=== PATIENT | female | born 1950 | race Caucasian/White ===

== ENCOUNTER → 2018-12-25 12:44 | Outpatient (CLI) | payer MEDICARE, SELFPAY ==
[2014-02-14 15:48] VITALS: BMI 42.5
[2018-12-25 13:08] LABS: International Normalized Ratio 2.7; Prothrombin Time (Protime)PT. 28.9 SECONDS (11.7-14.9)
== END ==
PROVIDERS: Family Provider Internal Medicine; PCP Internal Medicine; Referring Provider Internal Medicine; Visit Provider Internal Medicine
DX: I26.99 Other pulmonary embolism without acute cor pulmonale (principal); I82.4Y9 Acute embolism and thrombosis of unspecified deep veins of unspecified proximal lower extremity
CPT/HCPCS: 85610

== ENCOUNTER → 2019-03-19 13:12 | Outpatient (CLI) | payer MEDICARE, SELFPAY ==
[2014-02-14 15:48] VITALS: BMI 42.5
[2019-03-19 13:33] LABS: International Normalized Ratio 2.6; Prothrombin Time (Protime)PT. 28.3 SECONDS (11.7-14.9)
== END ==
PROVIDERS: Family Provider Internal Medicine; PCP Internal Medicine; Referring Provider Internal Medicine; Visit Provider Internal Medicine
DX: Z79.01 Long term (current) use of anticoagulants (principal); I26.99 Other pulmonary embolism without acute cor pulmonale; I82.4Y9 Acute embolism and thrombosis of unspecified deep veins of unspecified proximal lower extremity
CPT/HCPCS: 85610

== ENCOUNTER 2020-03-06 10:57 | Outpatient (RCR) | payer MEDICARE, SELFPAY ==
[2020-03-06 11:24] VITALS: BP 159/77; PULSE 67; RESP 18; TEMP 36.1; BMI 43.3
--- NOTE | 2020-03-06 16:06 | PCM.WC.HP ---
(1) Diabetic foot ulcer associated with type 2 diabetes mellitus Status: Acute Current Visit: Yes Qualifiers: Diabetic foot ulcer location: toe Laterality: right Non-pressure ulcer stage: with fat layer exposed Qualified Code(s): E11.621 - Type 2 diabetes mellitus with foot ulcer; L97.512 - Non-pressure chronic ulcer of other part of right foot with fat layer exposed Code(s): E11.621 - Type 2 diabetes mellitus with foot ulcer; L97.509 - Non-pressure chronic ulcer of other part of unspecified foot with unspecified severity (2) Bilateral lower extremity edema Status: Chronic Current Visit: Yes Code(s): R60.0 - Localized edema (3) Type 2 diabetes mellitus Status: Chronic Current Visit: Yes Code(s): E11.9 - Type 2 diabetes mellitus without complications (4) Essential hypertension Status: Chronic Current Visit: No Code(s): I10 - Essential (primary) hypertension History of Present Illness Date of Service: 03/06/20 Chief Complaint: Right foot ulcer of great toe History of Wound: Patient presents to the wound healing center on 03/06/2020 for an initial evaluation of a diabetic ulcer of her right great toe. She has a medical history significant for type 2 diabetes with peripheral neuropathy, hypertension, and a previous DVT of her right lower extremity in 2013. She reports that in recent weeks she got a new pair of shoes and experienced some pressure/rubbing on her right great toe, resulting in an ulcer. She has been applying Vaseline to her foot ulcer at home. She states that she has a prescription for diabetic shoes, but has not yet filled the prescription. She does not wear compression to her lower extremities while at home. Her blood glucose is poorly controlled. The patient denies any fever, chills, nausea, vomiting, or diarrhea. Denies any signs of infection, including increasing pain, redness, swelling, or frequent/foul-smelling drainage from affected area. Past Medical History Past Medical History: Chronic Problems Bilateral lower extremity edema (Chronic) Type 2 diabetes mellitus (Chronic) Essential hypertension (Chronic) Allergies/Adverse Reactions: Allergies codeine Allergy (Verified 02/14/14 17:02) Rash Penicillins [PCN] Allergy (Verified 02/14/14 15:53) Rash PT REPORTED NOT ALLERGIC Home Medications: Ambulatory Orders Medication Instructions Recorded metFORMIN HCl [Glucophage] 1,000 mg PO DAILY 02/14/14 Smoking Status: Never smoker Review of Systems Constitutional: Denies: Chills, Fever Eyes: Denies: Vision Change HEENT: Denies: Difficulty Hearing, Difficulty Swallowing, Sinus Congestion Cardiovascular: Denies: Chest Pain, Palpitations Respiratory: Denies: Shortness of Breath Gastrointestinal: Denies: Diarrhea, Nausea, Vomiting Genitourinary: Denies: Dysuria, Hematuria Musculoskeletal: Denies: Foot Pain Skin: Reports: Wounds - Diabetic foot ulcer of right great toe Neurological: Reports: Numbness - Chronic diabetic peripheral neuropathy, Tingling Endocrine: Denies: Heat/ Cold Intolerance, Polydipsia, Polyuria Hematologic/ Lymphatic: Reports: Hx of blood clot - DVT of right lower extremity in 2014. Denies: Easy Bruising, Easy Bleeding - Physical Exam Vital Signs Temp Pulse Resp BP 97.0 F L 67 18 159/77 H 03/06/20 11:24 03/06/20 11:24 03/06/20 11:24 03/06/20 11:24 General: Alert, Oriented x3, Cooperative, No apparent distress HEENT: Atraumatic, EOMI, Normocephalic Oral: Moist Mucosa Neck: No JVD, Trachea Midline Lungs: Clear to auscultation, Normal air movement, No rhonchi, No wheeze, No rales Cardiovascular: Regular rate, Regular Rhythm Abdomen: Soft, Non Tender Extremities: No clubbing, No cyanosis - +2 pitting edema bilateral lower extremities, Capillary Refill Less than 3 Seconds, Diminished Peripheral Pulses, Edema Skin: Ulcer/ Wound - Right great toe ulcer with large amount of surrounding callus and small amount of slough and devitalized tissue with fat layer exposed. There is no tunneling, undermining, or probing to bone. There is no allie-ulcer erythema, warmth, swelling or tenderness. There is no purulent or foul-smelling drainage. Wound Measurements and Assessment WC - Nurse 1 - General Ulcer Measurement Start: 03/06/20 11:24 Freq: Status: Active Protocol: Activity Type Activity Date Activity User E-Sign Co-Sign Detail Recorded Client Recorded Date Recorded By Document 03/06/20 11:24 RYAN [id number] 03/06/20 11:35 RYAN 03/06/20 11:24 Wound Center Nurse 1 [Ulcer Assessment] 1-right hallux -Combined with other wound No -Current Size (cm) - Length 0.4 -Current Size (cm) - Width 2.8 -Current Size (cm) - Depth 0.2 -Total Square Cm 1.12 -Photo Taken Yes -Epithelialization None Present -Tunneling No -Undermining/Tunneling No -Circular Undermining No -Classification - Ray Grading ( Grade 2 Diabetic Ulcer) -Exudate Amt None Present -Wound Margin Flat & Intact -Granulation Amt Medium (34-66%) -Granulation Quality Red -Slough/Fibrin Yes -Necrosis Amt Medium (34-66%) -Necrotic Tissue Type Adherent Slough -Structure Exposed N/A -Texture (Allie-wound Skin Appearance) Assessed,Callus -Moisture (Allie-wound Skin Appearance Assessed,Dry/ ) Scaly -Color (Allie-wound Skin Appearance) Assessed -Temperature (Allie-wound Skin No Abnormality Appearance) (Pt Warm) -Tenderness on Palpation (Allie-wound No Skin Appearance) -Ulcer Cleansing Rinsed/ Irrigated with Saline -Foul Odor after Cleansing No -Anesthetic Used 5% Lidocaine Gel [Edema Assessment] -Lower Limb Edema Present Yes -Right Ankle (cm) 36.5 -Left Ankle (cm) 34.0 WC - Nurse 2 - General Ulcer CM Notes Start: 03/06/20 11:24 Freq: Status: Active Protocol: Activity Type Activity Date Activity User E-Sign Co-Sign Detail Recorded Client Recorded Date Recorded By Document 03/06/20 13:53 JASON [id number] 03/06/20 13:54 PL 03/06/20 13:53 Wound Center Nurse 2 [Procedure/Treatment] 1-right hallux -Time 11:57 -Correct Patient Yes -Correct Side, Site, Position Yes -Correct Procedure Yes -Procedure Performed Yes -Type of Procedure Debridement -Clinical Debridement Subcutaneous -Tissue Removed Subcutaneous -Post Debridement (cm) - Length 0.5 -Post Debridement (cm) - Width 3.3 -Post Debridement (cm) - Depth 0.2 -Total Square (Post) (cm) 1.65 -Area of Debridement (cm) - Length 0.5 -Area of Debridement (cm) - Width 3.3 -Total Square (Area) (cm) 1.65 -Tunneling No -Undermining/Tunneling No -Circular Undermining No -Wound/Ulcer Outcome Not Healed -Bioengineered Tissue No -Debridement - Subq, 1st 20sq cm Yes [See Physician Procedure note for Specifics] Pain Scale: 0-10 Numeric [Pain] -Is Patient Pain Free? Yes Musculoskeletal: No Muscle Wasting Neurological: Neuro grossly intact Psych/Mental Status: Normal Affect, Appropriate Debridement Note Post-Debridement Measurements/Treatment WC - Nurse 2 - General Ulcer CM Notes Start: 03/06/20 11:24 Freq: Status: Active Protocol: Activity Type Activity Date Activity User E-Sign Co-Sign Detail Recorded Client Recorded Date Recorded By Document 03/06/20 13:53 PL [id number] 03/06/20 13:54 PL 03/06/20 13:53 Wound Center Nurse 2 1-right hallux -Time 11:57 -Correct Patient Yes -Correct Side, Site, Position Yes -Correct Procedure Yes -Procedure Performed Yes -Type of Procedure Debridement -Clinical Debridement Subcutaneous -Tissue Removed Subcutaneous -Post Debridement (cm) - Length 0.5 -Post Debridement (cm) - Width 3.3 -Post Debridement (cm) - Depth 0.2 -Total Square (Post) (cm) 1.65 -Area of Debridement (cm) - Length 0.5 -Area of Debridement (cm) - Width 3.3 -Total Square (Area) (cm) 1.65 -Tunneling No -Undermining/Tunneling No -Circular Undermining No -Wound/Ulcer Outcome Not Healed -Bioengineered Tissue No -Debridement - Subq, 1st 20sq cm Yes Pain Scale: 0-10 Numeric Is Patient Pain Free? Yes Wound debrided: Right great toe Laterality: Right Wound Grade/Stage: Ray grade 1 Type of Debridement: Excisional debridement Depth: in the subcutaneous layer Percentage of wound debrided: 100 Instrument Used: 3mm curette, #10 blade Tissue Removed: Callus, slough and devitalized tissue Severity: Fat Layer Exposed Amount of bleeding with debridement: Mild Bleeding Controlled with: Pressure Patient tolerated procedure well Assessment/Plan Active Problems Diabetic foot ulcer associated with type 2 diabetes mellitus (Acute) Bilateral lower extremity edema (Chronic) Type 2 diabetes mellitus (Chronic) Assessment: As above Plan: Debridement performed today in clinic. Moistened Sharonda applied. We will apply for advanced skin substitutes (Epifix). At home wound-care instructions: Perform daily dressing changes with moistened Sharonda. Keep ulcer clean and dry. Wash allie-ulcer area with antibacterial soap and water, rinse and dry thoroughly. Avoid soaking or submersion of ulcer. Compression: Double Tubigrip's applied today in office. Patient instructed to wear Tubigrip's daily. Instructed to keep feet at or above waist level when seated. Avoid prolonged periods of standing or dangling of legs. Off-loading: Patient encouraged to fill prescription for diabetic shoes. Educated on the importance of preventing pressure on diabetic foot ulcer. Diet: Patient encouraged to increase protein and vitamin C intake while taking caution to avoid high carbohydrate and/or sugar intake. Labs/cultures/imaging: Cultures deferred; there are no clinical signs of infection. Routine baseline labwork ordered. Vascular studies ordered. Follow-up: Return to clinic in 2 weeks for re-evaluation. Return sooner or report to the emergency room should symptoms worsen, or new symptoms arise. Note: [employer] speech recognition extruder operator horizontal software was used to create portions of this document. Sound-alike and misspelled words, as well as other extruder operator horizontal errors may be contained in the documentation. Office Visits / Consults: [id number] OV L4 New 111xxx-113xx: [id number] Kari subq tissue 20 sq cm/<
== END 2020-03-25 23:59 ==
LOC: WC 10:57
PROVIDERS: PCP Internal Medicine; Visit Provider Nurse Practitioner Family
DX: E11.621 Type 2 diabetes mellitus with foot ulcer (principal); L97.512 Non-pressure chronic ulcer of other part of right foot with fat layer exposed; R60.0 Localized edema; I10 Essential (primary) hypertension; E11.42 Type 2 diabetes mellitus with diabetic polyneuropathy; Z86.718 Personal history of other venous thrombosis and embolism; Z79.84 Long term (current) use of oral hypoglycemic drugs
CPT/HCPCS: 11042; 99213; G0463

== ENCOUNTER 2020-12-03 14:45 | Outpatient (RCR) | payer MEDICARE, SELFPAY ==
--- NOTE | 2020-12-04 07:49 | HP.OTEVAL_ITS ---
Patient's Visit Information MARK SOARES is a 69 year old F, referred to Occupational Therapy by SANDRA Mcgill, with a diagnosis of lymphedmea. Date of Evaluation: 12/03/20 Occupational Therapist: Medina Finch, RANR/Bonnie, CHT - Subjective This 69 year old female was seen for OT eval with dx. of Lymphedema. pt states her right leg is more swollen than left. pt states she has had swelling for over two years. pt states she thinks she did have cellulitis at one point. pt states she has more issue while she was in [place]. pt states she sleeps in a recliner. pt states she has had a compression socks but was unable to get them on. pt is currently using tubigrip that does help and her can get them on. - Lymphedema (Circumferential Measure) Mid-foot: right 26cm left 26cm Ankle: right 26cm left 26cm Lower calf: right 44cm left 42cm Largest calf: right 60cm left 58cm Below knee: right 54cm left 48cm - Lower Limb Functional Index Lower Extremity Functional Score: 25 - Goals Demonstrate a 20% reduction in edema by d/c: Yes Demonstrate adequate knowledge of self-massage by 2nd week: Yes Demonstrate adequate knowledge skin care/prec by 2nd week: Yes Demonstrate adequate knowledge therapeutic exercises by d/c: Yes Select approp compression garment w/donning/care/wear by d/c: Yes Voice need to replace compression garment every 4-6mo by dc: Yes - Rehabilitation General Assessment: pt demo with edema in bilateral LE. pt has attempted to mtg swelling but has not been able to do so. this has made increase difficulty with her mobility and lifting legs to get in car, or in and out of bed. Pt demo need for skilled therapy services 2-3 visits to ed. pt on lymphedema dx, treatments, lymph stimulation exercises, self manual lymph drainage massage, and use of compression device (socks or Velcro closures). Today therapist ed. pt on dx, beneficial exercise, skin care,/precautions, how to measure for compression socks and where she can purchase them. therapist also ed. pt on self manual lymph drainage massage. therapist gave handouts on information- Pt and pts demo understanding and agree to POC. Rehabilitation Potential: Questionable - Anticipated Interventions Education re Diagnosis, Manual Lymph Drainage, Education re Life-long lymphedema Management, Education re Skin Care and Precautions, Education re Self Massage Techniques, Education re Correct Donning Tech,Care&Wearing Sched Comp Garments, Caregiver Training, Home Program - Visit Plan TEXT: Thank you for the opportunity to evaluate your patient. For Medicare and Medicare HMO plans, please review the plan of care and approve it. It will need to be FAXED BACK to us at [phone] for Medicare purposes. Please let me know if there are questions or concerns regarding this plan of care. Physician Signature: Date:
--- NOTE | 2021-02-15 16:07 | HP.OT.NRP ---
MARK SOARES was seen in my office for initial evaluation on 12/03/20. The following Plan of Care was established for this patient: pt was seen for eval only. Did not schedule further apts. pt d.c. at this time. Anticipated Interventions: Education re Diagnosis, Manual Lymph Drainage, Education re Life-long lymphedema Management, Education re Skin Care and Precautions, Education re Self Massage Techniques, Education re Correct Donning Tech,Care&Wearing Sched Comp Garments, Caregiver Training, Home Program This patient was last seen in our office . Pertinent comments regarding their Occupational therapy will appear below: At this point I will be discontinuing this patient from occupational therapy. I would be happy to see this patient again in the future if found appropriate by the physician. Thank you! Medina Ficnh, OTR/L, CHT
== END 2020-12-03 19:00 | disposition home or self-care (01) ==
LOC: OT 14:45
PROVIDERS: PCP Internal Medicine; Referring Provider Nurse Practitioner; Visit Provider Nurse Practitioner
DX: I89.0 Lymphedema, not elsewhere classified (principal); I87.2 Venous insufficiency (chronic) (peripheral)
CPT/HCPCS: 97166; 97530

== ENCOUNTER 2021-06-28 13:20 | Outpatient (CLI) | payer MEDICARE, SELFPAY | END 2021-06-28 23:59 | disposition short-term general hospital (02) | LOC: LABSPEC 13:23 | PROVIDERS: PCP Internal Medicine; Referring Provider Physician Assistant; Visit Provider Physician Assistant | DX: Z11.52 Encounter for screening for COVID-19 (principal) | CPT/HCPCS: 87635; U0003; U0005 ==

== ENCOUNTER 2022-03-12 20:14 | Inpatient (IN) | payer MEDICARE, SELFPAY ==
[2022-03-12] VITALS (8 sets, daily range): BP systolic 101–142; BP diastolic 49–80; PULSE 76–119; RESP 17–31; TEMP 37.2–37.9; O2SAT 94–98; BMI 44.4; BMI 45.1
--- NOTE | 2022-03-12 20:37 | EDS_ITS ---
HPI History of Present Illness Chief Complaint: General Illness Informant: patient Narrative Narrative: Patient states she has not been feeling well for about a day. She has some nausea but no vomiting. She states she has brought up just a little bit of phlegm. She denies coughing or dyspnea. She is urinating more frequently but no dysuria. She is also having some mild diarrhea without blood. She is not having abdominal pain. She does have generalized weakness. She took a home COVID test that was negative. She also got her fifth COVID-vaccine on Monday and the symptoms started likely on Monday. She does not know exactly which vaccine she took. She did not have problems that she recalls with prior vaccines. Her got the same vaccine and he is not having symptoms. [facility] Medical History Diabetes Hyperlipidemia Home Medications metformin 1,000 mg tablet 1,000 mg PO DAILY 02/14/14 [History Last Taken Unknown] atorvastatin 80 mg tablet 80 mg PO QHS 03/12/22 [History Last Taken Unknown] glimepiride 4 mg tablet 8 mg PO DAILY 03/12/22 [History Last Taken Unknown] levothyroxine 75 mcg tablet (Synthroid) 75 mcg PO DAILY 03/12/22 [History Last Taken Unknown] warfarin 1 mg tablet 1 mg PO MOFR 03/12/22 [History Last Taken Unknown] warfarin 2 mg tablet 2 mg PO SUTUWETHSA 03/12/22 [History Last Taken Unknown] Allergy/AdvReac Type Severity Reaction Status Date / Time codeine Allergy Rash Verified 03/12/22 20:20 Penicillins [PCN] Allergy Rash Verified 03/12/22 20:20 Social History Smoking Status: Never smoker [facility] ED Constitutional Constitutional ED: Reports chills, fever(s) and subjective Eyes Eyes: Denies change in vision ENT ENT ED: Reports other Details: Throat is dry but not sore ; Denies ear pain, rhinorrhea or sore throat Cardiovascular Cardiovascular: Denies chest pain, palpitations or racing heartbeat Respiratory/Chest Respiratory/Chest: Denies dyspnea Gastrointestinal Gastrointestinal: Reports diarrhea and nausea; Denies abdominal pain or vomiting Genitourinary Genitourinary ED: Reports urinary frequency; Denies dysuria or hematuria Musculoskeletal Musculoskeletal: Reports myalgias Integumentary Denies Abrasions or rash Neurologic Neurologic: Denies headache(s), paresthesias or weakness Endocrine Endocrinology: Reports polyuria; Denies polydipsia Hematologic/Lymphatic Hematologic/Lymphatic: Reports easy bleeding and easy bruising Allergic/Immunologic Allergic/Immunologic ED: Denies urticaria EXAM Physical Exam Const Vital Signs: 03/12/22 20:15 03/12/22 20:26 03/12/22 21:18 Temperature 100.1 F H 99 F Temperature Source Oral Oral Pulse Rate 85 119 H Respiratory Rate 17 19 H Respiratory Effort Normal Non-Labored Respiratory Pattern Normal Blood Pressure 142/71 H 130/80 H Blood Pressure Mean 94 96 Pulse Ox 96 97 Oxygen Delivery Method Room Air Room Air 03/12/22 22:08 Temperature 99.3 F H Temperature Source Oral Pulse Rate 94 Respiratory Rate 19 H Respiratory Effort Respiratory Pattern Blood Pressure 128/56 H Blood Pressure Mean 80 Pulse Ox 94 Oxygen Delivery Method Room Air Positive well nourished and well developed General Appearance ED: well developed HEENT Reports dry mucous membranes Mouth ED: Yes dry mucous membranes Mouth: dry mucous membranes Eyes General Eye ED: Negative for scleral icterus Neck supple and no JVD Resp normal respiratory effort and clear to auscultation bilaterally Resp Narrative: 96% sat on room air showing no hypoxia. Auscultation: Negative for rales, rhonchi or wheezes Cardio regular rate and regular rhythm GI normal to inspection, nondistended, normoactive bowel sounds, non-tender and non-distended Extremity Extremity Narrative: Bilateral chronic edema no different than in the past Neuro oriented x3 Neuro Narrative: Patient is awake alert and oriented. But she seems somewhat tired and worn out. No focal deficit. Psych mental status grossly normal Skin no rashes or lesions noted MDM MDM MDM Narrative Medical decision making narrative: Patient's white count is elevated at 20,024. INR is just below therapeutic at 1.9. She has a acute kidney injury with elevated creatinine. Glucose is elevated at 471. She is given IV fluids and insulin to help the kidney function and glucose. Lactate was 3.7. This is likely a combination of dehydration, infection and being on metformin. Urine is cloudy with positive nitrates and 10-25 white cells. Even though this is not an extremely high number of white cells, she has polyuria from her hyperglycemia which is diluting this. She has symptoms of urine infection along with white count fever and elevated lactate. She was given IV fluids here. But because her heart rate and blood pressure is good we did not give her 30 cc/kg. Part of her lactate elevation is likely also due to metformin. We will give fluids and intermittent amounts and reassess the patient. As she has allergies to penicillins she is given Levaquin. I discussed case with the hospitalist. With her elevated lactate she will go to the ICU. Lab Data Attestation: I reviewed the patient's lab results. Labs: Laboratory Results - last 24 hr 03/12/22 03/12/22 03/12/22 20:21 20:21 20:21 WBC 20.4 H RBC 4.67 Hgb 12.9 Hct 40.3 MCV 86.3 MCH 27.6 MCHC 32.0 RDW Std Deviation 47.6 H RDW Coeff of Dayo 15.1 H Plt Count 233 MPV 9.1 Immature Gran % (Auto) 0.900 Neut % (Auto) 93.3 H Lymph % (Auto) 2.8 L [place] % (Auto) 2.9 Eos % (Auto) 0.0 Baso % (Auto) 0.1 Absolute Neuts (auto) 19.1 H Absolute Lymphs (auto) 0.57 L Nucleated RBC % 0 Differential Comment SCANNED PT 21.5 H INR 1.9 Sodium 130 L Potassium 4.1 Chloride 95 L Carbon Dioxide 21.0 Anion Gap 14 BUN 34 H Creatinine 1.83 H Estim Creat Clear Calc 29.27 Est GFR (MDRD) Af Amer 35 L Est GFR (MDRD) Non-Af 29 L BUN/Creatinine Ratio 18.6 Glucose 471 H* Lactic Acid Calcium 9.4 Total Bilirubin 0.70 AST 16 ALT 22 Alkaline Phosphatase 87 Total Protein 8.7 H Albumin 3.5 Globulin 5.2 H Albumin/Globulin Ratio 0.7 L Urine Color Urine Clarity Urine pH Ur Specific [place] Urine Protein Urine Glucose (UA) Urine Ketones Urine Occult Blood Urine Nitrite Urine Bilirubin Urine Urobilinogen Ur Leukocyte Esterase Urine RBC Urine WBC Ur Squamous Epith Cells Urine Bacteria Urine Mucus Urine Yeast POC Glucose 03/12/22 03/12/22 03/12/22 20:21 20:22 20:45 WBC RBC Hgb Hct MCV MCH MCHC RDW Std Deviation RDW Coeff of Dayo Plt Count MPV Immature Gran % (Auto) Neut % (Auto) Lymph % (Auto) [place] % (Auto) Eos % (Auto) Baso % (Auto) Absolute Neuts (auto) Absolute Lymphs (auto) Nucleated RBC % Differential Comment PT INR Sodium Potassium Chloride Carbon Dioxide Anion Gap BUN Creatinine Estim Creat Clear Calc Est GFR (MDRD) Af Amer Est GFR (MDRD) Non-Af BUN/Creatinine Ratio Glucose Lactic Acid 3.7 H* Calcium Total Bilirubin AST ALT Alkaline Phosphatase Total Protein Albumin Globulin Albumin/Globulin Ratio Urine Color Yellow Urine Clarity Sl. Cloudy Urine pH 5.0 Ur Specific [place] 1.010 Urine Protein 100 H Urine Glucose (UA) 1000 H Urine Ketones 5 H Urine Occult Blood 250 H Urine Nitrite Positive H Urine Bilirubin Negative Urine Urobilinogen Normal Ur Leukocyte Esterase 25 H Urine RBC 0-5 SEEN Urine WBC 10-25 SEEN Ur Squamous Epith Cells 0-5 SEEN Urine Bacteria 1+ Urine Mucus 0 SEEN Urine Yeast RARE POC Glucose 467 H* Radiography Diagnostic Testing: Clinical Impression(s) from Imaging Studies Chest X-Ray 03/12/22 21:00 IMPRESSION: Normal x-ray examination of the chest. Electronically Signed: Teodoro Mann MD at 21:38 EDT , Critical Care Time Critical Care Time: Yes Critical care time (excluding procedures): 30-74 minutes, Including time spent:, Discussing w/Patient &/or Family/Dock Loader, Discussing w/Consultants, Arranging Admission or Transfer, Performing Direct Patient Care at Bedside and - (35 minutes, discussion with patient, family, documentation, hospitalist, reassessing, fluids, antibiotics, insulin) Discharge Plan Dx/Rx/DC Orders Clinical Impression: Sepsis, Urinary tract infection, Hyperglycemia, Acidosis, lactic, Acute kidney injury Disposition Disposition: [facility]
[2022-03-12 20:41] LABS: Bedside Glucose 467 mg/dL (74-106)
[2022-03-12] MEDS: Acetaminophen 500 MG Tablet 1000 MG PO (20:49)
[2022-03-12] MEDS: Ondansetron 4 MG/2 ML Vial IV (20:50)
[2022-03-12 20:51] LABS: Absolute Lymphocyte Count 0.57 X10^3/uL (0.83-4.51); Absolute Neutrophil Count 19.1 X10^3/uL (2.0-7.7); Basophil# 0.02 X10^3/uL; Basophil% 0.1 % (0-1); Hematocrit 40.3 % (37-47); Hemoglobin 12.9 g/dL (12.0-15.0); Lymphocyte # 0.57 X10^3/ul (0.83-4.51); Lymphocyte % 2.8 % (19-41); Mean Corpuscular Hgb 27.6 pg (27.0-32.0); Mean Corpuscular Volume 86.3 fL (81-99); Mean Platelet Vol. 9.1 fl (6.2-12.0); Monocyte# 0.59 X10^3/uL; Monocyte% 2.9 % (0-10); NRBC Flagged by Analyzer 0 % (0-5); Neutrophil # 19.06 X10^3/uL (2.7-7.7); Neutrophil % 93.3 % (47-70); POSITIVE DIFFERENTIAL YES; Platelet Count 233 K/mm3 (150-450); RBC Distribution Width CV 15.1 % (11.6-14.6); RBC Distribution Width SD 47.6 fl (35.1-43.9); Red Blood Count 4.67 M/mm3 (4.2-5.4); White Blood Count 20.4 K/mm3 (4.4-11.0)
[2022-03-12 20:54] LABS: Mucous, Urine 0 SEEN /hpf (<or=2+)
--- NOTE | 2022-03-12 21:00 | RAD_ITS ---
STUDY: X-RAY CHEST REASON FOR EXAM: Female, 71 years old. fever TECHNIQUE: Single AP portable view of the chest. COMPARISON: 02/14/2014 FINDINGS: The lungs are clear and expanded. There is no demonstrated pleural abnormality. Normal size heart. Normal mediastinum and elisa. Normal visualized pulmonary arteries. Normal visualized aortic arch and descending thoracic aorta. Normal visualized thoracic spine. Normal visualized ribs, clavicles, and shoulders. There is no demonstrated abnormality of the visualized soft tissue structures of the upper abdomen. RAD/Chest 1 View (Portable) IMPRESSION: Normal x-ray examination of the chest. Electronically Signed: Teodoro Mann MD at 21:38 EDT ,
[2022-03-12 21:01] LABS: Differential Indicated SCAN CRITERIA MET
[2022-03-12 21:01] LABS: Color, Urine Yellow (Yellow); Glucose, Dipstick 1000 mg/dl (Normal); Ketone-Dipstick 5 mg/dl (Negative); Leukocyte Esterase-Dipstick 25 /ul (Negative); Nitrite-Dipstick Positive (Negative); Occult Blood-Urine 250 /ul (Negative); Protein-Dipstick 100 mg/dl (Negative); Urine Bilirubin Dipstick Negative (Negative); Urine Clarity Sl. Cloudy (Clear); Urine Urobilinogen Normal (Normal)
[2022-03-12 21:04] LABS: International Normalized Ratio 1.9; Prothrombin Time (Protime)PT. 21.5 SECONDS (11.7-14.9)
[2022-03-12 21:24] LABS: ALB/GLOB Ratio 0.7 RATIO (0.9-2.4); AST(SGOT) 16 U/L (15-37); Alanine Aminotransfer ALT/SGPT 22 U/L (13-56); Albumin, Serum 3.5 g/dL (3.2-5.0); Alkaline Phosphatase 87 U/L (45-117); Anion Gap 14 (5-15); BUN 34 mg/dL (7-18); BUN/Creat Ratio 18.6 RATIO (10-20); Calcium,Total 9.4 mg/dL (8.5-10.1); Chloride 95 mmol/L (98-107); Creatinine, Serum 1.83 mg/dL (0.55-1.02); EST Glomerular Filtration Rate 29 mL/min (>60); Est Glom Filt Rate - Afr Amer 35 mL/min (>60); Estimated Creatinine Clearance 29.27 ml/min; Globulin 5.2 g/dL (2.2-4.2); Glucose 471 mg/dL (74-106); Potassium 4.1 mmol/L (3.5-5.1); Protein, Total 8.7 g/dL (6.4-8.2); Sodium Level 130 mmol/L (136-145)
[2022-03-12 21:25] LABS: White Blood Cells 10-25 SEEN /hpf (0-5)
[2022-03-12 21:25] LABS: Differential Comment SCANNED
[2022-03-12 21:26] LABS: Bacteria 1+ /hpf (None Seen); Red Blood Cells-Urine 0-5 SEEN /hpf (0-5); Squamous Epithelial Cells - UA 0-5 SEEN /hpf (5-10); Yeast-Urine RARE /hpf (None Seen)
[2022-03-12] MEDS: levoFLOXacin IV 750 MG/150 ML BAG 100 MG IV (21:45)
[2022-03-12] MEDS: 0.9% Normal Saline 1,000 ML 999 ML IV (21:45)
[2022-03-12] MEDS: Insulin Lispro 100 UNIT/ML INSULN.PEN 10 UNIT SC (21:47)
[2022-03-12 21:59] LABS: Lactic Acid 3.7 mmol/L (0.4-1.9)
--- NOTE | 2022-03-12 22:44 | PCM.HP.STD ---
HPI - General General Date of Admission: 03/12/22 Date of Service: 03/12/22 Chief Complaint: Weakness HPI Narrative MARK SOARES, is a 71 F with a significant history of DVT, PE, and diabetes mellitus who presents to the emergency department with a progressively worsening weakness that started on the same day of presentation. Patient was too weak that she could not get up with a walker and even with assistance. Associated with her symptoms is nausea, vomiting, polyuria, urinary urgency, dysuria, fever, and chills. Further, she has anorexia. Reportedly at home, her temperature was 100.8 Fahrenheit. Also she had mild confusion. [facility] Medical History Diabetes Hyperlipidemia Home Medications metformin 1,000 mg tablet 1,000 mg PO DAILY 02/14/14 [History Last Taken Unknown] atorvastatin 80 mg tablet 80 mg PO QHS 03/12/22 [History Last Taken Unknown] glimepiride 4 mg tablet 8 mg PO DAILY 03/12/22 [History Last Taken Unknown] levothyroxine 75 mcg tablet (Synthroid) 75 mcg PO DAILY 03/12/22 [History Last Taken Unknown] warfarin 1 mg tablet 1 mg PO MOFR 03/12/22 [History Last Taken Unknown] warfarin 2 mg tablet 2 mg PO SUTUWETHSA 03/12/22 [History Last Taken Unknown] Allergy/AdvReac Type Severity Reaction Status Date / Time codeine Allergy Rash Verified 03/12/22 20:20 Penicillins [PCN] Allergy Rash Verified 03/12/22 20:20 Family History Other CVA (cerebral vascular accident) Pancreatic cancer Surgical History H/O: hysterectomy Social History Smoking Status: Never smoker ROS ROS Narrative Pertinent positives and pertinent negatives as noted in HPI. All other systems were reviewed and are negative Vital Signs Vital Signs Vital Signs: 03/12/22 20:15 03/12/22 20:26 03/12/22 21:18 Temperature 100.1 F H 99 F Temperature Source Oral Oral Pulse Rate 85 119 H Respiratory Rate 17 19 H Respiratory Effort Normal Non-Labored Respiratory Pattern Normal Blood Pressure 142/71 H 130/80 H Blood Pressure Mean 94 96 Pulse Ox 96 97 Oxygen Delivery Method Room Air Room Air 03/12/22 22:08 Temperature 99.3 F H Temperature Source Oral Pulse Rate 94 Respiratory Rate 19 H Respiratory Effort Respiratory Pattern Blood Pressure 128/56 H Blood Pressure Mean 80 Pulse Ox 94 Oxygen Delivery Method Room Air Weight Weight: 132.7 kg Body Mass Index (BMI) 44.4 Physical Exam Narrative Physical exam: General: Well-nourished, well-developed. Head: Normocephalic, atraumatic, no tenderness Eyes: Vision is grossly intact. EOMI ENT, no trauma, dry mucous membranes, no rhinorrhea Neck: Nontender, full range of motion CVS: Regular rate and rhythm. S1-S2 present. No murmur, gallop or rub. Respiratory : clear to auscultation bilaterally, chest wall nontender, no wheezing Abdomen: Soft, nontender, nondistended, normal bowel sounds, no masses : Deferred Back: Nontender, no CVA tenderness Extremities: Nontender full range of motion, no trauma Skin: Normal color, no trauma, abrasions Neuro: Alert, oriented, cranial nerves II through XII grossly intact. Psychiatry: Normal mood. Normal affect. Not depressed. Not anxious. Results Lab / Micro Data Result Diagrams: 03/12/22 20:21 03/12/22 20:21 Labs: Laboratory Results - last 24 hr 03/12/22 20:21: WBC 20.4 H, RBC 4.67, Hgb 12.9, Hct 40.3, MCV 86.3, MCH 27.6, MCHC 32.0, RDW Std Deviation 47.6 H, RDW Coeff of Dayo 15.1 H, Plt Count 233, MPV 9.1, Immature Gran % (Auto) 0.900, Neut % (Auto) 93.3 H, Lymph % (Auto) 2.8 L, [place] % (Auto) 2.9, Eos % (Auto) 0.0, Baso % (Auto) 0.1, Absolute Neuts (auto) 19.1 H, Absolute Lymphs (auto) 0.57 L, Nucleated RBC % 0, Differential Comment SCANNED 03/12/22 20:21: PT 21.5 H, INR 1.9 03/12/22 20:21: Sodium 130 L, Potassium 4.1, Chloride 95 L, Carbon Dioxide 21.0, Anion Gap 14, BUN 34 H, Creatinine 1.83 H, Estim Creat Clear Calc 29.27, Est GFR (MDRD) Af Amer 35 L, Est GFR (MDRD) Non-Af 29 L, BUN/Creatinine Ratio 18.6, Glucose 471 H*, Calcium 9.4, Total Bilirubin 0.70, AST 16, ALT 22, Alkaline Phosphatase 87, Total Protein 8.7 H, Albumin 3.5, Globulin 5.2 H, Albumin/Globulin Ratio 0.7 L 03/12/22 20:21: Lactic Acid 3.7 H* 03/12/22 20:22: POC Glucose 467 H* 03/12/22 20:45: Urine Color Yellow, Urine Clarity Sl. Cloudy, Urine pH 5.0, Ur Specific [place] 1.010, Urine Protein 100 H, Urine Glucose (UA) 1000 H, Urine Ketones 5 H, Urine Occult Blood 250 H, Urine Nitrite Positive H, Urine Bilirubin Negative, Urine Urobilinogen Normal, Ur Leukocyte Esterase 25 H, Urine RBC 0-5 SEEN, Urine WBC 10-25 SEEN, Ur Squamous Epith Cells 0-5 SEEN, Urine Bacteria 1+, Urine Mucus 0 SEEN, Urine Yeast RARE Micro: Microbiology 03/12/22 20:45 Nasal Secretion SARS-CoV-2 & FLU Antigen (Rapid) - Final Radiology Impression Chest X-Ray 03/12/22 21:00 IMPRESSION: Normal x-ray examination of the chest. Electronically Signed: Teodoro Mann MD at 21:38 EDT , Assessment & Plan Assessment/Plan (1) Sepsis: (2) Urinary tract infection: (3) Hyperglycemia: (4) Acute kidney injury: (5) Acidosis, lactic: (6) Essential hypertension: (7) Type 2 diabetes mellitus: (8) Morbid obesity with BMI of 40.0-44.9, adult: PLAN: Plan Sepsis secondary to UTI Urinalysis abnormal. The patient presented with sepsis due to UTI with acute sepsis related organ dysfunction as evidenced by lactic acid of more than 2. Her lactic acid was 3.7. Metformin likely contributing to elevated lactic acid.. SIRS criteria: Heart rate of more than 90; WBC more than 12,000; Received Levaquin emergency department. Because of TRAVIS will avoid further Levaquin. Reports previous history of allergy to penicillin many years ago. But reportedly she had penicillin more recently and was observed without any reaction. Ceftriaxone ordered. Urine culture and blood culture was obtained in the emergency department follow. Trend CBC. Admit intensive care unit. Hr Coordinator consult. Diabetes mellitus with hyperglycemia Blood glucose on BMP was 471. Received 10 units of lispro at emergency department on presentation. Normal saline bolus given in the emergency department. Hold metformin. Glimepiride continued. Accu-Chek with correction scale insulin continued. Pseudohyponatremia Sodium of 130. Blood glucose of 471. Corrected sodium of 136. Trend BMP. TRAVIS on CKD stage III/dehydration Creatinine on presentation was 1.83. Dry mucous membrane. BUN is 34. BUN over creatinine is 18.6. Review of electronic community records shows that creatinine was 1.11 and EGFR of 54 on 10/01/2021. 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 History of DVT and PE/subtherapeutic INR INR on presentation was 1.9. Escalate dose of Coumadin. Trend INR Hypertension Blood pressure is stable. Trend blood pressures Debility PT and OT to work with patient for strengthening and balance training. Morbid obesity BMI: 44.5 kg/m?. Complicates care. Lifestyle modification recommended. DVT prophylaxis: Coumadin dosing INR as above. Sepsis Attestation Sepsis Alert: Yes Sepsis Attestation: Agree w/Sepsis Date exam was performed: 03/12/22 Time exam was performed: 23:20 Possible Source of Sepsis: GI tract/intra-abdominal Sepsis Organ Dysfunction Criteria Present: Lactic Acid > 2 mmol/L Sepsis Note Date exam was performed: 03/12/22 Time exam was performed: 23:21 Sepsis Attestation: Sepsis re-evaluation was performed Charges/Coding Visit Charges Inpatient E&M: 91007 Init Hosp L3
[2022-03-12] MEDS: 0.9% Normal Saline 1,000 ML 100 ML IV (23:52)
[2022-03-13] VITALS (26 sets, daily range): BP systolic 96–158; BP diastolic 50–91; PULSE 66–95; RESP 16–35; TEMP 36.9–39; O2SAT 91–100
[2022-03-13 00:47] LABS: Reflex Lactate? Y
[2022-03-13 01:31] LABS: Lactic Acid 3.7 mmol/L (0.4-1.9)
[2022-03-13] MEDS: Acetaminophen 325 MG Tablet 650 MG PO ×2 (02:32→07:59)
[2022-03-13] MEDS: CHLORHEXIDINE GLUC 2% CLOTH 1 EACH TOWELETTE TOPICAL (02:34)
[2022-03-13] MEDS: Ondansetron 4 MG/2 ML Vial IV ×2 (02:39→16:20)
[2022-03-13] MEDS: 0.9% Saline Lock 10 ML Syringe IV (02:39)
[2022-03-13 04:04] LABS: Absolute Lymphocyte Count 0.37 X10^3/uL (0.83-4.51); Absolute Neutrophil Count 16.1 X10^3/uL (2.0-7.7); Basophil# 0.02 X10^3/uL; Basophil% 0.1 % (0-1); Hematocrit 35.6 % (37-47); Hemoglobin 11.3 g/dL (12.0-15.0); Lymphocyte # 0.37 X10^3/ul (0.83-4.51); Lymphocyte % 2.2 % (19-41); Mean Corp Hgb Conc 31.7 g/dL (32-36); Mean Corpuscular Hgb 27.6 pg (27.0-32.0); Mean Corpuscular Volume 86.8 fL (81-99); Mean Platelet Vol. 8.6 fl (6.2-12.0); Monocyte# 0.48 X10^3/uL; Monocyte% 2.8 % (0-10); NRBC Flagged by Analyzer 0 % (0-5); Neutrophil # 16.06 X10^3/uL (2.7-7.7); Neutrophil % 93.8 % (47-70); POSITIVE DIFFERENTIAL YES; Platelet Count 183 K/mm3 (150-450); RBC Distribution Width CV 15.3 % (11.6-14.6); RBC Distribution Width SD 48.6 fl (35.1-43.9); White Blood Count 17.1 K/mm3 (4.4-11.0)
[2022-03-13 04:09] LABS: Differential Indicated SCAN CRITERIA MET
[2022-03-13 04:14] LABS: International Normalized Ratio 2.1; Prothrombin Time (Protime)PT. 22.9 SECONDS (11.7-14.9)
[2022-03-13 04:16] LABS: Bedside Glucose 382 mg/dL (74-106)
[2022-03-13 04:19] LABS: Anion Gap 10 (5-15); BUN 33 mg/dL (7-18); BUN/Creat Ratio 19.3 RATIO (10-20); Calcium,Total 8.2 mg/dL (8.5-10.1); Chloride 98 mmol/L (98-107); Creatinine, Serum 1.71 mg/dL (0.55-1.02); EST Glomerular Filtration Rate 31 mL/min (>60); Est Glom Filt Rate - Afr Amer 38 mL/min (>60); Estimated Creatinine Clearance 30.19 ml/min; Glucose 403 mg/dL (74-106); Potassium 3.9 mmol/L (3.5-5.1); Sodium Level 130 mmol/L (136-145)
[2022-03-13] MEDS: Levothyroxine 75 MCG Tablet PO (06:21)
[2022-03-13] MEDS: Insulin Lispro 100 UNIT/ML INSULN.PEN SC ×4 (06:23→21:33)
[2022-03-13 06:50] LABS: Bedside Glucose 413 mg/dL (74-106)
[2022-03-13 07:00] LABS: Differential Comment SCANNED
[2022-03-13] MEDS: Glimepiride 4 MG Tablet 8 MG PO (07:55)
[2022-03-13] MEDS: Menthol/Lanolin/Calamine/Znox 113 GM Tube 1 APPLIC TOPICAL ×2 (07:57→21:32)
[2022-03-13] MEDS: Enoxaparin 30 MG/0.3 ML Syringe SC (07:57)
[2022-03-13] MEDS: Nystatin Powder 15gm Bottle 1 APPLIC TOPICAL ×2 (07:58→21:32)
--- NOTE | 2022-03-13 08:11 | PCM.PN.HOSP ---
Subjective Subjective Had fever this AM. Has had a right great toe lesion for some time. Apparently it bled when she was working with therapy today. Objective Data Objective Data Vital Signs: Vital Signs Temp Pulse Resp BP Pulse Ox O2 Del Method O2 Flow Rate 39.0 C H 79 16 119/60 100 Nasal Cannula 2 03/13/22 07:48 03/13/22 07:48 03/13/22 07:48 03/13/22 07:48 03/13/22 07:48 03/13/22 07:48 03/13/22 07:48 Oxygen Flow Rate (L/min) 2 Oxygen Delivery Method Nasal Cannula Weight: 130.6 kg Body Mass Index (BMI) 45.1 Intake & Output: Intake and Output for Last 24 Hours 03/11/22 03/12/22 03/13/22 23:59 23:59 23:59 Intake Total 1650 / 1650 500 / 500 Output Total 1550 / 1550 Balance 1650 / 1650 -1050 / -1050 Lab / Micro Data Result Diagrams: 03/13/22 03:55 03/13/22 03:55 Labs: Laboratory Results - last 24 hr 03/12/22 20:21: WBC 20.4 H, RBC 4.67, Hgb 12.9, Hct 40.3, MCV 86.3, MCH 27.6, MCHC 32.0, RDW Std Deviation 47.6 H, RDW Coeff of Dayo 15.1 H, Plt Count 233, MPV 9.1, Immature Gran % (Auto) 0.900, Neut % (Auto) 93.3 H, Lymph % (Auto) 2.8 L, [place] % (Auto) 2.9, Eos % (Auto) 0.0, Baso % (Auto) 0.1, Absolute Neuts (auto) 19.1 H, Absolute Lymphs (auto) 0.57 L, Nucleated RBC % 0, Differential Comment SCANNED 03/12/22 20:21: PT 21.5 H, INR 1.9 03/12/22 20:21: Sodium 130 L, Potassium 4.1, Chloride 95 L, Carbon Dioxide 21.0, Anion Gap 14, BUN 34 H, Creatinine 1.83 H, Estim Creat Clear Calc 29.27, Est GFR (MDRD) Af Amer 35 L, Est GFR (MDRD) Non-Af 29 L, BUN/Creatinine Ratio 18.6, Glucose 471 H*, Calcium 9.4, Total Bilirubin 0.70, AST 16, ALT 22, Alkaline Phosphatase 87, Total Protein 8.7 H, Albumin 3.5, Globulin 5.2 H, Albumin/Globulin Ratio 0.7 L 03/12/22 20:21: Lactic Acid 3.7 H* 03/12/22 20:22: POC Glucose 467 H* 03/12/22 20:45: Urine Color Yellow, Urine Clarity Sl. Cloudy, Urine pH 5.0, Ur Specific [place] 1.010, Urine Protein 100 H, Urine Glucose (UA) 1000 H, Urine Ketones 5 H, Urine Occult Blood 250 H, Urine Nitrite Positive H, Urine Bilirubin Negative, Urine Urobilinogen Normal, Ur Leukocyte Esterase 25 H, Urine RBC 0-5 SEEN, Urine WBC 10-25 SEEN, Ur Squamous Epith Cells 0-5 SEEN, Urine Bacteria 1+, Urine Mucus 0 SEEN, Urine Yeast RARE 03/13/22 00:55: Lactic Acid 3.7 H* 03/13/22 03:55: WBC 17.1 H, RBC 4.10 L, Hgb 11.3 L, Hct 35.6 L, MCV 86.8, MCH 27.6, MCHC 31.7 L, RDW Std Deviation 48.6 H, RDW Coeff of Dayo 15.3 H, Plt Count 183, MPV 8.6, Immature Gran % (Auto) 1.100 H, Neut % (Auto) 93.8 H, Lymph % (Auto) 2.2 L, [place] % (Auto) 2.8, Eos % (Auto) 0.0, Baso % (Auto) 0.1, Absolute Neuts (auto) 16.1 H, Absolute Lymphs (auto) 0.37 L, Nucleated RBC % 0, Differential Comment SCANNED 03/13/22 03:55: PT 22.9 H, INR 2.1 03/13/22 03:55: Sodium 130 L, Potassium 3.9, Chloride 98, Carbon Dioxide 22.0, Anion Gap 10, BUN 33 H, Creatinine 1.71 H, Estim Creat Clear Calc 30.19, Est GFR (MDRD) Af Amer 38 L, Est GFR (MDRD) Non-Af 31 L, BUN/Creatinine Ratio 19.3, Glucose 403 H, Calcium 8.2 L 03/13/22 03:55: POC Glucose 382 H 03/13/22 06:22: POC Glucose 413 H Micro: Microbiology 03/12/22 20:45 Nasal Secretion SARS-CoV-2 & FLU Antigen (Rapid) - Final Radiography Diagnostic Testing: Radiology Impression Chest X-Ray 03/12/22 21:00 IMPRESSION: Normal x-ray examination of the chest. Electronically Signed: Teodoro Mann MD at 21:38 EDT , Physical Exam Const alert and no apparent distress Resp normal respiratory effort, no retractions, no use of accessory muscles and clear to auscultation bilaterally Cardio regular rate, regular rhythm, S1 normal heart sound and S2 normal heart sound GI normal to inspection, nondistended, normoactive bowel sounds, soft to palpation, non-tender and non-distended Extremity normal to inspection Neuro oriented x3 and moves all extremities Sensorium / Orientation: awake and alert Psych affect normal Assessment & Plan Assessment/Plan (1) Sepsis: PLAN: Sepsis secondary to UTI Urinalysis abnormal. The patient presented with sepsis due to UTI with acute sepsis related organ dysfunction as evidenced by lactic acid of more than 2. Her lactic acid was 3.7. Metformin likely contributing to elevated lactic acid.. SIRS criteria: Heart rate of more than 90; WBC more than 12,000; Trend CBC. Admit intensive care unit. Customer Care Specialist consult. (2) Urinary tract infection: PLAN: Received Levaquin emergency department. Because of TRAVIS will avoid further Levaquin. Reports previous history of allergy to penicillin many years ago. But reportedly she had penicillin more recently and was observed without any reaction. Ceftriaxone ordered. Urine culture and blood culture was obtained in the emergency department follow. (3) Acute kidney injury: PLAN: TRAVIS on CKD stage III/dehydration Creatinine on presentation was 1.83. Dry mucous membrane. BUN is 34. BUN over creatinine is 18.6. Review of electronic community records shows that creatinine was 1.11 and EGFR of 54 on 10/01/2021. 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 (4) Acidosis, lactic: PLAN: resolved 2/2 sepsis and metformin no additional work up (5) Essential hypertension: PLAN: Hypertension Blood pressure is stable. Trend blood pressures (6) Type 2 diabetes mellitus: PLAN: Diabetes mellitus with hyperglycemia Blood glucose on BMP was 471. Received 10 units of lispro at emergency department on presentation. Normal saline bolus given in the emergency department. Hold metformin. Glimepiride continued. Accu-Chek with correction scale insulin continued. A1c 12.2 Add glargine Suspected patient will be discharged with insulin upon discharge as she was already on oral agents with hemoglobin A1c of 12.2 (7) Morbid obesity with BMI of 40.0-44.9, adult: PLAN: Morbid obesity BMI: 44.5 kg/m?. Complicates care. Lifestyle modification recommended. (8) Toe ulcer, right: PLAN: Has been present for period of time Patient has been following with wound care Given the patient's diabetes, is concerning that this could be deeper. I do not feel this is underlying source of her infection but will check an x-ray and if that is negative then to check an MRI to evaluate for osteomyelitis. If osteomyelitis is confirmed then would consult podiatry. PLAN: Plan Pseudohyponatremia Sodium of 130. Blood glucose of 471. Corrected sodium of 136. Trend BMP. History of DVT and PE/subtherapeutic INR INR on presentation was 1.9. Escalate dose of Coumadin. Trend INR Debility PT and OT to work with patient for strengthening and balance training. DVT prophylaxis: Coumadin dosing INR as above. Transfer to progressive care unit Charges/Coding Visit Charges Inpatient E&M: 67744 Subs Hosp L3
[2022-03-13] MEDS: 0.9% Normal Saline 1,000 ML 100 ML IV ×3 (09:37→23:34)
[2022-03-13 11:35] LABS: Bedside Glucose 357 mg/dL (74-106)
[2022-03-13] MEDS: 0.9% Normal Saline 1,000 ML 999 ML IV ×2 (11:45→16:26)
--- NOTE | 2022-03-13 11:57 | EX.PCM.CONCC ---
Assessment & Plan Assessment/Plan (1) Sepsis: PLAN: Sepsis related to UTI Agree with fluid resuscitation Given ongoing hyperglycemia as well, will order 2 more liters of NS bolus - one now and one at 4 pm. Agree with Ceftriaxone. Trend lactic acid but vital signs are stable and creatinine is improving. (2) Urinary tract infection: PLAN: Follow urinary cultures. Agree with Ceftriaxone. (3) Acidosis, lactic: PLAN: Sepsis related to UTI causing lactic acidosis, also likely from volumes status. Agree with fluid resuscitation Given ongoing hyperglycemia as well, will order 2 more liters of NS bolus - one now and one at 4 pm. Agree with Ceftriaxone. Trend lactic acid but vital signs are stable and creatinine is improving. (4) Hyperglycemia: PLAN: Fluid hydration. No Anion gap at this time. Check HbA1C HPI Consult Data Date of Consult: 03/13/22 HPI Narrative Reason for Consultation: Lactic acidosis and hypotension HPI Narrative: MARK SOARES, is a 71 F who presentsCONNIEverette SOARES, is a 71 F with a significant history of DVT, PE, and diabetes mellitus who presents to the emergency department with a progressively worsening weakness that started on the same day of presentation.? Patient was too weak that she could not get up with a walker and even with assistance. Associated with her symptoms is nausea, vomiting, polyuria, urinary urgency, dysuria, fever, and chills.? Further, she has anorexia.? Reportedly at home, her temperature was 100.8 Fahrenheit.? Also she had mild confusion. She was admitted to ICU for fluid resuscitation and treatment of likely UTI. She was also noted to be hyperglycemic at this time. [facility] Medical History Diabetes Hyperlipidemia Home Medications metformin 1,000 mg tablet 1,000 mg PO DAILY 02/14/14 [History Last Taken Unknown] atorvastatin 80 mg tablet 80 mg PO QHS 03/12/22 [History Last Taken Unknown] glimepiride 4 mg tablet 8 mg PO DAILY 03/12/22 [History Last Taken Unknown] levothyroxine 75 mcg tablet (Synthroid) 75 mcg PO DAILY 03/12/22 [History Last Taken Unknown] warfarin 1 mg tablet 1 mg PO MOFR 03/12/22 [History Last Taken Unknown] warfarin 2 mg tablet 2 mg PO SUTUWETHSA 09/17/22 [History Last Taken Unknown] Allergy/AdvReac Type Severity Reaction Status Date / Time codeine Allergy Rash Verified 03/12/22 20:20 Penicillins [PCN] Allergy Rash Verified 03/12/22 20:20 Family History Other CVA (cerebral vascular accident) Pancreatic cancer Surgical History H/O: hysterectomy Social History Smoking Status: Never smoker ROS Constitutional Constitutional: Reports fatigue ENT HEENT: Reports dizziness Genitourinary Genitourinary: Reports dysuria Physical Exam Narrative Physical exam: General: Well-nourished, well-developed. Head: Normocephalic, atraumatic, no tenderness Eyes: Vision is grossly intact. EOMI ENT, no trauma, dry mucous membranes, no rhinorrhea Neck: Nontender, full range of motion CVS: Regular rate and rhythm. S1-S2 present. No murmur, gallop or rub. Respiratory : clear to auscultation bilaterally, chest wall nontender, no wheezing Abdomen: Soft, nontender, nondistended, normal bowel sounds, no masses : Deferred Back: Nontender, no CVA tenderness Extremities: Nontender full range of motion, no trauma Skin: Normal color, no trauma, abrasions Neuro: Alert, oriented, cranial nerves II through XII grossly intact. Psychiatry: Normal mood. Normal affect. Not depressed. Not anxious. Medical Records Data Attestation: I reviewed the patient's medical records Lab / Micro Data Attestation: I reviewed the patient's lab results. Result Diagrams: 03/13/22 03:55 03/13/22 03:55 Labs: Laboratory Results - last 24 hr 03/12/22 20:21: WBC 20.4 H, RBC 4.67, Hgb 12.9, Hct 40.3, MCV 86.3, MCH 27.6, MCHC 32.0, RDW Std Deviation 47.6 H, RDW Coeff of Dayo 15.1 H, Plt Count 233, MPV 9.1, Immature Gran % (Auto) 0.900, Neut % (Auto) 93.3 H, Lymph % (Auto) 2.8 L, [place] % (Auto) 2.9, Eos % (Auto) 0.0, Baso % (Auto) 0.1, Absolute Neuts (auto) 19.1 H, Absolute Lymphs (auto) 0.57 L, Nucleated RBC % 0, Differential Comment SCANNED 03/12/22 20:21: PT 21.5 H, INR 1.9 03/12/22 20:21: Sodium 130 L, Potassium 4.1, Chloride 95 L, Carbon Dioxide 21.0, Anion Gap 14, BUN 34 H, Creatinine 1.83 H, Estim Creat Clear Calc 29.27, Est GFR (MDRD) Af Amer 35 L, Est GFR (MDRD) Non-Af 29 L, BUN/Creatinine Ratio 18.6, Glucose 471 H*, Calcium 9.4, Total Bilirubin 0.70, AST 16, ALT 22, Alkaline Phosphatase 87, Total Protein 8.7 H, Albumin 3.5, Globulin 5.2 H, Albumin/Globulin Ratio 0.7 L 03/12/22 20:21: Lactic Acid 3.7 H* 03/12/22 20:22: POC Glucose 467 H* 03/12/22 20:45: Urine Color Yellow, Urine Clarity Sl. Cloudy, Urine pH 5.0, Ur Specific [place] 1.010, Urine Protein 100 H, Urine Glucose (UA) 1000 H, Urine Ketones 5 H, Urine Occult Blood 250 H, Urine Nitrite Positive H, Urine Bilirubin Negative, Urine Urobilinogen Normal, Ur Leukocyte Esterase 25 H, Urine RBC 0-5 SEEN, Urine WBC 10-25 SEEN, Ur Squamous Epith Cells 0-5 SEEN, Urine Bacteria 1+, Urine Mucus 0 SEEN, Urine Yeast RARE 03/13/22 00:55: Lactic Acid 3.7 H* 03/13/22 03:55: WBC 17.1 H, RBC 4.10 L, Hgb 11.3 L, Hct 35.6 L, MCV 86.8, MCH 27.6, MCHC 31.7 L, RDW Std Deviation 48.6 H, RDW Coeff of Dayo 15.3 H, Plt Count 183, MPV 8.6, Immature Gran % (Auto) 1.100 H, Neut % (Auto) 93.8 H, Lymph % (Auto) 2.2 L, [place] % (Auto) 2.8, Eos % (Auto) 0.0, Baso % (Auto) 0.1, Absolute Neuts (auto) 16.1 H, Absolute Lymphs (auto) 0.37 L, Nucleated RBC % 0, Differential Comment SCANNED 03/13/22 03:55: PT 22.9 H, INR 2.1 03/13/22 03:55: Sodium 130 L, Potassium 3.9, Chloride 98, Carbon Dioxide 22.0, Anion Gap 10, BUN 33 H, Creatinine 1.71 H, Estim Creat Clear Calc 30.19, Est GFR (MDRD) Af Amer 38 L, Est GFR (MDRD) Non-Af 31 L, BUN/Creatinine Ratio 19.3, Glucose 403 H, Calcium 8.2 L 03/13/22 03:55: POC Glucose 382 H 03/13/22 06:22: POC Glucose 413 H 03/13/22 11:11: POC Glucose 357 H Micro: Microbiology 03/12/22 20:45 Urine, Clean Catch Urine Culture - Preliminary Staphylococcus aureus 03/12/22 20:45 Nasal Secretion SARS-CoV-2 & FLU Antigen (Rapid) - Final Radiology Impression Chest X-Ray 03/12/22 21:00 IMPRESSION: Normal x-ray examination of the chest. Electronically Signed: Teodoro Mann MD at 21:38 EDT , Sepsis Attestation Sepsis Alert: Yes Sepsis Attestation: Agree w/Sepsis Date exam was performed: 03/13/22 Time exam was performed: 10:00 Possible Source of Sepsis: Genitourinary Fluid Resuscitation Fluid resuscitation indicated?: Yes Fluid Resuscitation ordered: 30 ml/kg fluid bolus ordered Charges/Coding Visit Charges Inpatient E&M: 45348 Init Hosp L3
[2022-03-13 12:25] LABS: Hemoglobin A1c 12.2 % (3.8-5.6)
--- NOTE | 2022-03-13 13:25 | RAD_ITS ---
EXAM: XR RIGHT FOOT, 2 VIEWS CLINICAL INDICATION: right great toe lesion TECHNIQUE: Frontal and lateral views of the right foot. This report was created using [employer] report generation technology. COMPARISON: None. FINDINGS: BONES/JOINTS: There is a calcaneal spur. There is an enthesophyte involving the posterior superior calcaneus at the site of insertion of the Achilles tendon. No acute fracture. No subluxation. Normal alignment. Preservation of the joint space. No sclerotic or destructive changes observed. SOFT TISSUES: Diffuse soft tissue swelling around the foot. Diffuse soft tissue swelling around the first digit with first digit subungual elevation. No radiopaque foreign body. IMPRESSION: 1. Diffuse soft tissue swelling around the foot. 2. There is a calcaneal spur. There is an enthesophyte involving the posterior superior calcaneus at the site of insertion of the Achilles tendon. 3. Diffuse soft tissue swelling around the first digit with first digit subungual elevation. EXAM: XR RIGHT FOOT, 2 VIEWS CLINICAL INDICATION: right great toe lesion TECHNIQUE: Frontal and lateral views of the right foot. This report was created using [employer] report generation technology. COMPARISON: None. FINDINGS: BONES/JOINTS: There is a calcaneal spur. There is an enthesophyte involving the posterior superior calcaneus at the site of insertion of the Achilles tendon. No acute fracture. No subluxation. Normal alignment. Preservation of the joint space. No sclerotic or destructive changes observed. SOFT TISSUES: Diffuse soft tissue swelling around the foot. Diffuse soft tissue swelling around the first digit with first digit subungual elevation. No radiopaque foreign body. RAD/Foot 2 Views IMPRESSION: 1. Diffuse soft tissue swelling around the foot. 2. There is a calcaneal spur. There is an enthesophyte involving the posterior superior calcaneus at the site of insertion of the Achilles tendon. 3. Diffuse soft tissue swelling around the first digit with first digit subungual elevation. Electronically Signed: Emre Espinal MD at 16:29 EDT ,
--- NOTE | 2022-03-13 13:43 | NURSING ---
report called to [facility] transferred per chair with belongings to room [id number],, family aware
[2022-03-13 17:06] LABS: Bedside Glucose 289 mg/dL (74-106)
[2022-03-13] MEDS: Juven (unflavored) Packet 1 PACKET PO (17:14)
[2022-03-13] MEDS: Insulin Glargine-YFGN 100 UNIT/ML Pen 30 UNIT SC (21:32)
[2022-03-13] MEDS: Atorvastatin Calcium 80 MG Tablet PO (21:33)
[2022-03-13 22:00] LABS: Bedside Glucose 247 mg/dL (74-106)
[2022-03-14] VITALS (12 sets, daily range): BP systolic 127–130; BP diastolic 58–76; PULSE 60–82; RESP 16–18; TEMP 36.8–37.7; O2SAT 92–98
[2022-03-14] MEDS: 0.9% Saline Lock 10 ML Syringe IV (03:24)
[2022-03-14] MEDS: Ondansetron 4 MG/2 ML Vial IV (03:24)
[2022-03-14] MEDS: Levothyroxine 75 MCG Tablet PO (06:24)
[2022-03-14] MEDS: Insulin Lispro 100 UNIT/ML INSULN.PEN SC ×4 (06:25→21:18)
[2022-03-14 06:43] LABS: Absolute Lymphocyte Count 0.64 X10^3/uL (0.83-4.51); Absolute Neutrophil Count 11.4 X10^3/uL (2.0-7.7); Basophil# 0.02 X10^3/uL; Basophil% 0.2 % (0-1); Lymphocyte # 0.64 X10^3/ul (0.83-4.51); Lymphocyte % 5.1 % (19-41); Mean Corp Hgb Conc 31.4 g/dL (32-36); Mean Corpuscular Hgb 28.3 pg (27.0-32.0); Mean Platelet Vol. 9.2 fl (6.2-12.0); Monocyte# 0.45 X10^3/uL; Monocyte% 3.6 % (0-10); NRBC Flagged by Analyzer 0 % (0-5); Neutrophil # 11.39 X10^3/uL (2.7-7.7); Neutrophil % 90.4 % (47-70); Platelet Count 182 K/mm3 (150-450); RBC Distribution Width CV 15.7 % (11.6-14.6); RBC Distribution Width SD 51.8 fl (35.1-43.9); Red Blood Count 3.89 M/mm3 (4.2-5.4); White Blood Count 12.6 K/mm3 (4.4-11.0)
[2022-03-14 07:05] LABS: International Normalized Ratio 2.5
[2022-03-14 07:06] LABS: Bedside Glucose 197 mg/dL (74-106)
[2022-03-14 07:15] LABS: Anion Gap 9 (5-15); BUN 31 mg/dL (7-18); Calcium,Total 7.7 mg/dL (8.5-10.1); Chloride 103 mmol/L (98-107); Creatinine, Serum 1.72 mg/dL (0.55-1.02); EST Glomerular Filtration Rate 31 mL/min (>60); Est Glom Filt Rate - Afr Amer 38 mL/min (>60); Estimated Creatinine Clearance 30.02 ml/min; Glucose 182 mg/dL (74-106); Potassium 3.7 mmol/L (3.5-5.1); Sodium Level 133 mmol/L (136-145)
--- NOTE | 2022-03-14 07:50 | PCM.PN.HOSP ---
Subjective Subjective Feels better. Objective Data Objective Data Vital Signs: Vital Signs Temp Pulse Resp BP Pulse Ox O2 Del Method O2 Flow Rate 36.8 C 82 18 130/58 H 97 Room Air 2 03/14/22 03:30 03/14/22 07:00 03/14/22 03:30 03/14/22 03:30 03/14/22 03:30 03/14/22 03:31 03/13/22 08:43 Oxygen Flow Rate (L/min) 2 Oxygen Delivery Method Room Air Weight: 130.6 kg Body Mass Index (BMI) 45.1 Intake & Output: Intake and Output for Last 24 Hours 03/12/22 03/13/22 03/14/22 23:59 23:59 23:59 Intake Total 1650 / 1650 5446.67 / 5446.67 Output Total 2750 / 2750 475 / 475 Balance 1650 / 1650 2696.67 / 2696.67 -475 / -475 Lab / Micro Data Result Diagrams: 03/14/22 05:25 03/14/22 05:25 Labs: Laboratory Results - last 24 hr 03/13/22 03:55: Hemoglobin A1c 12.2 H 03/13/22 11:11: POC Glucose 357 H 03/13/22 16:25: POC Glucose 289 H 03/13/22 21:29: POC Glucose 247 H 03/14/22 05:25: PT 27.0 H, INR 2.5 03/14/22 05:25: WBC 12.6 H, RBC 3.89 L, Hgb 11.0 L, Hct 35.0 L, MCV 90.0, MCH 28.3, MCHC 31.4 L, RDW Std Deviation 51.8 H, RDW Coeff of Dayo 15.7 H, Plt Count 182, MPV 9.2, Immature Gran % (Auto) 0.700, Neut % (Auto) 90.4 H, Lymph % (Auto) 5.1 L, [place] % (Auto) 3.6, Eos % (Auto) 0.0, Baso % (Auto) 0.2, Absolute Neuts (auto) 11.4 H, Absolute Lymphs (auto) 0.64 L, Nucleated RBC % 0 03/14/22 05:25: Sodium 133 L, Potassium 3.7, Chloride 103, Carbon Dioxide 21.0, Anion Gap 9, BUN 31 H, Creatinine 1.72 H, Estim Creat Clear Calc 30.02, Est GFR (MDRD) Af Amer 38 L, Est GFR (MDRD) Non-Af 31 L, BUN/Creatinine Ratio 18.0, Glucose 182 H, Calcium 7.7 L 03/14/22 06:23: POC Glucose 197 H Micro: Microbiology 03/12/22 20:45 Urine, Clean Catch Urine Culture - Preliminary Staphylococcus aureus 03/12/22 20:45 Nasal Secretion SARS-CoV-2 & FLU Antigen (Rapid) - Final Radiography Diagnostic Testing: Radiology Impression Foot X-Ray 03/13/22 13:25 IMPRESSION: 1. Diffuse soft tissue swelling around the foot. 2. There is a calcaneal spur. There is an enthesophyte involving the posterior superior calcaneus at the site of insertion of the Achilles tendon. 3. Diffuse soft tissue swelling around the first digit with first digit subungual elevation. Electronically Signed: Emre Espinal MD at 16:29 EDT Reading Location ID and State: [facility] / [place] , Service support , Physical Exam Const Constitutional Narrative: diaphoretic. Resp normal respiratory effort, no retractions and no use of accessory muscles Cardio regular rate, regular rhythm, S1 normal heart sound and S2 normal heart sound GI normal to inspection, nondistended, normoactive bowel sounds, soft to palpation and non-tender Extremity Extremity Narrative: ulcer on plantar aspect of right great toe General Extremity: edema bilateral lower extremity Details: moderate Assessment & Plan Assessment/Plan (1) Sepsis: PLAN: Resolved Sepsis secondary to UTI Urinalysis abnormal. The patient presented with sepsis due to UTI with acute sepsis related organ dysfunction as evidenced by lactic acid of more than 2. Her lactic acid was 3.7. Metformin likely contributing to elevated lactic acid.. SIRS criteria: Heart rate of more than 90; WBC more than 12,000; Trend CBC. (2) Urinary tract infection: PLAN: UCx growing S. aureus. Either this is a contaminant or sign of a bigger infection (i.e., bacteremia). Thus far Bcx pending. Received Levaquin emergency department. Because of TRAVIS will avoid further Levaquin. Reports previous history of allergy to penicillin many years ago. But reportedly she had penicillin more recently and was observed without any reaction. Ceftriaxone ordered. Cx +MSSA. (3) Acute kidney injury: PLAN: TRAVIS on CKD stage III/dehydration Creatinine on presentation was 1.83. Dry mucous membrane. BUN is 34. BUN over creatinine is 18.6. Review of electronic community records shows that creatinine was 1.11 and EGFR of 54 on 10/01/2021. 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 (4) Acidosis, lactic: PLAN: resolved 2/2 sepsis and metformin no additional work up (5) Essential hypertension: PLAN: Hypertension Blood pressure is stable. Trend blood pressures (6) Type 2 diabetes mellitus: PLAN: Uncontrolled Continue glargine and SSI A1c 12.2 Suspected patient will be discharged with insulin upon discharge as she was already on oral agents with hemoglobin (7) Toe ulcer, right: PLAN: Has been present for period of time Patient has been following with wound care Given the patient's diabetes, is concerning that this could be deeper. Xray showed foot swelling, but no definitive OM. Check MRI right foot. (8) Hyponatremia: PLAN: Improved. on IVF PLAN: Plan Chronic conditions: Morbid obesity: BMI: 44.5 kg/m?. Complicates care. Lifestyle modification recommended. History of DVT and PE/subtherapeutic INR. INR on presentation was 1.9. Escalate dose of Coumadin. Trend INR Debility PT and OT to work with patient for strengthening and balance training. DVT prophylaxis: Coumadin dosing INR as above. Charges/Coding Visit Charges Inpatient E&M: 10134 Subs Hosp L2
--- NOTE | 2022-03-14 07:54 | MRI_ITS ---
EXAM: MR Forefoot W/O Contrast RIGHT HISTORY: right great toe ulcer TECHNIQUE: MR Forefoot W/O Contrast RIGHT COMPARISON: None. LIMITATIONS: None. FINDINGS: Extensive soft tissue edema of the dorsum of the foot. Soft tissue ulceration at the plantar aspect of the first digit. No definite associated marrow edema of the first digit. No acute fracture. No soft tissue abscess. MRI/Lower Ext/No Jt/w/o IMPRESSION: No definitive evidence of osteomyelitis. Electronically Signed: Eladio Bonner MD at 4:27 EDT ,
[2022-03-14] MEDS: Enoxaparin 30 MG/0.3 ML Syringe SC (09:06)
[2022-03-14] MEDS: Glimepiride 4 MG Tablet 8 MG PO (09:06)
[2022-03-14] MEDS: Menthol/Lanolin/Calamine/Znox 113 GM Tube 1 APPLIC TOPICAL ×2 (09:07→21:18)
[2022-03-14] MEDS: Nystatin Powder 15gm Bottle 1 APPLIC TOPICAL ×2 (09:13→21:18)
--- NOTE | 2022-03-14 11:20 | CASEMGMT ---
G[place] Face to Face with patient for initial transition planning/care coordination assessment. RN CM introduced self and role at [facility]. Patient lying in bed, alert and oriented. Patient willing to participate in assessment and is able to answer all questions appropriately. Care providers, pharmacy, and demographics verified. Patient wishes to discharge home, denies need for home health at this time. Patient states she has no further needs or concerns at this time. CM to follow for discharge planning needs that may arise. PCP: Ramos Specialists: none Preferred Pharmacy: [facility]; [facility] retail at discharge Insurance: [facility] Prescription Benefit: yes Living Will/HPOA: none LNOK: Living Arrangements: Patient lives with in a 2 story home with bed and bath on first floor, 3 steps and railing to enter the home. Patient states she is independent at home. Transportation: DME/HHC: Patient states she has shower chair, cane, and glucometer with supplies. No previous HHC or SNF. Will monitor patient for possible walker at discharge. Disposition Plan: Patient to discharge home with family support and follow-up plans in place. Laura PEDROZA, RN, CM
--- NOTE | 2022-03-14 11:27 | PCM.RX.CS ---
Consult Pharmacy has been consulted to manage selected antiobiotic: Vancomycin Type of Consult: New start Suspected Infection: Other Labs: Sodium 133 mmol/L (136-145) L 03/14/22 05:25 Potassium 3.7 mmol/L (3.5-5.1) 03/14/22 05:25 Chloride 103 mmol/L (98-107) 03/14/22 05:25 Carbon Dioxide 21.0 mmol/L (21.0-32.0) 03/14/22 05:25 Anion Gap 9 (5-15) 03/14/22 05:25 BUN 31 mg/dL (7-18) H 03/14/22 05:25 Creatinine 1.72 mg/dL (0.55-1.02) H 03/14/22 05:25 Est GFR (MDRD) Af Amer 38 mL/min (>60) L 03/14/22 05:25 Est GFR (MDRD) Non-Af 31 mL/min (>60) L 03/14/22 05:25 BUN/Creatinine Ratio 18.0 RATIO (10-20) 03/14/22 05:25 Glucose 182 mg/dL (74-106) H 03/14/22 05:25 Microbiology: Microbiology 03/12/22 20:45 Urine, Clean Catch Urine Culture - Final Staphylococcus aureus 03/12/22 20:45 Nasal Secretion SARS-CoV-2 & FLU Antigen (Rapid) - Final Goal Trough: 15-20 mcg/mL Pharmacy Plan for Drug Dosing: NEW START IV VANCOMYCIN Consulting Physician: Dr. Everette Vega Indication: UTI Goal Trough: 15-20 SrCr: 1.72 CrCl: 43.47 mls/min (using an adjusted body weight of 89kg) Comments: pt received a 2000mg (25mg/kg) loading dose on 03/14/22 at 1000 Vancomycin Dose: based on pts weight and renal function, recommend an initial dose of 1000mg q12h starting 03/14/22 at 2200. Trough before the 4th total dose Pending Level: 03/15/22 at 2130 Pharmacy Service will continue to monitor and adjust dosing as required. Follow-Up Labs: Trough Vancomycin - 03/15/22 at 2130
--- NOTE | 2022-03-14 11:33 | CASEMGMT ---
Per admission questions patient does not have a Healthcare Power of Supervisor [place] or Healthcare Living Will and is not interested in documents. 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
[2022-03-14 11:35] LABS: Bedside Glucose 165 mg/dL (74-106)
--- NOTE | 2022-03-14 12:52 | PCM.PN.INT ---
Assessment & Plan Assessment/Plan (1) Sepsis: PLAN: Plan RECOMMENDATIONS: 1. Continue antimicrobials, pending finalized culture results. 2. Continue appropriate DVT prophylaxis. 3. Encourage incentive spirometer use and mobilize patient as tolerated. 4. Given the patient's lack of any ICU or pulmonary needs, will sign off. IMPRESSIONS: 1. Sepsis Likely secondary to urinary tract source of infection. The patient did receive supplemental IV fluid hydration and remains hemodynamically stable. Oxygenation status is stable on room air. Creatinine is stable. Plan to continue supportive measures, including antimicrobials, pending finalized culture results. 2. TRAVIS on CKD Likely prerenal in etiology. Continue current supportive measures and avoid nephrotoxic medications. 3. Hyperlipidemia/diabetes mellitus/hypothyroidism/history of VTE Complicates care, management, recovery and prognosis. Continue systemic anticoagulation per home regimen. This note was generated with [employer] dictation software. It may contain incorrect words, spelling, and punctuation that were not noted in checking the note before signing. Subjective Subjective The patient was seen and examined at the bedside this morning. Events from the last 24 hours have been reviewed. The patient is currently afebrile, hemodynamically stable and maintaining appropriate oxygen saturations on room air. The patient is currently documented to be overall net +5.2 L for the hospitalization. Creatinine is stable at 1.72. Objective Data Objective Data The patient's most recent lab work, culture data and imaging studies have all been personally reviewed. Preliminary urine culture dated March 12 was positive for staph aureus. Blood cultures are pending. Vital Signs: Vital Signs Temp Pulse Resp BP Pulse Ox O2 Del Method O2 Flow Rate 99.8 F H 66 16 129/76 H 98 Room Air 2 03/14/22 09:05 03/14/22 09:05 03/14/22 09:05 03/14/22 09:05 03/14/22 09:05 03/14/22 09:05 03/13/22 08:43 Oxygen Flow Rate (L/min) 2 Oxygen Delivery Method Room Air Weight: 294 lb 8.601 oz Body Mass Index (BMI) 45.1 Intake & Output: Intake and Output for Last 24 Hours 03/12/22 03/13/22 03/14/22 23:59 23:59 23:59 Intake Total 1650 / 1650 5446.67 / 5446.67 1800.00 / 1800.00 Output Total 2750 / 2750 925 / 925 Balance 1650 / 1650 2696.67 / 2696.67 875.00 / 875.00 Lab / Micro Data Attestation: I reviewed the patient's lab results. Result Diagrams: 03/14/22 05:25 03/14/22 05:25 Labs: Laboratory Results - last 24 hr 03/13/22 16:25: POC Glucose 289 H 03/13/22 21:29: POC Glucose 247 H 03/14/22 05:25: PT 27.0 H, INR 2.5 03/14/22 05:25: WBC 12.6 H, RBC 3.89 L, Hgb 11.0 L, Hct 35.0 L, MCV 90.0, MCH 28.3, MCHC 31.4 L, RDW Std Deviation 51.8 H, RDW Coeff of Dayo 15.7 H, Plt Count 182, MPV 9.2, Immature Gran % (Auto) 0.700, Neut % (Auto) 90.4 H, Lymph % (Auto) 5.1 L, [place] % (Auto) 3.6, Eos % (Auto) 0.0, Baso % (Auto) 0.2, Absolute Neuts (auto) 11.4 H, Absolute Lymphs (auto) 0.64 L, Nucleated RBC % 0 03/14/22 05:25: Sodium 133 L, Potassium 3.7, Chloride 103, Carbon Dioxide 21.0, Anion Gap 9, BUN 31 H, Creatinine 1.72 H, Estim Creat Clear Calc 30.02, Est GFR (MDRD) Af Amer 38 L, Est GFR (MDRD) Non-Af 31 L, BUN/Creatinine Ratio 18.0, Glucose 182 H, Calcium 7.7 L 03/14/22 06:23: POC Glucose 197 H 03/14/22 11:01: POC Glucose 165 H Micro: Microbiology 03/12/22 20:45 Urine, Clean Catch Urine Culture - Final Staphylococcus aureus 03/12/22 20:45 Nasal Secretion SARS-CoV-2 & FLU Antigen (Rapid) - Final Radiography Diagnostic Testing: Radiology Impression Foot X-Ray 03/13/22 13:25 IMPRESSION: 1. Diffuse soft tissue swelling around the foot. 2. There is a calcaneal spur. There is an enthesophyte involving the posterior superior calcaneus at the site of insertion of the Achilles tendon. 3. Diffuse soft tissue swelling around the first digit with first digit subungual elevation. Electronically Signed: Emre Espinal MD at 16:29 EDT , Physical Exam Const alert and no apparent distress General Appearance: cooperative HEENT normocephalic and head/scalp atraumatic Eyes PERRL, EOMs intact bilaterally and conjunctivae normal Neck supple General: trachea midline Chest inspection of chest normal Resp normal respiratory effort Auscultation: Negative for rales, rhonchi or wheezes Cardio regular rate and regular rhythm GI normal to inspection, nondistended, normoactive bowel sounds Extremity no clubbing, cyanosis or edema Skin no rashes or lesions noted Neuro no focal motor deficits Psych cooperative and affect normal Charges/Coding Visit Charges Inpatient E&M: 67636 Subs Hosp L2
[2022-03-14] MEDS: Juven (unflavored) Packet 1 PACKET PO (16:34)
[2022-03-14 16:55] LABS: Bedside Glucose 182 mg/dL (74-106)
[2022-03-14] MEDS: Vancomycin IV 1,000 MG/200 ML BAG 200 MG IV (21:19)
[2022-03-14] MEDS: Atorvastatin Calcium 80 MG Tablet PO (21:19)
[2022-03-14] MEDS: Insulin Glargine-YFGN 100 UNIT/ML Pen 30 UNIT SC (21:19)
[2022-03-14 21:46] LABS: Bedside Glucose 176 mg/dL (74-106)
[2022-03-15] VITALS (9 sets, daily range): BP systolic 126–137; BP diastolic 58–68; PULSE 57–76; RESP 16–18; TEMP 36.6–36.9; O2SAT 94–98
[2022-03-15] MEDS: Acetaminophen 325 MG Tablet 650 MG PO ×2 (03:12→19:35)
[2022-03-15 06:25] LABS: Absolute Lymphocyte Count 0.91 X10^3/uL (0.83-4.51); Absolute Neutrophil Count 6.4 X10^3/uL (2.0-7.7); Basophil# 0.02 X10^3/uL; Basophil% 0.3 % (0-1); Eosinophil# 0.04 X10^3/uL; Eosinophils% 0.5 % (0-5); Hematocrit 32.2 % (37-47); Hemoglobin 10.1 g/dL (12.0-15.0); Lymphocyte # 0.91 X10^3/ul (0.83-4.51); Lymphocyte % 11.5 % (19-41); Mean Corp Hgb Conc 31.4 g/dL (32-36); Mean Corpuscular Hgb 28.1 pg (27.0-32.0); Mean Corpuscular Volume 89.7 fL (81-99); Mean Platelet Vol. 9.2 fl (6.2-12.0); Monocyte# 0.58 X10^3/uL; Monocyte% 7.3 % (0-10); NRBC Flagged by Analyzer 0 % (0-5); Neutrophil # 6.35 X10^3/uL (2.7-7.7); Neutrophil % 79.9 % (47-70); Platelet Count 163 K/mm3 (150-450); RBC Distribution Width CV 15.9 % (11.6-14.6); RBC Distribution Width SD 52.1 fl (35.1-43.9); Red Blood Count 3.59 M/mm3 (4.2-5.4); White Blood Count 7.9 K/mm3 (4.4-11.0)
[2022-03-15] MEDS: Levothyroxine 75 MCG Tablet PO (06:32)
[2022-03-15 06:35] LABS: International Normalized Ratio 2.7; Prothrombin Time (Protime)PT. 28.4 SECONDS (11.7-14.9)
[2022-03-15 06:51] LABS: Anion Gap 9 (5-15); BUN 39 mg/dL (7-18); BUN/Creat Ratio 20.6 RATIO (10-20); Calcium,Total 7.5 mg/dL (8.5-10.1); Chloride 106 mmol/L (98-107); Creatinine, Serum 1.89 mg/dL (0.55-1.02); EST Glomerular Filtration Rate 28 mL/min (>60); Est Glom Filt Rate - Afr Amer 34 mL/min (>60); Estimated Creatinine Clearance 27.32 ml/min; Glucose 132 mg/dL (74-106); Potassium 3.3 mmol/L (3.5-5.1); Sodium Level 136 mmol/L (136-145)
[2022-03-15 07:01] LABS: Bedside Glucose 140 mg/dL (74-106)
--- NOTE | 2022-03-15 07:54 | PN.HOSP_ITS ---
Subjective Subjective no new events. Objective Data Objective Data Vital Signs: Vital Signs Temp Pulse Resp BP Pulse Ox O2 Del Method O2 Flow Rate 36.9 C 57 L 16 127/60 H 94 Room Air 2 03/15/22 03:07 03/15/22 07:00 03/15/22 03:07 03/15/22 03:07 03/15/22 07:10 03/15/22 07:10 03/13/22 08:43 Oxygen Flow Rate (L/min) 2 Oxygen Delivery Method Room Air Weight: 134.1 kg Body Mass Index (BMI) 45.1 Intake & Output: Intake and Output for Last 24 Hours 03/13/22 03/14/22 03/15/22 23:59 23:59 23:59 Intake Total 5446.67 / 5446.67 2580.00 / 2580.00 Output Total 2750 / 2750 1775 / 1775 400 / 400 Balance 2696.67 / 2696.67 805.00 / 805.00 -400 / -400 Lab / Micro Data Result Diagrams: 03/15/22 05:22 03/15/22 05:22 Labs: Laboratory Results - last 24 hr 03/14/22 11:01: POC Glucose 165 H 03/14/22 16:33: POC Glucose 182 H 03/14/22 21:15: POC Glucose 176 H 03/15/22 05:22: PT 28.4 H, INR 2.7 03/15/22 05:22: WBC 7.9, RBC 3.59 L, Hgb 10.1 L, Hct 32.2 L, MCV 89.7, MCH 28.1, MCHC 31.4 L, RDW Std Deviation 52.1 H, RDW Coeff of Dayo 15.9 H, Plt Count 163, MPV 9.2, Immature Gran % (Auto) 0.500, Neut % (Auto) 79.9 H, Lymph % (Auto) 11.5 L, [place] % (Auto) 7.3, Eos % (Auto) 0.5, Baso % (Auto) 0.3, Absolute Neuts (auto) 6.4, Absolute Lymphs (auto) 0.91, Nucleated RBC % 0 03/15/22 05:22: Sodium 136, Potassium 3.3 L, Chloride 106, Carbon Dioxide 21.0, Anion Gap 9, BUN 39 H, Creatinine 1.89 H, Estim Creat Clear Calc 27.32, Est GFR (MDRD) Af Amer 34 L, Est GFR (MDRD) Non-Af 28 L, BUN/Creatinine Ratio 20.6 H, Glucose 132 H, Calcium 7.5 L 03/15/22 06:31: POC Glucose 140 H Micro: Microbiology 03/12/22 20:52 Blood Culture (Wb) - Right Hand Blood Culture - Preliminary No growth in 48 hours. 03/12/22 20:21 Blood Culture (Wb) - Anticubital Left Blood Culture - Preliminary No growth in 48 hours. 03/12/22 20:45 Urine, Clean Catch Urine Culture - Final Staphylococcus aureus 03/12/22 20:45 Nasal Secretion SARS-CoV-2 & FLU Antigen (Rapid) - Final Radiography Diagnostic Testing: Radiology Impression Lower Extremity MRI 03/14/22 07:54 IMPRESSION: No definitive evidence of osteomyelitis. Electronically Signed: Eladio Bonner MD at 4:27 EDT , Physical Exam Const alert and no apparent distress Extremity Extremity Narrative: lymphedema LE. superficial right great toe ulcer Neuro oriented x3, CN's II-XII intact bilaterally and moves all extremities Assessment & Plan Assessment/Plan (1) Sepsis: PLAN: Resolved Sepsis secondary to UTI Urinalysis abnormal. The patient presented with sepsis due to UTI with acute sepsis related organ dysfunction as evidenced by lactic acid of more than 2. Her lactic acid was 3.7. Metformin likely contributing to elevated lactic acid.. SIRS criteria: Heart rate of more than 90; WBC more than 12,000; Trend CBC. (2) Urinary tract infection: PLAN: UCx growing S. aureus. Either this is a contaminant or sign of a bigger infection (i.e., bacteremia). Thus far Bcx pending. Would treat as bacteremia equivalent, though blood cultures are negative Cx +MSSA. (3) Acute kidney injury: PLAN: TRAVIS on CKD stage III/dehydration Creatinine on presentation was 1.83. Dry mucous membrane. BUN is 34. BUN over creatinine is 18.6. Review of electronic community records shows that creatinine was 1.11 and EGFR of 54 on 10/01/2021. 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 (4) Acidosis, lactic: PLAN: resolved 2/2 sepsis and metformin no additional work up (5) Essential hypertension: PLAN: Hypertension Blood pressure is stable. Trend blood pressures (6) Type 2 diabetes mellitus: PLAN: Uncontrolled Continue glargine 30 QHS and SSI Add prandial A1c 12.2 Suspected patient will be discharged with insulin upon discharge as she was already on oral agents with hemoglobin (7) Toe ulcer, right: PLAN: Has been present for period of time Patient has been following with wound care Given the patient's diabetes, is concerning that this could be deeper. Xray showed foot swelling, but no definitive OM. MRI right foot showed no OM Continue to follow up with wound care. Heel weight bearing on right foot. (8) Hyponatremia: PLAN: Improved. on IVF (9) Stage 3b chronic kidney disease: PLAN: Cr up slightly today. Avoid nephrotoxic agents Follow up with nephrology as outpt PLAN: Plan Chronic conditions: * Morbid obesity: BMI: 44.5 kg/m?. Complicates care. Lifestyle modification recommended. * History of DVT and PE/subtherapeutic INR. INR on presentation was 1.9. Escalate dose of Coumadin. Trend INR Debility PT and OT recommend additional therapy. CM/SW to assist. Plan for SNF (pt wanted rehab, but does not have a qualifying dx). Awaiting on insurance approval. DVT prophylaxis: Coumadin dosing INR as above. Charges/Coding Visit Charges Inpatient E&M: 66483 Subs Hosp L2
[2022-03-15] MEDS: Potassium Chloride Oral Tablet 20 MEQ 40 MEQ PO (09:11)
[2022-03-15] MEDS: Glimepiride 4 MG Tablet 8 MG PO (09:11)
[2022-03-15] MEDS: Menthol/Lanolin/Calamine/Znox 113 GM Tube 1 APPLIC TOPICAL ×2 (09:11→22:08)
[2022-03-15] MEDS: Juven (unflavored) Packet 1 PACKET PO (09:11)
[2022-03-15] MEDS: Nystatin Powder 15gm Bottle 1 APPLIC TOPICAL ×2 (09:11→22:00)
--- NOTE | 2022-03-15 09:11 | WOUNDNOTE ---
wound photo: right great toe
[2022-03-15] MEDS: Doxycycline 100 MG CAPSULE PO ×2 (09:12→21:58)
--- NOTE | 2022-03-15 10:25 | CASEMGMT ---
SW was informed by RN and physician patient is interested in Inpatient Rehab Unit. SW spoke with [facility] in Rehab and without a qualifying diagnosis and patient's insurance patient would not be able to go to Inpatient Rehab. SW met with patient. Introduced self and role at [facility]. SW explained to patient why she would not be able to go to Inpatient Rehab. SW then provided patient with a list of [facility] facility providers including quality and resource use data and consistent with patient?s preferred geographic region, medical needs, and insurance network were provided from the [employer] Guide. Patient's choice was [facility] TCU. LOGAN will work on referral. LOGAN made referral to [facility]. TCU can take patient and [facility] will start the pre-cert. LOGAN will notify patient. Plan: d/c to [facility] T[facility] pending insurance approval. Isi RICHARDSON
--- NOTE | 2022-03-15 11:00 | TREXTCAR_ITS ---
Diet Diet Order/Speech Therapy: 03/12/22 23:16 Diet: Consistent Carb - Calorie Controlled Dietary Modifications:: Cardiac / Heart Healthy How many daily calories?: 1800 calorie Routine Orders/Code Status Routine Lab Work: CBC (weekly) and BMP (weekly) Code Status: Full Code Wound(s) Right Great Toe: Wound Type: Neuropathic/Diabetic Foot Ulcer Dressing Change: hydrogel with dry dressing Therapies Weight Bearing: Partial weight bearing (heel weight bearing RLE) Extremity Affected:: Right Lower Physical Therapy: Eval and Treat Occupational Therapy: Eval and Treat Problem/Diagnosis (1) Sepsis: Status: Acute Code(s): A41.9 - Sepsis, unspecified organism Plan: Resolved Sepsis secondary to UTI Urinalysis abnormal. The patient presented with sepsis due to UTI with acute sepsis related organ dysfunction as evidenced by lactic acid of more than 2. Her lactic acid was 3.7. Metformin likely contributing to elevated lactic acid.. SIRS criteria: Heart rate of more than 90; WBC more than 12,000; Trend CBC. (2) Urinary tract infection: Status: Acute Code(s): N39.0 - Urinary tract infection, site not specified Plan: UCx growing S. aureus. Either this is a contaminant or sign of a bigger infection (i.e., bacteremia). Thus far Bcx pending. Would treat as bacteremia equivalent, though blood cultures are negative Cx +MSSA. (3) Acute kidney injury: Status: Acute Code(s): N17.9 - Acute kidney failure, unspecified Plan: TRAVIS on CKD stage III/dehydration Creatinine on presentation was 1.83. Dry mucous membrane. BUN is 34. BUN over creatinine is 18.6. Review of electronic community records shows that creatinine was 1.11 and EGFR of 54 on 10/01/2021. 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 (4) Acidosis, lactic: Status: Acute Code(s): E87.2 - Acidosis Plan: resolved 2/2 sepsis and metformin no additional work up (5) Essential hypertension: Status: Chronic Code(s): I10 - Essential (primary) hypertension Plan: Hypertension Blood pressure is stable. Trend blood pressures (6) Type 2 diabetes mellitus: Status: Chronic Code(s): E11.9 - Type 2 diabetes mellitus without complications Plan: Uncontrolled Continue glargine 30 QHS and SSI Add prandial A1c 12.2 Suspected patient will be discharged with insulin upon discharge as she was already on oral agents with hemoglobin (7) Toe ulcer, right: Status: Acute Code(s): L97.519 - Non-pressure chronic ulcer of other part of right foot with unspecified severity Plan: Has been present for period of time Patient has been following with wound care Given the patient's diabetes, is concerning that this could be deeper. Xray showed foot swelling, but no definitive OM. MRI right foot showed no OM Continue to follow up with wound care. Heel weight bearing on right foot. (8) Hyponatremia: Status: Acute Code(s): E87.1 - Hypo-osmolality and hyponatremia Plan: Improved. on IVF (9) Stage 3b chronic kidney disease: Status: Acute Code(s): N18.32 - Chronic kidney disease, stage 3b Plan: Cr up slightly today. Avoid nephrotoxic agents Follow up with nephrology as outpt Plan Chronic conditions: * Morbid obesity: BMI: 44.5 kg/m?. Complicates care. Lifestyle modification recommended. * History of DVT and PE/subtherapeutic INR. INR on presentation was 1.9. Escalate dose of Coumadin. Trend INR Debility PT and OT recommend additional therapy. CM/SW to assist. Plan for SNF (pt wanted rehab, but does not have a qualifying dx). Awaiting on insurance approval. DVT prophylaxis: Coumadin dosing INR as above. Allergies/Procedures Done in Hospital Allergies codeine Allergy (Verified 03/12/22 20:20) Rash Penicillins [PCN] Allergy (Verified 03/12/22 20:20) Rash PT REPORTED NOT ALLERGIC Procedures: None Type of Care/Length of Stay Estimated LOS: Convalescent Care Less Than 30 days Type of Care Needed: Skilled Rehab Potential: Fair Prognosis: Good Additional Orders/Day of Discharge Day of Discharge: 03/15/22 Dietary and Speech Recommendations Dietitian Recommendations/Changes: 1800 calorie/consistent carbohydrate; cardiac diet. Will add Isael BID w/ medpass for wound healing. Diet education when medically stable/out of ICU. Discharge Plan Admission Admit Date/Time: 03/12/22 22:32 Primary Reason for Your Visit: sepsis Attending Provider: Tomasz Vega Primary Care Provider: Jamari Beasley Consulting Providers: Abisai Lenz ; Duncan Jeronimo Discharge Orders/Prescriptions Prescriptions: New acetaminophen [Tylenol] 325 mg Tablet 650 mg PO Q6H PRN PRN (Reason: Pain Score 1-10/Temp > 100.7 F) Qty: 0 0RF doxycycline monohydrate 100 mg Capsule 100 mg PO BID Qty: 0 0RF chlorhexidine gluconate 2 % Towelette 1 ea topical DAILY Qty: 0 0RF insulin glargine-yfgn 100 unit/mL (3 mL) Insulin Pen 30 unit subcut QHS Qty: 0 0RF insulin lispro [Humalog KwikPen Insulin] 100 unit/mL Insulin Pen See Protocol subcut ACHS Qty: 0 0RF Protocol: 4. Sliding Scale Insulin High-Med Dosing Condition: 150-199 mg/dl = 2 units Condition: 200-259 mg/dl = 4 units Condition: 260-324 mg/dl = 6 units Condition: 325-374 mg/dl = 8 units Condition: 375-409 mg/dl = 10 units Condition: 410-449 mg/dl = 11 units Condition: Greater than 449 call physician Protocol Text: - Use for Total Daily Dose of Insulin 56-80 units - Patient who are insulin resistant or septic HIGH MEDIUM DOSING ALGORITHM insulin lispro [Humalog KwikPen Insulin] 100 unit/mL Insulin Pen 5 unit subcut TIDAC Qty: 15 0RF sennosides-docusate sodium [Stool Softener-Stimulant Laxat] 8.6-50 mg Tablet 2 tab PO BID PRN PRN (Reason: Constipation) Qty: 10 0RF melatonin 3 mg Tablet 3 mg PO QHS PRN PRN (Reason: Insomnia) Qty: 20 0RF nystatin [Nyamyc] 100,000 unit/gram Powder 1 applic topical BID Qty: 15 0RF Protocol: *Topical Application Instructions APPLICATION INSTRUCTIONS: Apply to groin and abdominal folds Isael (with collagen) 7-7-1.5 gram Powder In Packet 1 packet PO BIDCM Qty: 0 0RF Continued atorvastatin 80 mg tablet 80 mg PO QHS levothyroxine [Synthroid] 75 mcg tablet 75 mcg PO DAILY Changed warfarin 2 mg tablet 2 mg PO DAILY Qty: 30 0RF Label Comments: 1 tablet by mouth once a day ,mon, and monday and monday Discontinued metformin 1,000 MG tablet 1,000 mg PO DAILY glimepiride 4 mg tablet 8 mg PO DAILY warfarin 1 mg tablet 1 mg PO MOFR Referrals / Follow Up: Jamari Beasley MD [Primary Care Provider] - Within 2 Weeks Disposition Disposition (needs filled in before D/C Order can be placed[facility]
[2022-03-15] MEDS: Insulin Lispro 100 UNIT/ML INSULN.PEN SC ×3 (11:16→16:36)
[2022-03-15 11:40] LABS: Bedside Glucose 176 mg/dL (74-106)
[2022-03-15 17:00] LABS: Bedside Glucose 145 mg/dL (74-106)
--- NOTE | 2022-03-15 20:20 | VDLE_ITS ---
Reason For Study: Swelling RIGHT GSV is normal. CFV is compressible, spontaneous, phasic, competent and demonstrates normal augmentation. Rt FV distal, Rt PopV, and Rt T/P Trunk are dilated and non compressible consistent with acute DVT Unable to visualize calf veins due to patient body habitus. Procedure This is a venous duplex using B-mode, color flow and spectral Doppler. Exam performed portable in patient room. The study was technically difficult. The study was technically limited. A preliminary report was called and/or faxed to Rachel ALMONTE. VL/Venous Duplex US, Unilateral Interpretation Summary Acute deep vein thrombosis is noted in the right femoral vein, right popliteal vein, right tibioperoneal trunk. Limited study below knee Ordering Physician: Jessi Morales Referring Physician: Jamari Beasley Performed By: July Kern, JEANETTE, RVT
--- NOTE | 2022-03-15 20:27 | PCM.HOSP.N ---
Hospitalist Note Notified by Madina ALMONTE that patient's right lower extremity is red, warm, swollen and tender to touch. Patient has history of DVTs and is currently on Coumadin. INR today was therapeutic at 2.7. Venous duplex of the right lower extremity ordered, will be obtained in a.m.
--- NOTE | 2022-03-15 21:34 | NURSING ---
Pt c/o rt leg pain 04/04, tylenol given; rt leg swelling, redness w/blisters, warm to touch; rt leg elevated; ppp; notified, US ordered for 03/16 in AM
[2022-03-15] MEDS: Atorvastatin Calcium 80 MG Tablet PO (21:58)
[2022-03-15] MEDS: Insulin Glargine-YFGN 100 UNIT/ML Pen 30 UNIT SC (22:03)
[2022-03-16] VITALS (8 sets, daily range): BP systolic 136–141; BP diastolic 68–71; PULSE 57–65; RESP 18; TEMP 36.2–36.7; O2SAT 95–100
[2022-03-16] LABS: Bedside Glucose 128 mg/dL (74-106)
[2022-03-16] MEDS: Levothyroxine 75 MCG Tablet PO (06:15)
[2022-03-16] MEDS: Acetaminophen 325 MG Tablet 650 MG PO (06:15)
[2022-03-16] MEDS: Insulin Lispro 100 UNIT/ML INSULN.PEN SC ×4 (06:16→12:31)
[2022-03-16 06:31] LABS: Bedside Glucose 150 mg/dL (74-106)
--- NOTE | 2022-03-16 08:54 | PN.HOSP_ITS ---
Subjective Subjective Increased redness of RLE. RLE has been chronically more swollen than the left. Objective Data Objective Data Vital Signs: Vital Signs Temp Pulse Resp BP Pulse Ox O2 Del Method O2 Flow Rate 36.7 C 65 18 137/68 H 98 Room Air 2 03/16/22 03:56 03/16/22 04:05 03/16/22 03:56 03/16/22 03:56 03/16/22 03:56 03/16/22 03:56 03/13/22 08:43 Oxygen Flow Rate (L/min) 2 Oxygen Delivery Method Room Air Weight: 134.3 kg Body Mass Index (BMI) 45.1 Intake & Output: Intake and Output for Last 24 Hours 03/14/22 03/15/22 03/16/22 23:59 23:59 23:59 Intake Total 2580.00 / 2580.00 690 / 690 800 / 800 Output Total 1775 / 1775 700 / 700 Balance 805.00 / 805.00 -10 / -10 800 / 800 Lab / Micro Data Result Diagrams: 03/15/22 05:22 03/15/22 05:22 Labs: Laboratory Results - last 24 hr 03/15/22 11:16: POC Glucose 176 H 03/15/22 16:35: POC Glucose 145 H 03/15/22 22:02: POC Glucose 128 H 03/16/22 06:11: POC Glucose 150 H Micro: Microbiology 03/12/22 20:52 Blood Culture (Wb) - Right Hand Blood Culture - Preliminary No growth in 48 hours. 03/12/22 20:21 Blood Culture (Wb) - Anticubital Left Blood Culture - Preliminary No growth in 48 hours. 03/12/22 20:45 Urine, Clean Catch Urine Culture - Final Staphylococcus aureus 03/12/22 20:45 Nasal Secretion SARS-CoV-2 & FLU Antigen (Rapid) - Final Physical Exam Const alert and no apparent distress Extremity Extremity Narrative: bilateral LE edema. erythema of RLE, slight warmth. Assessment & Plan Assessment/Plan (1) Sepsis: PLAN: Resolved Sepsis secondary to UTI Urinalysis abnormal. The patient presented with sepsis due to UTI with acute sepsis related organ dysfunction as evidenced by lactic acid of more than 2. Her lactic acid was 3.7. Metformin likely contributing to elevated lactic acid.. SIRS criteria: Heart rate of more than 90; WBC more than 12,000; Trend CBC. (2) Urinary tract infection: PLAN: UCx growing S. aureus. Either this is a contaminant or sign of a bigger infection (i.e., bacteremia). Thus far Bcx pending. Would treat as bacteremia equivalent, though blood cultures are negative Cx +MSSA. (3) Acute kidney injury: PLAN: TRAVIS on CKD stage III/dehydration Creatinine on presentation was 1.83. Dry mucous membrane. BUN is 34. BUN over creatinine is 18.6. Review of electronic community records shows that creatinine was 1.11 and EGFR o f 54 on 10/01/2021. 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 (4) Acidosis, lactic: PLAN: resolved 2/2 sepsis and metformin no additional work up (5) Essential hypertension: PLAN: Hypertension Blood pressure is stable. 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 insulin use: unspecified penitentiary insulin use status Diabetes mellitus complication status: with kidney complications Diabetes mellitus complication detail: with chronic kidney disease Chronic kidney disease stage 3 subtype: stage 3b (GFR 30-44) PLAN: Uncontrolled Continue glargine 30 QHS and SSI Add prandial A1c 12.2 Suspected patient will be discharged with insulin upon discharge as she was already on oral agents with hemoglobin (7) Toe ulcer, right: QUALIFIERS: Non-pressure ulcer stage: limited to breakdown of skin Qualified Code(s): L97.511 - Non-pressure chronic ulcer of other part of right foot limited to breakdown of skin PLAN: Has been present for period of time Patient has been following with wound care Given the patient's diabetes, is concerning that this could be deeper. Xray showed foot swelling, but no definitive OM. MRI right foot showed no OM Continue to follow up with wound care. Heel weight bearing on right foot. (8) Hyponatremia: PLAN: Improved. on IVF (9) Stage 3b chronic kidney disease: PLAN: Cr up slightly today. Avoid nephrotoxic agents Follow up with nephrology as outpt (10) Redness and swelling of lower leg: PLAN: More likely lymphedema rather than cellulitis. However, it is unilateral, so continue with doxycycline. Add cephalexin. Duplex ordered, but pt is already anticoagulated. PLAN: Plan Chronic conditions: * Morbid obesity: BMI: 44.5 kg/m?. Complicates care. Lifestyle modification recommended. * History of DVT and PE/subtherapeutic INR. INR on presentation was 1.9. Escalate dose of Coumadin. Trend INR Debility PT and OT recommend additional therapy. CM/SW to assist. Plan for SNF (pt wanted rehab, but does not have a qualifying dx). Awaiting on insurance approval. DVT prophylaxis: Coumadin dosing INR as above. DC to TCU today after duplex.
[2022-03-16 09:35] LABS: International Normalized Ratio 2.8; Prothrombin Time (Protime)PT. 29.3 SECONDS (11.7-14.9)
--- NOTE | 2022-03-16 10:21 | CASEMGMT ---
LOGAN received a phone call from Tania in TCU and patient was approved. LOGAN notified physician, floor surfacer, and RN. RN was in the room with patient. LOGAN copied orders and placed a copy in chart. Plan: d/c to [facility] TCU under skilled level of care. Isi Caruso
[2022-03-16] MEDS: Juven (unflavored) Packet 1 PACKET PO (10:31)
[2022-03-16] MEDS: Doxycycline 100 MG CAPSULE PO (10:31)
[2022-03-16] MEDS: Glimepiride 4 MG Tablet 8 MG PO (10:31)
[2022-03-16] MEDS: Menthol/Lanolin/Calamine/Znox 113 GM Tube 1 APPLIC TOPICAL (10:32)
[2022-03-16] MEDS: Nystatin Powder 15gm Bottle 1 APPLIC TOPICAL (10:33)
[2022-03-16] MEDS: 0.9% Saline Lock 10 ML Syringe IV (10:42)
--- NOTE | 2022-03-16 10:57 | TREXTCAR_ITS ---
Diet Diet Order/Speech Therapy: 03/12/22 23:16 Diet: Consistent Carb - Calorie Controlled Dietary Modifications:: Cardiac / Heart Healthy How many daily calories?: 1800 calorie 1.5 liters fluid/day Routine Orders/Code Status Routine Lab Work: CBC (weekly) and BMP (weekly) Code Status: Full Code Wound(s) Right Great Toe: Wound Type: Neuropathic/Diabetic Foot Ulcer Dressing Change: hydrogel with dry dressing rt leg: Wound Type: blisters on rt front of lower leg Therapies Weight Bearing: Partial weight bearing (heel weight bearing RLE) Extremity Affected:: Right Lower Physical Therapy: Eval and Treat Occupational Therapy: Eval and Treat Problem/Diagnosis (1) Sepsis: Status: Acute Code(s): A41.9 - Sepsis, unspecified organism Plan: Resolved Sepsis secondary to UTI Urinalysis abnormal. The patient presented with sepsis due to UTI with acute sepsis related organ dysfunction as evidenced by lactic acid of more than 2. Her lactic acid was 3.7. Metformin likely contributing to elevated lactic acid.. SIRS criteria: Heart rate of more than 90; WBC more than 12,000; Trend CBC. (2) Urinary tract infection: Status: Acute Code(s): N39.0 - Urinary tract infection, site not specified Plan: UCx growing S. aureus. Either this is a contaminant or sign of a bigger infection (i.e., bacteremia). Thus far Bcx pending. Would treat as bacteremia equivalent, though blood cultures are negative Cx +MSSA. (3) Acute kidney injury: Status: Acute Code(s): N17.9 - Acute kidney failure, unspecified Plan: TRAVIS on CKD stage III/dehydration Creatinine on presentation was 1.83. Dry mucous membrane. BUN is 34. BUN over creatinine is 18.6. Review of electronic community records shows that creatinine was 1.11 and EGFR of 54 on 10/01/2021. 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 (4) Acidosis, lactic: Status: Acute Code(s): E87.2 - Acidosis Plan: resolved 2/2 sepsis and metformin no additional work up (5) Essential hypertension: Status: Chronic Code(s): I10 - Essential (primary) hypertension Plan: Hypertension Blood pressure is stable. Trend blood pressures (6) Type 2 diabetes mellitus: Status: Chronic Code(s): E11.9 - Type 2 diabetes mellitus without complications Plan: Uncontrolled Continue glargine 30 QHS and SSI Add prandial A1c 12.2 Suspected patient will be discharged with insulin upon discharge as she was already on oral agents with hemoglobin (7) Toe ulcer, right: Status: Acute Code(s): L97.519 - Non-pressure chronic ulcer of other part of right foot with unspecified severity Plan: Has been present for period of time Patient has been following with wound care Given the patient's diabetes, is concerning that this could be deeper. Xray showed foot swelling, but no definitive OM. MRI right foot showed no OM Continue to follow up with wound care. Heel weight bearing on right foot. (8) Hyponatremia: Status: Acute Code(s): E87.1 - Hypo-osmolality and hyponatremia Plan: Improved. on IVF (9) Stage 3b chronic kidney disease: Status: Acute Code(s): N18.32 - Chronic kidney disease, stage 3b Plan: Cr up slightly today. Avoid nephrotoxic agents Follow up with nephrology as outpt (10) Redness and swelling of lower leg: Status: Acute Code(s): M79.89 - Other specified soft tissue disorders; R23.8 - Other skin changes Plan: More likely lymphedema rather than cellulitis. However, it is unilateral, so continue with doxycycline. Add cephalexin. Duplex ordered, but pt is already anticoagulated. Plan Chronic conditions: * Morbid obesity: BMI: 44.5 kg/m?. Complicates care. Lifestyle modification recommended. * History of DVT and PE/subtherapeutic INR. INR on presentation was 1.9. Escalate dose of Coumadin. Trend INR Debility PT and OT recommend additional therapy. CM/SW to assist. Plan for SNF (pt wanted rehab, but does not have a qualifying dx). Awaiting on insurance approval. DVT prophylaxis: Coumadin dosing INR as above. DC to TCU today after duplex. Allergies/Procedures Done in Hospital Allergies codeine Allergy (Verified 03/12/22 20:20) Rash Penicillins [PCN] Allergy (Verified 03/12/22 20:20) Rash PT REPORTED NOT ALLERGIC Procedures: None Type of Care/Length of Stay Estimated LOS: Convalescent Care Less Than 30 days Type of Care Needed: Skilled Rehab Potential: Fair Prognosis: Good Additional Orders/Day of Discharge Day of Discharge: 03/15/22 Dietary and Speech Recommendations Dietitian Recommendations/Changes: 1800 calorie/consistent carbohydrate; cardiac diet. Will add Isael BID w/ medpass for wound healing. Diet education when medically stable/out of ICU. Discharge Plan Admission Admit Date/Time: 03/12/22 22:32 Primary Reason for Your Visit: sepsis Attending Provider: Tomasz Vega Primary Care Provider: Jamari Beasley Consulting Providers: Abisai Lenz ; Duncan Jeronimo Discharge Orders/Prescriptions Prescriptions: New acetaminophen [Tylenol] 325 mg Tablet 650 mg PO Q6H PRN PRN (Reason: Pain Score 1-10/Temp > 100.7 F) Qty: 0 0RF doxycycline monohydrate 100 mg Capsule 100 mg PO BID Qty: 0 0RF chlorhexidine gluconate 2 % Towelette 1 ea topical DAILY Qty: 0 0RF insulin glargine-yfgn 100 unit/mL (3 mL) Insulin Pen 30 unit subcut QHS Qty: 0 0RF insulin lispro [Humalog KwikPen Insulin] 100 unit/mL Insulin Pen See Protocol subcut ACHS Qty: 0 0RF Protocol: 4. Sliding Scale Insulin High-Med Dosing Condition: 150-199 mg/dl = 2 units Condition: 200-259 mg/dl = 4 units Condition: 260-324 mg/dl = 6 units Condition: 325-374 mg/dl = 8 units Condition: 375-409 mg/dl = 10 units Condition: 410-449 mg/dl = 11 units Condition: Greater than 449 call physician Protocol Text: - Use for Total Daily Dose of Insulin 56-80 units - Patient who are insulin resistant or septic HIGH MEDIUM DOSING ALGORITHM insulin lispro [Humalog KwikPen Insulin] 100 unit/mL Insulin Pen 5 unit subcut TIDAC Qty: 15 0RF sennosides-docusate sodium [Stool Softener-Stimulant Laxat] 8.6-50 mg Tablet 2 tab PO BID PRN PRN (Reason: Constipation) Qty: 10 0RF melatonin 3 mg Tablet 3 mg PO QHS PRN PRN (Reason: Insomnia) Qty: 20 0RF nystatin [Nyamyc] 100,000 unit/gram Powder 1 applic topical BID Qty: 15 0RF Protocol: *Topical Application Instructions APPLICATION INSTRUCTIONS: Apply to groin and abdominal folds Isael (with collagen) 7-7-1.5 gram Powder In Packet 1 packet PO BIDCM Qty: 0 0RF furosemide 40 mg Tablet 40 mg PO DAILY Qty: 0 0RF cephalexin 500 mg Capsule 500 mg PO Q6 Qty: 20 0RF Continued atorvastatin 80 mg tablet 80 mg PO QHS levothyroxine [Synthroid] 75 mcg tablet 75 mcg PO DAILY Changed warfarin 2 mg tablet 2 mg PO DAILY Qty: 30 0RF Label Comments: 1 tablet by mouth once a day ,mon, and monday and monday Discontinued metformin 1,000 MG tablet 1,000 mg PO DAILY glimepiride 4 mg tablet 8 mg PO DAILY warfarin 1 mg tablet 1 mg PO MOFR Referrals / Follow Up: Soyfa Monique DO [Med Staff - Consulting] - Within 1 Month Masood Dumont MD [Med Staff - Courtesy Staff] - Within 1 Month Jamari Beasley MD [Primary Care Provider] - Within 2 Weeks Disposition Disposition (needs filled in before D/C Order can be placed): Care Home Facility (1) Type 2 diabetes mellitus Qualifiers: Diabetes mellitus care home insulin use: unspecified care home insulin use status Diabetes mellitus complication status: with kidney complications Diabetes mellitus complication detail: with chronic kidney disease Chronic kidney disease stage 3 subtype: stage 3b (GFR 30-44) (2) Toe ulcer, right Qualifiers: Non-pressure ulcer stage: limited to breakdown of skin Qualified Code(s): L97.511 - Non-pressure chronic ulcer of other part of right foot limited to breakdown of skin
--- NOTE | 2022-03-16 11:01 | DS.PCM_ITS ---
Providers Date of Admission: 03/12/22 Primary Care Physician: Dr. Jamari Beasley MD Consultations 03/12/22 23:16 Consult: Water Treatment Specialist / Pulmonary Medicine Routine Consulting Provider: Duncan Jeronimo Reason for Consult: Sepsis EMERGENT Consult: No MD Notified: Yes Date Notified: 03/12/22 Time Notified: 22:45 Method of Notification: Text 03/15/22 07:57 Consult: Onc/Wound/radiation oncology manager Routine Comment: Reason For Visit: SEPSIS, UTI, HYPERGLYCEMIA Diagnosis Discharge Diagnosis (1) Sepsis: Status: Acute Code(s): A41.9 - Sepsis, unspecified organism Plan: Resolved Sepsis secondary to UTI Urinalysis abnormal. The patient presented with sepsis due to UTI with acute sepsis related organ dysfunction as evidenced by lactic acid of more than 2. Her lactic acid was 3.7. Metformin likely contributing to elevated lactic acid.. SIRS criteria: Heart rate of more than 90; WBC more than 12,000; Trend CBC. (2) Urinary tract infection: Status: Acute Code(s): N39.0 - Urinary tract infection, site not specified Plan: UCx growing S. aureus. Either this is a contaminant or sign of a bigger infection (i.e., bacteremia). Thus far Bcx pending. Would treat as bacteremia equivalent, though blood cultures are negative Cx +MSSA. (3) Acute kidney injury: Status: Acute Code(s): N17.9 - Acute kidney failure, unspecified Plan: TRAVIS on CKD stage III/dehydration Creatinine on presentation was 1.83. Dry mucous membrane. BUN is 34. BUN over creatinine is 18.6. Review of electronic community records shows that creatinine was 1.11 and EGFR of 54 on 10/01/2021. 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 (4) Acidosis, lactic: Status: Acute Code(s): E87.2 - Acidosis Plan: resolved 2/2 sepsis and metformin no additional work up (5) Essential hypertension: Status: Chronic Code(s): I10 - Essential (primary) hypertension Plan: Hypertension Blood pressure is stable. Trend blood pressures (6) Type 2 diabetes mellitus: Status: Chronic Code(s): E11.9 - Type 2 diabetes mellitus without complications Qualifiers: Diabetes mellitus terminal block assembler insulin use: unspecified terminal block assembler insulin use status Diabetes mellitus complication status: with kidney complications Diabetes mellitus complication detail: with chronic kidney disease Chronic kidney disease stage 3 subtype: stage 3b (GFR 30-44) Plan: Uncontrolled Continue glargine 30 QHS and SSI Add prandial A1c 12.2 Suspected patient will be discharged with insulin upon discharge as she was already on oral agents with hemoglobin (7) Toe ulcer, right: Status: Acute Code(s): L97.519 - Non-pressure chronic ulcer of other part of right foot with unspecified severity Qualifiers: Non-pressure ulcer stage: limited to breakdown of skin Qualified Code(s): L97.511 - Non-pressure chronic ulcer of other part of right foot limited to breakdown of skin Plan: Has been present for period of time Patient has been following with wound care Given the patient's diabetes, is concerning that this could be deeper. Xray showed foot swelling, but no definitive OM. MRI right foot showed no OM Continue to follow up with wound care. Heel weight bearing on right foot. (8) Hyponatremia: Status: Acute Code(s): E87.1 - Hypo-osmolality and hyponatremia Plan: Improved. on IVF (9) Stage 3b chronic kidney disease: Status: Acute Code(s): N18.32 - Chronic kidney disease, stage 3b Plan: Cr up slightly today. Avoid nephrotoxic agents Follow up with nephrology as outpt (10) Redness and swelling of lower leg: Status: Acute Code(s): M79.89 - Other specified soft tissue disorders; R23.8 - Other skin changes Plan: More likely lymphedema rather than cellulitis. However, it is unilateral, so continue with doxycycline. Add cephalexin. Duplex ordered, but pt is already anticoagulated. Plan Chronic conditions: * Morbid obesity: BMI: 44.5 kg/m?. Complicates care. Lifestyle modification recommended. * History of DVT and PE/subtherapeutic INR. INR on presentation was 1.9. Escalate dose of Coumadin. Trend INR Debility PT and OT recommend additional therapy. CM/SW to assist. Plan for SNF (pt wanted rehab, but does not have a qualifying dx). Awaiting on insurance approval. DVT prophylaxis: Coumadin dosing INR as above. DC to TCU today after duplex. Medications at Discharge Home Medications atorvastatin 80 mg tablet 80 mg PO QHS 03/12/22 levothyroxine 75 mcg tablet (Synthroid) 75 mcg PO DAILY 03/12/22 acetaminophen 325 mg tablet (Tylenol) 650 mg PO Q6H PRN PRN Pain Score 1-10/Temp > 100.7 F #0 tabs 03/15/22 arginine 7 gram-glutam 7 gram-CaHMB 1.5 otdi-hohxj-ak-min oral pwd pkt (Isael (with collagen)) 1 packet PO BIDCM #0 ea 03/15/22 chlorhexidine gluconate 2 % towelette 1 ea topical DAILY #0 ea 03/15/22 doxycycline monohydrate 100 mg capsule 100 mg PO BID #0 caps 03/15/22 insulin glargine-yfgn 100 unit/mL (3 mL) subcutaneous pen 30 unit (0.3 mL) subcut QHS #0 mL 03/15/22 insulin lispro 100 unit/mL subcutaneous pen (Humalog KwikPen (U-100) Insulin) 5 unit (0.05 mL) subcut TIDAC #15 mL 03/15/22 insulin lispro 100 unit/mL subcutaneous pen (Humalog KwikPen (U-100) Insulin) See Protocol subcut ACHS #0 mL 03/15/22 melatonin 3 mg tablet 3 mg PO QHS PRN PRN Insomnia #20 tabs 03/15/22 nystatin 100,000 unit/gram topical powder (Nyamyc) 1 applic topical BID #15 grams 03/15/22 sennosides 8.6 mg-docusate sodium 50 mg tablet (Stool Softener-Stimulant Laxative) 2 tab PO BID PRN PRN Constipation #10 tabs 03/15/22 warfarin 2 mg tablet 2 mg PO DAILY #30 tabs 03/15/22 cephalexin 500 mg capsule 500 mg PO Q6 #20 caps 03/16/22 furosemide 40 mg tablet 40 mg PO DAILY #0 tabs 03/16/22 Hospital Course Operations None Procedures None Summary of Care Provided Minutes Spent on Discharge: 32 Weight / BMI Weight Weight: 134.3 kg Body Mass Index (BMI) 45.1 ABG / Lab / Microbiology Data Result Diagrams: 03/15/22 05:22 03/15/22 05:22 Laboratory: Laboratory Results - last 24 hr 03/15/22 11:16: POC Glucose 176 H 03/15/22 16:35: POC Glucose 145 H 03/15/22 22:02: POC Glucose 128 H 03/16/22 06:11: POC Glucose 150 H 03/16/22 09:00: PT 29.3 H, INR 2.8 Microbiology: Microbiology 03/12/22 20:52 Blood Culture (Wb) - Right Hand Blood Culture - Preliminary No growth in 48 hours. 03/12/22 20:21 Blood Culture (Wb) - Anticubital Left Blood Culture - Preliminary No growth in 48 hours. 03/12/22 20:45 Urine, Clean Catch Urine Culture - Final Staphylococcus aureus 03/12/22 20:45 Nasal Secretion SARS-CoV-2 & FLU Antigen (Rapid) - Final Meaningful Use Info Meaningful Use Diagnoses (Choose all that apply): None applicable Discharge Plan Admission Admit Date/Time: 03/12/22 22:32 Primary Reason for Your Visit: sepsis Attending Provider: Tomasz Vega Primary Care Provider: Jamari Beasley Consulting Providers: Abisai Lenz ; Duncan Jeronimo Discharge Orders/Prescriptions Prescriptions: New acetaminophen [Tylenol] 325 mg Tablet 650 mg PO Q6H PRN PRN (Reason: Pain Score 1-10/Temp > 100.7 F) Qty: 0 0RF doxycycline monohydrate 100 mg Capsule 100 mg PO BID Qty: 0 0RF chlorhexidine gluconate 2 % Towelette 1 ea topical DAILY Qty: 0 0RF insulin glargine-yfgn 100 unit/mL (3 mL) Insulin Pen 30 unit subcut QHS Qty: 0 0RF insulin lispro [Humalog KwikPen Insulin] 100 unit/mL Insulin Pen See Protocol subcut ACHS Qty: 0 0RF Protocol: 4. Sliding Scale Insulin High-Med Dosing Condition: 150-199 mg/dl = 2 units Condition: 200-259 mg/dl = 4 units Condition: 260-324 mg/dl = 6 units Condition: 325-374 mg/dl = 8 units Condition: 375-409 mg/dl = 10 units Condition: 410-449 mg/dl = 11 units Condition: Greater than 449 call physician Protocol Text: - Use for Total Daily Dose of Insulin 56-80 units - Patient who are insulin resistant or septic HIGH MEDIUM DOSING ALGORITHM insulin lispro [Humalog KwikPen Insulin] 100 unit/mL Insulin Pen 5 unit subcut TIDAC Qty: 15 0RF sennosides-docusate sodium [Stool Softener-Stimulant Laxat] 8.6-50 mg Tablet 2 tab PO BID PRN PRN (Reason: Constipation) Qty: 10 0RF melatonin 3 mg Tablet 3 mg PO QHS PRN PRN (Reason: Insomnia) Qty: 20 0RF nystatin [Nyamyc] 100,000 unit/gram Powder 1 applic topical BID Qty: 15 0RF Protocol: *Topical Application Instructions APPLICATION INSTRUCTIONS: Apply to groin and abdominal folds Isael (with collagen) 7-7-1.5 gram Powder In Packet 1 packet PO BIDCM Qty: 0 0RF furosemide 40 mg Tablet 40 mg PO DAILY Qty: 0 0RF cephalexin 500 mg Capsule 500 mg PO Q6 Qty: 20 0RF Continued atorvastatin 80 mg tablet 80 mg PO QHS levothyroxine [Synthroid] 75 mcg tablet 75 mcg PO DAILY Changed warfarin 2 mg tablet 2 mg PO DAILY Qty: 30 0RF Label Comments: 1 tablet by mouth once a day ,mon, and monday and monday Discontinued metformin 1,000 MG tablet 1,000 mg PO DAILY glimepiride 4 mg tablet 8 mg PO DAILY warfarin 1 mg tablet 1 mg PO MOFR Referrals / Follow Up: Sofya Monique DO [Med Staff - Consulting] - Within 1 Month Masood Dumont MD [Med Staff - Courtesy Staff] - Within 1 Month Jaamri Beasley MD [Primary Care Provider] - Within 2 Weeks Disposition Disposition (needs filled in before D/C Order can be placed): [facility] Charges/Coding Visit Charges Inpatient E&M: [id number] Disch Hosp
--- NOTE | 2022-03-16 11:44 | PHA.DC.MR ---
Pharmacy Service has performed discharge medication reconciliation for this patient. The patient's discharge medication list was reviewed for discrepancies and discrepancies were resolved. Home Medications atorvastatin 80 mg tablet 80 mg PO QHS 03/12/22 levothyroxine 75 mcg tablet (Synthroid) 75 mcg PO DAILY 03/12/22 acetaminophen 325 mg tablet (Tylenol) 650 mg PO Q6H PRN PRN Pain Score 1-10/Temp > 100.7 F #0 tabs 03/15/22 arginine 7 gram-glutam 7 gram-CaHMB 1.5 zsqj-tdeoh-bm-min oral pwd pkt (Isael (with collagen)) 1 packet PO BIDCM #0 ea 03/15/22 chlorhexidine gluconate 2 % towelette 1 ea topical DAILY #0 ea 03/15/22 doxycycline monohydrate 100 mg capsule 100 mg PO BID #0 caps 03/15/22 insulin glargine-yfgn 100 unit/mL (3 mL) subcutaneous pen 30 unit (0.3 mL) subcut QHS #0 mL 03/15/22 insulin lispro 100 unit/mL subcutaneous pen (Humalog KwikPen (U-100) Insulin) 5 unit (0.05 mL) subcut TIDAC #15 mL 03/15/22 insulin lispro 100 unit/mL subcutaneous pen (Humalog KwikPen (U-100) Insulin) See Protocol subcut ACHS #0 mL 03/15/22 melatonin 3 mg tablet 3 mg PO QHS PRN PRN Insomnia #20 tabs 03/15/22 nystatin 100,000 unit/gram topical powder (Nyamyc) 1 applic topical BID #15 grams 03/15/22 sennosides 8.6 mg-docusate sodium 50 mg tablet (Stool Softener-Stimulant Laxative) 2 tab PO BID PRN PRN Constipation #10 tabs 03/15/22 warfarin 2 mg tablet 2 mg PO DAILY #30 tabs 03/15/22 cephalexin 500 mg capsule 500 mg PO Q6 #20 caps 03/16/22 furosemide 40 mg tablet 40 mg PO DAILY #0 tabs 03/16/22
[2022-03-16 12:56] LABS: Bedside Glucose 157 mg/dL (74-106)
[2022-03-16] MEDS: Cephalexin 500 MG Capsule PO (13:59)
== END 2022-03-16 15:03 | disposition skilled nursing facility (03) | DRG 872 ==
LOC: ED 20:56 → ICU 22:40 → PCU 03-13 13:54
PROVIDERS: Internal Medicine Pulmonary Disease; Admitting Provider Hospitalist; Emergency Provider Emergency Medicine; PCP Internal Medicine
DX: A41.9 Sepsis, unspecified organism (principal); I82.411 Acute embolism and thrombosis of right femoral vein; E87.2 Acidosis; E87.1 Hypo-osmolality and hyponatremia; N17.9 Acute kidney failure, unspecified; Z68.41 Body mass index [BMI] 40.0-44.9, adult; I82.431 Acute embolism and thrombosis of right popliteal vein; I82.441 Acute embolism and thrombosis of right tibial vein; I82.451 Acute embolism and thrombosis of right peroneal vein; N39.0 Urinary tract infection, site not specified; E66.01 Morbid (severe) obesity due to excess calories; E11.22 Type 2 diabetes mellitus with diabetic chronic kidney disease; E11.621 Type 2 diabetes mellitus with foot ulcer; E11.65 Type 2 diabetes mellitus with hyperglycemia; E11.21 Type 2 diabetes mellitus with diabetic nephropathy; Z79.4 Long term (current) use of insulin; N18.32 Chronic kidney disease, stage 3b; L97.511 Non-pressure chronic ulcer of other part of right foot limited to breakdown of skin; E11.42 Type 2 diabetes mellitus with diabetic polyneuropathy; I12.9 Hypertensive chronic kidney disease with stage 1 through stage 4 chronic kidney disease, or unspecified chronic kidney disease; E78.5 Hyperlipidemia, unspecified; E03.9 Hypothyroidism, unspecified; I89.0 Lymphedema, not elsewhere classified; E86.0 Dehydration; R53.81 Other malaise; B95.61 Methicillin susceptible Staphylococcus aureus infection as the cause of diseases classified elsewhere; Z79.01 Long term (current) use of anticoagulants; Z79.899 Other long term (current) drug therapy; Z79.84 Long term (current) use of oral hypoglycemic drugs; Z86.711 Personal history of pulmonary embolism; Z86.718 Personal history of other venous thrombosis and embolism
CPT/HCPCS: 36415; 71045; 73620; 73718; 80048; 80053; 81001; 82962; 83036; 83605; 85025; 85610; 87040; 87077; 87086; 87088; 87186; 87426; 87428; 93971; 97110; 97116; 97163; 97166; 97530; 97535; 97802; 99285; J7030; J7040; A4216; J0696; J2405

== ENCOUNTER 2022-03-16 15:20 | Inpatient (IN) | payer MEDICARE, SELFPAY ==
[2022-03-16 15:32] VITALS: BP 135/54; PULSE 68; RESP 18; TEMP 36.8; O2SAT 100
[2022-03-16 15:34] VITALS: BP 135/54; PULSE 68; RESP 18; TEMP 36.8; O2SAT 100
[2022-03-16 16:26] VITALS: BMI 44.8
[2022-03-16 16:35] LABS: Bedside Glucose 221 mg/dL (74-106)
--- NOTE | 2022-03-16 17:27 | NURSING ---
spoke with Dr Vega to verify anticoagulation, order to dc warfarin and start eliquis.
[2022-03-16] MEDS: Insulin Lispro 100 UNIT/ML INSULN.PEN SC ×2 (17:49)
[2022-03-16] MEDS: Juven (unflavored) Packet 1 PACKET PO (17:49)
[2022-03-16] MEDS: Doxycycline 100 MG CAPSULE PO (17:49)
[2022-03-16] MEDS: Nystatin Powder 15gm Bottle 1 APPLIC TOPICAL (17:53)
[2022-03-16] MEDS: APIXABAN 5 MG TABLET 10 MG PO (18:22)
--- NOTE | 2022-03-16 20:16 | HP.PCM_ITS ---
HPI - General General Date of Admission: 03/16/22 Date of Service: 03/16/22 Chief Complaint: Here for rehab. HPI Narrative 03/12/2022 MARK SOARES, is a 71 Female who presents to [facility] Emergency Department with generalized illness. Not feeling well x 1 day, nausea, brought up phlegm. Frequency of urination, mild diarrhea. Generalized weakness, home covid negative. Recent covid vaccine. WBC 20,000, INR 1.9, Glucose 471. Lactate 37. Acute kidney injury. IV fluids, insulin given. Urinalysis consistent with urinary tract infection, urine culture sent, blood culture sent, Levaquin IV given. 03/12/2022 Admit to ICU. Follow urine culture, Follow blood culture. Rocephin IV for urinary tract infection. Hold Metformin for lactic acidosis. IV fluids for acute kidney injury. PT/OT for debility. 03/13/2022 Fever. Lactic acidosis resolved. A1c 12.2, Glargine added. 03/14/2022 Feels better. Urine culture growing MSSA, on Rocephin IV. MRI right foot for right toe ulcer negative for osteomyelitis, right foot X- ray showed swelling. Hyponatremia improved. 03/15/2022 Blood cultures negative. 03/16/2022 Doppler right lower extremity positive for DVT. Keflex/Doxycycline right lower extremity cellulitis. 03/16/2022 Admit to TCU with debility, here for rehabilitation, strengthening, prior to discharge home with . [facility] Medical History Diabetes Hyperlipidemia Stage 3b chronic kidney disease Home Medications atorvastatin 80 mg tablet 80 mg PO QHS cholesterol 03/12/22 [History Last Taken Unknown] levothyroxine 75 mcg tablet (Synthroid) 75 mcg PO DAILY thyroid 03/12/22 [History Last Taken Unknown] acetaminophen 325 mg tablet (Tylenol) 650 mg PO Q6H PRN PRN Pain Score 1-10/Temp > 100.7 F #0 tabs 03/15/22 [Rx Last Taken Unknown] melatonin 3 mg tablet 3 mg PO QHS PRN PRN Insomnia #20 tabs 03/15/22 [Rx Last Taken Unknown] sennosides 8.6 mg-docusate sodium 50 mg tablet (Stool Softener-Stimulant Laxative) 2 tab PO BID PRN PRN Constipation #10 tabs 03/15/22 [Rx Last Taken Unknown] arginine 7 gram-glutam 7 gram-CaHMB 1.5 cvss-nywxx-um-min oral pwd pkt (Isael (with collagen)) 1 packet PO BIDCM wound healing 03/16/22 [History Last Taken Unknown] cephalexin 500 mg capsule 500 mg PO Q6 ATB 03/16/22 [History Last Taken Unknown] chlorhexidine gluconate 2 % towelette 1 ea topical DAILY Check with primary doctor 03/16/22 [History Last Taken Unknown] doxycycline monohydrate 100 mg capsule 100 mg PO BID ATB 03/16/22 [History Last Taken Unknown] furosemide 40 mg tablet 40 mg PO DAILY water pill 03/16/22 [History Last Taken Unknown] insulin glargine-yfgn 100 unit/mL (3 mL) subcutaneous pen 30 unit subcut QHS diabetes 03/16/22 [History Last Taken Unknown] insulin lispro 100 unit/mL subcutaneous pen (Humalog KwikPen (U-100) Insulin) 5 unit subcut TIDAC diabetes 03/16/22 [History Last Taken Unknown] insulin lispro 100 unit/mL subcutaneous pen (Humalog KwikPen (U-100) Insulin) See Protocol subcut ACHS diabetes 03/16/22 [History Last Taken Unknown] nystatin 100,000 unit/gram topical powder (Nyamyc) 1 applic topical BID skin irritation 03/16/22 [History Last Taken Unknown] warfarin 2 mg tablet 2 mg PO DAILY blood clots legs 03/16/22 [History Last Taken Unknown] Allergy/AdvReac Type Severity Reaction Status Date / Time codeine Allergy Rash Verified 03/12/22 20:20 Penicillins [PCN] Allergy Rash Verified 03/12/22 20:20 Family History Other CVA (cerebral vascular accident) Pancreatic cancer Surgical History H/O: hysterectomy Social History (Updated 03/16/22 @ 20:[address] Viraj Haines MD) household members: spouse Smoking Status: Never smoker alcohol intake: never substance use type: does not use ROS Constitutional Constitutional: Denies chills, fever(s) or weight gain ENT HEENT: Denies headache(s), nasal congestion or nasal discharge Cardiovascular Cardiovascular: Denies chest pain or palpitations Respiratory/Chest Respiratory/Chest: Denies cough, excessive phlegm production or shortness of breath with exertion Gastrointestinal Gastrointestinal: Denies abdominal pain, nausea or vomiting Genitourinary Genitourinary: Denies dysuria Musculoskeletal Musculoskeletal: Denies joint pain or joint swelling Integumentary Integumentary: Denies rash or wounds Neurologic Neurologic: Denies focal weakness, numbness or tingling Psychiatric Psychiatric: Denies anxiety, auditory hallucinations, depression, homicidal ideation or suicidal ideation Vital Signs Vital Signs Vital Signs: 03/16/22 15:32 03/16/22 15:34 Temperature 98.2 F 98.2 F Temperature Source Oral Oral Pulse Rate 68 68 Respiratory Rate 18 18 Blood Pressure 135/54 H 135/54 H Blood Pressure Mean 81 81 Blood Pressure Source Monitor Monitor Blood Pressure Position Semi-Fowlers Semi-Fowlers Blood Pressure Location Right Arm Right Arm Pulse Ox 100 100 Oxygen Delivery Method Room Air Room Air Weight Weight: 133.674 kg Body Mass Index (BMI) 44.8 Physical Exam Const alert General Appearance: cooperative HEENT normocephalic Eyes PERRL and EOMs intact bilaterally Neck supple, no JVD and no carotid bruits Resp normal respiratory effort, normal air movement and clear to auscultation bilaterally Cardio regular rate and regular rhythm GI normal to inspection, nondistended, normoactive bowel sounds, non-tender and non-distended Extremity normal capillary refill General Extremity: Negative for edema Skin no rashes or lesions noted General Skin Exam: no breakdown Psych affect normal Appearance: appropriate Results Lab / Micro Data Labs: Laboratory Results - last 24 hr 03/16/22 16:00: POC Glucose 221 H Assessment & Plan Assessment/Plan (1) Debility: (2) Sepsis: (3) Urinary tract infection: (4) Lactic acidosis: (5) Acute kidney injury: (6) Chronic kidney disease, stage 3b: (7) Hyponatremia: (8) Acute deep vein thrombosis of right lower extremity: (9) Cellulitis of right lower extremity: (10) Diabetes mellitus: (11) Hyperlipidemia: (12) Hypothyroidism: (13) History of pulmonary embolism: PLAN: Plan 71 year old female with below past medical history hospitalized for sepsis secondary MSSA urinary tract infection, complicated by lactic acidosis, acute kidney injury, hyponatremia, acute DVT right lower extremity, cellulitis right lower extremity, admitted to TCU with debility, here for rehabilitation, strengthening, prior to discharge home with . * Debility - PT/OT. * Pain - Tylenol 1000mg q6h prn pain (1-10). * Bowel - Senna/colace 1 tablet bid, Dulcolax 10mg daily prn. * Adult immunization - Administer pneumonia vaccine, covid19 vaccine, flu vaccine as appropriate. * DVT prophylaxis - Not necessary, on Eliquis. * Acute DVT right lower extremity - Eliquis 10mg bid x 7 days, then 5mg bid forever. * Hyperlipidemia - Atorvastatin 80mg qhs. * Right lower extremity cellulitis/MSSA urinary tract infection - Keflex 500mg q12/Doxycycline 100mg bid x 5 days. * Edema - Furosemide 40mg daily. * Diabetes Mellitus II - Glargine 30 units qhs, Humalog 5 units tidac. * Nutrition - Isael 1 picker packer bid. * Hypothyroidism - Levothyroxine 75mcg daily. * Insomnia - Melatonin 3mg qhs prn. * Skin irritation - Calmoseptine topical bid. * Tinea Corporis - Nystatin powder topical bid. * Shortness of breath/history of pulmonary embolism - order CTA chest to rule out new pulmonary embolism in light of acute DVT right lower extremity.
[2022-03-16 20:44] VITALS: PULSE 66; RESP 22
[2022-03-16 21:31] LABS: Bedside Glucose 172 mg/dL (74-106)
[2022-03-16] MEDS: Insulin Glargine-YFGN 100 UNIT/ML Pen 30 UNIT SC (21:54)
[2022-03-16] MEDS: Atorvastatin Calcium 80 MG Tablet PO (21:57)
[2022-03-16] MEDS: 0.9% Saline Lock 10 ML Syringe IV (21:59)
[2022-03-16] MEDS: Acetaminophen 500 MG Tablet 1000 MG PO (23:20)
--- NOTE | 2022-03-17 05:31 | NURSING ---
Patient A&Ox3, frequently requesting fluids despite education regarding 1500cc fluid restriction. Patient encouraged to maintain fluid restriction as ordered, verbalized understanding. Call light in reach.
[2022-03-17] MEDS: Menthol/Lanolin/Calamine/Znox 113 GM Tube 1 APPLIC TOPICAL ×2 (05:32→18:25)
[2022-03-17] MEDS: Doxycycline 100 MG CAPSULE PO ×2 (05:33→18:24)
[2022-03-17] MEDS: Nystatin Powder 15gm Bottle 1 APPLIC TOPICAL ×2 (05:34→18:25)
[2022-03-17] MEDS: Senna/Docusate Sodium 1 Tablet PO ×2 (05:34→18:24)
[2022-03-17] MEDS: Furosemide 40 MG Tablet PO (05:34)
[2022-03-17] MEDS: Levothyroxine 75 MCG Tablet PO (05:34)
[2022-03-17] MEDS: Cephalexin 500 MG Capsule PO ×2 (05:34→18:24)
[2022-03-17 05:35] LABS: Absolute Lymphocyte Count 1.26 X10^3/uL (0.83-4.51); Absolute Neutrophil Count 5.7 X10^3/uL (2.0-7.7); Basophil# 0.02 X10^3/uL; Basophil% 0.3 % (0-1); Eosinophil# 0.17 X10^3/uL; Eosinophils% 2.2 % (0-5); Hemoglobin 10.1 g/dL (12.0-15.0); Lymphocyte # 1.26 X10^3/ul (0.83-4.51); Lymphocyte % 16.1 % (19-41); Mean Corp Hgb Conc 30.6 g/dL (32-36); Mean Corpuscular Hgb 27.5 pg (27.0-32.0); Mean Corpuscular Volume 89.9 fL (81-99); Monocyte# 0.64 X10^3/uL; Monocyte% 8.2 % (0-10); NRBC Flagged by Analyzer 0 % (0-5); Neutrophil # 5.67 X10^3/uL (2.7-7.7); Neutrophil % 72.4 % (47-70); Platelet Count 200 K/mm3 (150-450); RBC Distribution Width CV 15.8 % (11.6-14.6); RBC Distribution Width SD 51.5 fl (35.1-43.9); Red Blood Count 3.67 M/mm3 (4.2-5.4); White Blood Count 7.8 K/mm3 (4.4-11.0)
[2022-03-17] MEDS: APIXABAN 5 MG TABLET 10 MG PO ×2 (05:43→18:24)
[2022-03-17 06:34] LABS: Anion Gap 8 (5-15); BUN 39 mg/dL (7-18); BUN/Creat Ratio 19.2 RATIO (10-20); Calcium,Total 7.9 mg/dL (8.5-10.1); Chloride 112 mmol/L (98-107); Creatinine, Serum 2.03 mg/dL (0.55-1.02); EST Glomerular Filtration Rate 26 mL/min (>60); Est Glom Filt Rate - Afr Amer 31 mL/min (>60); Estimated Creatinine Clearance 26.38 ml/min; Glucose 182 mg/dL (74-106); Potassium 3.8 mmol/L (3.5-5.1); Sodium Level 141 mmol/L (136-145)
[2022-03-17 06:35] LABS: Bedside Glucose 171 mg/dL (74-106)
[2022-03-17] MEDS: Insulin Lispro 100 UNIT/ML INSULN.PEN SC ×3 (08:31→18:24)
[2022-03-17] MEDS: Juven (unflavored) Packet 1 PACKET PO (08:32)
--- NOTE | 2022-03-17 09:55 | CASEMGMT ---
Social Work Met with patient to complete initial assessment. Introduced self and role. Verified contacts. Discussed code status and MOLST form. Pt confirmed full code. MOLST communicated to Dr and placed in chart. Educated to [facility] insurance with [employer] 03/17 and continued stay is not guaranteed. Pts goal is to return home with . Pt has two daughters that work fullerette, locally. SW to continue to follow for DC planning. Hallie Melendez, COMPRESSOR STATION ENGINEER WATER MECHANIC
[2022-03-17 11:30] LABS: Bedside Glucose 207 mg/dL (74-106)
[2022-03-17] MEDS: Tuberculin,Purif.prot.deriv. 50 TU/ML Vial 0.1 ML ID (11:59)
--- NOTE | 2022-03-17 14:35 | PCM.PN.DRR ---
TCU RX Drug Regimen Review Subjective: [] Objective: Allergies codeine Allergy (Verified 03/12/22 20:20) Rash Penicillins [PCN] Allergy (Verified 03/12/22 20:20) Rash PT REPORTED NOT ALLERGIC Current Medications Generic Name Dose Route Start Last Admin Trade Name Freq PRN Reason Stop Dose Admin Acetaminophen 1,000 mg 03/16/22 20:39 03/16/22 23:20 Acetaminophen 500 Mg Tablet PO 1,000 mg Q6H PRN PRN Administration Pain Score 1-10 Apixaban 10 mg 03/16/22 18:00 03/17/22 05:43 Apixaban 5 Mg Tablet PO 03/23/22 18:01 10 mg BID JAMES Administration Apixaban 5 mg 03/24/22 06:00 Apixaban 5 Mg Tablet PO BID JAMES Atorvastatin Calcium 80 mg 03/16/22 22:00 03/16/22 21:57 Atorvastatin Calcium 80 Mg Tablet PO 80 mg QHS JAMES Administration Bisacodyl 10 mg 03/16/22 20:39 Bisacodyl 5 Mg Tablet PO DAILY PRN CONSTIPATION Calamine/Phenol 1 applic 03/17/22 06:00 03/17/22 05:32 Menthol/Lanolin/Calamine/Znox 113 Gm Tube TOPICAL 1 applic BID JAMES Administration Protocol Cephalexin 500 mg 03/17/22 06:00 03/17/22 05:34 Cephalexin 500 Mg Capsule PO 03/21/22 18:01 500 mg Q12 JAMES Administration Doxycycline Monohydrate 100 mg 03/16/22 18:00 03/17/22 05:33 Doxycycline 100 Mg Capsule PO 03/22/22 18:00 100 mg BID JAMES Administration Sodium Chloride 250 mls @ 15 mls/hr 03/16/22 16:18 IV .[id number] PRN Saline Flush Sodium Chloride 250 mls @ 15 mls/hr 03/16/22 16:18 IV .[id number] PRN Additional IVPB Infusion Insulin Glargine 30 unit 03/16/22 22:00 03/16/22 21:54 Insulin Glargine-Yfgn 100 Unit/Ml Pen SC 30 unit QHS JAMES Administration Insulin Human Lispro 5 unit 03/16/22 16:45 03/17/22 11:57 Insulin Lispro 100 Unit/Ml Insuln.Pen SC 5 u TIDAC JAMES Administration L-Arginine/L-Glutamine/Calcium HMB 1 packet 03/16/22 17:00 03/17/22 08:32 Isael (Unflavored) Packet PO 1 packet BIDCM JAMES Administration Levothyroxine Sodium 75 mcg 03/17/22 06:00 03/17/22 05:34 Levothyroxine 75 Mcg Tablet PO 75 mcg 0600 JAMES Administration Melatonin 3 mg 03/16/22 15:41 Melatonin 3 Mg Tablet PO QHS PRN PRN Insomnia Nystatin 1 applic 03/16/22 18:00 03/17/22 05:34 Nystatin Powder 15gm Bottle TOPICAL 1 applic BID JAMES Administration Protocol Senna/Docusate Sodium 1 tablet 03/17/22 06:00 03/17/22 05:34 Senna/Docusate Sodium 1 Tablet PO 1 tablet BID JAMES Administration Sodium Chloride 10 - 40 ml 03/16/22 16:18 03/16/22 21:59 0.9% Saline Lock 10 Ml Syringe IV 10 ml UD PRN Administration SALINE FLUSH Tuberculin PPD 0.1 ml 03/24/22 10:00 Tuberculin,Purif.Prot.Deriv. 50 Tu/Ml Vial ID 03/24/22 10:01 X1 ONE Problem List (Last Reviewed 03/16/22 @ 20:[address] Viraj Haines MD) History of pulmonary embolism (Acute) Hypothyroidism (Acute) Hyperlipidemia (Acute) Diabetes mellitus (Acute) Cellulitis of right lower extremity (Acute) Acute deep vein thrombosis of right lower extremity (Acute) Hyponatremia (Acute) Chronic kidney disease, stage 3b (Acute) Acute kidney injury (Acute) Lactic acidosis (Acute) Urinary tract infection (Acute) Sepsis (Acute) Debility (Acute) Vital Signs Temp Pulse Resp BP Pulse Ox O2 Del Method 98.2 F 66 22 H 135/54 H 100 Room Air 03/16/22 15:34 03/16/22 20:44 03/16/22 20:44 03/16/22 15:34 03/16/22 15:34 03/16/22 20:44 Oxygen Delivery Method Room Air Weight: 133.674 kg Body Mass Index (BMI) 44.8 Sodium 141 mmol/L (136-145) 03/17/22 05:12 Potassium 3.8 mmol/L (3.5-5.1) 03/17/22 05:12 Chloride 112 mmol/L (98-107) H 03/17/22 05:12 Carbon Dioxide 21.0 mmol/L (21.0-32.0) 03/17/22 05:12 Anion Gap 8 (5-15) 03/17/22 05:12 BUN 39 mg/dL (7-18) H 03/17/22 05:12 Creatinine 2.03 mg/dL (0.55-1.02) H 03/17/22 05:12 Est GFR (MDRD) Af Amer 31 mL/min (>60) L 03/17/22 05:12 Est GFR (MDRD) Non-Af 26 mL/min (>60) L 03/17/22 05:12 BUN/Creatinine Ratio 19.2 RATIO (10-20) 03/17/22 05:12 Glucose 182 mg/dL (74-106) H 03/17/22 05:12 Assessment/Plan: Assessment/Plan for indications treated with psychotropic medications: Medical chart and medication regimen reviewed. The following medication irregularities or issues were identified: Date of Note:: 03/18/22
--- NOTE | 2022-03-17 14:49 | PHA.CONS_ITS ---
TCU RX Drug Regimen Review Subjective: 71 YOF admitted to TCU after hospitalization for general illness. Patient is (+) for DVT, lower extremity cellulitis, UTI. Admitted to TCU for rehabilitation and strengthening prior to discharge home with . Objective: Allergies codeine Allergy (Verified 03/12/22 20:20) Rash Penicillins [PCN] Allergy (Verified 03/12/22 20:20) Rash PT REPORTED NOT ALLERGIC Current Medications Generic Name Dose Route Start Last Admin Trade Name Freq PRN Reason Stop Dose Admin Acetaminophen 1,000 mg 03/16/22 20:39 03/16/22 23:20 Acetaminophen 500 Mg Tablet PO 1,000 mg Q6H PRN PRN Administration Pain Score 1-10 Apixaban 10 mg 03/16/22 18:00 03/17/22 05:43 Apixaban 5 Mg Tablet PO 03/23/22 18:01 10 mg BID JAMES Administration Apixaban 5 mg 03/24/22 06:00 Apixaban 5 Mg Tablet PO BID JAMES Atorvastatin Calcium 80 mg 03/16/22 22:00 03/16/22 21:57 Atorvastatin Calcium 80 Mg Tablet PO 80 mg QHS JAMES Administration Bisacodyl 10 mg 03/16/22 20:39 Bisacodyl 5 Mg Tablet PO DAILY PRN CONSTIPATION Calamine/Phenol 1 applic 03/17/22 06:00 03/17/22 05:32 Menthol/Lanolin/Calamine/Znox 113 Gm Tube TOPICAL 1 applic BID JAMES Administration Protocol Cephalexin 500 mg 03/17/22 06:00 03/17/22 05:34 Cephalexin 500 Mg Capsule PO 03/21/22 18:01 500 mg Q12 JAMES Administration Doxycycline Monohydrate 100 mg 03/16/22 18:00 03/17/22 05:33 Doxycycline 100 Mg Capsule PO 03/22/22 18:00 100 mg BID JAMES Administration Sodium Chloride 250 mls @ 15 mls/hr 03/16/22 16:18 IV .[id number] PRN Saline Flush Sodium Chloride 250 mls @ 15 mls/hr 03/16/22 16:18 IV .[id number] PRN Additional IVPB Infusion Insulin Glargine 30 unit 03/16/22 22:00 03/16/22 21:54 Insulin Glargine-Yfgn 100 Unit/Ml Pen SC 30 unit QHS JAMES Administration Insulin Human Lispro 5 unit 03/16/22 16:45 03/17/22 11:57 Insulin Lispro 100 Unit/Ml Insuln.Pen SC 5 u TIDAC JAMES Administration L-Arginine/L-Glutamine/Calcium HMB 1 packet 03/16/22 17:00 03/17/22 08:32 Isael (Unflavored) Packet PO 1 packet BIDCM JAMES Administration Levothyroxine Sodium 75 mcg 03/17/22 06:00 03/17/22 05:34 Levothyroxine 75 Mcg Tablet PO 75 mcg 0600 JAMES Administration Melatonin 3 mg 03/16/22 15:41 Melatonin 3 Mg Tablet PO QHS PRN PRN Insomnia Nystatin 1 applic 03/16/22 18:00 03/17/22 05:34 Nystatin Powder 15gm Bottle TOPICAL 1 applic BID JAMES Administration Protocol Senna/Docusate Sodium 1 tablet 03/17/22 06:00 03/17/22 05:34 Senna/Docusate Sodium 1 Tablet PO 1 tablet BID JAMES Administration Sodium Chloride 10 - 40 ml 03/16/22 16:18 03/16/22 21:59 0.9% Saline Lock 10 Ml Syringe IV 10 ml UD PRN Administration SALINE FLUSH Tuberculin PPD 0.1 ml 03/24/22 10:00 Tuberculin,Purif.Prot.Deriv. 50 Tu/Ml Vial ID 03/24/22 10:01 X1 ONE Problem List (Last Reviewed 03/16/22 @ 20:[address] Viraj Haines MD) History of pulmonary embolism (Acute) Hypothyroidism (Acute) Hyperlipidemia (Acute) Diabetes mellitus (Acute) Cellulitis of right lower extremity (Acute) Acute deep vein thrombosis of right lower extremity (Acute) Hyponatremia (Acute) Chronic kidney disease, stage 3b (Acute) Acute kidney injury (Acute) Lactic acidosis (Acute) Urinary tract infection (Acute) Sepsis (Acute) Debility (Acute) Vital Signs Temp Pulse Resp BP Pulse Ox O2 Del Method 98.2 F 66 22 H 135/54 H 100 Room Air 03/16/22 15:34 03/16/22 20:44 03/16/22 20:44 03/16/22 15:34 03/16/22 15:34 03/16/22 20:44 Oxygen Delivery Method Room Air Weight: 133.674 kg Body Mass Index (BMI) 44.8 Sodium 141 mmol/L (136-145) 03/17/22 05:12 Potassium 3.8 mmol/L (3.5-5.1) 03/17/22 05:12 Chloride 112 mmol/L (98-107) H 03/17/22 05:12 Carbon Dioxide 21.0 mmol/L (21.0-32.0) 03/17/22 05:12 Anion Gap 8 (5-15) 03/17/22 05:12 BUN 39 mg/dL (7-18) H 03/17/22 05:12 Creatinine 2.03 mg/dL (0.55-1.02) H 03/17/22 05:12 Est GFR (MDRD) Af Amer 31 mL/min (>60) L 03/17/22 05:12 Est GFR (MDRD) Non-Af 26 mL/min (>60) L 03/17/22 05:12 BUN/Creatinine Ratio 19.2 RATIO (10-20) 03/17/22 05:12 Glucose 182 mg/dL (74-106) H 03/17/22 05:12 Assessment/Plan: 1. Pain: Tylenol 1000mg PO Q6h PRN Pain 1-10. Please continue to monitor for S/S increased/decreased pain, PRN medication usage. - The patient has used one PRN medication dose since admission on 03/16. Pre- medication pain was rated 4/10, post medication pain assessment the patient was resting with her eyes closed. It appears at this time that her pain is well managed. Continue to monitor. 2. DVT (Right lower extremity): Eliquis 10mg PO BID thru 03/23/22 then 5mg PO BID thereafter starting 03/24/22. Please continue to monitor H/H (Hgb 10.1, HCt 33% on 03/17), S/S bleeding/ bruising. 3. Lower Extremity cellulitis/ recent MSSA UTI: Keflex 500mg PO Q12h thru 03/21/22, Doxycycline 100mg PO BID thru 03/22/22. Please continue to monitor for resolution of infection, renal function (SCr slowly increasing, up to 2.03 today), N/V/D. - Per culture data from hospitalization, current antibiotic therapy is appropriate based on finalized cultures. 4. Type II Diabetes: Insulin Glargine 30 unit SC QHS, Humalog 5 units SC TIDAC. Please continue to monitor for S/S hypoglycemia, BG levels (POC range 171-221), A1c every 3 months (last 12.2% on 03/13) -Please consider adjusting patient's insulin regimen if clinically appropriate as it appears patient's blood glucose is not well controlled at this time. 5. Hypothyroidism: Synthroid 75mcg PO Daily. Please continue to monitor for S/S hyper/hypothyroidism. Patient's last TSH was in 2013 per EMR review, please consider drawing another TSH if clinically indicated, thank you. 6. HLD: Lipitor 80mg PO QHS. Please continue to monitor for mucle myopathy, lipid panel annually or sooner if clinically indicated. Please consider obtaining a lipid panel as there is not one on file per EMR review, thank you. 7. Insomnia: melatonin 3mg PO QHS PRN. Please continue to monitor for medication effectiveness, oversedation. Can try giving medication at least 2 hours prior to desired bedtime to allow medication to take effect if medication appears ineffective. -The patient has not required any doses of melatonin since admission on 03/16/22 8. Bowel: Senna/Docusate 1 tab PO BID, Dulcolax 10mg PO Daily PRN. Please continue to monitor for increased/decreased constipation and/or diarrhea. - The patient has had one documented bowel movement since admission on 03/16. 9. Skin Integrity: Nystatin Powder Topically BID, Calmoseptine topically BID. Please continue to monitor for skin breakdown, ulcer formations. Assessment/Plan for indications treated with psychotropic medications: - The patient is not on any psychotropic medications at time of medication list review. Medical chart and medication regimen reviewed. The following medication irregularities or issues were identified: 1. Renal function: SCr is trending up. Please continue to monitor renal function and adjust antibiotic therapy if renal function continues to worsen. The patient's medication dosing is appropriate at this time based on dosing recommendations and current renal function. 2. Type II Diabetes: Patient's blood glucose appears uncontrolled as evidenced by her point of care readings (range 171-221) and A1c (12.2%). Please consider adjusting insulin dosing regimen in an attempt to lower BG levels and improve A1 c, thank you. 3. Hypothyroidism: Synthroid 75mcg PO Daily. Please continue to monitor for S/S hyper/hypothyroidism. Patient's last TSH was in 2013 per EMR review, please consider drawing another TSH if clinically indicated, thank you. Date of Note:: 03/17/22
[2022-03-17 16:00] VITALS: BP 141/73; PULSE 70; RESP 16; TEMP 36.8; O2SAT 97
[2022-03-17 17:06] LABS: Bedside Glucose 186 mg/dL (74-106)
[2022-03-17] MEDS: Acetaminophen 500 MG Tablet 1000 MG PO (20:41)
[2022-03-17] MEDS: Atorvastatin Calcium 80 MG Tablet PO (20:41)
[2022-03-17 20:56] VITALS: PULSE 62; RESP 18; O2SAT 96
[2022-03-17 21:50] LABS: Bedside Glucose 233 mg/dL (74-106)
[2022-03-17] MEDS: Insulin Glargine-YFGN 100 UNIT/ML Pen 30 UNIT SC (21:52)
[2022-03-18] MEDS: APIXABAN 5 MG TABLET 10 MG PO ×2 (05:28→17:55)
[2022-03-18] MEDS: Doxycycline 100 MG CAPSULE PO ×2 (05:28→17:54)
[2022-03-18] MEDS: Cephalexin 500 MG Capsule PO ×2 (05:28→17:54)
[2022-03-18] MEDS: Levothyroxine 75 MCG Tablet PO (05:28)
[2022-03-18] MEDS: Senna/Docusate Sodium 1 Tablet PO ×2 (05:28→17:55)
[2022-03-18] MEDS: Nystatin Powder 15gm Bottle 1 APPLIC TOPICAL ×2 (05:29→19:08)
[2022-03-18] MEDS: Menthol/Lanolin/Calamine/Znox 113 GM Tube 1 APPLIC TOPICAL ×2 (05:29→17:55)
[2022-03-18 06:46] LABS: Bedside Glucose 149 mg/dL (74-106)
[2022-03-18] MEDS: Acetaminophen 500 MG Tablet 1000 MG PO (07:33)
[2022-03-18] MEDS: Insulin Lispro 100 UNIT/ML INSULN.PEN SC ×3 (08:56→17:55)
[2022-03-18 11:00] LABS: Bedside Glucose 183 mg/dL (74-106)
--- NOTE | 2022-03-18 11:20 | WOUNDNOTE ---
wound photo: right great toe
--- NOTE | 2022-03-18 14:57 | CASEMGMT ---
Social Work Continued stay approved by insurance with next insurance update due on 03/23/2022. This outreach and education social worker updated patient on above information. Patient voiced understanding and declined for this outreach and education social worker to contact support person. Omar MYERS, ISMA
[2022-03-18 15:50] VITALS: BP 123/51; PULSE 61; RESP 16; TEMP 36.6; O2SAT 96
[2022-03-18 16:06] LABS: Bedside Glucose 164 mg/dL (74-106)
[2022-03-18] MEDS: Atorvastatin Calcium 80 MG Tablet PO (20:52)
[2022-03-18 21:55] LABS: Bedside Glucose 165 mg/dL (74-106)
[2022-03-18] MEDS: Insulin Glargine-YFGN 100 UNIT/ML Pen 30 UNIT SC (22:02)
[2022-03-18 23:00] VITALS: PULSE 60; RESP 18; O2SAT 97
[2022-03-19] MEDS: Doxycycline 100 MG CAPSULE PO ×2 (05:49→17:37)
[2022-03-19] MEDS: Levothyroxine 75 MCG Tablet PO (05:50)
[2022-03-19] MEDS: Menthol/Lanolin/Calamine/Znox 113 GM Tube 1 APPLIC TOPICAL ×2 (05:50→17:39)
[2022-03-19] MEDS: Senna/Docusate Sodium 1 Tablet PO ×2 (05:50→17:37)
[2022-03-19] MEDS: APIXABAN 5 MG TABLET 10 MG PO ×2 (05:50→17:37)
[2022-03-19] MEDS: Cephalexin 500 MG Capsule PO ×2 (05:50→17:37)
[2022-03-19] MEDS: Nystatin Powder 15gm Bottle 1 APPLIC TOPICAL ×2 (05:51→17:39)
[2022-03-19] MEDS: Acetaminophen 500 MG Tablet 1000 MG PO ×2 (05:56→22:19)
[2022-03-19 06:41] LABS: Bedside Glucose 148 mg/dL (74-106)
[2022-03-19] MEDS: Insulin Lispro 100 UNIT/ML INSULN.PEN SC ×3 (07:51→17:37)
[2022-03-19 07:55] LABS: Anion Gap 8 (5-15); BUN 38 mg/dL (7-18); BUN/Creat Ratio 21.7 RATIO (10-20); Calcium,Total 8.4 mg/dL (8.5-10.1); Chloride 112 mmol/L (98-107); Creatinine, Serum 1.75 mg/dL (0.55-1.02); EST Glomerular Filtration Rate 31 mL/min (>60); Est Glom Filt Rate - Afr Amer 37 mL/min (>60); Estimated Creatinine Clearance 30.61 ml/min; Glucose 181 mg/dL (74-106); Potassium 4.2 mmol/L (3.5-5.1); Sodium Level 141 mmol/L (136-145)
[2022-03-19 11:45] LABS: Bedside Glucose 146 mg/dL (74-106)
[2022-03-19 16:00] VITALS: BP 143/66; PULSE 62; RESP 116; TEMP 35.9; O2SAT 97
[2022-03-19 16:16] LABS: Bedside Glucose 131 mg/dL (74-106)
[2022-03-19 21:45] LABS: Bedside Glucose 164 mg/dL (74-106)
[2022-03-19] MEDS: Atorvastatin Calcium 80 MG Tablet PO (22:19)
[2022-03-19] MEDS: Insulin Glargine-YFGN 100 UNIT/ML Pen 30 UNIT SC (22:19)
[2022-03-20] MEDS: Bisacodyl 5 MG Tablet 10 MG PO (05:28)
[2022-03-20] MEDS: Senna/Docusate Sodium 1 Tablet PO ×2 (05:29→17:29)
[2022-03-20] MEDS: APIXABAN 5 MG TABLET 10 MG PO ×2 (05:29→17:24)
[2022-03-20] MEDS: Doxycycline 100 MG CAPSULE PO ×2 (05:29→17:23)
[2022-03-20] MEDS: Levothyroxine 75 MCG Tablet PO (05:29)
[2022-03-20] MEDS: Cephalexin 500 MG Capsule PO ×2 (05:29→17:24)
[2022-03-20] MEDS: Menthol/Lanolin/Calamine/Znox 113 GM Tube 1 APPLIC TOPICAL ×2 (05:30→17:31)
[2022-03-20] MEDS: Nystatin Powder 15gm Bottle 1 APPLIC TOPICAL ×2 (05:30→17:32)
[2022-03-20 06:31] LABS: Bedside Glucose 180 mg/dL (74-106)
[2022-03-20] MEDS: Insulin Lispro 100 UNIT/ML INSULN.PEN SC ×3 (07:46→17:17)
[2022-03-20 10:18] VITALS: PULSE 59; RESP 16; O2SAT 97
[2022-03-20 12:06] LABS: Bedside Glucose 158 mg/dL (74-106)
[2022-03-20 16:00] VITALS: BP 128/54; PULSE 59; RESP 18; TEMP 36.8; O2SAT 96
[2022-03-20 16:26] LABS: Bedside Glucose 175 mg/dL (74-106)
[2022-03-20 21:41] LABS: Bedside Glucose 110 mg/dL (74-106)
[2022-03-20] MEDS: Insulin Glargine-YFGN 100 UNIT/ML Pen 30 UNIT SC (21:42)
[2022-03-20] MEDS: Atorvastatin Calcium 80 MG Tablet PO (21:43)
[2022-03-21] MEDS: Menthol/Lanolin/Calamine/Znox 113 GM Tube 1 APPLIC TOPICAL ×2 (05:25→17:15)
[2022-03-21] MEDS: APIXABAN 5 MG TABLET 10 MG PO ×2 (05:25→17:13)
[2022-03-21] MEDS: Senna/Docusate Sodium 1 Tablet PO ×2 (05:25→17:15)
[2022-03-21] MEDS: Cephalexin 500 MG Capsule PO ×2 (05:25→17:14)
[2022-03-21] MEDS: Levothyroxine 75 MCG Tablet PO (05:25)
[2022-03-21] MEDS: Nystatin Powder 15gm Bottle 1 APPLIC TOPICAL ×2 (05:25→17:14)
[2022-03-21] MEDS: Doxycycline 100 MG CAPSULE PO ×2 (05:25→17:13)
[2022-03-21] MEDS: Acetaminophen 500 MG Tablet 1000 MG PO ×2 (05:30→22:00)
[2022-03-21 06:40] LABS: Bedside Glucose 173 mg/dL (74-106)
--- NOTE | 2022-03-21 07:24 | NURSING ---
Pt. requesting fluid restriction be increased or discontinued also reports constipation despite RTN Senna and PRN Dulcolax, written communication left for Dr. Haines review this AM.
[2022-03-21] MEDS: Insulin Lispro 100 UNIT/ML INSULN.PEN SC ×3 (07:47→17:13)
--- NOTE | 2022-03-21 10:10 | NURSING ---
Supervisor Sound Technician Note; Activity Asst: complete
[2022-03-21 11:35] LABS: Bedside Glucose 215 mg/dL (74-106)
[2022-03-21 14:39] VITALS: BP 121/79; PULSE 75; RESP 20; TEMP 37.1; O2SAT 98
[2022-03-21 17:06] LABS: Bedside Glucose 158 mg/dL (74-106)
[2022-03-21 20:51] VITALS: PULSE 62; RESP 16; O2SAT 98
[2022-03-21 21:41] LABS: Bedside Glucose 165 mg/dL (74-106)
[2022-03-21] MEDS: Insulin Glargine-YFGN 100 UNIT/ML Pen 30 UNIT SC (22:02)
[2022-03-21] MEDS: Atorvastatin Calcium 80 MG Tablet PO (22:02)
[2022-03-22] MEDS: Nystatin Powder 15gm Bottle 1 APPLIC TOPICAL ×2 (04:46→17:49)
[2022-03-22] MEDS: APIXABAN 5 MG TABLET 10 MG PO ×2 (04:52→17:48)
[2022-03-22] MEDS: Doxycycline 100 MG CAPSULE PO ×2 (04:52→17:48)
[2022-03-22] MEDS: Menthol/Lanolin/Calamine/Znox 113 GM Tube 1 APPLIC TOPICAL ×2 (04:52→17:49)
[2022-03-22] MEDS: Levothyroxine 75 MCG Tablet PO (04:53)
[2022-03-22] MEDS: Senna/Docusate Sodium 1 Tablet PO (04:53)
[2022-03-22 06:40] LABS: Bedside Glucose 182 mg/dL (74-106)
[2022-03-22] MEDS: Insulin Lispro 100 UNIT/ML INSULN.PEN SC ×3 (08:39→17:48)
[2022-03-22 10:00] VITALS: PULSE 60; RESP 16; O2SAT 97
[2022-03-22 11:25] LABS: Bedside Glucose 223 mg/dL (74-106)
[2022-03-22 14:17] VITALS: BP 135/56; PULSE 64; RESP 18; TEMP 36.8; O2SAT 96
--- NOTE | 2022-03-22 15:14 | NURSING ---
Faxed requested information to Dr. Masood Dumont's office to request referral.
[2022-03-22 17:40] LABS: Bedside Glucose 246 mg/dL (74-106)
[2022-03-22 21:31] LABS: Bedside Glucose 234 mg/dL (74-106)
[2022-03-22] MEDS: Insulin Glargine-YFGN 100 UNIT/ML Pen 30 UNIT SC (22:22)
[2022-03-22] MEDS: Atorvastatin Calcium 80 MG Tablet PO (22:22)
[2022-03-22] MEDS: Acetaminophen 500 MG Tablet 1000 MG PO (22:30)
[2022-03-23] MEDS: Menthol/Lanolin/Calamine/Znox 113 GM Tube 1 APPLIC TOPICAL ×2 (05:34→18:39)
[2022-03-23] MEDS: Nystatin Powder 15gm Bottle 1 APPLIC TOPICAL ×2 (05:34→18:39)
[2022-03-23] MEDS: Senna/Docusate Sodium 1 Tablet PO ×2 (05:35→18:04)
[2022-03-23] MEDS: Levothyroxine 75 MCG Tablet PO (05:35)
[2022-03-23] MEDS: APIXABAN 5 MG TABLET 10 MG PO ×2 (05:36→18:03)
[2022-03-23 06:36] LABS: Bedside Glucose 162 mg/dL (74-106)
[2022-03-23] MEDS: Insulin Lispro 100 UNIT/ML INSULN.PEN SC ×3 (08:15→18:01)
[2022-03-23 11:05] LABS: Bedside Glucose 194 mg/dL (74-106)
--- NOTE | 2022-03-23 12:51 | NURSING ---
Beauty School Instructor Note; MDS complete
--- NOTE | 2022-03-23 13:03 | CASEMGMT ---
Social Work IDT met with patient and for care plan meeting. Discussed patient's progress in PT/OT/SN. Educated to [facility] insurance with NRD 03/24. Pt is doing well and IDT asking about DC date. Pt requesting DC 03/25 with [facility] PT and [facility]. to transport. SW made referral to [facility] and [facility] [place]. Plan: DC home with 03/25, [facility] PT, [facility] Hallie Melendez, WAREHOUSE LOGISTICS COORDINATOR BURGLAR ALARM OPERATOR
[2022-03-23 15:25] VITALS: BP 129/62; PULSE 62; RESP 19; TEMP 36.7; O2SAT 96
--- NOTE | 2022-03-23 15:35 | CASEMGMT ---
Social Work SW met with pt who confirms she plans to d/c 03/25/22. NOMNC signed and copy provided to pt. Copy sent to pt insurance. LEXII Bacon
[2022-03-23 16:11] LABS: Bedside Glucose 165 mg/dL (74-106)
--- NOTE | 2022-03-23 19:08 | DS.PCM_ITS ---
Providers Date of Admission: 03/16/22 Primary Care Physician: Dr. Jamari Beasley MD Consultations 03/16/22 20:49 Consult: Onc/Wound/behavioral assistant Routine Comment: Reason for Consult:: Chronic wound: R great toe Reason For Visit: UTI/SEPSIS/HYPERGLYCEMIA Diagnosis Discharge Diagnosis (1) Debility: Status: Acute Code(s): R53.81 - Other malaise (2) Sepsis: Status: Acute Code(s): A41.9 - Sepsis, unspecified organism (3) Urinary tract infection: Status: Acute Code(s): N39.0 - Urinary tract infection, site not specified (4) Lactic acidosis: Status: Acute Code(s): E87.2 - Acidosis (5) Acute kidney injury: Status: Acute Code(s): N17.9 - Acute kidney failure, unspecified (6) Chronic kidney disease, stage 3b: Status: Acute Code(s): N18.32 - Chronic kidney disease, stage 3b (7) Hyponatremia: Status: Acute Code(s): E87.1 - Hypo-osmolality and hyponatremia (8) Acute deep vein thrombosis of right lower extremity: Status: Acute Code(s): I82.401 - Acute embolism and thrombosis of unspecified deep veins of right lower extremity (9) Cellulitis of right lower extremity: Status: Acute Code(s): L03.115 - Cellulitis of right lower limb (10) Diabetes mellitus: Status: Acute Code(s): E11.9 - Type 2 diabetes mellitus without complications (11) Hyperlipidemia: Status: Acute Code(s): E78.5 - Hyperlipidemia, unspecified (12) Hypothyroidism: Status: Acute Code(s): E03.9 - Hypothyroidism, unspecified (13) History of pulmonary embolism: Status: Acute Code(s): Z86.711 - Personal history of pulmonary embolism Plan 71 year old female with below past medical history hospitalized for sepsis secondary MSSA urinary tract infection, complicated by lactic acidosis, acute kidney injury, hyponatremia, acute DVT right lower extremity, cellulitis right lower extremity, admitted to TCU with debility, here for rehabilitation, strengthening, prior to discharge home with . * Debility - PT/OT. * Pain - Tylenol 1000mg q6h prn pain (1-10). * Bowel - Senna/colace 1 tablet bid, Dulcolax 10mg daily prn. * Adult immunization - Administer pneumonia vaccine, covid19 vaccine, flu vaccine as appropriate. * DVT prophylaxis - Not necessary, on Eliquis. * Acute DVT right lower extremity - Eliquis 10mg bid x 7 days, then 5mg bid forever. * Hyperlipidemia - Atorvastatin 80mg qhs. * Right lower extremity cellulitis/MSSA urinary tract infection - Keflex 500mg q12/Doxycycline 100mg bid x 5 days. * Edema - Furosemide 40mg daily. * Diabetes Mellitus II - Glargine 30 units qhs, Humalog 5 units tidac. * Nutrition - Isael 1 pill packer bid. * Hypothyroidism - Levothyroxine 75mcg daily. * Insomnia - Melatonin 3mg qhs prn. * Skin irritation - Calmoseptine topical bid. * Tinea Corporis - Nystatin powder topical bid. * Shortness of breath/history of pulmonary embolism - order CTA chest to rule o ut new pulmonary embolism in light of acute DVT right lower extremity. Medications at Discharge Home Medications atorvastatin 80 mg tablet 80 mg PO QHS cholesterol 03/12/22 levothyroxine 75 mcg tablet (Synthroid) 75 mcg PO DAILY thyroid 03/12/22 acetaminophen 500 mg tablet 1,000 mg PO Q6H PRN PRN Pain Score 1-10 #0 tabs 03/23/22 apixaban 5 mg tablet (Eliquis) 5 mg PO BID 30 days #60 tabs 03/23/22 insulin glargine-yfgn 100 unit/mL (3 mL) subcutaneous pen 30 unit (0.3 mL) subcut QHS diabetes 30 days #9 mL 03/23/22 insulin lispro 100 unit/mL subcutaneous pen (Humalog KwikPen (U-100) Insulin) 5 unit (0.05 mL) subcut TIDAC diabetes 30 days #5 mL 03/23/22 Hospital Course Operations None Procedures None Summary of Care Provided Minutes Spent on Discharge: 35 Hospital Course: 71 year old female with below past medical history hospitalized for sepsis secondary MSSA urinary tract infection, complicated by lactic acidosis, acute kidney injury, hyponatremia, acute DVT right lower extremity, cellulitis right lower extremity, admitted to TCU with debility, here for rehabilitation, strengthening, prior to discharge home with . Discharge home with 03/25/2022, [facility], Front wheeled walker. Physical Exam Const alert General Appearance: cooperative HEENT normocephalic Eyes PERRL and EOMs intact bilaterally Neck supple, no JVD and no carotid bruits Resp normal respiratory effort, normal air movement and clear to auscultation bilaterally Cardio regular rate and regular rhythm GI normal to inspection, nondistended, normoactive bowel sounds, non-tender and non-distended Extremity normal capillary refill General Extremity: Negative for edema Skin no rashes or lesions noted General Skin Exam: no breakdown Psych affect normal Appearance: appropriate Weight / BMI Weight Weight: 131.179 kg Body Mass Index (BMI) 44.8 ABG / Lab / Microbiology Data Result Diagrams: 03/17/22 05:12 03/19/22 07:05 Laboratory: Laboratory Results - last 24 hr 03/22/22 21:08: POC Glucose 234 H 03/23/22 06:08: POC Glucose 162 H 03/23/22 10:44: POC Glucose 194 H 03/23/22 15:47: POC Glucose 165 H Microbiology: Microbiology 03/23/22 12:48 Nasal Secretion SARS-CoV-2 Antigen (Rapid) - Final D/C Instructions Discharge Diet: No restrictions Discharge Activity: Return to Normal Activity, May Shower and Use Walker Weight Bearing Status: Weight bearing as tolerated Call your doctor if you observe: Fever of 101 or Higher, Inability to urinate, Inability to have a bowel movement, Shortness of breath, Dizziness, Fainting spells, Swelling in the ankles, Chest pain and Uncontrolled pain Additional Instructions: Discharge home with 03/25/2022, [facility], Front wheeled walker. Please Follow Up With: Sofya Monique MD When: 2 weeks. Meaningful Use Info Meaningful Use Diagnoses (Choose all that apply): None applicable Discharge Plan Admission Admit Date/Time: 03/16/22 15:20 Primary Reason for Your Visit: Debility. Attending Provider: Viraj Haines Chi Primary Care Provider: Jamari Beasley Instructions Additional Instructions / Restrictions: Discharge home with 03/25/2022, [facility], Front wheeled walker. Discharge Orders/Prescriptions Prescriptions: New acetaminophen 500 mg Tablet 1,000 mg PO Q6H PRN PRN (Reason: Pain Score 1-10) Qty: 0 0RF Eliquis 5 mg Tablet 5 mg PO BID 30 Days Qty: 60 0RF Continued atorvastatin 80 mg tablet 80 mg PO QHS levothyroxine [Synthroid] 75 mcg tablet 75 mcg PO DAILY insulin lispro [Humalog KwikPen Insulin] 100 unit/mL insulin pen 5 unit subcut TIDAC 30 Days Qty: 5 0RF insulin glargine-yfgn 100 unit/mL (3 mL) insulin pen 30 unit subcut QHS 30 Days Qty: 9 0RF Discontinued acetaminophen [Tylenol] 325 mg Tablet 650 mg PO Q6H PRN PRN (Reason: Pain Score 1-10/Temp > 100.7 F) Qty: 0 0RF sennosides-docusate sodium [Stool Softener-Stimulant Laxat] 8.6-50 mg Tablet 2 tab PO BID PRN PRN (Reason: Constipation) Qty: 10 0RF melatonin 3 mg Tablet 3 mg PO QHS PRN PRN (Reason: Insomnia) Qty: 20 0RF furosemide 40 mg tablet 40 mg PO DAILY doxycycline monohydrate 100 mg capsule 100 mg PO BID cephalexin 500 mg capsule 500 mg PO Q6 insulin lispro [Humalog KwikPen Insulin] 100 unit/mL insulin pen See Protocol subcut ACHS Protocol: 4. Sliding Scale Insulin High-Med Dosing Condition: 150-199 mg/dl = 2 units Condition: 200-259 mg/dl = 4 units Condition: 260-324 mg/dl = 6 units Condition: 325-374 mg/dl = 8 units Condition: 375-409 mg/dl = 10 units Condition: 410-449 mg/dl = 11 units Condition: Greater than 449 call physician Protocol Text: - Use for Total Daily Dose of Insulin 56-80 units - Patient who are insulin resistant or septic HIGH MEDIUM DOSING ALGORITHM chlorhexidine gluconate 2 % towelette 1 ea topical DAILY Isael (with collagen) 7-7-1.5 gram powder in packet 1 packet PO BIDCM warfarin [Coumadin] 2 mg Tablet 2 mg PO DAILY nystatin [Nyamyc] 100,000 unit/gram powder 1 applic topical BID Protocol: *Topical Application Instructions APPLICATION INSTRUCTIONS: Apply to groin and abdominal folds Referrals / Follow Up: Sofya Monique DO [Med Staff - Consulting] - 04/27/22 9:15 am (will call if they have something sooner) Masood Dumont MD [Med Staff - Courtesy Staff] - Jamari Beasley MD [Primary Care Provider] - Disposition Disposition (needs filled in before D/C Order can be placed): Home, Self Care
[2022-03-23 21:36] LABS: Bedside Glucose 209 mg/dL (74-106)
[2022-03-23] MEDS: Acetaminophen 500 MG Tablet 1000 MG PO (21:52)
[2022-03-23] MEDS: Atorvastatin Calcium 80 MG Tablet PO (21:53)
[2022-03-23] MEDS: Insulin Glargine-YFGN 100 UNIT/ML Pen 30 UNIT SC (21:53)
[2022-03-23 21:55] VITALS: PULSE 60
[2022-03-24] MEDS: Levothyroxine 75 MCG Tablet PO (05:01)
[2022-03-24] MEDS: APIXABAN 5 MG TABLET PO ×2 (05:01→17:56)
[2022-03-24] MEDS: Senna/Docusate Sodium 1 Tablet PO ×2 (05:01→17:55)
[2022-03-24] MEDS: Menthol/Lanolin/Calamine/Znox 113 GM Tube 1 APPLIC TOPICAL ×2 (05:04→18:19)
[2022-03-24] MEDS: Nystatin Powder 15gm Bottle 1 APPLIC TOPICAL ×2 (05:05→18:19)
[2022-03-24 05:36] LABS: Absolute Lymphocyte Count 1.73 X10^3/uL (0.83-4.51); Absolute Neutrophil Count 6.5 X10^3/uL (2.0-7.7); Basophil# 0.04 X10^3/uL; Basophil% 0.4 % (0-1); Eosinophil# 0.13 X10^3/uL; Eosinophils% 1.4 % (0-5); Hematocrit 33.1 % (37-47); Hemoglobin 10.4 g/dL (12.0-15.0); Lymphocyte # 1.73 X10^3/ul (0.83-4.51); Lymphocyte % 18.7 % (19-41); Mean Corp Hgb Conc 31.4 g/dL (32-36); Mean Corpuscular Hgb 27.4 pg (27.0-32.0); Mean Corpuscular Volume 87.3 fL (81-99); Mean Platelet Vol. 8.6 fl (6.2-12.0); Monocyte# 0.73 X10^3/uL; Monocyte% 7.9 % (0-10); NRBC Flagged by Analyzer 0 % (0-5); Neutrophil # 6.49 X10^3/uL (2.7-7.7); Neutrophil % 70.4 % (47-70); Platelet Count 279 K/mm3 (150-450); RBC Distribution Width CV 15.4 % (11.6-14.6); RBC Distribution Width SD 49.4 fl (35.1-43.9); Red Blood Count 3.79 M/mm3 (4.2-5.4); White Blood Count 9.2 K/mm3 (4.4-11.0)
[2022-03-24 05:56] LABS: Anion Gap 9 (5-15); BUN 47 mg/dL (7-18); BUN/Creat Ratio 25.1 RATIO (10-20); Calcium,Total 8.2 mg/dL (8.5-10.1); Chloride 107 mmol/L (98-107); Creatinine, Serum 1.87 mg/dL (0.55-1.02); EST Glomerular Filtration Rate 28 mL/min (>60); Est Glom Filt Rate - Afr Amer 34 mL/min (>60); Estimated Creatinine Clearance 28.64 ml/min; Glucose 173 mg/dL (74-106); Potassium 3.8 mmol/L (3.5-5.1); Sodium Level 138 mmol/L (136-145)
[2022-03-24 06:30] LABS: Bedside Glucose 174 mg/dL (74-106)
[2022-03-24] MEDS: Insulin Lispro 100 UNIT/ML INSULN.PEN SC ×3 (08:02→17:56)
[2022-03-24] MEDS: Tuberculin,Purif.prot.deriv. 50 TU/ML Vial 0.1 ML ID (11:03)
[2022-03-24 11:06] LABS: Bedside Glucose 201 mg/dL (74-106)
[2022-03-24 13:30] VITALS: BP 182/70; PULSE 67; RESP 18; TEMP 36.3; O2SAT 98
--- NOTE | 2022-03-24 13:47 | MDS.RN ---
Information for the mds was obtained from review of the clinical record, interview of resident, staff, and direct observation of resident's care.
[2022-03-24 16:45] LABS: Bedside Glucose 219 mg/dL (74-106)
[2022-03-24] MEDS: Insulin Glargine-YFGN 100 UNIT/ML Pen 30 UNIT SC (22:05)
[2022-03-24] MEDS: Atorvastatin Calcium 80 MG Tablet PO (22:07)
[2022-03-24 22:35] LABS: Bedside Glucose 236 mg/dL (74-106)
[2022-03-24 22:52] VITALS: PULSE 63; RESP 20; O2SAT 97
[2022-03-25] MEDS: Senna/Docusate Sodium 1 Tablet PO (05:51)
[2022-03-25] MEDS: Nystatin Powder 15gm Bottle 1 APPLIC TOPICAL (05:51)
[2022-03-25] MEDS: Levothyroxine 75 MCG Tablet PO (05:51)
[2022-03-25] MEDS: APIXABAN 5 MG TABLET PO (05:51)
[2022-03-25] MEDS: Menthol/Lanolin/Calamine/Znox 113 GM Tube 1 APPLIC TOPICAL (05:52)
[2022-03-25 06:41] LABS: Bedside Glucose 188 mg/dL (74-106)
[2022-03-25] MEDS: Insulin Lispro 100 UNIT/ML INSULN.PEN SC ×2 (07:51→12:16)
[2022-03-25 08:30] VITALS: RESP 16; O2SAT 96
[2022-03-25 11:16] LABS: Bedside Glucose 223 mg/dL (74-106)
[2022-03-25 12:48] VITALS: BP 144/67; PULSE 63; RESP 16; TEMP 37.3; O2SAT 96
--- NOTE | 2022-03-25 13:09 | NURSING ---
Patient and educated on insulin administration, provided handout with step by step instructions on how to use insulin pens. Had patient practice with use of pens and needles, she administered her lunch time dose with RN supervision. at bedside at the time, reviewed instructions with him as well. Showed them where to find information about the medication on her phone noah with pictures and further step by step instructions. Patient and verbalized understanding of the process and were comfortable discharging home with the resources given.
== END 2022-03-25 13:00 | disposition home or self-care (01) | DRG 690 ==
PROVIDERS: Admitting Provider Family Medicine Geriatric Medicine; PCP Internal Medicine; Visit Provider Family Medicine Geriatric Medicine
DX: N39.0 Urinary tract infection, site not specified (principal); I82.401 Acute embolism and thrombosis of unspecified deep veins of right lower extremity; L03.115 Cellulitis of right lower limb; E11.22 Type 2 diabetes mellitus with diabetic chronic kidney disease; B35.4 Tinea corporis; B95.61 Methicillin susceptible Staphylococcus aureus infection as the cause of diseases classified elsewhere; Z79.4 Long term (current) use of insulin; N18.32 Chronic kidney disease, stage 3b; E11.65 Type 2 diabetes mellitus with hyperglycemia; E03.9 Hypothyroidism, unspecified; E78.5 Hyperlipidemia, unspecified; Z79.01 Long term (current) use of anticoagulants; Z86.711 Personal history of pulmonary embolism; Z79.899 Other long term (current) drug therapy; Z79.890 Hormone replacement therapy
CPT/HCPCS: 36415; 80048; 82962; 85025; 87811; 97110; 97162; 97166; 97530; 97535; 97802; A4216

== ENCOUNTER → 2022-03-17 | Outpatient (CLI) | payer MEDICARE, SELFPAY | END | disposition home or self-care (01) | LOC: CT 13:46 | PROVIDERS: PCP Internal Medicine; Referring Provider Family Medicine Geriatric Medicine; Visit Provider Family Medicine Geriatric Medicine | DX: Z00.00 Encounter for general adult medical examination without abnormal findings (principal) ==

== ENCOUNTER 2023-05-08 12:10 | Inpatient (IN) | payer MEDICARE, SELFPAY ==
[2023-05-08 12:13] VITALS: BP 147/75; PULSE 105; RESP 23; TEMP 36.7; O2SAT 98; BMI 46.8
--- NOTE | 2023-05-08 12:35 | EKG12_ITS ---
Test Reason : Blood Pressure : / mmHG Vent. Rate : 091 BPM Atrial Rate : 091 BPM P-R Int : 144 ms QRS Dur : 084 ms QT Int : 348 ms P-R-T Axes : 051 046 047 degrees QTc Int : 428 ms Normal sinus rhythm Nonspecific ST abnormality Abnormal ECG Confirmed by DAMEON BEST, JUSTINA ([id number]), research editor DEANA SCHNEIDER ([id number]) on 05/17/2023 9:43:08 AM Referred By: JULIO/ARIC Confirmed By:JUSTINA XIAO MD
--- NOTE | 2023-05-08 12:37 | EDS_ITS ---
HPI History of Present Illness Chief Complaint: Weakness Informant: patient, spouse/S.O. and EMS Narrative Narrative: 72-year-old female presents for generalized weakness not able to get up on her own or with 's help. This started yesterday and was worse this morning. No fall or injury. She states for the past couple months she intermittently has urinary frequency with low back discomfort, she states that it has been present a little in the last couple days, but that is not unusual for her. She also states for the past 2 weeks she has had a wound on her left heel, plantar aspect, her has been trying to care for it, there has not been much in the way of bleeding or drainage, but she states the pain has been worsening and at times is a 10/10 in her heel. She states she has had subjective fevers and chills since yesterday. She has had a intermittent cough lately that is nonproductive, no chest pain or dyspnea. No GI symptoms. [facility] Medical History (Updated 05/08/23 @ 14:[address] Rodrigo Brownlee MD) Acute deep vein thrombosis of right lower extremity Bilateral lower extremity edema Debility Diabetic foot ulcer associated with type 2 diabetes mellitus Essential hypertension History of pulmonary embolism Hyperlipidemia Hyperlipidemia Hypothyroidism Lymphedema Morbid obesity with BMI of 40.0-44.9, adult Stage 3b chronic kidney disease Toe ulcer, right Type 2 diabetes mellitus Home Medications atorvastatin 80 mg tablet 80 mg PO QHS cholesterol 03/12/22 [History Last Taken Unknown] levothyroxine 75 mcg tablet (Synthroid) 75 mcg PO DAILY thyroid 03/12/22 [History Last Taken Unknown] acetaminophen 500 mg tablet 1,000 mg (2 x 500 mg) PO Q6H PRN PRN Pain Score 1-10 #0 tabs 03/23/22 [Rx Last Taken Unknown] apixaban 5 mg tablet (Eliquis) 5 mg PO BID 30 days #60 tabs 03/23/22 [Rx Last Taken Unknown] insulin glargine-yfgn 100 unit/mL (3 mL) subcutaneous pen 30 unit (0.3 mL) subcut QHS diabetes 30 days #9 mL 03/23/22 [Rx Last Taken Unknown] insulin lispro 100 unit/mL subcutaneous pen (Humalog KwikPen (U-100) Insulin) 5 unit (0.05 mL) subcut TIDAC diabetes 30 days #5 mL 03/23/22 [Rx Last Taken Unknown] insulin glargine-yfgn 100 unit/mL (3 mL) subcutaneous pen 30 unit (0.3 mL) subcut QHS 30 days #9 mL 03/25/22 [Rx Last Taken Unknown] insulin lispro 100 unit/mL subcutaneous pen (Humalog KwikPen (U-100) Insulin) 5 unit (0.05 mL) subcut TIDAC 30 days #4.5 mL 03/25/22 [Rx Last Taken Unknown] needle (disp) 31 gauge 31 gauge x /16 #100 ea 03/25/22 [Rx Last Taken Unknown] Allergy/AdvReac Type Severity Reaction Status Date / Time codeine Allergy Rash Verified 03/12/22 20:20 Penicillins [PCN] Allergy Rash Verified 03/12/22 20:20 Family History Other CVA (cerebral vascular accident) Pancreatic cancer Surgical History H/O: hysterectomy Social History household members: spouse Smoking Status: Never smoker alcohol intake: never substance use type: does not use ROS ROS ED Constitutional Constitutional ED: Reports chills, fatigue, fever(s), subjective and weakness Eyes Eyes: Denies change in vision or diplopia ENT ENT ED: Denies rhinorrhea or sore throat Cardiovascular Cardiovascular: Reports leg edema; Denies chest pain or palpitations Respiratory/Chest Respiratory/Chest: Reports cough; Denies dyspnea or sputum Gastrointestinal Gastrointestinal: Denies abdominal pain, diarrhea, nausea or vomiting Genitourinary Genitourinary ED: Denies dysuria or hematuria Musculoskeletal Musculoskeletal: Reports extremity pain; Denies back pain or neck pain Integumentary Reports wounds; Denies abscess or rash Neurologic Neurologic: Denies headache(s), paresthesias or weakness Psychiatric Psychiatric: Denies anxiety or suicidal thoughts EXAM Physical Exam Const Vital Signs: 05/08/23 12:13 05/08/23 13:02 Temperature 98.1 F Temperature Source Temporal Pulse Rate 105 H Respiratory Rate 23 H Blood Pressure 147/75 H Blood Pressure Mean 99 Pulse Ox 98 Oxygen Delivery Method Room Air Room Air Positive well nourished and well developed Constitutional Narrative: Morbidly obese General Appearance ED: well developed and NAD HEENT Reports moist mucous membranes normocephalic and atraumatic Eyes PERRL and EOMs intact bilaterally Neck full ROM and supple Resp normal respiratory effort and clear to auscultation bilaterally Cardio regular rate, regular rhythm and no murmurs Rate: other Other Details: Mildly tachycardic GI non-tender and non-distended Auscultation: normoactive bowel sounds Palpation: soft Back/Spine no CVA tenderness General Back: other FROM Extremity normal to inspection General Extremety ED: Yes edema; Negative for pulses abnormal or tenderness General Extremity: edema bilateral lower extremity Details: severe (Consistent w ith chronic lymphedema bilaterally); Negative for pulses abnormal Neuro oriented x3, CN's II-XII intact bilaterally and no sensory deficits noted Sensorium / Orientation: awake and alert Motor Exam: strength 5/5 throughout Psych mental status grossly normal Skin no rashes or lesions noted Skin Narrative: 1 cm deep wound plantar aspect of the left heel. Mildly tender throughout the heel, no active discharge, when I push a piece of gauze against it there is a scant amount of serosanguineous material on it. No surrounding erythema. No other wounds on the feet. MDM MDM MDM Narrative Medical decision making narrative: Septic work-up obtained, including x-rays of the left foot to evaluate the calcaneus where the wound is. There is no radiographic signs of osteomyelitis 3 views of my interpretation, radiology in agreement. Labs are concerning however, she has a high white blood count and high lactic acid, but does not meet other criteria for organ dysfunction although she does meet SIRS criteria for sepsis. Culture sent, IV Rocephin given, urine appears to be the more likely source here. Very weak and trouble standing today without significant assistance, and given her significant lymphedema and obesity, she will have difficulty getting around at home and will likely benefit from admission and antibiotics and further evaluation. Lab Data Attestation: I reviewed the patient's lab results. Labs: Laboratory Results - last 24 hr 05/08/23 05/08/23 12:55 13:42 WBC 19.4 H RBC 3.88 L Hgb 10.4 L Hct 33.6 L MCV 86.6 MCH 26.8 L MCHC 31.0 L RDW Std Deviation 47.1 H RDW Coeff of Dayo 14.8 H Plt Count 248 MPV 9.2 Immature Gran % (Auto) 0.900 Neut % (Auto) 92.6 H Lymph % (Auto) 2.5 L [place] % (Auto) 3.6 Eos % (Auto) 0.2 Baso % (Auto) 0.2 Absolute Neuts (auto) 18.0 H Absolute Lymphs (auto) 0.49 L Nucleated RBC % 0 Differential Comment SCANNED ESR 71 H PT 17.0 H INR 1.4 APTT 42.9 H Sodium 133 L Potassium 4.4 Chloride 102 Carbon Dioxide 23.0 Anion Gap 8 BUN 42 H Creatinine 1.91 H Estim Creat Clear Calc 27.65 Est GFR (MDRD) Af Amer 33 L Est GFR (MDRD) Non-Af 28 L BUN/Creatinine Ratio 22.0 H Glucose 418 H Lactic Acid 2.5 H* Calcium 8.4 L Total Bilirubin 0.60 AST 17 ALT 17 Alkaline Phosphatase 84 C-React Prot Ext Range 163.00 H Total Protein 7.5 Albumin 3.1 L Globulin 4.4 H Albumin/Globulin Ratio 0.7 L Urine Color Yellow Urine Clarity Clear Urine pH 5.0 Ur Specific [place] 1.010 Urine Protein 100 H Urine Glucose (UA) 1000 H Urine Ketones 5 H Urine Occult Blood 150 H Urine Nitrite Negative Urine Bilirubin Negative Urine Urobilinogen Normal Ur Leukocyte Esterase 100 H Urine RBC 0-5 SEEN Urine WBC >100 SEEN Ur Squamous Epith Cells 0 SEEN Urine Bacteria 1+ Urine Mucus 0 SEEN Radiography Chest X-Ray - ED: 1 View, Read by ED Physician, No Acute Disease and No Infiltrates Diagnostic Testing: Clinical Impression(s) from Imaging Studies Chest X-Ray 05/08/23 13:25 IMPRESSION: No acute abnormality is seen. Electronically Signed: Gómez Londono MD at 13:56 EST , Foot X-Ray 05/08/23 13:25 IMPRESSION: Calcaneal spurs. Diffuse soft tissue swelling. Ulceration is seen overlying the plantar aspect of the calcaneus. Electronically Signed: Gómez Londono MD at 13:44 EST , Rhythm Strip Rhythm Strip: Sinus Rhythm Rate: 90 Ectopy: None EKG Initial EKG: Attestation: I personally reviewed and interpreted this EKG as follows: Interpretation: Sinus Rhythm and No Acute Injury Pattern Management Discussion w/another healthcare provider: Hospitalist Discharge Plan Triage Chief Complaint: Weakness ED Provider: Rodrigo Brownlee Dx/Rx/DC Orders Clinical Impression: Urinary tract infection, Diabetic foot ulcer, Sepsis Prescriptions: No Action atorvastatin 80 mg tablet 80 mg PO QHS levothyroxine [Synthroid] 75 mcg tablet 75 mcg PO DAILY acetaminophen 500 mg Tablet 1,000 mg PO Q6H PRN PRN (Reason: Pain Score 1-10) Qty: 0 0RF Eliquis 5 mg Tablet 5 mg PO BID 30 Days Qty: 60 0RF insulin lispro [Humalog KwikPen Insulin] 100 unit/mL insulin pen 5 unit subcut TIDAC 30 Days Qty: 5 0RF insulin glargine-yfgn 100 unit/mL (3 mL) insulin pen 30 unit subcut QHS 30 Days Qty: 9 0RF insulin glargine-yfgn 100 unit/mL (3 mL) Insulin Pen 30 unit subcut QHS 30 Days Qty: 9 0RF insulin lispro [Humalog KwikPen Insulin] 100 unit/mL Insulin Pen 5 unit subcut TIDAC 30 Days Qty: 4.5 0RF (DME) needle (disp) 31 gauge 31 gauge x 5/16 needle See Rx Instructions .Route Qty: 100 0RF Rx Instructions: As directed Primary Care Provider: Jamari Beasley Referrals: Jamari Beasley MD [Primary Care Provider] - Disposition Disposition: Acute Care Hospital [facility]
[2023-05-08 13:08] LABS: Erythrocyte Sedimentation Rate 71 mm/hr (0-30)
[2023-05-08 13:10] LABS: Absolute Lymphocyte Count 0.49 X10^3/uL (0.83-4.51); Basophil# 0.04 X10^3/uL; Basophil% 0.2 % (0-1); Eosinophil# 0.04 X10^3/uL; Eosinophils% 0.2 % (0-5); Hematocrit 33.6 % (37-47); Hemoglobin 10.4 g/dL (12.0-15.0); Lymphocyte # 0.49 X10^3/ul (0.83-4.51); Lymphocyte % 2.5 % (19-41); Mean Corpuscular Hgb 26.8 pg (27.0-32.0); Mean Corpuscular Volume 86.6 fL (81-99); Mean Platelet Vol. 9.2 fl (6.2-12.0); Monocyte% 3.6 % (0-10); NRBC Flagged by Analyzer 0 % (0-5); Neutrophil # 17.96 X10^3/uL (2.7-7.7); Neutrophil % 92.6 % (47-70); POSITIVE DIFFERENTIAL YES; Platelet Count 248 K/mm3 (150-450); RBC Distribution Width CV 14.8 % (11.6-14.6); RBC Distribution Width SD 47.1 fl (35.1-43.9); Red Blood Count 3.88 M/mm3 (4.2-5.4); White Blood Count 19.4 K/mm3 (4.4-11.0)
[2023-05-08 13:11] LABS: Differential Indicated SCAN CRITERIA MET
[2023-05-08 13:17] LABS: International Normalized Ratio 1.4
[2023-05-08 13:18] LABS: Partial Thromboplast Time 42.9 Seconds (24.1-36.2)
[2023-05-08 13:23] LABS: ALB/GLOB Ratio 0.7 RATIO (0.9-2.4); AST(SGOT) 17 U/L (15-37); Alanine Aminotransfer ALT/SGPT 17 U/L (13-56); Albumin, Serum 3.1 g/dL (3.2-5.0); Alkaline Phosphatase 84 U/L (45-117); Anion Gap 8 (5-15); BUN 42 mg/dL (7-18); Calcium,Total 8.4 mg/dL (8.5-10.1); Chloride 102 mmol/L (98-107); Creatinine, Serum 1.91 mg/dL (0.55-1.02); EST Glomerular Filtration Rate 28 mL/min (>60); Est Glom Filt Rate - Afr Amer 33 mL/min (>60); Estimated Creatinine Clearance 27.65 ml/min; Globulin 4.4 g/dL (2.2-4.2); Glucose 418 mg/dL (74-106); Potassium 4.4 mmol/L (3.5-5.1); Protein, Total 7.5 g/dL (6.4-8.2); Sodium Level 133 mmol/L (136-145)
--- NOTE | 2023-05-08 13:25 | RAD_ITS ---
STUDY: X-RAY CHEST REASON FOR EXAM: Female, 72 years old. Cough, fever TECHNIQUE: Single AP portable view of the chest. COMPARISON: Comparison is made with prior study dated March 12, 2022. FINDINGS: EKG electrodes are seen. The lungs are clear and expanded. There is no demonstrated pleural abnormality. Normal size heart. Calcified bilateral hilar lymph nodes. Scattered calcified granulomas. Normal visualized pulmonary arteries. There is atherosclerotic calcification of the aortic arch with tortuosity. There are diffuse degenerative changes of the visualized thoracic spine. Normal visualized ribs, clavicles, and shoulders. There is no demonstrated abnormality of the visualized soft tissue structures of the upper abdomen. RAD/Chest 1 View (Portable) IMPRESSION: No acute abnormality is seen. Electronically Signed: Gómez Londono MD at 13:56 EST ,
--- NOTE | 2023-05-08 13:25 | RAD_ITS ---
STUDY: X-RAY - LEFT FOOT CLINICAL: Female, 72 years old. Heel wound, pain. Swelling. TECHNIQUE: 3 view(s) of the foot. COMPARISON: None. FINDINGS: There is an enthesophyte involving the posterior superior calcaneus at the site of insertion of the Achilles tendon. Plantar spur. Normal visualized subtalar, talonavicular, calcaneocuboid, tarsal and tarsometatarsal articulations. Normal metatarsi. There is degenerative arthrosis of the metatarsophalangeal joint of the hallux . Normal tibial and fibular sesamoid bones. Normal interphalangeal joint of the great toe. Normal phalanges of the great toe. Normal second through fifth metatarsophalangeal joints. Normal interphalangeal joints and phalanges of the lesser toes. Diffuse soft tissue swelling. Ulceration is seen overlying the plantar aspect of the calcaneus. RAD/Foot min 3 Views IMPRESSION: Calcaneal spurs. Diffuse soft tissue swelling. Ulceration is seen overlying the plantar aspect of the calcaneus. Electronically Signed: Gómez Londono MD at 13:44 EST ,
--- NOTE | 2023-05-08 13:40 | NURSING ---
LACTIC 2.5 . AWARE
[2023-05-08 13:41] LABS: Lactic Acid 2.5 mmol/L (0.4-1.9)
[2023-05-08 13:46] LABS: Differential Comment SCANNED
[2023-05-08 13:46] LABS: Mucous, Urine 0 SEEN /hpf (<or=2+); Squamous Epithelial Cells - UA 0 SEEN /hpf (5-10)
[2023-05-08 13:56] LABS: Color, Urine Yellow (Yellow); Glucose, Dipstick 1000 mg/dl (Normal); Ketone-Dipstick 5 mg/dl (Negative); Leukocyte Esterase-Dipstick 100 /ul (Negative); Nitrite-Dipstick Negative (Negative); Occult Blood-Urine 150 /ul (Negative); Protein-Dipstick 100 mg/dl (Negative); Urine Bilirubin Dipstick Negative (Negative); Urine Clarity Clear (Clear); Urine Urobilinogen Normal (Normal)
[2023-05-08 14:07] LABS: Bacteria 1+ /hpf (None Seen); Red Blood Cells-Urine 0-5 SEEN /hpf (0-5)
[2023-05-08 14:08] LABS: White Blood Cells >100 SEEN /hpf (0-5)
--- NOTE | 2023-05-08 14:45 | HP.PCM.HOS_ITS ---
HPI - General General Date of Admission: 05/08/23 Date of Service: 05/08/23 Chief Complaint: Urinary frequency, lumbar back pain, diabetic ulcer pain, subjective fever/chills. HPI Narrative The patient is a 72 y/o F w/ PMHx: Chronic normocytic anemia, Morbid obesity, Hx VTE (DVT, PE), Chronic BL Lymphedema, HTN, HLD, Hypothyroidism, CKD stage IIIb, Diabetes mellitus type II who presents to the [facility] ED on 05/08/23 with history of generalized weakness starting over the last 48 hours with increased urinary frequency as well as low back discomfort above her baseline with noted also left foot heel ulceration toward the plantar aspect being cared for at home by her spouse with no specific drainage or bleeding however her pain has been worse and reports that 10 of 10 with onset of subjective fevers and chills starting yesterday as well as an intermittent nonproductive cough with no dyspnea prompting eventual ED evaluation. Work-up in the ED included T98.1, heart rate 105, BP 147/75, respiratory rate 23, 98% on room air, CBC with WBC 19.4, hemoglobin 10.4, MCV 86.6, platelet 248 with left shift and lymphopenia, ESR 71, CRP 163, coags with PT 17, INR 1.4, PTT 42.9, CMP with sodium 133, BUN/creatinine 42/1.91, glucose 418, anion gap 8, lactic acid 2.5, hepatic profile otherwise not marked appearing, urinalysis with specific gravity 1.010, protein 100, glucose 1000, ketone 5, occult blood 150, urine nitrite negative, leukocyte Estrace 100, urine WBCs greater than 100 with 1+ urine bacteria, urine culture pending per ED, blood culture x2 pending per ED, rapid SARS COVID and influenza antigen negative, rapid RSV negative, chest x-ray with no acute cardiopulmonary findings, plain film of the left foot with calcaneal spurs as w ell as diffuse soft tissue swelling, ulceration seen overlying the plantar aspect of the calcaneus, EKG with SR with no acute evidence of ischemia. In the ED patient administered IV Rocephin. [facility] Medical History Anxiety Diabetic foot ulcer associated with type 2 diabetes mellitus DVT (deep venous thrombosis) Essential hypertension History of venous thromboembolism Hyperlipidemia Hyperlipidemia Hypothyroidism Lymphedema Morbid obesity with BMI of 40.0-44.9, adult Stage 3b chronic kidney disease Type 2 diabetes mellitus Home Medications atorvastatin 80 mg tablet 80 mg PO QHS cholesterol 03/12/22 [History Last Taken Unknown] levothyroxine 75 mcg tablet (Synthroid) 75 mcg PO DAILY thyroid 03/12/22 [History Last Taken Unknown] acetaminophen 500 mg tablet 1,000 mg (2 x 500 mg) PO Q6H PRN PRN Pain Score 1-10 #0 tabs 03/23/22 [Rx Last Taken Unknown] apixaban 5 mg tablet (Eliquis) 5 mg PO BID 30 days #60 tabs 03/23/22 [Rx Last Taken Unknown] insulin glargine-yfgn 100 unit/mL (3 mL) subcutaneous pen 30 unit (0.3 mL) subcut QHS diabetes 30 days #9 mL 03/23/22 [Rx Last Taken Unknown] insulin glargine-yfgn 100 unit/mL (3 mL) subcutaneous pen 30 unit (0.3 mL) subcut QHS 30 days #9 mL 03/25/22 [Rx Last Taken Unknown] needle (disp) 31 gauge 31 gauge x 5/16 #100 ea 03/25/22 [Rx Last Taken Unknown] Allergy/AdvReac Type Severity Reaction Status Date / Time codeine Allergy Rash Verified 03/12/22 20:20 Penicillins [PCN] Allergy Rash Verified 03/12/22 20:20 Family History (Updated 05/08/23 @ 19:[address] Deisi Domínguez MD) Mother Diabetes Dementia Father Pancreatic cancer CVA (cerebral vascular accident) Surgical History (Updated 05/08/23 @ 19:[address] Deisi Domínguez MD) H/O: hysterectomy History of 2 sections Social History household members: spouse Smoking Status: Never smoker alcohol intake: never substance use type: does not use ROS ROS Narrative Admission Review of Systems: CONSTITUTIONAL: No weight loss, +subjective fever, chills, weakness or fatigue. HEENT: Eyes: No visual loss, blurred vision, double vision or yellow sclerae. Ears, Nose, Throat: No hearing loss, sneezing, congestion, runny nose or sore throat. SKIN: + Bilateral lower extremity notable changes with chronic lymphedema, intertrigo. CARDIOVASCULAR: No chest pain, chest pressure or chest discomfort, palpitations, edema, orthopnea, syncopal events. RESPIRATORY: No shortness of breath, cough or sputum, wheezing, hemoptysis. GASTROINTESTINAL: + anorexia, nausea. No vomiting or diarrhea, abdominal pain, melena, BRBPR. GENITOURINARY: + Frequency, low back pain. No retention. NEUROLOGICAL: No headache, dizziness, syncope, paralysis, ataxia, numbness or tingling in the extremities, focal weakness, change in bowel or bladder control, seizure. MUSCULOSKELETAL: + muscle, back pain, joint pain or stiffness. HEMATOLOGIC: + anemia, easy bleeding/bruising. LYMPHATICS: No enlarged nodes. No history of splenectomy. PSYCHIATRIC: No history of depression or anxiety. ENDOCRINOLOGIC: + reports of sweating, cold or heat intolerance. No polyuria or polydipsia. ALLERGIES: No history of asthma, hives, eczema or rhinitis. Vital Signs Vital Signs Vital Signs: 05/08/23 12:13 05/08/23 13:02 Temperature 98.1 F Temperature Source Temporal Pulse Rate 105 H Respiratory Rate 23 H Blood Pressure 147/75 H Blood Pressure Mean 99 Pulse Ox 98 Oxygen Delivery Method Room Air Room Air Weight Weight: 308 lb 3.3 oz Body Mass Index (BMI) 46.8 Physical Exam Narrative Physical Examination: General: Awake, alert, oriented x 3 and cooperative, seated upright in the ED bed, fatigued, ill-appearing. Skin: Normal color, normal turgor, no icterus, no cyanosis except for signific ant fold intertrigo as well as notable changes to bilateral lower extremities with significant lymphedema, thickened skin, left heel plantar surface with small nickel to quarter size diabetic ulcer with no significant drainage or foul odor but tender to palpation and patient reports pain 10 out of 10 intermittently to the region which is new. HEENT: AT/NC, EOMI, PERRLA, dry MM, no carotid bruits or JVD noted; however, thickened neck makes evaluation difficult. Lungs: Diminished, difficult is distant, mildly increased respiratory rate but no distress, no rales, ronchi or wheezing. Heart: Mildly tachycardic with regular rhythm; no gallop, rub audible. Abdomen: Soft, morbidly obese, NTTP, distant BS, difficult to discern distention and HSM given habitus. Extremities: No cyanosis, no clubbing, significant bilateral lower extremity lymphedema, see skin. Neurological: Patient awake, alert, oriented x 3, cognitive function intact; pupils equally reactive to light and accommodation, cranial nerves II-XII grossly normal, moving all 4 extremities, no focal deficits, strength severely globally decreased secondary to acute presentation complicated by underlying chronic comorbidities. Psychiatric: Affect appears fatigued, ill-appearing, no acute evidence of depressive or anxiety feelings. Results Lab / Micro Data 05/08/23 12:55 05/08/23 12:55 Labs: Laboratory Results - last 24 hr 05/08/23 12:55: WBC 19.4 H, RBC 3.88 L, Hgb 10.4 L, Hct 33.6 L, MCV 86.6, MCH 26.8 L, MCHC 31.0 L, RDW Std Deviation 47.1 H, RDW Coeff of Dayo 14.8 H, Plt Count 248, MPV 9.2, Immature Gran % (Auto) 0.900, Neut % (Auto) 92.6 H, Lymph % (Auto) 2.5 L, [place] % (Auto) 3.6, Eos % (Auto) 0.2, Baso % (Auto) 0.2, Absolute Neuts (auto) 18.0 H, Absolute Lymphs (auto) 0.49 L, Nucleated RBC % 0, Differential Comment SCANNED, ESR 71 H, PT 17.0 H, INR 1.4, APTT 42.9 H, Sodium 133 L, Potassium 4.4, Chloride 102, Carbon Dioxide 23.0, Anion Gap 8, BUN 42 H, Creatinine 1.91 H, Estim Creat Clear Calc 27.65, Est GFR (MDRD) Af Amer 33 L, Est GFR (MDRD) Non-Af 28 L, BUN/Creatinine Ratio 22.0 H, Glucose 418 H, Lactic Acid 2.5 H*, Calcium 8.4 L, Total Bilirubin 0.60, AST 17, ALT 17, Alkaline Phosphatase 84, C-React Prot Ext Range 163.00 H, Total Protein 7.5, Albumin 3.1 L, Globulin 4.4 H, Albumin/Globulin Ratio 0.7 L 05/08/23 13:42: Urine Color Yellow, Urine Clarity Clear, Urine pH 5.0, Ur Specific [place] 1.010, Urine Protein 100 H, Urine Glucose (UA) 1000 H, Urine Ketones 5 H, Urine Occult Blood 150 H, Urine Nitrite Negative, Urine Bilirubin Negative, Urine Urobilinogen Normal, Ur Leukocyte Esterase 100 H, Urine RBC 0-5 SEEN, Urine WBC >100 SEEN, Ur Squamous Epith Cells 0 SEEN, Urine Bacteria 1+, Urine Mucus 0 SEEN Micro: Microbiology 05/08/23 12:53 Nasal Secretion SARS-CoV-2 & FLU Antigen (Rapid) - Final 05/08/23 12:53 Interface Orders Rapid RSV (DFA) - Final Rhythm Strip Rhythm Strip: Sinus Rhythm Rate: 90 Ectopy: None Radiology Impression Chest X-Ray 05/08/23 13:25 IMPRESSION: No acute abnormality is seen. Electronically Signed: Gómez Londono MD at 13:56 EST , Foot X-Ray 05/08/23 13:25 IMPRESSION: Calcaneal spurs. Diffuse soft tissue swelling. Ulceration is seen overlying the plantar aspect of the calcaneus. Electronically Signed: Gómez Londono MD at 13:44 EST , Assessment & Plan Assessment/Plan (1) Diabetic foot ulcer: (2) Urinary tract infection: PLAN: Plan The patient is a 72 y/o F w/ PMHx: Chronic normocytic anemia, Morbid obesity, Hx VTE (DVT, PE), Chronic BL Lymphedema, HTN, HLD, Hypothyroidism, CKD stage IIIb, Diabetes mellitus type II who presents to the [facility] ED on 05/08/23 with history of generalized weakness starting over the last 48 hours with increased urinary frequency as well as low back discomfort above her baseline with noted also left foot heel ulceration toward the plantar aspect being cared for at home by her spouse with no specific drainage or bleeding however her pain has been worse and reports that 10 of 10 with onset of subjective fevers and chills starting yesterday as well as an intermittent nonproductive cough with no dyspnea prompting eventual ED evaluation. #1. SIRS, Lactic acidosis, multifactorial, secondary to #1 Concern Possible Acutely Infected Left Heel Diabetic Foot Ulcer as well as #2 (technically, ED wrote sepsis; however, she only has lactic acidosis otherwise no other end organ damage noted thus will rule out at this time): Will admit to MS, maintain on IV Vanc and Rocephin, will obtain Wound Cx, will obtain Wound MRSA PCR, plan repeat CBC in AM, continue affected extremity elevation above heart when seated and in bed, monitor erythema outline with VS checks, obtain HERMINIO/PVR if able although with habitus may be difficult, request podiatry involvement, consult Wound RN, obtain HgbA1c, nutrition consultation for education and teaching, offloading, elevation. If no concern for acute infection then may consider de-escalating abx therapy to primarily treat #2 as noted. #2. Acute Urinary Tract Infection: UA upon ED evaluation mildly remarkable, pending UCx, maintain on judicious IVFs, monitor I/Os, continue IV Rocephin/Vanc as noted above given concern for infected diabetic ulcer concurrently w/ transition as able pending sensitivities and speciation. Bld cx x 2 obtained in the ED. #3. Diabetes mellitus type II with hyperglycemia: Hold oral home regimen, continue home insulin regimen, ADA diet, hemoglobin A1c requested, nutrition consulted for education and teaching, accu checks w/ ISS. #4. Chronic normocytic anemia: Admission hemoglobin 10.4, MCV 86.6, baseline hemoglobin primarily 10-11 range, stable, continue to trend. #5. Chronic Kidney Disease Stage IIIb: Admission BUN/Cr 42/1.91, baseline renal function primarily 1.7-2.0, repeat BMP in AM. #6. Morbid Obesity: Weight loss and lifestyle changes encouraged, nutrition consulted. #7. Bilateral lower extremity chronic lymphedema: Place neck Mario wraps with elevation. Encouraged her to avoid sleeping in a recliner. Encouraged her to consider follow-up at the Wound care center for her chronic lymphedema. #8. Hypothyroidism: We will continue patient home levothyroxine regimen. #9. Hypertension: From current list does not appear to be on any regimen, does have history of hypertension and BP upon presentation is above goal, clarifying with facility and will add once appropriate, as needed IV hydralazine in interim #10. Hyperlipidemia: We will continue patient on statin therapy. #11. History of VTE: Until podiatry evaluates we will continue patient home Eliquis regimen and if any intervention becomes necessary would transition to heparin drip at next dose due. #12. DVT prophylaxis: As noted above we will continue patient home Eliquis pending podiatry evaluation however if there is any intervention necessary would plan to hold this and transition heparin drip at next dose due. #13. CODE status: Patient HCPOA and living will are not in place but who is present would be her decision maker if necessary. Discussed CODE status at length including difference between FULL code, DNR-CCA and DNR-CC status. Following discussions about the differences in these status, requested Full Code status. Advanced Care Planning Face to Face Time: 16 minutes. Charges/Coding Visit Charges Inpatient E&M: 46168 Init Hosp L3 Procedures Hospitalists Procedures: 37875 Advncd Care Plan 30 Min
[2023-05-08 14:55] VITALS: BP 112/56; PULSE 96; RESP 22; O2SAT 97
[2023-05-08] MEDS: Ceftriaxone 1 GM/50 ML BAG IV (15:03)
[2023-05-08 15:52] VITALS: BP 110/59; PULSE 97; RESP 24; TEMP 38.8; O2SAT 98
--- NOTE | 2023-05-08 16:31 | ART_ITS ---
Reason For Study: Diabetic wound left heel Procedure A bilateral lower extremity continuous wave Doppler with analog waveform analysis and ankle brachial indexes. Left Segmental Pressures Left posterior tibial artery = >254mmHg. Left dorsalis pedis artery = >254mmHg. Left digit = 95 mmHg. The left dorsalis pedis waveforms are triphasic. The left posterior tibial artery waveforms are triphasic. Right Segmental Pressures Right brachial= 102mmHg. Right posterior tibial artery = 135mmHg. Right dorsalis pedis artery = >254mmHg. Right digit = 125 mmHg. The right dorsalis pedis waveforms are triphasic. The right posterior tibial artery waveforms are triphasic. Indices The right ankle brachial index by the dorsalis pedis is NC. The right ankle brachial index by the posterior tibial artery is 1.32. The right digital-brachial index is 1.23. The left ankle brachial index by the dorsalis pedis is NC. The left ankle brachial index by the posterior tibial artery is NC. The left digital-brachial index is 0.93. VL/Ankle Brachial Index Interpretation Summary Right HERMINIO 1.32, normal. TBI and Doppler/PVR waveforms of the right ankle normal at rest. Left HERMINIO not able to be obtained due to non-compressible vessels. TBI and Doppl er/PVR waveforms of the left ankle normal at rest. Ordering Physician: Deisi Domínguez Referring Physician: MD Eligio Beasley Performed By: Laura Pena RVT
[2023-05-08 16:34] VITALS: BMI 46.3
[2023-05-08 16:41] VITALS: BP 132/69; PULSE 90; RESP 16; TEMP 38.5; O2SAT 97
[2023-05-08] MEDS: 0.9% Normal Saline (1000mL) 1,000 ML 100 ML IV (16:49)
--- NOTE | 2023-05-08 16:49 | PCM.CONS.GEN ---
Assessment & Plan Assessment/Plan (1) Non-pressure chronic ulcer of left heel and midfoot with fat layer exposed: PLAN: Patient was examined evaluated. All findings were discussed with the patient. All questions were answered to the patient's satisfaction. The patient's heel wound is full-thickness in nature. Wound culture was obtained at bedside this evening. Recommend surgical excisional debridement with graft application to the left heel after patient is medically cleared/stable. The left heel was dressed with saline wet-to-dry, dry sterile dressing and a single layer Hanks compression bandage was donned to bilateral lower extremity. Wound Cx: pending PCR:pending WBC: 19.4 ESR: 71 CRP: 163.0 PCT: 4.60 Lactic acid: 2.5 HbA1c: 12.2 (03/13/2023) POC Glu: 397 Medicine: On board for medical management. IV antibiotics vancomycin and Rocephin Please reach out to Dr. Castañeda with any questions or concerns. Thank you for the consultation! (2) Type 2 diabetes mellitus with peripheral neuropathy: (3) Morbid obesity: (4) Lymphedema: HPI Consult Data Date of Consult: 05/08/23 HPI Narrative Reason for Consultation: Bilateral lymphedema and full-thickness ulceration left heel HPI Narrative: MARK SOARES, is a 72 F who presents to [facility] with a past medical history of chronic normocytic anemia, morbid obesity, history of VTE (DVT, PE), bilateral chronic lymphedema, hypertension, hyperlipidemia, hypothyroidism, CKD stage IIIb, diabetes mellitus type 2 with peripheral neuropathy. Patient has had a history of generalized weakness and UTI with urine incontinence for the past 48 hours. She also admits to having pain with ambulation to the left heel where she has a full-thickness wound that is stable with no sign of infection. However she rates her pain 10 out of 10 on the pain scale. She does admit to having nausea vomiting fever and chills. Podiatry was consulted for bilateral lymphedema as well as full-thickness ulceration to the left heel. She denies any trauma. No other pedal complaints at this time. [facility] Medical History (Updated 05/08/23 @ 17:[address] Francois Castañeda, DPM) Anxiety Diabetic foot ulcer associated with type 2 diabetes mellitus DVT (deep venous thrombosis) Essential hypertension History of venous thromboembolism Hyperlipidemia Hyperlipidemia Hypothyroidism Lymphedema Morbid obesity with BMI of 40.0-44.9, adult Stage 3b chronic kidney disease Type 2 diabetes mellitus Home Medications atorvastatin 80 mg tablet 80 mg PO QHS cholesterol 03/12/22 [History Last Taken Unknown] levothyroxine 75 mcg tablet (Synthroid) 75 mcg PO DAILY thyroid 03/12/22 [History Last Taken Unknown] acetaminophen 500 mg tablet 1,000 mg (2 x 500 mg) PO Q6H PRN PRN Pain Score 1-10 #0 tabs 03/23/22 [Rx Last Taken Unknown] apixaban 5 mg tablet (Eliquis) 5 mg PO BID 30 days #60 tabs 03/23/22 [Rx Last Taken Unknown] insulin glargine-yfgn 100 unit/mL (3 mL) subcutaneous pen 30 unit (0.3 mL) subcut QHS diabetes 30 days #9 mL 03/23/22 [Rx Last Taken Unknown] insulin glargine-yfgn 100 unit/mL (3 mL) subcutaneous pen 30 unit (0.3 mL) subcut QHS 30 days #9 mL 03/25/22 [Rx Last Taken Unknown] needle (disp) 31 gauge 31 gauge x 5/16 #100 ea 03/25/22 [Rx Last Taken Unknown] Allergy/AdvReac Type Severity Reaction Status Date / Time codeine Allergy Rash Verified 03/12/22 20:20 Penicillins [PCN] Allergy Rash Verified 03/12/22 20:20 Family History Other CVA (cerebral vascular accident) Pancreatic cancer Surgical History H/O: hysterectomy Social History household members: spouse Smoking Status: Never smoker alcohol intake: never substance use type: does not use Physical Exam Narrative Vascular: DP and PT pulse are faintly palpable secondary to lymphedema. CFT is brisk. +1+2 pitting edema to bilateral lower extremity. No erythema or proximal streaking is noted. Skin temperature great is warm to warm from proximal ankle to distal digits. Neurological: Light touch intact. Protective sensation is diminished. Dermatological: Full-thickness ulceration with fat exposed to the left heel, measuring 2.5 x 1.0 x 0.2 cm. Wound base is fibrogranular nature. There is no erythema, drainage, probe to bone or sign of infection at this time. Musculoskeletal: Muscle strength was deferred. No pain with calf compression. Mild pain on palpation to full-thickness ulceration left heel. Const alert and oriented x3 Lab / Micro Data 05/08/23 12:55 05/08/23 12:55 Labs: Laboratory Results - last 24 hr 05/08/23 12:55: WBC 19.4 H, RBC 3.88 L, Hgb 10.4 L, Hct 33.6 L, MCV 86.6, MCH 26.8 L, MCHC 31.0 L, RDW Std Deviation 47.1 H, RDW Coeff of Dayo 14.8 H, Plt Count 248, MPV 9.2, Immature Gran % (Auto) 0.900, Neut % (Auto) 92.6 H, Lymph % (Auto) 2.5 L, [place] % (Auto) 3.6, Eos % (Auto) 0.2, Baso % (Auto) 0.2, Absolute Neuts (auto) 18.0 H, Absolute Lymphs (auto) 0.49 L, Nucleated RBC % 0, Differential Comment SCANNED, ESR 71 H, PT 17.0 H, INR 1.4, APTT 42.9 H, Sodium 133 L, Potassium 4.4, Chloride 102, Carbon Dioxide 23.0, Anion Gap 8, BUN 42 H, Creatinine 1.91 H, Estim Creat Clear Calc 27.65, Est GFR (MDRD) Af Amer 33 L, Est GFR (MDRD) Non-Af 28 L, BUN/Creatinine Ratio 22.0 H, Glucose 418 H, Lactic Acid 2.5 H*, Calcium 8.4 L, Magnesium 1.0 L, Total Bilirubin 0.60, AST 17, ALT 17, Alkaline Phosphatase 84, C-React Prot Ext Range 163.00 H, Total Protein 7.5, Albumin 3.1 L, Globulin 4.4 H, Albumin/Globulin Ratio 0.7 L 05/08/23 13:42: Urine Color Yellow, Urine Clarity Clear, Urine pH 5.0, Ur Specific [place] 1.010, Urine Protein 100 H, Urine Glucose (UA) 1000 H, Urine Ketones 5 H, Urine Occult Blood 150 H, Urine Nitrite Negative, Urine Bilirubin Negative, Urine Urobilinogen Normal, Ur Leukocyte Esterase 100 H, Urine RBC 0-5 SEEN, Urine WBC >100 SEEN, Ur Squamous Epith Cells 0 SEEN, Urine Bacteria 1+, Urine Mucus 0 SEEN 05/08/23 15:16: Procalcitonin 4.60 H Micro: Microbiology 05/08/23 12:53 Nasal Secretion SARS-CoV-2 & FLU Antigen (Rapid) - Final 05/08/23 12:53 Interface Orders Rapid RSV (DFA) - Final Rhythm Strip Rhythm Strip: Sinus Rhythm Rate: 90 Ectopy: None Radiology Impression Chest X-Ray 05/08/23 13:25 IMPRESSION: No acute abnormality is seen. Electronically Signed: Gómez Londono MD at 13:56 EST , Foot X-Ray 05/08/23 13:25 IMPRESSION: Calcaneal spurs. Diffuse soft tissue swelling. Ulceration is seen overlying the plantar aspect of the calcaneus. Electronically Signed: Gómez Londono MD at 13:44 EST ,
[2023-05-08] MEDS: Insulin Lispro 100 UNIT/ML INSULN.PEN SC ×3 (16:54→21:38)
[2023-05-08 16:59] LABS: Reflex Lactate? Y
[2023-05-08 17:15] LABS: Bedside Glucose 397 mg/dL (74-106)
[2023-05-08] MEDS: Vancomycin HCl 2,000 MG in 0.9% Normal Saline (500mL Bag) 500 ML 250 MG IV (17:53)
[2023-05-08] MEDS: Acetaminophen 325 MG Tablet 650 MG PO (18:00)
[2023-05-08 19:09] LABS: M R Staph aureus DNA By PCR Negative (Negative); Probe Check PASS; Specimen Processing Control PASS; Staph aureus DNA By PCR NEGATIVE (Negative)
--- NOTE | 2023-05-08 19:24 | PCM.RX.CS ---
Consult Antibiotic Management Pharmacy has been consulted to manage selected antiobiotic: Vancomycin Type of Intervention Type of Consult: New start Suspected Infection Suspected Infection: Skin/Soft tissue Prior Doses of Antibiotics Prior Doses of Antibiotics Received/Current Regimen: Received loading dose of 2000mg iv x 1 on 05.08.23 @1753. Labs Labs: Sodium 133 mmol/L (136-145) L 05/08/23 12:55 Potassium 4.4 mmol/L (3.5-5.1) 05/08/23 12:55 Chloride 102 mmol/L (98-107) 05/08/23 12:55 Carbon Dioxide 23.0 mmol/L (21.0-32.0) 05/08/23 12:55 Anion Gap 8 (5-15) 05/08/23 12:55 BUN 42 mg/dL (7-18) H 05/08/23 12:55 Creatinine 1.91 mg/dL (0.55-1.02) H 05/08/23 12:55 Est GFR (MDRD) Af Amer 33 mL/min (>60) L 05/08/23 12:55 Est GFR (MDRD) Non-Af 28 mL/min (>60) L 05/08/23 12:55 BUN/Creatinine Ratio 22.0 RATIO (10-20) H 05/08/23 12:55 Glucose 418 mg/dL (74-106) H 05/08/23 12:55 Microbiology Microbiology: Microbiology 05/08/23 12:53 Nasal Secretion SARS-CoV-2 & FLU Antigen (Rapid) - Final 05/08/23 12:53 Interface Orders Rapid RSV (DFA) - Final Dosing Weight Weight used for dosin kg Estimated Creatinine Clearance Estimated Creatinine Clearance: 41 ml/min Goal Trough Goal Trough: 15-20 mcg/mL Pharmacy Plan for Drug Dosing Pharmacy Plan for Drug Dosing: Using adjusted body weight of 93.5kg, CrCl calculated to be ~41ml/min. Recommend starting dose of 1000mg iv q12h with trough level before 4th total dose per protocol. Pharmacy Service will continue to monitor and adjust dosing as required. Follow-Up Labs Follow-Up Labs: Trough: Vancomycin (05.10.23 @0530 before 0600 dose)
[2023-05-08 21:31] VITALS: BP 135/68; PULSE 81; RESP 16; TEMP 37.2; O2SAT 97
[2023-05-08] MEDS: Menthol/Lanolin/Calamine/Znox 113 GM Tube 1 APPLIC TOPICAL (21:38)
[2023-05-08] MEDS: Miconazole Nitrate 43 GM Bottle 1 APPLIC TOPICAL (21:39)
[2023-05-08] MEDS: APIXABAN 5 MG TABLET PO (21:39)
[2023-05-08] MEDS: Insulin Glargine-YFGN 100 UNIT/ML Pen 30 UNIT SC (21:39)
[2023-05-08] MEDS: Atorvastatin Calcium 80 MG Tablet PO (21:40)
[2023-05-08 22:07] LABS: Bedside Glucose 297 mg/dL (74-106)
[2023-05-09 03:06] VITALS: BP 149/67; PULSE 84; RESP 16; TEMP 38.1; O2SAT 93
[2023-05-09] MEDS: Acetaminophen 325 MG Tablet 650 MG PO ×2 (03:12→21:44)
[2023-05-09] MEDS: Vancomycin IV 1,000 MG/200 ML BAG 200 MG IV ×2 (05:38→17:18)
[2023-05-09] MEDS: Levothyroxine 75 MCG Tablet PO (05:39)
[2023-05-09 05:42] VITALS: BMI 46.3
[2023-05-09 05:45] VITALS: TEMP 36.5
[2023-05-09 07:09] LABS: Absolute Lymphocyte Count 1.21 X10^3/uL (0.83-4.51); Absolute Neutrophil Count 14.2 X10^3/uL (2.0-7.7); Basophil# 0.04 X10^3/uL; Basophil% 0.2 % (0-1); Eosinophil# 0.02 X10^3/uL; Eosinophils% 0.1 % (0-5); Hematocrit 30.4 % (37-47); Hemoglobin 9.1 g/dL (12.0-15.0); Lymphocyte # 1.21 X10^3/ul (0.83-4.51); Lymphocyte % 7.4 % (19-41); Mean Corp Hgb Conc 29.9 g/dL (32-36); Mean Corpuscular Hgb 26.5 pg (27.0-32.0); Mean Corpuscular Volume 88.4 fL (81-99); Mean Platelet Vol. 9.3 fl (6.2-12.0); Monocyte# 0.84 X10^3/uL; Monocyte% 5.1 % (0-10); NRBC Flagged by Analyzer 0 % (0-5); Neutrophil # 14.18 X10^3/uL (2.7-7.7); Neutrophil % 86.7 % (47-70); Platelet Count 226 K/mm3 (150-450); RBC Distribution Width CV 15.2 % (11.6-14.6); RBC Distribution Width SD 49.2 fl (35.1-43.9); Red Blood Count 3.44 M/mm3 (4.2-5.4); White Blood Count 16.4 K/mm3 (4.4-11.0)
--- NOTE | 2023-05-09 07:40 | PCM.PN.HOSP ---
Reason for Visit Reason for Visit: Diagnoses Type 2 diabetes mellitus with diabetic polyneuropathy (05/08/23) Type 2 diabetes mellitus with foot ulcer (05/08/23) Morbid (severe) obesity due to excess calories (05/08/23) Lymphedema, not elsewhere classified (05/08/23) Non-pressure chronic ulcer of left heel and midfoot with fat layer exposed (05/08/23) Non-pressure chronic ulcer of other part of unspecified foot with unspecified severity (05/08/23) Urinary tract infection, site not specified (05/08/23) Subjective Subjective Feeling somewhat better today, not presently having any pain Objective Data Objective Data Vital Signs: Vital Signs Temp Pulse Resp BP Pulse Ox O2 Del Method 97.7 F L 84 16 149/67 H 93 Room Air 05/09/23 05:45 05/09/23 03:06 05/09/23 03:06 05/09/23 03:06 05/09/23 03:06 05/09/23 03:19 Oxygen Delivery Method Room Air Weight: 138.5 kg Body Mass Index (BMI) 46.3 Intake & Output: Intake and Output for Last 24 Hours 05/07/23 05/08/23 05/09/23 23:59 23:59 23:59 Intake Total 810 / 810 1500 / 1500 Output Total 800 / 800 Balance 810 / 810 700 / 700 Lab / Micro Data 05/09/23 06:05 05/09/23 06:05 Labs: Laboratory Results - last 24 hr 05/08/23 12:55: WBC 19.4 H, RBC 3.88 L, Hgb 10.4 L, Hct 33.6 L, MCV 86.6, MCH 26.8 L, MCHC 31.0 L, RDW Std Deviation 47.1 H, RDW Coeff of Dayo 14.8 H, Plt Count 248, MPV 9.2, Immature Gran % (Auto) 0.900, Neut % (Auto) 92.6 H, Lymph % (Auto) 2.5 L, Grainger % (Auto) 3.6, Eos % (Auto) 0.2, Baso % (Auto) 0.2, Absolute Neuts (auto) 18.0 H, Absolute Lymphs (auto) 0.49 L, Nucleated RBC % 0, Differential Comment SCANNED, ESR 71 H, PT 17.0 H, INR 1.4, APTT 42.9 H, Sodium 133 L, Potassium 4.4, Chloride 102, Carbon Dioxide 23.0, Anion Gap 8, BUN 42 H, Creatinine 1.91 H, Estim Creat Clear Calc 27.65, Est GFR (MDRD) Af Amer 33 L, Est GFR (MDRD) Non-Af 28 L, BUN/Creatinine Ratio 22.0 H, Glucose 418 H, Lactic Acid 2.5 H*, Calcium 8.4 L, Magnesium 1.0 L, Total Bilirubin 0.60, AST 17, ALT 17, Alkaline Phosphatase 84, C-React Prot Ext Range 163.00 H, Total Protein 7.5, Albumin 3.1 L, Globulin 4.4 H, Albumin/Globulin Ratio 0.7 L 05/08/23 13:42: Urine Color Yellow, Urine Clarity Clear, Urine pH 5.0, Ur Specific [place] 1.010, Urine Protein 100 H, Urine Glucose (UA) 1000 H, Urine Ketones 5 H, Urine Occult Blood 150 H, Urine Nitrite Negative, Urine Bilirubin Negative, Urine Urobilinogen Normal, Ur Leukocyte Esterase 100 H, Urine RBC 0-5 SEEN, Urine WBC >100 SEEN, Ur Squamous Epith Cells 0 SEEN, Urine Bacteria 1+, Urine Mucus 0 SEEN 05/08/23 15:16: Procalcitonin 4.60 H 05/08/23 16:51: POC Glucose 397 H 05/08/23 17:05: S.aureus Protein A PCR NEGATIVE, MRSA (PCR) Negative 05/08/23 17:58: Lactic Acid 2.0 05/08/23 21:37: POC Glucose 297 H 05/09/23 06:05: WBC 16.4 H, RBC 3.44 L, Hgb 9.1 L, Hct 30.4 L, MCV 88.4, MCH 26.5 L, MCHC 29.9 L, RDW Std Deviation 49.2 H, RDW Coeff of Dayo 15.2 H, Plt Count 226, MPV 9.3, Immature Gran % (Auto) 0.500, Neut % (Auto) 86.7 H, Lymph % (Auto) 7.4 L, Grainger % (Auto) 5.1, Eos % (Auto) 0.1, Baso % (Auto) 0.2, Absolute Neuts (auto) 14.2 H, Absolute Lymphs (auto) 1.21, Nucleated RBC % 0 Micro: Microbiology 05/08/23 12:53 Nasal Secretion SARS-CoV-2 & FLU Antigen (Rapid) - Final 05/08/23 12:53 Interface Orders Rapid RSV (DFA) - Final Radiography Diagnostic Testing: Radiology Impression Chest X-Ray 05/08/23 13:25 IMPRESSION: No acute abnormality is seen. Electronically Signed: Gómez Londono MD at 13:56 EST , Foot X-Ray 05/08/23 13:25 IMPRESSION: Calcaneal spurs. Diffuse soft tissue swelling. Ulceration is seen overlying the plantar aspect of the calcaneus. Electronically Signed: Gómez Londono MD at 13:44 EST , Rhythm Strip Rhythm Strip: Sinus Rhythm Rate: 90 Ectopy: None Physical Exam Narrative General: Alert, oriented, no apparent distress HEENT: Atraumatic, normocephalic Eyes: Anicteric, normal conjunctiva, extraocular movements grossly intact Neck: Supple Respiratory: normal respiratory effort Cardiovascular: Regular rate GI: Soft, nontender, nondistended Extremities: No edema Musculoskeletal: Moving all extremities Neuro: No overt focal neurological deficits Skin: Feet wrapped Psych: Cooperative Assessment & Plan Assessment/Plan (1) Diabetic foot ulcer: (2) Urinary tract infection: PLAN: Plan #Left foot diabetic foot wound -Cultures pending -Broad-spectrum antibiotics, continue vancomycin and considering we are covering diabetic foot wound we will switch Rocephin to Zosyn. Patient has penicillin listed as an allergy however under allergy comments it says PT REPORTED NOT ALLERGIC -Podiatry consult -Wound care consult -Pt for OR #Urinary frequency -Symptoms and UA suggestive of UTI -Urine culture pending -Continue IV antibiotics #CKD stage IIIb -Avoid nephrotoxic agents, monitor BMP #Type 2 diabetes mellitus -Glucose checks and sliding scale insulin -Continue 30 units nightly glargine and Premeal #Hypothyroidism -Continue Synthroid #Bilateral lower extremity lymphedema -Chronic, Mario wrap's #Morbid obesity -BMI 46.4 kg/m? -Complicates treatment, prognosis, outcomes -Recommend weight loss and lifestyle changes #History of VTE -Holding home Eliquis given pending surgical debridement #DVT ppx: Eliquis held, subcu heparin Moni Godfrey MD Time spent in the patient's overall evaluation,decision-making process, review of diagnostic data, adjustment of management, discussion with other providers, nursing nursing and ancillary staff involved in patient's care documentation, 35 minutes Charges/Coding Visit Charges Inpatient E&M: 51179 Subs Hosp L2
[2023-05-09 07:42] LABS: ALB/GLOB Ratio 0.6 RATIO (0.9-2.4); AST(SGOT) 19 U/L (15-37); Alanine Aminotransfer ALT/SGPT 14 U/L (13-56); Albumin, Serum 2.2 g/dL (3.2-5.0); Alkaline Phosphatase 62 U/L (45-117); Anion Gap 8 (5-15); BUN 43 mg/dL (7-18); BUN/Creat Ratio 23.1 RATIO (10-20); Calcium,Total 7.5 mg/dL (8.5-10.1); Chloride 106 mmol/L (98-107); Creatinine, Serum 1.86 mg/dL (0.55-1.02); EST Glomerular Filtration Rate 28 mL/min (>60); Est Glom Filt Rate - Afr Amer 34 mL/min (>60); Estimated Creatinine Clearance 28.39 ml/min; Glucose 215 mg/dL (74-106); Potassium 3.3 mmol/L (3.5-5.1); Protein, Total 6.2 g/dL (6.4-8.2); Sodium Level 137 mmol/L (136-145)
[2023-05-09] MEDS: Insulin Lispro 100 UNIT/ML INSULN.PEN SC ×7 (07:44→21:30)
--- NOTE | 2023-05-09 07:44 | PN_ITS ---
Subjective Subjective Mrs. Read is a 9-year-old female seen at bedside today for dressing change and debridement to the left heel and left lower extremity. Patient states she is improved since yesterday. She denies any pain to the left heel. She was to getting her IV antibiotics for her UTI. She has kept her bilateral dressings cl ana cristina dry and intact. She denies any constitutional symptoms. No other complaints at this time. Objective Data Objective Data Vital Signs: Vital Signs Temp Pulse Resp BP Pulse Ox O2 Del Method 97.7 F L 84 16 149/67 H 93 Room Air 05/09/23 05:45 05/09/23 03:06 05/09/23 03:06 05/09/23 03:06 05/09/23 03:06 05/09/23 03:19 Oxygen Delivery Method Room Air Weight: 138.5 kg Body Mass Index (BMI) 46.3 Intake & Output: Intake and Output for Last 24 Hours 05/07/23 05/08/23 05/09/23 23:59 23:59 23:59 Intake Total 810 / 810 1500 / 1500 Output Total 800 / 800 Balance 810 / 810 700 / 700 Lab / Micro Data Attestation: I reviewed the patient's lab results. 05/09/23 06:05 05/09/23 06:05 Labs: Laboratory Results - last 24 hr 05/08/23 12:55: WBC 19.4 H, RBC 3.88 L, Hgb 10.4 L, Hct 33.6 L, MCV 86.6, MCH 26.8 L, MCHC 31.0 L, RDW Std Deviation 47.1 H, RDW Coeff of Dayo 14.8 H, Plt Count 248, MPV 9.2, Immature Gran % (Auto) 0.900, Neut % (Auto) 92.6 H, Lymph % (Auto) 2.5 L, [place] % (Auto) 3.6, Eos % (Auto) 0.2, Baso % (Auto) 0.2, Absolute Neuts (auto) 18.0 H, Absolute Lymphs (auto) 0.49 L, Nucleated RBC % 0, Differential Comment SCANNED, ESR 71 H, PT 17.0 H, INR 1.4, APTT 42.9 H, Sodium 133 L, Potassium 4.4, Chloride 102, Carbon Dioxide 23.0, Anion Gap 8, BUN 42 H, Creatinine 1.91 H, Estim Creat Clear Calc 27.65, Est GFR (MDRD) Af Amer 33 L, Est GFR (MDRD) Non-Af 28 L, BUN/Creatinine Ratio 22.0 H, Glucose 418 H, Lactic Acid 2.5 H*, Calcium 8.4 L, Magnesium 1.0 L, Total Bilirubin 0.60, AST 17, ALT 17, Alkaline Phosphatase 84, C-React Prot Ext Range 163.00 H, Total Protein 7.5, Albumin 3.1 L, Globulin 4.4 H, Albumin/Globulin Ratio 0.7 L 05/08/23 13:42: Urine Color Yellow, Urine Clarity Clear, Urine pH 5.0, Ur Specific [place] 1.010, Urine Protein 100 H, Urine Glucose (UA) 1000 H, Urine Ketones 5 H, Urine Occult Blood 150 H, Urine Nitrite Negative, Urine Bilirubin Negative, Urine Urobilinogen Normal, Ur Leukocyte Esterase 100 H, Urine RBC 0-5 SEEN, Urine WBC >100 SEEN, Ur Squamous Epith Cells 0 SEEN, Urine Bacteria 1+, Urine Mucus 0 SEEN 05/08/23 15:16: Procalcitonin 4.60 H 05/08/23 16:51: POC Glucose 397 H 05/08/23 17:05: S.aureus Protein A PCR NEGATIVE, MRSA (PCR) Negative 05/08/23 17:58: Lactic Acid 2.0 05/08/23 21:37: POC Glucose 297 H 05/09/23 06:05: WBC 16.4 H, RBC 3.44 L, Hgb 9.1 L, Hct 30.4 L, MCV 88.4, MCH 26.5 L, MCHC 29.9 L, RDW Std Deviation 49.2 H, RDW Coeff of Dayo 15.2 H, Plt Count 226, MPV 9.3, Immature Gran % (Auto) 0.500, Neut % (Auto) 86.7 H, Lymph % (Auto) 7.4 L, [place] % (Auto) 5.1, Eos % (Auto) 0.1, Baso % (Auto) 0.2, Absolute Neuts (auto) 14.2 H, Absolute Lymphs (auto) 1.21, Nucleated RBC % 0, Sodium 137, Potassium 3.3 L, Chloride 106, Carbon Dioxide 23.0, Anion Gap 8, BUN 43 H, Creatinine 1.86 H, Estim Creat Clear Calc 28.39, Est GFR (MDRD) Af Amer 34 L, Est GFR (MDRD) Non-Af 28 L, BUN/Creatinine Ratio 23.1 H, Glucose 215 H, Calcium 7.5 L, Total Bilirubin 0.50, AST 19, ALT 14, Alkaline Phosphatase 62, Total Protein 6.2 L, Albumin 2.2 L, Globulin 4.0, Albumin/Globulin Ratio 0.6 L Micro: Microbiology 05/08/23 12:53 Nasal Secretion SARS-CoV-2 & FLU Antigen (Rapid) - Final 05/08/23 12:53 Interface Orders Rapid RSV (DFA) - Final Radiography Diagnostic Testing: Radiology Impression Chest X-Ray 05/08/23 13:25 IMPRESSION: No acute abnormality is seen. Electronically Signed: Gómez Londono MD at 13:56 EST , Foot X-Ray 05/08/23 13:25 IMPRESSION: Calcaneal spurs. Diffuse soft tissue swelling. Ulceration is seen overlying the plantar aspect of the calcaneus. Electronically Signed: Gómez Londono MD at 13:44 EST , Rhythm Strip Rhythm Strip: Sinus Rhythm Rate: 90 Ectopy: None Physical Exam Narrative Neurovascular status is unchanged. +1 to +2 pitting edema to bilateral lower extremities improved with compression. Evidence of full-thickness ulceration appreciated to the plantar aspect of the left heel. Ulceration to left heel measures 2.7 x 1.2 x 0.3 cm after debridement. Wound base is fibrogranular nature with sanguinous drainage. All fibronecrotic tissue was removed. Mild palpatory tenderness appreciated to the ulceration to the left heel. No pain with calf compression. Const alert, oriented x3 and no apparent distress Assessment & Plan Assessment/Plan (1) Non-pressure chronic ulcer of left heel and midfoot with fat layer exposed: PLAN: Patient was examined evaluated. All findings were discussed with the patient. All questions were answered to the patient's satisfaction. The patient's full-thickness ulceration to the left heel was debrided down to and including subcutaneous tissue with a number 7 mm dermal curette without inc ident. Predebridement measurement is 2.5 x 1.0 x 0.2 cm. Postdebridement measurement is 2.7 x 1.2 x 0.3 cm. Sanguinous drainage was noted after debridement. The area was flushed with copious maverick of normal saline. The wound was dressed with saline moist gauze, dry sterile dressing and a single layer Hanks compression bandage was read down to the left lower extremity. We will plan for surgical OR debridement and graft placement this week either or Monday depending on availability. Please change left lower extremity dressing every 2 days. Wound Cx: pending PVR:pending WBC: 19.4 -> 16.4 ESR: 71 CRP: 163.0 PCT: 4.60 Lactic acid: 2.5 -> 2.0 HbA1c: pending POC Glu: 397 -> 297 Medicine: On board for medical management. IV antibiotics vancomycin and Zosyn Please reach out to Dr. Castañeda with any questions or concerns. (2) Type 2 diabetes mellitus with peripheral neuropathy: (3) Morbid obesity: (4) Lymphedema:
[2023-05-09 08:08] LABS: Bedside Glucose 192 mg/dL (74-106)
[2023-05-09 08:21] LABS: Hemoglobin A1c 11.3 % (3.8-5.6)
[2023-05-09 08:38] VITALS: BP 106/52; PULSE 66; RESP 18; TEMP 36.6; O2SAT 97
[2023-05-09] MEDS: Miconazole Nitrate 43 GM Bottle 1 APPLIC TOPICAL ×2 (08:41→21:34)
[2023-05-09] MEDS: Menthol/Lanolin/Calamine/Znox 113 GM Tube 1 APPLIC TOPICAL ×3 (08:42→21:34)
[2023-05-09] MEDS: Piperacil/Tazobactam 3.375 GM in 0.9% Normal Saline (50mL MB+) 50 ML IV ×3 (08:42→21:30)
[2023-05-09] MEDS: Multivitamins,Ther W-Minerals Tablet 1 TABLET PO ×2 (08:42)
[2023-05-09] MEDS: Magnesium Sulfate 4gm/100mL 4 GM/100 ML IV.SOLN. IV (08:42)
[2023-05-09] MEDS: 0.9% Saline Lock 10 ML Syringe IV (08:43)
[2023-05-09] MEDS: Potassium Chloride Oral Tablet 20 MEQ 60 MEQ PO (08:45)
[2023-05-09 11:19] LABS: Bedside Glucose 165 mg/dL (74-106)
--- NOTE | 2023-05-09 13:57 | WOUNDNOTE ---
wound photo: left plantar heel
--- NOTE | 2023-05-09 15:25 | CASEMGMT ---
GAGE DOWELL Assessment: Face to Face withpt. for initial transition planning/care coordination assessment. GAGE DOWELL introduced self and role at [facility], pt. voices understanding and consents to assessment. Pt's is also present in the room. Pt. is A&O x4 and answers all questions appropriately at this time. Carer providers, pharmacy, and demographics verified/updated. Admitting Dx: Diabetic Foot ulcer PCP: [facility] Specialists: [facility] ([facility] - pt. unsure who) Preferred Pharmacy: [facility] ([place]) Insurance: [employer] [facility] Prescription benefit: yes LNOK: Gavin Read () Living Will/HCPOA: No and No. Pt. declines to receive information about ADs at this time. Living Arranagements: Pt. lives with her in a 2 story home that is [facility]. 1-2 steps w/railing to enter and a couple staircases w/railing inside the home. Prior to this admission, pt. states she was ambulating the steps fine. Pt. states she is I in all ADLs/IADLs. Transportation: DME: shower chair, cane, hand held shower, walker, rollator, pulse ox, and glucometer/supplies. Pt. declines to receive information about medical alert systems. Pt. denies need of additional DME at this time. HHC/SNF: denies any previous HHC/SNF. Pt. states no concerns with going home at time of dc. Pt. states no further concerns/needs. CM to follow. Advised pt. to ask CM if any further questions/concerns/needs arise, voices understanding. Pt. Goal: home with support of . States she does not want HHC. Plans: TBD. Home with HHC vs. home with family support and follow-up plans in place. Follow Surgery (planned for afternoon) and PT/OT.
[2023-05-09 17:33] LABS: Bedside Glucose 188 mg/dL (74-106)
[2023-05-09 20:30] VITALS: O2SAT 95
[2023-05-09 21:26] VITALS: BP 133/62; PULSE 72; RESP 18; TEMP 36.7; O2SAT 99
[2023-05-09] MEDS: Insulin Glargine-YFGN 100 UNIT/ML Pen 30 UNIT SC (21:32)
[2023-05-09] MEDS: Atorvastatin Calcium 80 MG Tablet PO (21:34)
[2023-05-09] MEDS: Heparin Injection (Vial) 5,000 UNIT/ML VIAL 5000 UNIT SC (21:34)
[2023-05-10 01:04] LABS: Bedside Glucose 291 mg/dL (74-106)
[2023-05-10 03:44] VITALS: BP 123/56; PULSE 69; RESP 18; TEMP 36.8; O2SAT 95
[2023-05-10 05:45] LABS: Absolute Neutrophil Count 9.6 X10^3/uL (2.0-7.7); Basophil# 0.05 X10^3/uL; Basophil% 0.4 % (0-1); Eosinophils% 2.6 % (0-5); Hematocrit 28.4 % (37-47); Hemoglobin 8.5 g/dL (12.0-15.0); Lymphocyte % 8.7 % (19-41); Mean Corp Hgb Conc 29.9 g/dL (32-36); Mean Corpuscular Hgb 26.6 pg (27.0-32.0); Mean Corpuscular Volume 88.8 fL (81-99); Mean Platelet Vol. 8.7 fl (6.2-12.0); Monocyte# 0.56 X10^3/uL; Monocyte% 4.9 % (0-10); NRBC Flagged by Analyzer 0 % (0-5); Neutrophil # 9.56 X10^3/uL (2.7-7.7); Neutrophil % 82.8 % (47-70); Platelet Count 206 K/mm3 (150-450); RBC Distribution Width CV 15.2 % (11.6-14.6); RBC Distribution Width SD 49.5 fl (35.1-43.9); White Blood Count 11.5 K/mm3 (4.4-11.0)
[2023-05-10 06:00] VITALS: BMI 46.6
[2023-05-10] MEDS: Levothyroxine 75 MCG Tablet PO (06:00)
[2023-05-10] MEDS: Heparin Injection (Vial) 5,000 UNIT/ML VIAL 5000 UNIT SC ×2 (06:00→14:02)
[2023-05-10] MEDS: Piperacil/Tazobactam 3.375 GM in 0.9% Normal Saline (50mL MB+) 50 ML IV ×3 (06:00→22:03)
[2023-05-10 06:27] LABS: Anion Gap 4 (5-15); BUN 55 mg/dL (7-18); BUN/Creat Ratio 23.7 RATIO (10-20); Calcium,Total 7.8 mg/dL (8.5-10.1); Chloride 107 mmol/L (98-107); Creatinine, Serum 2.32 mg/dL (0.55-1.02); EST Glomerular Filtration Rate 22 mL/min (>60); Est Glom Filt Rate - Afr Amer 27 mL/min (>60); Estimated Creatinine Clearance 22.76 ml/min; Glucose 180 mg/dL (74-106); Magnesium 2.1 mg/dL (1.6-2.6); Potassium 4.1 mmol/L (3.5-5.1); Sodium Level 136 mmol/L (136-145); Vancomycin, Trough Level 25.8 ug/mL (5.0-15.0)
--- NOTE | 2023-05-10 06:33 | PCM.RX.CS ---
Consult Antibiotic Management Pharmacy has been consulted to manage selected antiobiotic: Vancomycin Type of Intervention Type of Consult: Follow-up Labs Labs: Sodium 136 mmol/L (136-145) 05/10/23 05:35 Potassium 4.1 mmol/L (3.5-5.1) 05/10/23 05:35 Chloride 107 mmol/L (98-107) 05/10/23 05:35 Carbon Dioxide 25.0 mmol/L (21.0-32.0) 05/10/23 05:35 Anion Gap 4 (5-15) L 05/10/23 05:35 BUN 55 mg/dL (7-18) H 05/10/23 05:35 Creatinine 2.32 mg/dL (0.55-1.02) H 05/10/23 05:35 Est GFR (MDRD) Af Amer 27 mL/min (>60) L 05/10/23 05:35 Est GFR (MDRD) Non-Af 22 mL/min (>60) L 05/10/23 05:35 BUN/Creatinine Ratio 23.7 RATIO (10-20) H 05/10/23 05:35 Glucose 180 mg/dL (74-106) H 05/10/23 05:35 Vancomycin Trough 25.8 ug/mL (5.0-15.0) H 05/10/23 05:35 Microbiology Microbiology: Microbiology 05/08/23 17:05 Wound - Heel, Left Gram Stain - Final 05/08/23 17:05 Wound - Heel, Left Wound Culture - Preliminary Streptococcus group B 05/08/23 13:42 Urine, Clean Catch Urine Culture - Preliminary Culture exhibits no growth. 05/08/23 12:53 Nasal Secretion SARS-CoV-2 & FLU Antigen (Rapid) - Final 05/08/23 12:53 Interface Orders Rapid RSV (DFA) - Final Dosing Weight Weight used for dosin.6 kg Estimated Creatinine Clearance Estimated Creatinine Clearance: 33.6 Goal Trough Goal Trough: 15-20 mcg/mL Pharmacy Plan for Drug Dosing Pharmacy Plan for Drug Dosing: Vancomycin trough level drawn 12.25hrs post-dose was high at 25.8. This is partly owing to the decrease in renal function (SCr from 1.86 to 2.32 this morning). Will suspend current dosing, and will draw a random level in 12 hours to determine further dose. Pharmacy Service will continue to monitor and adjust dosing as required. Follow-Up Labs Follow-Up Labs: Trough: Vancomycin (random) Date/Time Labs Ordered Labs to be done on [date and time ordered]: 05/10/23 @1730 random
[2023-05-10] MEDS: Insulin Lispro 100 UNIT/ML INSULN.PEN SC ×6 (06:48→22:00)
[2023-05-10 07:08] LABS: Bedside Glucose 149 mg/dL (74-106)
--- NOTE | 2023-05-10 07:21 | PCM.PN.HOSP ---
Reason for Visit Reason for Visit: Diagnoses Type 2 diabetes mellitus with diabetic polyneuropathy (05/08/23) Type 2 diabetes mellitus with foot ulcer (05/08/23) Morbid (severe) obesity due to excess calories (05/08/23) Lymphedema, not elsewhere classified (05/08/23) Non-pressure chronic ulcer of left heel and midfoot with fat layer exposed (05/08/23) Non-pressure chronic ulcer of other part of unspecified foot with unspecified severity (05/08/23) Urinary tract infection, site not specified (05/08/23) Subjective Subjective Patient is 72-year-old lady admitted with diabetic foot infection involving the left foot. Seen in consultation by podiatry plan is for patient to undergo surgical intervention on 05/11/2023 Objective Data Objective Data Vital Signs: Vital Signs Temp Pulse Resp BP Pulse Ox O2 Del Method 98.2 F 69 18 123/56 H 95 Room Air 05/10/23 03:44 05/10/23 03:44 05/10/23 03:44 05/10/23 03:44 05/10/23 03:44 05/10/23 03:44 Oxygen Delivery Method Room Air Weight: 139.6 kg Body Mass Index (BMI) 46.6 Intake & Output: Intake and Output for Last 24 Hours 05/08/23 05/09/23 05/10/23 23:59 23:59 23:59 Intake Total 810 / 810 2400 / 2400 50 / 50 Output Total 800 / 800 Balance 810 / 810 1600 / 1600 50 / 50 Lab / Micro Data 05/10/23 05:35 05/10/23 05:35 Labs: Laboratory Results - last 24 hr 05/09/23 06:05: Sodium 137, Potassium 3.3 L, Chloride 106, Carbon Dioxide 23.0, Anion Gap 8, BUN 43 H, Creatinine 1.86 H, Estim Creat Clear Calc 28.39, Est GFR (MDRD) Af Amer 34 L, Est GFR (MDRD) Non-Af 28 L, BUN/Creatinine Ratio 23.1 H, Glucose 215 H, Hemoglobin A1c 11.3 H, Calcium 7.5 L, Total Bilirubin 0.50, AST 19, ALT 14, Alkaline Phosphatase 62, Total Protein 6.2 L, Albumin 2.2 L, Globulin 4.0, Albumin/Globulin Ratio 0.6 L 05/09/23 07:42: POC Glucose 192 H 05/09/23 10:56: POC Glucose 165 H 05/09/23 17:03: POC Glucose 188 H 05/09/23 21:30: POC Glucose 291 H 05/10/23 05:35: WBC 11.5 H, RBC 3.20 L, Hgb 8.5 L, Hct 28.4 L, MCV 88.8, MCH 26.6 L, MCHC 29.9 L, RDW Std Deviation 49.5 H, RDW Coeff of Dayo 15.2 H, Plt Count 206, MPV 8.7, Immature Gran % (Auto) 0.600, Neut % (Auto) 82.8 H, Lymph % (Auto) 8.7 L, [place] % (Auto) 4.9, Eos % (Auto) 2.6, Baso % (Auto) 0.4, Absolute Neuts (auto) 9.6 H, Absolute Lymphs (auto) 1.00, Nucleated RBC % 0, Sodium 136, Potassium 4.1, Chloride 107, Carbon Dioxide 25.0, Anion Gap 4 L, BUN 55 H, Creatinine 2.32 H, Estim Creat Clear Calc 22.76, Est GFR (MDRD) Af Amer 27 L, Est GFR (MDRD) Non-Af 22 L, BUN/Creatinine Ratio 23.7 H, Glucose 180 H, Calcium 7.8 L, Phosphorus 3.0, Magnesium 2.1, Vancomycin Trough 25.8 H 05/10/23 06:47: POC Glucose 149 H Micro: Microbiology 05/08/23 17:05 Wound - Heel, Left Gram Stain - Final 05/08/23 17:05 Wound - Heel, Left Wound Culture - Preliminary Streptococcus group B 05/08/23 13:42 Urine, Clean Catch Urine Culture - Preliminary Culture exhibits no growth. 05/08/23 12:53 Nasal Secretion SARS-CoV-2 & FLU Antigen (Rapid) - Final 05/08/23 12:53 Interface Orders Rapid RSV (DFA) - Final Rhythm Strip Rhythm Strip: Sinus Rhythm Rate: 90 Ectopy: None Physical Exam Narrative GENERAL: cooperative HEENT: Atraumatic; normocephalic EYES; Anicteric, Normal Conjunctiva NECK; supple, normal thyroid, RESPIRATORY: Diminished to auscultation CARDIOVASCULAR: Regular S1 S2, GI: soft, normoactive bowel sounds, : No Renal angle tenderness; EXTREMITIES: Mario wrapped MUSCULOSKELETAL: no muscle wasting NEURO: Awake; no lateralizing signs. SKIN: No Rash PSYCH; Flat affect Assessment & Plan Assessment/Plan (1) Diabetic foot ulcer: (2) Urinary tract infection: PLAN: Plan Patient is 72-year-old lady admitted with diabetic foot infection involving the left foot. Seen in consultation by podiatry plan is for patient to undergo surgical intervention on 05/11/2023 1. Diabetic foot infection involving the left lower extremity ? Cultures sent on admission so far positive for Streptococcus group B. Sensitivities and anaerobic culture still pending. Patient seen in consultation by podiatry with surgical intervention plan for 05/11/2023 2. Acute cystitis ? Patient is on antibiotic therapy cultures so far negative to date 3. Chronic kidney disease stage IIIb ? Secondary to diabetic nephropathy monitoring with daily BMPs as well as avoidance of potential nephrotoxic medications 4. Hypothyroidism ? Patient is on levothyroxine home dose continued 5. Diabetes mellitus type II -patient's oral hypoglycemics held. Placed on long acting insulin, Accu-Cheks a.c. and at bedtime and covered with sliding scale insulin 6. Bilateral lower extremity lymphedema ? Chronic in nature, currently using bilateral Mario wrap 7. Class III obesity with BMI of 46.8 ? 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 DVT prophylaxis ? Patient is on apixaban held currently on SC heparin Time spent in the patient's overall evaluation,decision-making process, review of diagnostic data, adjustment of management, discussion with other providers, nursing nursing and ancillary staff involved in patient's care documentation, 40 minutes Charges/Coding Visit Charges Inpatient E&M: 15367 Subs Hosp L2
[2023-05-10 09:00] VITALS: BP 126/56; PULSE 73; RESP 16; TEMP 36.6; O2SAT 95
[2023-05-10] MEDS: Multivitamins,Ther W-Minerals Tablet 1 TABLET PO (09:31)
[2023-05-10] MEDS: Miconazole Nitrate 43 GM Bottle 1 APPLIC TOPICAL ×2 (09:31→22:15)
[2023-05-10] MEDS: Menthol/Lanolin/Calamine/Znox 113 GM Tube 1 APPLIC TOPICAL ×3 (09:32→22:14)
[2023-05-10] MEDS: Acetaminophen 325 MG Tablet 650 MG PO ×2 (09:35→22:24)
[2023-05-10 11:46] LABS: Bedside Glucose 223 mg/dL (74-106)
[2023-05-10 14:00] VITALS: BP 112/54; PULSE 66; RESP 17; TEMP 36.4; O2SAT 98
[2023-05-10 17:32] LABS: Bedside Glucose 170 mg/dL (74-106)
[2023-05-10 18:13] LABS: Vancomycin, Random Level 23.1 ug/mL (0.0-15.0)
--- NOTE | 2023-05-10 19:00 | PCM.RX.CS ---
Consult Antibiotic Management Pharmacy has been consulted to manage selected antiobiotic: Vancomycin Type of Intervention Type of Consult: Follow-up Labs Labs: Sodium 136 mmol/L (136-145) 05/10/23 05:35 Potassium 4.1 mmol/L (3.5-5.1) 05/10/23 05:35 Chloride 107 mmol/L (98-107) 05/10/23 05:35 Carbon Dioxide 25.0 mmol/L (21.0-32.0) 05/10/23 05:35 Anion Gap 4 (5-15) L 05/10/23 05:35 BUN 55 mg/dL (7-18) H 05/10/23 05:35 Creatinine 2.32 mg/dL (0.55-1.02) H 05/10/23 05:35 Est GFR (MDRD) Af Amer 27 mL/min (>60) L 05/10/23 05:35 Est GFR (MDRD) Non-Af 22 mL/min (>60) L 05/10/23 05:35 BUN/Creatinine Ratio 23.7 RATIO (10-20) H 05/10/23 05:35 Glucose 180 mg/dL (74-106) H 05/10/23 05:35 Vancomycin Trough 25.8 ug/mL (5.0-15.0) H 05/10/23 05:35 Random Vancomycin 23.1 ug/mL (0.0-15.0) H 05/10/23 17:22 Microbiology Microbiology: Microbiology 05/08/23 13:42 Urine, Clean Catch Urine Culture - Final Culture exhibits no growth. 05/08/23 17:05 Wound - Heel, Left Gram Stain - Final 05/08/23 17:05 Wound - Heel, Left Wound Culture - Preliminary Streptococcus group B 05/08/23 12:53 Nasal Secretion SARS-CoV-2 & FLU Antigen (Rapid) - Final 05/08/23 12:53 Interface Orders Rapid RSV (DFA) - Final Goal Trough Goal Trough: 15-20 mcg/mL Pharmacy Plan for Drug Dosing Pharmacy Plan for Drug Dosing: VANCOMYCIN LEVEL RECEIVED Current Vancomycin Dose: ON HOLD- last dose was 1000mg IV given 05/09 @1718 Number of Doses Received: ON HOLD Vancomycin Level: 23.1 Hours Since Last Dose: 24hrs Renal Function: 2.32 Renal Function Trend: worsening Lab/Micro: WCx growing strep Vancomycin Plan/Comments: Patient had at rough drawn which resulted in a value of 23.1 (24hrs from last dose). Patient has had worsening in renal function. Goal trough is 15-20, will continue to hold vancomycin until trough is <20. Pending Level: *RANDOM* level 05/11/23 with AM labs Pharmacy Service will continue to monitor and adjust dosing as required.
[2023-05-10 19:57] VITALS: BP 136/68; PULSE 70; RESP 18; TEMP 36.5; O2SAT 100
[2023-05-10] MEDS: Insulin Glargine-YFGN 100 UNIT/ML Pen 30 UNIT SC (22:02)
[2023-05-10] MEDS: Glucerna Shake 120 ML LIQUID PO (22:10)
[2023-05-10] MEDS: Atorvastatin Calcium 80 MG Tablet PO (22:23)
[2023-05-11] VITALS (12 sets, daily range): BP systolic 108–141; BP diastolic 49–84; PULSE 62–87; RESP 16–18; TEMP 36.5–37.3; O2SAT 93–100; BMI 46.7; BMI 46.8
[2023-05-11 01:13] LABS: Bedside Glucose 159 mg/dL (74-106)
[2023-05-11 06:27] LABS: Absolute Lymphocyte Count 1.44 X10^3/uL (0.83-4.51); Absolute Neutrophil Count 8.1 X10^3/uL (2.0-7.7); Basophil# 0.07 X10^3/uL; Basophil% 0.6 % (0-1); Eosinophil# 0.45 X10^3/uL; Eosinophils% 4.1 % (0-5); Hematocrit 35.1 % (37-47); Hemoglobin 10.4 g/dL (12.0-15.0); Lymphocyte # 1.44 X10^3/ul (0.83-4.51); Lymphocyte % 13.2 % (19-41); Mean Corp Hgb Conc 29.6 g/dL (32-36); Mean Corpuscular Hgb 26.7 pg (27.0-32.0); Mean Corpuscular Volume 90.2 fL (81-99); Mean Platelet Vol. 9.3 fl (6.2-12.0); Monocyte# 0.81 X10^3/uL; Monocyte% 7.4 % (0-10); NRBC Flagged by Analyzer 0 % (0-5); Neutrophil # 8.08 X10^3/uL (2.7-7.7); Neutrophil % 74.1 % (47-70); Platelet Count 305 K/mm3 (150-450); RBC Distribution Width CV 15.5 % (11.6-14.6); RBC Distribution Width SD 50.7 fl (35.1-43.9); Red Blood Count 3.89 M/mm3 (4.2-5.4); White Blood Count 10.9 K/mm3 (4.4-11.0)
[2023-05-11 06:59] LABS: Anion Gap 7 (5-15); BUN 54 mg/dL (7-18); BUN/Creat Ratio 23.9 RATIO (10-20); Calcium,Total 8.6 mg/dL (8.5-10.1); Chloride 111 mmol/L (98-107); Creatinine, Serum 2.26 mg/dL (0.55-1.02); EST Glomerular Filtration Rate 23 mL/min (>60); Est Glom Filt Rate - Afr Amer 28 mL/min (>60); Estimated Creatinine Clearance 23.37 ml/min; Glucose 184 mg/dL (74-106); Potassium 4.8 mmol/L (3.5-5.1); Sodium Level 140 mmol/L (136-145)
[2023-05-11] MEDS: Piperacil/Tazobactam 3.375 GM in 0.9% Normal Saline (50mL MB+) 50 ML IV ×3 (07:00→22:54)
[2023-05-11 07:12] LABS: Thyroid Stim Hormone (TSH) 3.65 uIU/mL (0.358-3.74)
--- NOTE | 2023-05-11 07:14 | PCM.RX.CS ---
Consult Antibiotic Management Pharmacy has been consulted to manage selected antiobiotic: Vancomycin Type of Intervention Type of Consult: Follow-up Prior Doses of Antibiotics Prior Doses of Antibiotics Received/Current Regimen: Had been on 1000mg iv q12h with last dose 05.09.23 @4115. Labs Labs: Sodium 140 mmol/L (136-145) 05/11/23 06:05 Potassium 4.8 mmol/L (3.5-5.1) 05/11/23 06:05 Chloride 111 mmol/L (98-107) H 05/11/23 06:05 Carbon Dioxide 22.0 mmol/L (21.0-32.0) 05/11/23 06:05 Anion Gap 7 (5-15) 05/11/23 06:05 BUN 54 mg/dL (7-18) H 05/11/23 06:05 Creatinine 2.26 mg/dL (0.55-1.02) H 05/11/23 06:05 Est GFR (MDRD) Af Amer 28 mL/min (>60) L 05/11/23 06:05 Est GFR (MDRD) Non-Af 23 mL/min (>60) L 05/11/23 06:05 BUN/Creatinine Ratio 23.9 RATIO (10-20) H 05/11/23 06:05 Glucose 184 mg/dL (74-106) H 05/11/23 06:05 Vancomycin Trough 25.8 ug/mL (5.0-15.0) H 05/10/23 05:35 Random Vancomycin 20.0 ug/mL (0.0-15.0) H 05/11/23 06:05 Microbiology Microbiology: Microbiology 05/08/23 13:42 Urine, Clean Catch Urine Culture - Final Culture exhibits no growth. 05/08/23 17:05 Wound - Heel, Left Gram Stain - Final 05/08/23 17:05 Wound - Heel, Left Wound Culture - Preliminary Streptococcus group B 05/08/23 12:53 Nasal Secretion SARS-CoV-2 & FLU Antigen (Rapid) - Final 05/08/23 12:53 Interface Orders Rapid RSV (DFA) - Final Dosing Weight Weight used for dosin kg Estimated Creatinine Clearance Estimated Creatinine Clearance: 34ml/min Goal Trough Goal Trough: 15-20 mcg/mL Pharmacy Plan for Drug Dosing Pharmacy Plan for Drug Dosing: Trough PM 05.10.23 was 23.1. This AM trough 20.0. Cr 2.26 with calculated CrCl ~34ml/min for adjusted body weight. Recommend restarting vanco at a lower dose of 750mg iv q12h and get a new trough level before 4th dose. Pharmacy Service will continue to monitor and adjust dosing as required. Follow-Up Labs Follow-Up Labs: Trough: Vancomycin (05.12.23 @2130 before 2200 dose)
[2023-05-11 07:29] LABS: Bedside Glucose 179 mg/dL (74-106)
--- NOTE | 2023-05-11 07:43 | PN.HOSP_ITS ---
Reason for Visit Reason for Visit: Diagnoses Type 2 diabetes mellitus with diabetic polyneuropathy (05/08/23) Type 2 diabetes mellitus with foot ulcer (05/08/23) Morbid (severe) obesity due to excess calories (05/08/23) Lymphedema, not elsewhere classified (05/08/23) Non-pressure chronic ulcer of left heel and midfoot with fat layer exposed (05/08/23) Non-pressure chronic ulcer of other part of unspecified foot with unspecified severity (05/08/23) Urinary tract infection, site not specified (05/08/23) Subjective Subjective Plan is for patient to undergo surgical OR debridement and graft placement by podiatry this afternoon Objective Data Objective Data Vital Signs: Vital Signs Temp Pulse Resp BP Pulse Ox O2 Del Method 98.2 F 67 18 115/56 L 97 Room Air 05/11/23 02:39 05/11/23 02:39 05/11/23 02:39 05/11/23 02:39 05/11/23 02:39 05/11/23 02:39 Oxygen Delivery Method Room Air Weight: 139.8 kg Body Mass Index (BMI) 46.7 Intake & Output: Intake and Output for Last 24 Hours 05/09/23 05/10/23 05/11/23 23:59 23:59 23:59 Intake Total 2400 / 2400 150 / 150 50 / 50 Output Total 800 / 800 Balance 1600 / 1600 150 / 150 50 / 50 Lab / Micro Data 05/11/23 06:05 05/11/23 06:05 Labs: Laboratory Results - last 24 hr 05/10/23 11:17: POC Glucose 223 H 05/10/23 17:14: POC Glucose 170 H 05/10/23 17:22: Random Vancomycin 23.1 H 05/10/23 21:59: POC Glucose 159 H 05/11/23 06:05: WBC 10.9, RBC 3.89 L, Hgb 10.4 L, Hct 35.1 L, MCV 90.2, MCH 26.7 L, MCHC 29.6 L, RDW Std Deviation 50.7 H, RDW Coeff of Dayo 15.5 H, Plt Count 305, MPV 9.3, Immature Gran % (Auto) 0.600, Neut % (Auto) 74.1 H, Lymph % (Auto) 13.2 L, [place] % (Auto) 7.4, Eos % (Auto) 4.1, Baso % (Auto) 0.6, Absolute Neuts (auto) 8.1 H, Absolute Lymphs (auto) 1.44, Nucleated RBC % 0, Sodium 140, Po tassium 4.8, Chloride 111 H, Carbon Dioxide 22.0, Anion Gap 7, BUN 54 H, Creatinine 2.26 H, Estim Creat Clear Calc 23.37, Est GFR (MDRD) Af Amer 28 L, Est GFR (MDRD) Non-Af 23 L, BUN/Creatinine Ratio 23.9 H, Glucose 184 H, Calcium 8.6, TSH 3.65, Random Vancomycin 20.0 H 05/11/23 06:58: POC Glucose 179 H Micro: Microbiology 05/08/23 13:42 Urine, Clean Catch Urine Culture - Final Culture exhibits no growth. 05/08/23 17:05 Wound - Heel, Left Gram Stain - Final 05/08/23 17:05 Wound - Heel, Left Wound Culture - Preliminary Streptococcus group B 05/08/23 12:53 Nasal Secretion SARS-CoV-2 & FLU Antigen (Rapid) - Final 05/08/23 12:53 Interface Orders Rapid RSV (DFA) - Final Radiography Diagnostic Testing: Radiology Impression Ankle Brachial Index 05/08/23 16:31 Interpretation Summary Right HERMINIO 1.32, normal. TBI and Doppler/PVR waveforms of the right ankle normal at rest. Left HERMINIO not able to be obtained due to non-compressible vessels. TBI and Doppler/PVR waveforms of the left ankle normal at rest. Ordering Physician: Deisi Domínguez Referring Physician: MD Eligio Beasley Performed By: Laura Pena RVT Rhythm Strip Rhythm Strip: Sinus Rhythm Rate: 90 Ectopy: None Physical Exam Narrative GENERAL: cooperative HEENT: Atraumatic; normocephalic EYES; Anicteric, Normal Conjunctiva NECK; supple, normal thyroid, RESPIRATORY: Diminished to auscultation CARDIOVASCULAR: Regular S1 S2, GI: soft, normoactive bowel sounds, : No Renal angle tenderness; EXTREMITIES: Mario wrapped MUSCULOSKELETAL: no muscle wasting NEURO: Awake; no lateralizing signs. SKIN: No Rash PSYCH; Flat affect Assessment & Plan Assessment/Plan (1) Diabetic foot ulcer: (2) Urinary tract infection: PLAN: Plan Patient is 72-year-old lady admitted with diabetic foot infection involving the left foot. Seen in consultation by podiatry plan is for patient to undergo surgical intervention on 05/11/2023 1. Diabetic foot infection involving the left lower extremity ? Cultures sent on admission so far positive for Streptococcus group B. Sensitivities and anaerobic culture still pending. Patient seen in consultation by podiatry with surgical intervention plan for 05/11/2023 ? 05/11/2023; Plan is for patient to undergo surgical OR debridement and graft placement by podiatry this aftern 2. Acute cystitis ? Patient is on antibiotic therapy cultures so far negative to date 3. Acute kidney injury superimposed on chronic kidney disease stage IIIb ? Secondary to diabetic nephropathy monitoring with daily BMPs as well as avoidance of potential nephrotoxic medications 4. Hypothyroidism ? Patient is on levothyroxine home dose continued 5. Diabetes mellitus type II -patient's oral hypoglycemics held. Placed on long acting insulin, Accu-Cheks a.c. and at bedtime and covered with sliding scale insulin 6. Bilateral lower extremity lymphedema ? Chronic in nature, currently using bilateral Mario wrap 7. Class III obesity with BMI of 46.8 ? 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 DVT prophylaxis ? Patient is on apixaban held currently on SC heparin Time spent in the patient's overall evaluation,decision-making process, review of diagnostic data, adjustment of management, discussion with other providers, nursing nursing and ancillary staff involved in patient's care documentation, 40 minutes Charges/Coding Visit Charges Inpatient E&M: 46096 Subs Hosp L2
[2023-05-11] MEDS: Insulin Lispro 100 UNIT/ML INSULN.PEN SC ×3 (11:09→21:19)
[2023-05-11] MEDS: Vancomycin HCl 750 MG in 0.9% Normal Saline (250mL Bag) 250 ML 250 MG IV ×2 (11:16→21:26)
[2023-05-11 11:38] LABS: Bedside Glucose 179 mg/dL (74-106)
[2023-05-11] MEDS: 0.9% Normal Saline (1000mL) 1,000 ML 15 ML IV (13:53)
--- NOTE | 2023-05-11 14:42 | PCM.OPRPT ---
Problems Associated Problem List Diagnoses (1) Non-pressure chronic ulcer of left heel and midfoot with fat layer exposed: (2) Type 2 diabetes mellitus with peripheral neuropathy: (3) Lymphedema: Report of Operation Date of Procedure: 05/11/23 Pre-Operative Diagnosis: 1. Full-thickness ulceration, left heel 2. Diabetes mellitus type 2 with peripheral neuropathy 3. Lymphedema, bilateral lower extremity Post-Operative Diagnosis: 1. Full-thickness ulceration, left heel 2. Diabetes mellitus type 2 with peripheral neuropathy 3. Lymphedema, bilateral lower extremity Surgery/Procedure Performed:: 1. Surgical skin graft site prep, left heel 2. Application of skin graft substitute, left heel Description of Surgical Findings:: 1. Healthy granular tissue with sanguinous drainage. 2. Application of 250 mg of amnio fill and application of 2 x 3 cm Epicord. Surgeon: Francois Castañeda bartenders: None Type of Anesthesia: Local and MAC Anesthesiologist: Tomasz Curry Special Medications: None Specimen's removed: None Drains: Nnoe Estimated Blood Loss (mL): 15 mL Fluids Replaced: Per anesthesia Description of Procedure: Indications For Operation: Mrs. Read is a 72-year-old diabetic female who was admitted to [facility] for urinary tract infection and full-thickness ulceration to the left heel. Patient is unsure how the full-thickness wound happened to her left lower extremity. Patient admits that she has been uncontrolled with her blood sugar and her HbA1c is currently 11.3%.. Due to due to the nature of the full-thickness ulceration left lower extremity and the patient's uncontrolled diabetes is had deemed necessary at this time to take the patient to the operating room and perform surgical prep for skin graft with Versajet with application of skin graft substitute to the left heel.. The nature of the problem, anticipated procedures, postop recovery/convalences and risk/complications include but not limited to infection, wound healing complications, hypertrophic scarring, numbness, tingling, chronic pain, CRPS, over and under correction, recurrence of deformity, DVT and or PE and the need for further surgery have been discussed in great detail with the patient. All questions have been answered to the patient's satisfaction. There are no guarantees given as to the outcome of the procedure. Description of Procedure: Under mild sedation, the patient was brought into the operating room and placed on the operating table in supine position. Once the patient was under monitored anesthesia care anesthesia, the left lower extremity was blocked using approximately 10 cc 0.5% Marcaine plain. No thigh tourniquet was used for this procedure. Next, the left lower extremity was prepped and draped in normal aseptic manner. Next, a timeout was then undertaken verifying the correct patient, extremity, visibility of preoperative markings, availability of the equipment. Next, attention was directed to the plantar aspect of the left heel. Using a rongeur, all devitalized tissue and hyperkeratotic tissue was removed from the ulceration to the left heel. Next, the Versajet was used for surgical skin graft prep site. After debridement there showed evidence of healthy bleeding granular tissue. Predebridement measurement was 1.8 x 1.2 x 0.2 cm. Postdebridement measurement was 2.1 x 1.7 x 0.5 cm. A #15 blade was used to fishscale the ulceration to allow for more sanguinous drainage. Next, skin graft substitute was applied using 250 mg of amniofill followed by a 2 x 3 cm epicord. The left lower extremity was wiped clean and patted dry. The ulceration was dressed with Adaptic, Steri-Strips, 4 x 4's, dry sterile dressing and a 2 layer Hanks compression bandage was donned to the left lower extremity. The patient tolerated the procedure and anesthesia well and apparent satisfactory condition and was transported to the PACU for further monitoring prior to discharge back to the floor. Vital signs stable and vascular status intact to all digits bilateral. Post Operative Plan: Weightbearing: Full weightbearing to left lower extremity. Partial weightbearing with toes, no heel weightbearing, left lower extremity Antibiotics: Antibiotics and scheduled on the floor DVT Prophylaxis: apixaban Chen: None Dressing: Skin graft substitute(amnio graft), Adaptic, Steri-Strips dry sterile dressing single layer Hanks compression bandage Pain Medication: Follow-up: Patient will follow-up [address] Castañeda at the wound care center Grafts/Implants Used: 1. 250 mg of amnio fill, 2. 2 x 3 epi cord Complications None Admit VTE Documentation VTE Present on Admission: Yes VTE Mechan Device Prophylaxis: SCD's VTE Pharm Prophylaxis ordered?: Yes
[2023-05-11] MEDS: Bupivacaine Mpf 0.5% 30 ML VIAL (15:04)
[2023-05-11] MEDS: Heparin Injection (Vial) 5,000 UNIT/ML VIAL 5000 UNIT SC ×2 (16:33→21:21)
[2023-05-11 16:57] LABS: Bedside Glucose 133 mg/dL (74-106)
[2023-05-11] MEDS: Insulin Glargine-YFGN 100 UNIT/ML Pen 30 UNIT SC (21:20)
[2023-05-11] MEDS: Menthol/Lanolin/Calamine/Znox 113 GM Tube 1 APPLIC TOPICAL (21:23)
[2023-05-11] MEDS: Miconazole Nitrate 43 GM Bottle 1 APPLIC TOPICAL (21:23)
[2023-05-11] MEDS: Atorvastatin Calcium 80 MG Tablet PO (21:24)
[2023-05-11 22:03] LABS: Bedside Glucose 225 mg/dL (74-106)
[2023-05-12 02:47] VITALS: BP 125/68; PULSE 59; RESP 18; TEMP 36.4; O2SAT 97
[2023-05-12] MEDS: Heparin Injection (Vial) 5,000 UNIT/ML VIAL 5000 UNIT SC ×3 (05:57→21:34)
[2023-05-12] MEDS: Piperacil/Tazobactam 3.375 GM in 0.9% Normal Saline (50mL MB+) 50 ML IV (05:57)
[2023-05-12] MEDS: Levothyroxine 75 MCG Tablet PO (05:57)
[2023-05-12] MEDS: Insulin Lispro 100 UNIT/ML INSULN.PEN SC ×7 (06:00→21:36)
[2023-05-12 06:32] LABS: Bedside Glucose 206 mg/dL (74-106)
[2023-05-12 06:41] LABS: Basophil# 0.05 X10^3/uL; Basophil% 0.6 % (0-1); Eosinophil# 0.28 X10^3/uL; Eosinophils% 3.3 % (0-5); Hematocrit 30.4 % (37-47); Hemoglobin 8.9 g/dL (12.0-15.0); Lymphocyte % 16.5 % (19-41); Mean Corp Hgb Conc 29.3 g/dL (32-36); Mean Corpuscular Hgb 26.6 pg (27.0-32.0); Mean Corpuscular Volume 90.7 fL (81-99); Mean Platelet Vol. 8.8 fl (6.2-12.0); Monocyte# 0.68 X10^3/uL; NRBC Flagged by Analyzer 0 % (0-5); Neutrophil # 6.03 X10^3/uL (2.7-7.7); Neutrophil % 70.8 % (47-70); Platelet Count 245 K/mm3 (150-450); RBC Distribution Width CV 15.4 % (11.6-14.6); RBC Distribution Width SD 50.9 fl (35.1-43.9); Red Blood Count 3.35 M/mm3 (4.2-5.4); White Blood Count 8.5 K/mm3 (4.4-11.0)
[2023-05-12 07:05] LABS: Anion Gap 4 (5-15); BUN 46 mg/dL (7-18); BUN/Creat Ratio 23.5 RATIO (10-20); Calcium,Total 8.2 mg/dL (8.5-10.1); Chloride 111 mmol/L (98-107); Creatinine, Serum 1.96 mg/dL (0.55-1.02); EST Glomerular Filtration Rate 27 mL/min (>60); Est Glom Filt Rate - Afr Amer 32 mL/min (>60); Estimated Creatinine Clearance 26.94 ml/min; Glucose 212 mg/dL (74-106); Potassium 4.6 mmol/L (3.5-5.1); Sodium Level 140 mmol/L (136-145)
--- NOTE | 2023-05-12 07:24 | PCM.PN.HOSP ---
Reason for Visit Reason for Visit: Diagnoses Type 2 diabetes mellitus with diabetic polyneuropathy (05/08/23) Type 2 diabetes mellitus with foot ulcer (05/08/23) Morbid (severe) obesity due to excess calories (05/08/23) Lymphedema, not elsewhere classified (05/08/23) Non-pressure chronic ulcer of left heel and midfoot with fat layer exposed (05/08/23) Non-pressure chronic ulcer of other part of unspecified foot with unspecified severity (05/08/23) Urinary tract infection, site not specified (05/08/23) Objective Data Objective Data Vital Signs: Vital Signs Temp Pulse Resp BP Pulse Ox O2 Del Method O2 Flow Rate 97.5 F L 59 L 18 125/68 H 97 Room Air 2 05/12/23 02:47 05/12/23 02:47 05/12/23 02:47 05/12/23 02:47 05/12/23 02:47 05/12/23 02:47 05/11/23 15:50 Oxygen Flow Rate (L/min) 2 Oxygen Delivery Method Room Air Weight: 139.8 kg Body Mass Index (BMI) 46.8 Intake & Output: Intake and Output for Last 24 Hours 05/10/23 05/11/23 05/12/23 23:59 23:59 23:59 Intake Total 150 / 150 725.25 / 725.25 50 / 50 Output Total 0 / 0 Balance 150 / 150 725.25 / 725.25 50 / 50 Lab / Micro Data 05/12/23 06:15 05/12/23 06:15 Labs: Laboratory Results - last 24 hr 05/11/23 06:58: POC Glucose 179 H 05/11/23 11:08: POC Glucose 179 H 05/11/23 16:32: POC Glucose 133 H 05/11/23 21:18: POC Glucose 225 H 05/12/23 05:56: POC Glucose 206 H 05/12/23 06:15: WBC 8.5, RBC 3.35 L, Hgb 8.9 L, Hct 30.4 L, MCV 90.7, MCH 26.6 L, MCHC 29.3 L, RDW Std Deviation 50.9 H, RDW Coeff of Dayo 15.4 H, Plt Count 245, MPV 8.8, Immature Gran % (Auto) 0.800, Neut % (Auto) 70.8 H, Lymph % (Auto) 16.5 L, [place] % (Auto) 8.0, Eos % (Auto) 3.3, Baso % (Auto) 0.6, Absolute Neuts (auto) 6.0, Absolute Lymphs (auto) 1.40, Nucleated RBC % 0, Sodium 140, Potassium 4.6, Chloride 111 H, Carbon Dioxide 25.0, Anion Gap 4 L, BUN 46 H, Creatinine 1.96 H, Estim Creat Clear Calc 26.94, Est GFR (MDRD) Af Amer 32 L, Est GFR (MDRD) Non-Af 27 L, BUN/Creatinine Ratio 23.5 H, Glucose 212 H, Calcium 8.2 L Micro: Microbiology 05/08/23 17:05 Wound - Heel, Left Gram Stain - Final 05/08/23 17:05 Wound - Heel, Left Wound Culture - Preliminary Streptococcus agalactiae (B) Gram positive alvaro 05/08/23 13:15 Blood Culture (Wb) - Right Hand Blood Culture - Preliminary No growth in 48 hours. 05/08/23 12:55 Blood Culture (Wb) - Anticubital Left Blood Culture - Preliminary No growth in 48 hours. 05/08/23 13:42 Urine, Clean Catch Urine Culture - Final Culture exhibits no growth. 05/08/23 12:53 Nasal Secretion SARS-CoV-2 & FLU Antigen (Rapid) - Final 05/08/23 12:53 Interface Orders Rapid RSV (DFA) - Final Rhythm Strip Rhythm Strip: Sinus Rhythm Rate: 90 Ectopy: None Physical Exam Narrative GENERAL: cooperative HEENT: Atraumatic; normocephalic EYES; Anicteric, Normal Conjunctiva NECK; supple, normal thyroid, RESPIRATORY: Diminished to auscultation CARDIOVASCULAR: Regular S1 S2, GI: soft, normoactive bowel sounds, : No Renal angle tenderness; EXTREMITIES: Mario wrapped MUSCULOSKELETAL: no muscle wasting NEURO: Awake; no lateralizing signs. SKIN: No Rash PSYCH; Flat affect Assessment & Plan Assessment/Plan (1) Diabetic foot ulcer: (2) Urinary tract infection: PLAN: Plan Patient is 72-year-old lady admitted with diabetic foot infection involving the left foot. Seen in consultation by podiatry plan is for patient to undergo surgical intervention on 05/11/2023 1. Diabetic foot infection involving the left lower extremity ? Cultures sent on admission so far positive for Streptococcus group B. Sensitivities and anaerobic culture still pending. Patient seen in consultation by podiatry with surgical intervention plan for 05/11/2023 ? 05/11/2023; Plan is for patient to undergo surgical OR debridement and graft placement by podiatry ?05/12/2023; patient underwent surgical OR debridement and graft placement by podiatry on 05/11/2023. Consult placed to Dr. Herring 2. Acute cystitis ? Patient is on antibiotic therapy cultures so far negative to date 3. Acute kidney injury superimposed on chronic kidney disease stage IIIb ? Secondary to diabetic nephropathy monitoring with daily BMPs as well as avoidance of potential nephrotoxic medications 4. Hypothyroidism ? Patient is on levothyroxine home dose continued 5. Diabetes mellitus type II -patient's oral hypoglycemics held. Placed on long acting insulin, Accu-Cheks a.c. and at bedtime and covered with sliding scale insulin 6. Bilateral lower extremity lymphedema ? Chronic in nature, currently using bilateral Mario wrap 7. Class III obesity with BMI of 46.8 ? 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 DVT prophylaxis ? Patient is on apixaban held currently on SC heparin 10. Physical deconditioning - Requested for PT OT eval and social science instructor to assist with discharge planning Time spent in the patient's overall evaluation,decision-making process, review of diagnostic data, adjustment of management, discussion with other providers, nursing nursing and ancillary staff involved in patient's care documentation, 35 minutes Charges/Coding Visit Charges Inpatient E&M: 01340 Subs Hosp L2
[2023-05-12] MEDS: Glucerna Shake 120 ML LIQUID PO ×3 (07:49→16:25)
[2023-05-12] MEDS: Menthol/Lanolin/Calamine/Znox 113 GM Tube 1 APPLIC TOPICAL ×3 (07:50→16:26)
[2023-05-12] MEDS: Multivitamins,Ther W-Minerals Tablet 1 TABLET PO (07:50)
[2023-05-12] MEDS: Miconazole Nitrate 43 GM Bottle 1 APPLIC TOPICAL (07:50)
[2023-05-12 08:04] VITALS: BP 139/61; PULSE 56; RESP 18; TEMP 36.8; O2SAT 98
[2023-05-12 10:00] VITALS: O2SAT 96
[2023-05-12] MEDS: Vancomycin HCl 750 MG in 0.9% Normal Saline (250mL Bag) 250 ML 250 MG IV (10:55)
[2023-05-12 12:12] LABS: Bedside Glucose 217 mg/dL (74-106)
--- NOTE | 2023-05-12 12:51 | CASEMGMT ---
GAGE DOWELL spoke with PT and was informed by PT that pt. will be fine to do [facility] for therapy.
--- NOTE | 2023-05-12 13:13 | PN.SURG_ITS ---
Subjective Subjective Mrs. Read is a 80-year-old diabetic female seen at bedside today for follow-up and evaluation of status post surgical skin graft prep with application description of substitute to the left heel. Patient has kept her postop dressing clean dry and intact. She denies any pain. She is getting antibiotics through the IV. She denies trauma. Denies constitutional symptoms. No other pedal complaints at this time. Objective Data Objective Data Vital Signs: Vital Signs Temp Pulse Resp BP Pulse Ox O2 Del Method O2 Flow Rate 98.2 F 56 L 18 139/61 H 96 Room Air 2 05/12/23 08:04 05/12/23 08:04 05/12/23 08:04 05/12/23 08:04 05/12/23 10:00 05/12/23 10:00 05/11/23 15:50 Oxygen Flow Rate (L/min) 2 Oxygen Delivery Method Room Air Weight: 139.8 kg Body Mass Index (BMI) 46.8 Intake & Output: Intake and Output for Last 24 Hours 05/10/23 05/11/23 05/12/23 23:59 23:59 23:59 Intake Total 150 / 150 725.25 / 725.25 365 / 365 Output Total 0 / 0 Balance 150 / 150 725.25 / 725.25 365 / 365 Lab / Micro Data Attestation: I reviewed the patient's lab results. 05/12/23 06:15 05/12/23 06:15 Labs: Laboratory Results - last 24 hr 05/11/23 16:32: POC Glucose 133 H 05/11/23 21:18: POC Glucose 225 H 05/12/23 05:56: POC Glucose 206 H 05/12/23 06:15: WBC 8.5, RBC 3.35 L, Hgb 8.9 L, Hct 30.4 L, MCV 90.7, MCH 26.6 L , MCHC 29.3 L, RDW Std Deviation 50.9 H, RDW Coeff of Dayo 15.4 H, Plt Count 245, MPV 8.8, Immature Gran % (Auto) 0.800, Neut % (Auto) 70.8 H, Lymph % (Auto) 16.5 L, [place] % (Auto) 8.0, Eos % (Auto) 3.3, Baso % (Auto) 0.6, Absolute Neuts (auto) 6.0, Absolute Lymphs (auto) 1.40, Nucleated RBC % 0, Sodium 140, Potassium 4.6, Chloride 111 H, Carbon Dioxide 25.0, Anion Gap 4 L, BUN 46 H, Creatinine 1.96 H, Estim Creat Clear Calc 26.94, Est GFR (MDRD) Af Amer 32 L, Est GFR (MDRD) Non-Af 27 L, BUN/Creatinine Ratio 23.5 H, Glucose 212 H, Calcium 8.2 L 05/12/23 11:51: POC Glucose 217 H Micro: Microbiology 05/08/23 17:05 Wound - Heel, Left Gram Stain - Final 05/08/23 17:05 Wound - Heel, Left Wound Culture - Final Streptococcus agalactiae (B) Corynebacterium striatum 05/08/23 13:15 Blood Culture (Wb) - Right Hand Blood Culture - Preliminary No growth in 48 hours. 05/08/23 12:55 Blood Culture (Wb) - Anticubital Left Blood Culture - Preliminary No growth in 48 hours. 05/08/23 13:42 Urine, Clean Catch Urine Culture - Final Culture exhibits no growth. 05/08/23 12:53 Nasal Secretion SARS-CoV-2 & FLU Antigen (Rapid) - Final 05/08/23 12:53 Interface Orders Rapid RSV (DFA) - Final Rhythm Strip Rhythm Strip: Sinus Rhythm Rate: 90 Ectopy: None Physical Exam Narrative Neurovascular status is unchanged. Evidence of postoperative dressing intact to the left lower extremity. 1 pitting edema appreciated to the distal and proximal aspect of the Hanks dressing. No pain on palpation to the left heel when palpated over the dressing. Active passive range of motion of the digits is pain-free. No pain with calf pressure. Const oriented x3 and no apparent distress Assessment & Plan Assessment/Plan (1) Non-pressure chronic ulcer of left heel and midfoot with fat layer exposed: PLAN: Patient was examined and evaluated. All findings were discussed with the patient. All questions were answered to the patient satisfaction. The patient's left lower extremity postoperative dressing remain clean dry and intact until follow-up. Patient asked if she could shower that will be fine as long as her left lower extremity is wrapped in a bag and no water can get through. However, if the bandage becomes soaked please take down all the way to Adaptic and leave Adaptic intact. Reapply 4 x 4's Kerlix and a double layer Hanks compression bandage to the left lower extremity. Continue strict glycemic control while in hospital as well as at home. Continued glucose greater than 200 mg/dL will decrease the patient's ability to heal her ulceration and cause reinfection. Cx Wound: S agalactiae, C striatum WBC: 11.5 -> 10.9 -> 8.5 HbA1c: 11.3 Glu: 217 Medicine: On board, medical management Infectious disease: Consult pending PT/OT: On board for evaluation Social work: Assist with discharge planning Patient is cleared from a podiatry perspective for discharge after cleared by medicine and infectious disease. Patient will follow-up at the wound care center with Dr. Castañeda as an outpatient. For any questions or concerns please reach out to Dr. Castañeda. Podiatry to sign off and follow from a distance. Please reconsult if necessary. Thank you for letting me be involved in the patient's care! (2) Type 2 diabetes mellitus with peripheral neuropathy: (3) Lymphedema:
--- NOTE | 2023-05-12 13:17 | PCM.CONS.GEN ---
Assessment & Plan Assessment/Plan (1) Lymphedema: (2) Type 2 diabetes mellitus with peripheral neuropathy: (3) Urinary tract infection: PLAN: Ucx neg. Suspect increase in urinary frequency is more likely related to polyuria due to uncontrolled glucose. (4) Diabetic foot ulcer: PLAN: Wound cx with GBS and corynebacter. Now s/p I&D and skin graft by Dr. Castañeda. Fever and leukocytosis resolved. Will narrow vanc/zosyn to ceftriaxone. Ok for home with 6 more days po keflex 500mg bid. Will follow, thank you, dw Dr. Castañeda and case management director (5) Chronic kidney disease, stage 3b: HPI Consult Data Date of Consult: 05/12/23 HPI Narrative Reason for Consultation: infected wound HPI Narrative: MARK SOARES, is a 72 F with DM, CKD, chronic lymphedema, presented with 1-2 weeks worsening pain in L heel wound. No redness, no drainage. Also with about a week of increased urinary frequency, no dysuria. Sugar has been high at home. Developed fever, came to ED, admitted on vanc/zosyn. Feeling better, had I&D done by Dr. Castañeda. Full ROS performed and neg except as noted above. [facility] Medical History Anxiety Diabetic foot ulcer associated with type 2 diabetes mellitus DVT (deep venous thrombosis) Essential hypertension History of venous thromboembolism Hyperlipidemia Hyperlipidemia Hypothyroidism Lymphedema Morbid obesity with BMI of 40.0-44.9, adult Stage 3b chronic kidney disease Type 2 diabetes mellitus Home Medications atorvastatin 80 mg tablet 80 mg PO QHS cholesterol 03/12/22 [History Last Taken Unknown] levothyroxine 75 mcg tablet (Synthroid) 75 mcg PO DAILY thyroid 03/12/22 [History Last Taken Unknown] acetaminophen 500 mg tablet 1,000 mg (2 x 500 mg) PO Q6H PRN PRN Pain Score 1-10 #0 tabs 03/23/22 [Rx Last Taken Unknown] apixaban 5 mg tablet (Eliquis) 5 mg PO BID 30 days #60 tabs 03/23/22 [Rx Last Taken Unknown] insulin glargine-yfgn 100 unit/mL (3 mL) subcutaneous pen 30 unit (0.3 mL) subcut QHS diabetes 30 days #9 mL 09/28/22 [Rx Last Taken Unknown] insulin glargine-yfgn 100 unit/mL (3 mL) subcutaneous pen 30 unit (0.3 mL) subcut QHS 30 days #9 mL 03/25/22 [Rx Last Taken Unknown] needle (disp) 31 gauge 31 gauge x 11/08 #100 ea 03/25/22 [Rx Last Taken Unknown] Allergy/AdvReac Type Severity Reaction Status Date / Time codeine Allergy Rash Verified 03/12/22 20:20 Penicillins [PCN] Allergy Rash Verified 03/12/22 20:20 Family History Mother Diabetes Dementia Father Pancreatic cancer CVA (cerebral vascular accident) Surgical History H/O: hysterectomy History of 2 sections Social History household members: spouse Smoking Status: Never smoker alcohol intake: never substance use type: does not use Physical Exam Const alert, oriented x3 and no apparent distress General Appearance: cooperative HEENT normocephalic and head/scalp atraumatic Eyes PERRL and EOMs intact bilaterally Neck supple and No nodes Resp normal air movement and clear to auscultation bilaterally Cardio regular rate and regular rhythm GI soft to palpation, non-tender and non-distended Extremity General Extremity: edema Skin Skin Narrative: reviewed photos Lab / Micro Data Attestation: I reviewed the patient's lab results. 05/12/23 06:15 05/12/23 06:15 Labs: Laboratory Results - last 24 hr 05/11/23 16:32: POC Glucose 133 H 05/11/23 21:18: POC Glucose 225 H 05/12/23 05:56: POC Glucose 206 H 05/12/23 06:15: WBC 8.5, RBC 3.35 L, Hgb 8.9 L, Hct 30.4 L, MCV 90.7, MCH 26.6 L, MCHC 29.3 L, RDW Std Deviation 50.9 H, RDW Coeff of Dayo 15.4 H, Plt Count 245, MPV 8.8, Immature Gran % (Auto) 0.800, Neut % (Auto) 70.8 H, Lymph % (Auto) 16.5 L, Mathews % (Auto) 8.0, Eos % (Auto) 3.3, Baso % (Auto) 0.6, Absolute Neuts (auto) 6.0, Absolute Lymphs (auto) 1.40, Nucleated RBC % 0, Sodium 140, Potassium 4.6, Chloride 111 H, Carbon Dioxide 25.0, Anion Gap 4 L, BUN 46 H, Creatinine 1.96 H, Estim Creat Clear Calc 26.94, Est GFR (MDRD) Af Amer 32 L, Est GFR (MDRD) Non-Af 27 L, BUN/Creatinine Ratio 23.5 H, Glucose 212 H, Calcium 8.2 L 05/12/23 11:51: POC Glucose 217 H Micro: Microbiology 05/08/23 17:05 Wound - Heel, Left Gram Stain - Final 05/08/23 17:05 Wound - Heel, Left Wound Culture - Final Streptococcus agalactiae (B) Corynebacterium striatum Rhythm Strip Rhythm Strip: Sinus Rhythm Rate: 90 Ectopy: None
[2023-05-12] MEDS: Ceftriaxone 2 GM in 0.9% Normal Saline (50mL MB+) 50 ML IV (14:25)
[2023-05-12 14:30] VITALS: BP 136/64; PULSE 60; RESP 18; TEMP 37; O2SAT 99
--- NOTE | 2023-05-12 16:19 | CASEMGMT ---
RN CM into pt room to discuss dc planning. Discussed HHC for therapy, pt declines this and states she would rather have outpt therapy as she wants to get out and about. Pt will be following up with Dr. Castañeda for wound care. She will be dc'd on po atb. Pt states her can assist her at home. Pt denies any further needs at this time. Script on chart for PT outpt and green sheet.
[2023-05-12 17:06] LABS: Bedside Glucose 197 mg/dL (74-106)
[2023-05-12 21:27] VITALS: BP 129/58; PULSE 63; RESP 18; TEMP 36.6; O2SAT 98
[2023-05-12] MEDS: Atorvastatin Calcium 80 MG Tablet PO (21:35)
[2023-05-12] MEDS: Cephalexin 500 MG Capsule PO (21:35)
[2023-05-12] MEDS: Insulin Glargine-YFGN 100 UNIT/ML Pen 30 UNIT SC (21:37)
[2023-05-12] MEDS: Acetaminophen 325 MG Tablet 650 MG PO (21:43)
[2023-05-12 23:03] LABS: Bedside Glucose 172 mg/dL (74-106)
[2023-05-13 04:58] VITALS: BP 169/66; PULSE 64; RESP 18; TEMP 36.7; O2SAT 96
[2023-05-13] MEDS: Heparin Injection (Vial) 5,000 UNIT/ML VIAL 5000 UNIT SC (05:07)
[2023-05-13] MEDS: Insulin Lispro 100 UNIT/ML INSULN.PEN SC ×4 (05:07→12:21)
[2023-05-13] MEDS: Levothyroxine 75 MCG Tablet PO (05:07)
[2023-05-13 05:34] LABS: Bedside Glucose 236 mg/dL (74-106)
[2023-05-13 06:28] LABS: Absolute Lymphocyte Count 1.34 X10^3/uL (0.83-4.51); Absolute Neutrophil Count 8.4 X10^3/uL (2.0-7.7); Basophil# 0.05 X10^3/uL; Basophil% 0.5 % (0-1); Eosinophils% 2.8 % (0-5); Hematocrit 30.3 % (37-47); Lymphocyte # 1.34 X10^3/ul (0.83-4.51); Lymphocyte % 12.3 % (19-41); Mean Corp Hgb Conc 29.7 g/dL (32-36); Mean Corpuscular Hgb 26.5 pg (27.0-32.0); Mean Corpuscular Volume 89.1 fL (81-99); Mean Platelet Vol. 8.8 fl (6.2-12.0); Monocyte# 0.69 X10^3/uL; Monocyte% 6.4 % (0-10); NRBC Flagged by Analyzer 0 % (0-5); Neutrophil # 8.35 X10^3/uL (2.7-7.7); Neutrophil % 76.8 % (47-70); Platelet Count 252 K/mm3 (150-450); RBC Distribution Width CV 15.2 % (11.6-14.6); RBC Distribution Width SD 49.6 fl (35.1-43.9); White Blood Count 10.9 K/mm3 (4.4-11.0)
[2023-05-13 06:49] LABS: Anion Gap 6 (5-15); BUN 46 mg/dL (7-18); BUN/Creat Ratio 23.8 RATIO (10-20); Calcium,Total 8.5 mg/dL (8.5-10.1); Chloride 109 mmol/L (98-107); Creatinine, Serum 1.93 mg/dL (0.55-1.02); EST Glomerular Filtration Rate 27 mL/min (>60); Est Glom Filt Rate - Afr Amer 33 mL/min (>60); Estimated Creatinine Clearance 27.36 ml/min; Glucose 248 mg/dL (74-106); Potassium 4.6 mmol/L (3.5-5.1); Sodium Level 138 mmol/L (136-145)
--- NOTE | 2023-05-13 07:50 | DS.PCM_ITS ---
Providers Date of Admission: 05/08/23 Date of Discharge: 05/13/23 Primary Care Physician: Dr. Jamari Beasley MD Consultations 05/08/23 16:31 Consult: Podiatry Routine Consulting Provider: Francois Castañeda Reason for Consult: Diabetic foot ulcer, ? infected EMERGENT Consult: No MD Notified: Yes Date Notified: 05/08/23 Time Notified: 14:50 Method of Notification: Text 05/08/23 17:28 Consult: Onc/Wound/electrician deck Routine Comment: Reason for Consult:: left heel wound 05/12/23 08:15 Consult: Infectious Disease Routine Consulting Provider: Sheng Herring Reason for Consult: DFU EMERGENT Consult: No MD Notified: Yes Date Notified: 05/12/23 Time Notified: 09:18 Method of Notification: Text Reason For Visit: DIABETIC FOOT ULCER, UTI Diagnosis Discharge Diagnosis (1) Non-pressure chronic ulcer of left heel and midfoot with fat layer exposed: Status: Chronic Code(s): L97.422 - Non-pressure chronic ulcer of left heel and midfoot with fat layer exposed (2) Type 2 diabetes mellitus with peripheral neuropathy: Status: Acute Code(s): E11.42 - Type 2 diabetes mellitus with diabetic polyneuropathy (3) Lymphedema: Status: Acute Code(s): I89.0 - Lymphedema, not elsewhere classified (4) Chronic kidney disease, stage 3b: Status: Acute Code(s): N18.32 - Chronic kidney disease, stage 3b Plan Patient is 72-year-old lady admitted with diabetic foot infection involving the left foot. Seen in consultation by podiatry plan is for patient to undergo surgical intervention on 05/11/2023 1. Diabetic foot infection involving the left lower extremity ? Cultures sent on admission so far positive for Streptococcus group B. Sensitivities and anaerobic culture still pending. Patient seen in consultation by podiatry with surgical intervention plan for 05/11/2023 ? 05/11/2023; Plan is for patient to undergo surgical OR debridement and graft placement by podiatry ?05/12/2023; patient underwent surgical OR debridement and graft placement by podiatry on 05/11/2023. Consult placed to Dr. Herring 2. Acute cystitis ? Patient is on antibiotic therapy cultures so far negative to date 3. Acute kidney injury superimposed on chronic kidney disease stage IIIb ? Secondary to diabetic nephropathy monitoring with daily BMPs as well as avoidance of potential nephrotoxic medications 4. Hypothyroidism ? Patient is on levothyroxine home dose continued 5. Diabetes mellitus type II -patient's oral hypoglycemics held. Placed on long acting insulin, Accu-Cheks a.c. and at bedtime and covered with sliding scale insulin 6. Bilateral lower extremity lymphedema ? Chronic in nature, currently using bilateral Mario wrap 7. Class III obesity with BMI of 46.8 ? 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 DVT prophylaxis ? Patient is on apixaban held currently on SC heparin 10. Physical deconditioning - Requested for PT OT eval and healthcare social worker to assist with discharge planning Time spent in the patient's overall evaluation,decision-making process, review of diagnostic data, adjustment of management, discussion with other providers, nursing nursing and ancillary staff involved in patient's care documentation, 35 minutes Medications at Discharge Home Medications atorvastatin 80 mg tablet 80 mg PO QHS cholesterol 03/12/22 levothyroxine 75 mcg tablet (Synthroid) 75 mcg PO DAILY thyroid 03/12/22 acetaminophen 500 mg tablet 1,000 mg (2 x 500 mg) PO Q6H PRN PRN Pain Score 1-10 #0 tabs 03/23/22 apixaban 5 mg tablet (Eliquis) 5 mg PO BID 30 days #60 tabs 03/23/22 insulin glargine-yfgn 100 unit/mL (3 mL) subcutaneous pen 30 unit (0.3 mL) subcut QHS diabetes 30 days #9 mL 03/23/22 insulin glargine-yfgn 100 unit/mL (3 mL) subcutaneous pen 30 unit (0.3 mL) davidson bcut QHS 30 days #9 mL 03/25/22 needle (disp) 31 gauge 31 gauge x 5/16 #100 ea 03/25/22 cephalexin 500 mg capsule 500 mg PO Q12 #14 caps 05/13/23 Hospital Course Summary of Care Provided Minutes Spent on Discharge: 35 Physical Exam Narrative GENERAL: cooperative HEENT: Atraumatic; normocephalic EYES; Anicteric, Normal Conjunctiva NECK; supple, normal thyroid, RESPIRATORY: Diminished to auscultation CARDIOVASCULAR: Regular S1 S2, GI: soft, normoactive bowel sounds, : No Renal angle tenderness; EXTREMITIES: Mario wrapped MUSCULOSKELETAL: no muscle wasting NEURO: Awake; no lateralizing signs. SKIN: No Rash PSYCH; Flat affect Weight / BMI Weight Weight: 139.8 kg Body Mass Index (BMI) 46.8 ABG / Lab / Microbiology Data 05/13/23 06:09 05/13/23 06:09 Laboratory: Laboratory Results - last 24 hr 05/12/23 11:51: POC Glucose 217 H 05/12/23 16:24: POC Glucose 197 H 05/12/23 21:32: POC Glucose 172 H 05/13/23 05:06: POC Glucose 236 H 05/13/23 06:09: WBC 10.9, RBC 3.40 L, Hgb 9.0 L, Hct 30.3 L, MCV 89.1, MCH 26.5 L, MCHC 29.7 L, RDW Std Deviation 49.6 H, RDW Coeff of Dayo 15.2 H, Plt Count 252, MPV 8.8, Immature Gran % (Auto) 1.200 H, Neut % (Auto) 76.8 H, Lymph % ( Auto) 12.3 L, Power % (Auto) 6.4, Eos % (Auto) 2.8, Baso % (Auto) 0.5, Absolute Neuts (auto) 8.4 H, Absolute Lymphs (auto) 1.34, Nucleated RBC % 0, Sodium 138, Potassium 4.6, Chloride 109 H, Carbon Dioxide 23.0, Anion Gap 6, BUN 46 H, Creatinine 1.93 H, Estim Creat Clear Calc 27.36, Est GFR (MDRD) Af Amer 33 L, Est GFR (MDRD) Non-Af 27 L, BUN/Creatinine Ratio 23.8 H, Glucose 248 H, Calcium 8.5 Microbiology: Microbiology 05/08/23 17:05 Wound - Heel, Left Gram Stain - Final 05/08/23 17:05 Wound - Heel, Left Wound Culture - Final Streptococcus agalactiae (B) Corynebacterium striatum 05/08/23 17:05 Wound - Heel, Left Anaerobic Culture - Final Prevotella bivia 05/08/23 13:15 Blood Culture (Wb) - Right Hand Blood Culture - Preliminary No growth in 48 hours. 05/08/23 12:55 Blood Culture (Wb) - Anticubital Left Blood Culture - Preliminary No growth in 48 hours. 05/08/23 13:42 Urine, Clean Catch Urine Culture - Final Culture exhibits no growth. 05/08/23 12:53 Nasal Secretion SARS-CoV-2 & FLU Antigen (Rapid) - Final 05/08/23 12:53 Interface Orders Rapid RSV (DFA) - Final D/C Instructions Discharge Diet: 1800 Calorie Control Diet Discharge Activity: Return to Normal Activity Call your doctor if you observe: Fever of 101 or Higher, Shortness of breath, Fainting spells and Chest pain Meaningful Use Info Meaningful Use Diagnoses (Choose all that apply): None applicable Discharge Plan Admission Admit Date/Time: 05/08/23 14:47 Attending Provider: Eligio Du Primary Care Provider: Jamari Beasley Consulting Providers: Deisi Domínguez; Moni Godfrey; Francois Castañeda; Sheng Herring Discharge Orders/Prescriptions Prescriptions: New cephalexin 500 mg Capsule 500 mg PO Q12 Qty: 14 0RF Continued atorvastatin 80 mg tablet 80 mg PO QHS Patient Comments: pt. stopped taking because it have her upset stomach levothyroxine [Synthroid] 75 mcg tablet 75 mcg PO DAILY acetaminophen 500 mg Tablet 1,000 mg PO Q6H PRN PRN (Reason: Pain Score 1-10) Qty: 0 0RF Eliquis 5 mg Tablet 5 mg PO BID 30 Days Qty: 60 0RF insulin glargine-yfgn 100 unit/mL (3 mL) insulin pen 30 unit subcut QHS 30 Days Qty: 9 0RF insulin glargine-yfgn 100 unit/mL (3 mL) Insulin Pen 30 unit subcut QHS 30 Days Qty: 9 0RF (DME) needle (disp) 31 gauge 31 gauge x 5/16 needle See Rx Instructions .Route Qty: 100 0RF Rx Instructions: As directed Other Ambulatory Orders: Occupational Therapy Eval (Routine) Location: None Selected Ordered By: Dr. Eligio Du Physical Therapy Evaluation (Routine) Location: None Selected Ordered By: Dr. Eligio Du Referrals / Follow Up: Francois Castañeda DPM [Med Staff - Active Staff] - Within 1 Week Jamari Beasley MD [Primary Care Provider] - Within 1 Week Disposition Disposition (needs filled in before D/C Order can be placed): Home, Self Care Charges/Coding Visit Charges Inpatient E&M: 84987 Disch Hosp >30min
[2023-05-13 08:30] VITALS: BP 154/62; PULSE 66; RESP 17; TEMP 36.6; O2SAT 100
[2023-05-13] MEDS: Multivitamins,Ther W-Minerals Tablet 1 TABLET PO (08:52)
[2023-05-13] MEDS: Miconazole Nitrate 43 GM Bottle 1 APPLIC TOPICAL (08:53)
[2023-05-13] MEDS: Menthol/Lanolin/Calamine/Znox 113 GM Tube 1 APPLIC TOPICAL (08:53)
[2023-05-13] MEDS: Cephalexin 500 MG Capsule PO (08:54)
[2023-05-13] MEDS: Glucerna Shake 120 ML LIQUID PO ×2 (08:57→12:24)
[2023-05-13 11:37] LABS: Bedside Glucose 279 mg/dL (74-106)
== END 2023-05-13 13:46 | disposition home or self-care (01) | DRG 623 ==
LOC: ED 15:01 → MS3 15:05
PROVIDERS: Anesthesiology; Internal Medicine; Podiatrist Foot & Ankle Surgery; Admitting Provider Family Medicine; Emergency Provider Emergency Medicine; PCP Internal Medicine; Visit Provider Internal Medicine
PROC: 0JBR0ZZ Excision of Left Foot Subcutaneous Tissue and Fascia, Open Approach (ICD-10-PCS; principal; 2023-05-11 14:20)
DX: E11.621 Type 2 diabetes mellitus with foot ulcer (principal); E87.21 Acute metabolic acidosis; Z68.42 Body mass index [BMI] 45.0-49.9, adult; L97.422 Non-pressure chronic ulcer of left heel and midfoot with fat layer exposed; N30.00 Acute cystitis without hematuria; N17.9 Acute kidney failure, unspecified; D63.1 Anemia in chronic kidney disease; E11.21 Type 2 diabetes mellitus with diabetic nephropathy; B95.1 Streptococcus, group B, as the cause of diseases classified elsewhere; N18.32 Chronic kidney disease, stage 3b; E11.42 Type 2 diabetes mellitus with diabetic polyneuropathy; E11.22 Type 2 diabetes mellitus with diabetic chronic kidney disease; E66.01 Morbid (severe) obesity due to excess calories; E11.65 Type 2 diabetes mellitus with hyperglycemia; Z79.4 Long term (current) use of insulin; E03.9 Hypothyroidism, unspecified; I12.9 Hypertensive chronic kidney disease with stage 1 through stage 4 chronic kidney disease, or unspecified chronic kidney disease; E78.5 Hyperlipidemia, unspecified; I89.0 Lymphedema, not elsewhere classified; B96.6 Bacteroides fragilis [B. fragilis] as the cause of diseases classified elsewhere; B96.89 Other specified bacterial agents as the cause of diseases classified elsewhere; R53.81 Other malaise; Z79.01 Long term (current) use of anticoagulants; Z79.84 Long term (current) use of oral hypoglycemic drugs; Z79.899 Other long term (current) drug therapy; Z86.718 Personal history of other venous thrombosis and embolism
CPT/HCPCS: 36415; 71045; 73630; 80048; 80053; 80202; 81001; 82962; 83036; 83605; 83735; 84100; 84145; 84443; 85025; 85610; 85652; 85730; 86140; 87040; 87070; 87075; 87077; 87086; 87186; 87205; 87428; 87640; 87807; 93005; 93922; 94668; 97110; 97116; 97162; 97166; 97530; 97535; 97802; 99252; 99285; J7030; J7040; J7050; A4216; G0463; J2405

== ENCOUNTER 2023-05-24 15:30 | Outpatient (RCR) | payer MEDICARE, SELFPAY ==
[2023-05-17 14:25] VITALS: BP 134/69; PULSE 63; RESP 22; TEMP 36.2; BMI 43.4
--- NOTE | 2023-05-17 15:35 | HP.PCM_ITS ---
History of Present Illness Date of Service: 05/17/23 Chief Complaint: Left heel ulcer History of Wound: Patient presents to the wound care center today on 05/17/2023 for follow-up evaluation of left heel ulcer. Patient was discharged from the hospital on oral antibiotics she has been nonweightbearing to the left heel. She denies any pain drainage trauma constitutional symptoms. No other pedal complaints at this time. Progress of Wound: Mrs Read is a 72-year-old diabetic female presenting to wound care center today [facility] for follow-up and evaluation status post surgical skin graft prep with application of skin graft substitute to the left heel. Patient is approximately 1 week postop. She has been taking her oral antibiotics as written. She admits her legs are still little swollen but improved. She denies trauma. She denies weightbearing to the area. She denies constitutional symptoms. No other pedal complaints at this time. [facility] Medical History Anxiety Diabetic foot ulcer associated with type 2 diabetes mellitus DVT (deep venous thrombosis) Essential hypertension History of venous thromboembolism Hyperlipidemia Hyperlipidemia Hypothyroidism Lymphedema Morbid obesity with BMI of 40.0-44.9, adult Stage 3b chronic kidney disease Type 2 diabetes mellitus Home Medications atorvastatin 80 mg tablet 80 mg PO QHS cholesterol 03/12/22 [History Last Taken Unknown] levothyroxine 75 mcg tablet (Synthroid) 75 mcg PO DAILY thyroid 03/12/22 [History Last Taken Unknown] acetaminophen 500 mg tablet 1,000 mg (2 x 500 mg) PO Q6H PRN PRN Pain Score 1-10 #0 tabs 03/23/22 [Rx Last Taken Unknown] apixaban 5 mg tablet (Eliquis) 5 mg PO BID 30 days #60 tabs 03/23/22 [Rx Last Taken Unknown] insulin glargine-yfgn 100 unit/mL (3 mL) subcutaneous pen 30 unit (0.3 mL) subcut QHS diabetes 30 days #9 mL 03/23/22 [Rx Last Taken Unknown] insulin glargine-yfgn 100 unit/mL (3 mL) subcutaneous pen 30 unit (0.3 mL) subcut QHS 30 days #9 mL 03/25/22 [Rx Last Taken Unknown] needle (disp) 31 gauge 31 gauge x 5/16 #100 ea 03/25/22 [Rx Last Taken Unknown] cephalexin 500 mg capsule 500 mg PO Q12 #14 caps 05/13/23 [Rx Last Taken Unknown] glimepiride 2 mg tablet 2 mg PO DAILY 05/17/23 [History Last Taken Unknown] Allergy/AdvReac Type Severity Reaction Status Date / Time codeine Allergy Rash Verified 03/12/22 20:20 Penicillins [PCN] Allergy Rash Verified 03/12/22 20:20 Family History Mother Diabetes Dementia Father Pancreatic cancer CVA (cerebral vascular accident) Surgical History H/O: hysterectomy History of 2 sections Social History household members: spouse Smoking Status: Never smoker alcohol intake: never substance use type: does not use Vital Signs Vital Signs Vital Signs: 05/17/23 14:25 Temperature 97.1 F L Temperature Source Temporal Pulse Rate 63 Respiratory Rate 22 H Blood Pressure 134/69 H Blood Pressure Mean 90 Blood Pressure Source Monitor Weight Weight: 129.418 kg Body Mass Index (BMI) 43.4 Physical Exam Narrative Vascular: DP and PT pulse are faintly palpable secondary to lymphedema. CFT is brisk. +2 pitting edema to bilateral lower extremity. No erythema or proximal streaking is noted. Skin temperature great is warm to warm from proximal ankle to distal digits. Neurological: Light touch intact. Protective sensation is diminished. Dermatological: Full-thickness ulceration with fat exposed to the left heel, measuring 1.5 x 2.5 x 0.3 cm. Wound base is fibrogranular nature. There is no erythema, drainage, probe to bone or sign of infection at this time. Excisional debridement down to and including subcutaneous tissue with a number 5 mm dermal curette to the left heel without incident. Predebridement measurement is 1.3 x 2.2 x 0.1 cm. Postdebridement measurement is 1.5 x 2.5 x 0.3 cm. Musculoskeletal: Muscle strength was deferred. No pain with calf compression. Mild pain on palpation to full-thickness ulceration left heel. Debridement Note Debridement Note Debridement Free Text: Excisional debridement down to and including subcutaneous tissue with a number 5 mm dermal curette to the left heel without incident. Predebridement measurement is 1.3 x 2.2 x 0.1 cm. Postdebridement measurement is 1.5 x 2.5 x 0.3 cm Post-Debridement Measurements and Additional Note: Post-Debridement Measurements/Treatment WC - Nurse 1 - General Ulcer Assessment Start: 05/17/23 14:25 Freq: Status: Active Protocol: TATUM Activity Type Activity Date Activity User E-sign Co-sign Detail Recorded Client Recorded Date Recorded By Document 05/17/23 14:25 DL Desktop 05/17/23 14:46 DL Edit Result 05/17/23 14:25 DL (1) Desktop 05/17/23 14:54 DL (1) Pulse Rate (60-100) => 63 Pulse Location => Monitor Blood Pressure (90/60-120/80) => 134/69 H Blood Pressure Mean => 90 Source => Monitor 05/17/23 14:25 WC - Today's Visit Information Type of service Initial Visit Arrival Mode Ambulatory, Wheelchair Transfer Assistance Manual Transfer Assist (Other) x1 Patient Identification Verified (Name & Yes ) Patient Requires Transmission-Based No Precautions Finger Stick Blood Sugar(mg/dl) (if not checked indicated): Blood Sugar Stated by Patient Height and Weight Height 5 ft 8 in Weight 129.418 kg Weight in Pounds 285.3 lbs Body Mass Index (BMI) 43.4 BMI Classification Obese BSA - Beth 2.38 Vital Signs Temperature (97.8 F-99.1 F) 97.1 F L Temperature Source Temporal Pulse Rate (60-100) 63 Pulse Location Monitor Respiratory Rate (12-18) 22 H Blood Pressure (90/60-120/80) 134/69 H Blood Pressure Mean 90 Source Monitor Pain Scale: 0-10 Numeric Is Patient Pain Free? Yes Communication Assessment Preferred language Nauruan Able to Read Yes Able to Write Yes Communication Tools None Right Hearing Abillity Normal Left Hearing Abillity Normal Visual Assistive Devices Glasses Teaching Assessment Preferences Verbal,Written Barriers to Learning None Readiness To Learn Good Willingness to Engage in Self Management Med Activies Readiness to Engage in Self Management Med Activities Anxiety Level Calm Cooperation Cooperative Perception Coherent Interest in Health Problem Asks Questions Education Importance Acknowledges Need Does Patient Smoke tobacco or other No substances Smoking Status Never smoker Is Patient Diabetic Yes Functional Assessment Recent Decline in Ability to Perform Ambulation Culture/Temple/Civil [employer] Cultural/Temple Needs that may affect No Treatment Plan Would you allow our hospital bar manager to No meet you for the purpose of spiritual/ emotional support? [employer] to contact place of scientologist No Teaching: Wound Center Dressing Your Wound -Person Taught Patient *Welcome to the Wound Center -Person Taught Patient WC - Nurse 1 - General Ulcer Measurement Start: 05/17/23 14:25 Freq: Status: Active Protocol: Activity Type Activity Date Activity User E-sign Co-sign Detail Recorded Client Recorded Date Recorded By Document 05/17/23 14:25 DL Desktop 05/17/23 14:46 DL 05/17/23 14:25 Wound Center Nurse 1 #2 L Heel -Current Size (cm) - Length 2.7 -Current Size (cm) - Width 2.1 -Current Size (cm) - Depth 0.7 -Total Square Cm 5.67 -Photo Taken Yes -Exudate Amt Medium -Exudate Type Serosanguineous -Wound Margin Distinct, Outline Attached -Granulation Amt None Present (0 %) -Necrosis Amt Large (67-100%) -Necrotic Tissue Type Adherent Slough -Structure Exposed N/A -Texture (Allie-wound Skin Appearance) Scarring -Moisture (Allie-wound Skin Appearance) Maceration -Color (Allie-wound Skin Appearance) No Abnormality -Temperature (Allie-wound Skin No Abnormality Appearance) (Pt Warm) -Ulcer Cleansing Soap and Water -Foul Odor after Cleansing No -Anesthetic Used 5% Lidocaine Gel Right Calf (cm) 68 Right Ankle (cm) 38.8 Left Calf (cm) 63.5 Left Ankle (cm) 35 Assessment/Plan Assessment/Plan (1) Non-pressure chronic ulcer of left heel and midfoot with fat layer exposed: CODE(S): L97.422 - Non-pressure chronic ulcer of left heel and midfoot with fat layer exposed PLAN: Patient was examined evaluated. All findings were discussed with the patient. All questions were answered to the patient satisfaction. Excisional debridement down to and including subcutaneous tissue with a number 5 mm dermal curette to the left heel without incident. Predebridement measurement is 1.3 x 2.2 x 0.1 cm. Postdebridement measurement is 1.5 x 2.5 x 0.3 cm. Heel ulcer was dressed with Sharonda, Betadine paint and dry sterile dressing. Bilateral 3M wraps were donned to the bilateral lower extremity. Patient was instructed to keep them clean dry and intact. She will follow-up Monday for nursing visit. Patient was instructed to be nonweightbearing to the left heel. Continue her oral antibiotics. Follow-up in 1 week. (2) Type 2 diabetes mellitus with peripheral neuropathy: CODE(S): E11.42 - Type 2 diabetes mellitus with diabetic polyneuropathy (3) Morbid obesity: CODE(S): E66.01 - Morbid (severe) obesity due to excess calories (4) Lymphedema: CODE(S): I89.0 - Lymphedema, not elsewhere classified
[2023-05-22 15:52] VITALS: BP 146/69; PULSE 73; RESP 20; TEMP 36.3; BMI 43.4
[2023-05-24 15:29] VITALS: TEMP 35.9; BMI 43.4
--- NOTE | 2023-05-24 16:00 | PN.PCM_ITS ---
History of Present Illness Date of Service: 05/24/23 Chief Complaint: Left heel ulcer History of Wound: Patient presents to the wound care center today on 05/17/2023 for follow-up evaluation of left heel ulcer. Patient was discharged from the hospital on oral antibiotics she has been nonweightbearing to the left heel. She denies any pain drainage trauma constitutional symptoms. No other pedal complaints at this time. Progress of Wound: Mrs Read is a 72-year-old diabetic female presenting to wound care center today [facility] for follow-up and evaluation status post surgical skin graft prep with application of skin graft substitute to the left heel. Patient is approximately 1 week postop. She has been taking her oral antibiotics as written. She admits her legs are still little swollen but improved. She denies trauma. She denies weightbearing to the area. She denies constitutional symptoms. No other pedal complaints at this time. Subjective Subjective Mrs. Read is a 72-year-old diabetic female presenting to the wound care center today for follow-up evaluation for left heel wound. Patient has been doing home dressing changes consisting of Sharonda, Betadine paint dry sterile dressing. Patient admits to some weightbearing to left heel. In regards to checking her blood sugar, she states she does not have her monitor and has been checking her blood sugar so she is unsure on her levels. She has been using her pumps as well as keeping the 3M compression wraps clean dry and intact. She denies trauma. Denies constitutional symptoms. No other pedal complaints at this time. Objective Data Objective Data Vital Signs: Vital Signs Temp Pulse Resp BP O2 Del Method 96.7 F L 73 20 H 146/69 H Room Air 05/24/23 15:29 05/22/23 15:52 05/22/23 15:52 05/22/23 15:52 05/22/23 15:52 Oxygen Delivery Method Room Air Weight: 129.418 kg Body Mass Index (BMI) 43.4 Physical Exam Narrative Vascular: DP and PT pulse are faintly palpable secondary to lymphedema. CFT is brisk. +2 pitting edema to bilateral lower extremity. No erythema or proximal streaking is noted. Skin temperature great is warm to warm from proximal ankle to distal digits. Neurological: Light touch intact. Protective sensation is diminished. Dermatological: Full-thickness ulceration with fat exposed to the left heel, measuring 1.5 x 2.0 x 0.3 cm. Wound base is fibrogranular nature. There is no erythema, drainage, probe to bone or sign of infection at this time. Excisional debridement down to and including subcutaneous tissue with a number 5 mm dermal curette to the left heel without incident. Predebridement measurement is 1.4 x 1.8 x 0.2 cm. Postdebridement measurement is 1.5 x 2.0 x 0.3 cm. Musculoskeletal: Muscle strength was deferred. No pain with calf compression. Mild pain on palpation to full-thickness ulceration left heel. Debridement Note Debridement Note Debridement Free Text: Excisional debridement down to and including subcutaneous tissue with a number 5 mm dermal curette to the left heel without incident. Predebridement measurement is 1.4 x 1.8 x 0.2 cm. Postdebridement measurement is 1.5 x 2.0 x 0.3 cm. Post-Debridement Measurements and Additional Note: Post-Debridement Measurements/Treatment - Nurse 1 - General Ulcer Assessment Start: 05/17/23 14:25 Freq: Status: Active Protocol: BEVERLY.Appetite+PATSY Activity Type Activity Date Activity User E-sign Co-sign Detail Recorded Client Recorded Date Recorded By Document 05/17/23 14:25 DL Desktop 05/17/23 14:46 DL Edit Result 05/17/23 14:25 DL (1) Desktop 05/17/23 14:54 DL Document 05/22/23 15:52 GM Desktop 05/22/23 16:27 GM Document 05/24/23 15:29 GM Desktop 05/24/23 15:31 GM (1) Pulse Rate (60-100) => 63 Pulse Location => Monitor Blood Pressure (90/60-120/80) => 134/69 H Blood Pressure Mean (mm Hg) => 90 Source => Monitor 05/17/23 05/22/23 05/24/23 14:25 15:52 15:29 - Today's Visit Information Type of service Initial Visit Nurse-only Follow-up Visit Visit (Physician/SUPERVISOR CYTOLOGY ) Arrival Mode Ambulatory, Wheelchair Wheelchair Wheelchair Transfer Assistance Manual Manual Transfer Assist (Other) x1 Patient Identification Verified (Name & Yes Yes Yes ) Patient Requires Transmission-Based No No No Precautions Finger Stick Blood Sugar(mg/dl) (if not checked indicated): Blood Sugar Stated by Patient Height and Weight Height 5 ft 8 in Weight 129.418 kg Weight in Pounds 285.3 lbs Body Mass Index (BMI) 43.4 43.4 43.4 BMI Classification Obese Obese Obese BSA - Beth 2.38 Vital Signs Temperature (97.8 F-99.1 F) 97.1 F L 97.3 F L 96.7 F L Temperature Source Temporal Temporal Temporal Pulse Rate (60-100) 63 73 Pulse Location Monitor Monitor Respiratory Rate (12-18) 22 H 20 H Respiratory rate source Observation Observation Oxygen Delivery Method Room Air Blood Pressure (90/60-120/80) 134/69 H 146/69 H Blood Pressure Mean (mm Hg) 90 94 Source Monitor Monitor Position Sitting Blood Pressure Location Right Arm History Since Last Visit- (Skip if this is Patient's initial visit) Have you changed medications since your No No last visit? Any new allergies or adverse reactions No No Had a fall/change in ADL's that may No No increase risk of falls Signs or symptoms of abuse and/or No No neglect since last visit Have you been in the hospital since your No No last visit? Has dressing in place as prescribed Yes Yes Has compression in place as prescribed Yes Yes Has offloadiing in place as prescribed No Yes Experienced any changes in pain level or No No management Pain Scale: 0-10 Numeric Is Patient Pain Free? Yes Yes Yes Communication Assessment Preferred language Italian Able to Read Yes Able to Write Yes Communication Tools None Right Hearing Abillity Normal Left Hearing Abillity Normal Visual Assistive Devices Glasses Teaching Assessment Preferences Verbal,Written Barriers to Learning None Readiness To Learn Good Willingness to Engage in Self Management Med Activies Readiness to Engage in Self Management Med Activities Anxiety Level Calm Cooperation Cooperative Perception Coherent Interest in Health Problem Asks Questions Education Importance Acknowledges Need Does Patient Smoke tobacco or other No substances Smoking Status Never smoker Is Patient Diabetic Yes Functional Assessment Recent Decline in Ability to Perform Ambulation Culture/Methodist/Quality Improvement Coordinator Cultural/Methodist Needs that may affect No Treatment Plan Would you allow our hospital meat processing center manager to No meet you for the purpose of spiritual/ emotional support? Quality Improvement Coordinator to contact place of moravian No Teaching: Wound Center Dressing Your Wound -Person Taught Patient *Welcome to the Wound Center -Person Taught Patient WC - Nurse 1 - General Ulcer Measurement Start: 05/17/23 14:25 Freq: Status: Active Protocol: Activity Type Activity Date Activity User E-sign Co-sign Detail Recorded Client Recorded Date Recorded By Document 05/17/23 14:25 DL Desktop 05/17/23 14:46 DL Document 05/22/23 15:52 GM Desktop 05/22/23 16:27 GM Document 05/24/23 15:29 GM Desktop 05/24/23 15:31 05/17/23 05/22/23 05/24/23 14:25 15:52 15:29 Wound Center Nurse 1 #2 L Heel -Current Size (cm) - Length 2.7 1.7 -Current Size (cm) - Width 2.1 1.4 -Current Size (cm) - Depth 0.7 0.4 -Total Square Cm 5.67 2.38 -Photo Taken Yes No -Exudate Amt Medium -Exudate Type Serosanguineous -Wound Margin Distinct, Outline Attached -Granulation Amt None Present (0 %) -Necrosis Amt Large (67-100%) -Necrotic Tissue Type Adherent Slough -Structure Exposed N/A -Texture (Allie-wound Skin Appearance) Scarring -Moisture (Allie-wound Skin Appearance) Maceration Assessed -Color (Allie-wound Skin Appearance) No Abnormality Assessed -Temperature (Allie-wound Skin No Abnormality No Abnormality Appearance) (Pt Warm) (Pt Warm) -Tenderness on Palpation (Allie-wound No Skin Appearance) -Ulcer Cleansing Soap and Water Soap and Water -Foul Odor after Cleansing No No -Anesthetic Used 5% Lidocaine Gel Right Calf (cm) 68 66.5 63.8 Right Ankle (cm) 38.8 39.7 37 Left Calf (cm) 63.5 65.0 61.3 Left Ankle (cm) 35 35.7 35.7 WC - Nurse 2 - General Ulcer CM Notes Start: 05/17/23 14:25 Freq: Status: Active Protocol: Activity Type Activity Date Activity User E-sign Co-sign Detail Recorded Client Recorded Date Recorded By Document 05/17/23 16:43 PL [id number] 05/17/23 16:44 PL Document 05/24/23 15:38 JF Laptop 05/24/23 15:43 05/17/23 05/24/23 16:43 15:38 Wound Center Nurse 2 #2 L Heel -Time 15:03 15:40 -Correct Patient Yes Yes -Correct Side, Site, Position Yes Yes -Correct Procedure Yes Yes -Procedure Performed Yes Yes -Type of Procedure Debridement Debridement -Clinical Debridement Subcutaneous Subcutaneous -Tissue Removed Subcutaneous Subcutaneous -Post Debridement (cm) - Length 1.5 1.5 -Post Debridement (cm) - Width 2.5 2.0 -Post Debridement (cm) - Depth 0.3 0.3 -Total Square (Post) (cm) 3.75 3.00 -Area of Debridement (cm) - Length 1.5 1.5 -Area of Debridement (cm) - Width 2.5 2.0 -Total Square (Area) (cm) 3.75 3.00 -Tunneling No No -Undermining/Tunneling No No -Circular Undermining No No -Wound/Ulcer Outcome Not Healed Not Healed -Ulcer Cleansing Rinsed/ Rinsed/ Irrigated with Irrigated with Saline Saline -Foul Odor after Cleansing No No -Bioengineered Tissue No No -Bleeding Controlled with Pressure Pressure -Treatment Response Procedure Procedure Tolerated Well Tolerated Well -Offloading No -Debridement - Subq, 1st 20sq cm Yes Yes Pain Scale: 0-10 Numeric Is Patient Pain Free? Yes Yes - Nurse 3 - General Ulcer D/C NN Start: 05/17/23 14:25 Freq: Status: Active Protocol: Activity Type Activity Date Activity User E-sign Co-sign Detail Recorded Client Recorded Date Recorded By Document 05/22/23 15:52 Desktop 05/22/23 16:27 Document 05/24/23 15:49 Desktop 05/24/23 15:50 05/22/23 05/24/23 15:52 15:49 Vital Signs Temperature (97.8 F-99.1 F) 97.3 F L Temperature Source Temporal Pulse Rate (60-100) 73 Pulse Location Monitor Respiratory Rate (12-18) 20 H Respiratory rate source Observation Oxygen Delivery Method Room Air Blood Pressure (90/60-120/80) 146/69 H Blood Pressure Mean (mm Hg) 94 Source Monitor Position Sitting Blood Pressure Location Right Arm Pain Scale: 0-10 Numeric Is Patient Pain Free? Yes Yes Wound Care Center Nurse 3 #2 L Heel -Ulcer Cleansing Rinsed/ Irrigated with Saline -Primary Dressing Applied Promogran Promogran Sharonda Matter Sharonda Matter -Primary Dressing Covered/Secured with Dry Gauze & Dry Gauze & Roll Gauze, Roll Gauze, Secured with Secured with Tape Tape -Promogran Sharonda Matter 1 1 Left -Multi-Layered Wrap Application Multi-Layer Multi-Layer Comp - Right ($ Comp - Bilat ($ ) ) -Other xtra 3m, it took 1 1/2 per leg WC - Visit Discharge Discharge Condition Stable Ambulatory Status Wheelchair Wheelchair Transportation Private Auto Private Auto Medication Reconcilliation completed & No provided to patient/care provider Clinical Summary of Care Provided Yes Assessment/Plan Assessment/Plan (1) Non-pressure chronic ulcer of left heel and midfoot with fat layer exposed: CODE(S): L97.422 - Non-pressure chronic ulcer of left heel and midfoot with fat layer exposed PLAN: Patient was examined and evaluated. All findings were discussed with the patient. All questions were answered to the patient's satisfaction. Excisional debridement down to and including subcutaneous tissue with a number 5 mm dermal curette to the left heel without incident. Predebridement measurement is 1.4 x 1.8 x 0.2 cm. Postdebridement measurement is 1.5 x 2.0 x 0.3 cm. The left heel was dressed with Sharonda, Betadine paint dry sterile dressing and bilateral 3M and wraps were applied to the bilateral lower extremity secondary to patient's lymphedema. Patient was instructed to change her dressing if able. She is continue to use her pumps while at home. Will begin authorizing for EpiFix as well as wound VAC snap. The patient will follow-up in 1 week. Educated the patient that she needs to have strict glycemic control while under my care. She was understanding of this. Follow-up in 1 week. (2) Type 2 diabetes mellitus with peripheral neuropathy: CODE(S): E11.42 - Type 2 diabetes mellitus with diabetic polyneuropathy (3) Lymphedema: CODE(S): I89.0 - Lymphedema, not elsewhere classified
== END 2023-05-25 23:59 | disposition home or self-care (01) ==
LOC: WC 15:30
PROVIDERS: PCP Internal Medicine; Referring Provider Podiatrist Foot & Ankle Surgery; Visit Provider Podiatrist Foot & Ankle Surgery
DX: E11.621 Type 2 diabetes mellitus with foot ulcer (principal); L97.422 Non-pressure chronic ulcer of left heel and midfoot with fat layer exposed; E11.22 Type 2 diabetes mellitus with diabetic chronic kidney disease; E66.01 Morbid (severe) obesity due to excess calories; Z68.41 Body mass index [BMI] 40.0-44.9, adult; Z79.4 Long term (current) use of insulin; N18.32 Chronic kidney disease, stage 3b; Z79.01 Long term (current) use of anticoagulants; E78.5 Hyperlipidemia, unspecified; I12.9 Hypertensive chronic kidney disease with stage 1 through stage 4 chronic kidney disease, or unspecified chronic kidney disease; Z79.899 Other long term (current) drug therapy; Z86.718 Personal history of other venous thrombosis and embolism; Z79.84 Long term (current) use of oral hypoglycemic drugs; Z79.890 Hormone replacement therapy; I89.0 Lymphedema, not elsewhere classified
CPT/HCPCS: 11042; 29581; 99213; G0463

== ENCOUNTER 2023-06-21 14:30 | Outpatient (RCR) | payer MEDICARE, SELFPAY ==
[2023-05-26 00:52] VITALS: BP 146/69; PULSE 73; RESP 20; TEMP 35.9; BMI 43.4
[2023-05-31 14:17] VITALS: BP 113/85; PULSE 65; RESP 18; TEMP 35.9; BMI 43.4
--- NOTE | 2023-05-31 15:22 | PCM.WC.PN ---
History of Present Illness Date of Service: 05/31/23 Chief Complaint: Left heel ulcer History of Wound: Patient presents to the wound care center today on 05/17/2023 for follow-up evaluation of left heel ulcer. Patient was discharged from the hospital on oral antibiotics she has been nonweightbearing to the left heel. She denies any pain drainage trauma constitutional symptoms. No other pedal complaints at this time. Subjective Subjective Mrs. Read is a 72-year-old diabetic female presenting to the wound care center today for follow-up evaluation for left heel wound. Patient has left her bilateral leg dressings clean dry and intact. She was recently diagnosed with C. difficile and will be on treatment after she follows up with her center machine set up operator. She has kept her blood sugar well-controlled. Today in clinic her blood sugars 143 mg/dL. She denies trauma. Denies constitutional symptoms. No other pedal complaints at this time. Objective Data Objective Data Vital Signs: Vital Signs Temp Pulse Resp BP O2 Del Method 96.7 F L 65 18 113/85 H Room Air 05/31/23 14:17 05/31/23 14:17 05/31/23 14:17 05/31/23 14:17 05/31/23 14:17 Oxygen Delivery Method Room Air Weight: 129.418 kg Body Mass Index (BMI) 43.4 Physical Exam Narrative Vascular: DP and PT pulse are faintly palpable secondary to lymphedema. CFT is brisk. +2 pitting edema to bilateral lower extremity. No erythema or proximal streaking is noted. Skin temperature great is warm to warm from proximal ankle to distal digits. Neurological: Light touch intact. Protective sensation is diminished. Dermatological: Full-thickness ulceration with fat exposed to the left heel, measuring 0.9 x 1.7 x 0.3 cm. Wound base is fibrogranular nature. There is no erythema, drainage, probe to bone or sign of infection at this time. Excisional debridement down to and including subcutaneous tissue with a number 5 mm dermal curette to the left heel without incident. Predebridement measurement is 0.8 x 1.5 x 0.2 cm. Postdebridement measurement is 0.9 x 1.7 x 0.3 cm. EpiFix 2.0 x 2.0 cm was applied to the left heel full-thickness ulceration with 100% use. First application. The graft site was free and clear of any infection. The wound/skin graft substitute was dressed with nonadherent bandage secured in place with Steri-Strips followed by bolster dressing as well as a bilateral 3M dressing for compression control. Musculoskeletal: Muscle strength was deferred. No pain with calf compression. Mild pain on palpation to full-thickness ulceration left heel. Debridement Note Debridement Note Post-Debridement Measurements and Additional Note: Post-Debridement Measurements/Treatment WC - Nurse 1 - General Ulcer Assessment Start: 05/31/23 14:17 Freq: Status: Active Protocol: TATUM Activity Type Activity Date Activity User E-sign Co-sign Detail Recorded Client Recorded Date Recorded By Document 05/31/23 14:17 KW Desktop 05/31/23 14:27 KW 05/31/23 14:17 WC - Today's Visit Information Type of service Follow-up Visit (Physician/FINANCIAL ANALYSIS ADVISOR ) Arrival Mode Wheelchair Accompanied by Patient Identification Verified (Name & Yes ) Height and Weight Body Mass Index (BMI) 43.4 BMI Classification Obese Vital Signs Temperature (97.8 F-99.1 F) 96.7 F L Temperature Source Temporal Pulse Rate (60-100) 65 Pulse Location Monitor Respiratory Rate (12-18) 18 Respiratory rate source Observation Oxygen Delivery Method Room Air Blood Pressure (90/60-120/80) 113/85 H Blood Pressure Mean (mm Hg) 94 Source Monitor Position Semi-Fowlers Blood Pressure Location Right Forearm History Since Last Visit- (Skip if this is Patient's initial visit) Have you changed medications since your No last visit? Any new allergies or adverse reactions No Had a fall/change in ADL's that may No increase risk of falls Signs or symptoms of abuse and/or No neglect since last visit Have you been in the hospital since your No last visit? Has dressing in place as prescribed Yes Has compression in place as prescribed Yes Has offloadiing in place as prescribed No Experienced any changes in pain level or No management Left Footwear Slipper Right Footwear Slipper Pain Scale: 0-10 Numeric Is Patient Pain Free? Yes BEVERLY - Nurse 1 - General Ulcer Measurement Start: 05/31/23 14:17 Freq: Status: Active Protocol: Activity Type Activity Date Activity User E-sign Co-sign Detail Recorded Client Recorded Date Recorded By Document 05/31/23 14:17 KW Desktop 05/31/23 14:27 05/31/23 14:17 Wound Center Nurse 1 #2 L Heel -Current Size (cm) - Length 0.7 -Current Size (cm) - Width 1.4 -Current Size (cm) - Depth 0.2 -Total Square Cm 0.98 -Undermining/Tunneling Starts (O'clock 11 ) -Undermining/Tunneling Ends (O'clock) 2 -Maximum Distance (cm) 0.2 -Wound Margin Distinct, Outline Attached -Granulation Amt Medium (34-66%) -Granulation Quality [place] -Necrosis Amt Small (1-33%) -Necrotic Tissue Type Adherent Slough -Texture (Allie-wound Skin Appearance) Assessed -Moisture (Allie-wound Skin Appearance) Assessed -Color (Allie-wound Skin Appearance) Assessed -Temperature (Allie-wound Skin No Abnormality Appearance) (Pt Warm) -Ulcer Cleansing Soap and Water -Anesthetic Used 5% Lidocaine Gel Right Calf (cm) 61 Right Ankle (cm) 36.4 Left Calf (cm) 61.2 Left Ankle (cm) 33.7 WC - Nurse 2 - General Ulcer CM Notes Start: 05/31/23 14:17 Freq: Status: Active Protocol: Activity Type Activity Date Activity User E-sign Co-sign Detail Recorded Client Recorded Date Recorded By Document 05/31/23 15:01 Laptop 05/31/23 15:10 05/31/23 15:01 Wound Center Nurse 2 #2 L Heel -Time 15:02 -Correct Patient Yes -Correct Side, Site, Position Yes -Correct Procedure Yes -Procedure Performed Yes -Type of Procedure Debridement -Clinical Debridement Subcutaneous -Tissue Removed Subcutaneous -Post Debridement (cm) - Length 0.9 -Post Debridement (cm) - Width 1.7 -Post Debridement (cm) - Depth 0.3 -Total Square (Post) (cm) 1.53 -Area of Debridement (cm) - Length 0.9 -Area of Debridement (cm) - Width 1.7 -Total Square (Area) (cm) 1.53 -Tunneling No -Undermining/Tunneling No -Circular Undermining No -Wound/Ulcer Outcome Not Healed -Ulcer Cleansing Rinsed/ Irrigated with Saline -Foul Odor after Cleansing No -Bioengineered Tissue Yes -Type of Bioengineered Tissue Epifix -Expiration Date 02/25/28 -Product Lot Number [id number] -Percent Used 100 -Lot number of Saline Used [id number] -Bleeding Controlled with Pressure -Treatment Response Procedure Tolerated Well -Offloading Yes -Type of Offloading Surgical Shoe -Debridement - Subq, 1st 20sq cm No -Apply Skin Sub - 1st 25 sq cm - Feet 1 -Epifix (per sq cm) 4 Pain Scale: 0-10 Numeric Is Patient Pain Free? Yes Assessment/Plan Assessment/Plan (1) Non-pressure chronic ulcer of left heel and midfoot with fat layer exposed: CODE(S): L97.422 - Non-pressure chronic ulcer of left heel and midfoot with fat layer exposed PLAN: Patient was examined evaluated. All findings were discussed with the patient. All questions were answered to the patient's satisfaction. Excisional debridement down to and including subcutaneous tissue with a number 5 mm dermal curette to the left heel without incident. Predebridement measurement is 0.8 x 1.5 x 0.2 cm. Postdebridement measurement is 0.9 x 1.7 x 0.3 cm. EpiFix 2.0 x 2.0 cm was applied to the left heel full-thickness ulceration with 100% use. First application. The graft site was free and clear of any infection. The wound/skin graft substitute was dressed with nonadherent bandage secured in place with Steri-Strips followed by bolster dressing as well as a bilateral 3M dressing for compression control. Follow-up 1 week (2) Lymphedema: CODE(S): I89.0 - Lymphedema, not elsewhere classified (3) Morbid obesity: CODE(S): E66.01 - Morbid (severe) obesity due to excess calories (4) Type 2 diabetes mellitus with peripheral neuropathy: CODE(S): E11.42 - Type 2 diabetes mellitus with diabetic polyneuropathy
[2023-06-01 14:55] VITALS: BP 137/54; PULSE 68; RESP 22; TEMP 35.5; BMI 43.4
[2023-06-07 14:38] VITALS: BP 131/62; PULSE 63; RESP 18; BMI 43.4
--- NOTE | 2023-06-07 16:05 | PCM.WC.PN ---
History of Present Illness Date of Service: 06/07/23 Chief Complaint: Left heel ulcer History of Wound: Patient presents to the wound care center today on 05/17/2023 for follow-up evaluation of left heel ulcer. Patient was discharged from the hospital on oral antibiotics she has been nonweightbearing to the left heel. She denies any pain drainage trauma constitutional symptoms. No other pedal complaints at this time. Subjective Subjective Mrs. Read is a 72-year-old diabetic female presenting to the wound care center today for follow-up evaluation for left heel wound. Patient has left her bilateral leg dressings clean dry and intact. She has been treating her C. difficile with improvements. She has kept her blood sugar well-controlled. She denies trauma. Denies constitutional symptoms. No other pedal complaints at this time. Objective Data Objective Data Vital Signs: Vital Signs Temp Pulse Resp BP O2 Del Method 96 F L 63 18 131/62 H Room Air 06/01/23 14:55 06/07/23 14:38 06/07/23 14:38 06/07/23 14:38 06/07/23 14:38 Oxygen Delivery Method Room Air Weight: 129.418 kg Body Mass Index (BMI) 43.4 Physical Exam Narrative Vascular: DP and PT pulse are faintly palpable secondary to lymphedema. CFT is brisk. +2 pitting edema to bilateral lower extremity. No erythema or proximal streaking is noted. Skin temperature great is warm to warm from proximal ankle to distal digits. Neurological: Light touch intact. Protective sensation is diminished. Dermatological: Full-thickness ulceration with fat exposed to the left heel, measuring 0.8 x 1.5 x 0.2 cm. Wound base is fibrogranular nature. There is no erythema, drainage, probe to bone or sign of infection at this time. Excisional debridement down to and including subcutaneous tissue with a number 5 mm dermal curette to the left heel without incident. Predebridement measurement is 0.6 x 1.3 x 0.1 cm. Postdebridement measurement is 0.8 x 1.5 x 0.2 cm. EpiFix 2.0 x 2.0 cm was applied to the left heel full-thickness ulceration with 100% use. Second application. The graft site was free and clear of any infection. The wound/skin graft substitute was dressed with nonadherent bandage secured in place with Steri-Strips followed by bolster dressing as well as a bilateral 3M dressing for compression control. Musculoskeletal: Muscle strength was deferred. No pain with calf compression. Mild pain on palpation to full-thickness ulceration left heel. Debridement Note Debridement Note Debridement Free Text: Excisional debridement down to and including subcutaneous tissue with a number 5 mm dermal curette to the left heel without incident. Predebridement measurement is 0.6 x 1.3 x 0.1 cm. Postdebridement measurement is 0.8 x 1.5 x 0.2 cm. EpiFix 2.0 x 2.0 cm was applied to the left heel full-thickness ulceration with 100% use. Second application. The graft site was free and clear of any infection. The wound/skin graft substitute was dressed with nonadherent bandage secured in place with Steri-Strips followed by bolster dressing as well as a bilateral 3M dressing for compression control. Post-Debridement Measurements and Additional Note: Post-Debridement Measurements/Treatment - Nurse 1 - General Ulcer Assessment Start: 05/31/23 14:17 Freq: Status: Active Protocol: TATUM Activity Type Activity Date Activity User E-sign Co-sign Detail Recorded Client Recorded Date Recorded By Document 05/31/23 14:17 KW Desktop 05/31/23 14:27 KW Document 06/01/23 14:55 DL Desktop 06/01/23 14:59 DL Edit Result 06/01/23 14:55 DL (1) Desktop 06/01/23 15:01 DL Document 06/07/23 14:38 BMF Desktop 06/07/23 14:56 BMF (1) Pulse Rate (60-100) => 68 Pulse Location => Monitor Blood Pressure (90/60-120/80) => 137/54 H Blood Pressure Mean (mm Hg) => 81 Source => Monitor 05/31/23 06/01/23 06/07/23 14:17 14:55 14:38 - Today's Visit Information Type of service Follow-up Visit Follow-up Visit Follow-up Visit (Physician/CLINICAL LAB TECHNOLOGIST (Physician/CLINICAL LAB TECHNOLOGIST (Physician/CLINICAL LAB TECHNOLOGIST ) ) ) Arrival Mode Wheelchair Ambulatory, Wheelchair Wheelchair Transfer Assistance None Other Transfer Assist (Other) 1 STAND BY Accompanied by Patient Identification Verified (Name & Yes Yes Yes ) Patient Requires Transmission-Based No No Precautions Height and Weight Body Mass Index (BMI) 43.4 43.4 43.4 BMI Classification Obese Obese Obese Vital Signs Temperature (97.8 F-99.1 F) 96.7 F L 96 F L Temperature Source Temporal Temporal Pulse Rate (60-100) 65 68 63 Pulse Location Monitor Monitor Monitor Respiratory Rate (12-18) 18 22 H 18 Respiratory rate source Observation Observation Observation Oxygen Delivery Method Room Air Room Air Blood Pressure (90/60-120/80) 113/85 H 137/54 H 131/62 H Blood Pressure Mean (mm Hg) 94 81 85 Source Monitor Monitor Monitor Position Semi-Fowlers Sitting Blood Pressure Location Right Forearm Left Forearm History Since Last Visit- (Skip if this is Patient's initial visit) Have you changed medications since your No No No last visit? Any new allergies or adverse reactions No No No Had a fall/change in ADL's that may No No increase risk of falls Signs or symptoms of abuse and/or No No No neglect since last visit Have you been in the hospital since your No No No last visit? Has dressing in place as prescribed Yes Yes Yes Has compression in place as prescribed Yes No Yes Has offloadiing in place as prescribed No N/A Yes Experienced any changes in pain level or No No No management Left Footwear Slipper Slipper Right Footwear Slipper Slipper Pain Scale: 0-10 Numeric Is Patient Pain Free? Yes Yes Yes WC - Nurse 1 - General Ulcer Measurement Start: 05/31/23 14:17 Freq: Status: Active Protocol: Activity Type Activity Date Activity User E-sign Co-sign Detail Recorded Client Recorded Date Recorded By Document 05/31/23 14:17 KW Desktop 05/31/23 14:27 KW Document 06/07/23 14:38 [facility] Desktop 06/07/23 14:56 [facility] 05/31/23 06/07/23 14:17 14:38 Wound Center Nurse 1 #2 L Heel -Combined with other wound No -Current Size (cm) - Length 0.7 1 -Current Size (cm) - Width 1.4 1.1 -Current Size (cm) - Depth 0.2 0.4 -Total Square Cm 0.98 1.1 -Date of Last Picture (Recall this 06/07/23 field) -Photo Taken Yes -Epithelialization None Present -Tunneling No -Undermining/Tunneling No -Undermining/Tunneling Starts (O'clock 11 ) -Undermining/Tunneling Ends (O'clock) 2 -Maximum Distance (cm) 0.2 -Circular Undermining No -Exudate Amt Medium -Exudate Type Serosanguineous -Wound Margin Distinct, Distinct, Outline Outline Attached Attached -Granulation Amt Medium (34-66%) Medium (34-66%) -Granulation Quality [place] Red -Slough/Fibrin Yes -Necrosis Amt Small (1-33%) Medium (34-66%) -Necrotic Tissue Type Adherent Slough Adherent Slough -Texture (Allie-wound Skin Appearance) Assessed Assessed, Scarring -Moisture (Allie-wound Skin Appearance) Assessed Assessed, Maceration -Color (Allie-wound Skin Appearance) Assessed Assessed -Temperature (Allie-wound Skin No Abnormality No Abnormality Appearance) (Pt Warm) (Pt Warm) -Tenderness on Palpation (Allie-wound No Skin Appearance) -Ulcer Cleansing Soap and Water Soap and Water -Foul Odor after Cleansing No -Anesthetic Used 5% Lidocaine 5% Lidocaine Gel Gel Lower Limb Edema Present Yes Right Calf (cm) 61 58.1 Right Ankle (cm) 36.4 Point of Measurement (cm from the medial 32.9 instep) Left Calf (cm) 61.2 61.4 Left Ankle (cm) 33.7 35 - Nurse 2 - General Ulcer CM Notes Start: 05/31/23 14:17 Freq: Status: Active Protocol: Activity Type Activity Date Activity User E-sign Co-sign Detail Recorded Client Recorded Date Recorded By Document 05/31/23 15:01 [employer] Laptop 05/31/23 15:10 Document 06/07/23 15:25 Laptop 06/07/23 15:29 05/31/23 06/07/23 15:01 15:25 Wound Center Nurse 2 #2 L Heel -Time 15:02 15:28 -Correct Patient Yes Yes -Correct Side, Site, Position Yes Yes -Correct Procedure Yes Yes -Procedure Performed Yes Yes -Type of Procedure Debridement Debridement -Clinical Debridement Subcutaneous Subcutaneous -Tissue Removed Subcutaneous Subcutaneous -Post Debridement (cm) - Length 0.9 0.8 -Post Debridement (cm) - Width 1.7 1.5 -Post Debridement (cm) - Depth 0.3 0.2 -Total Square (Post) (cm) 1.53 1.20 -Area of Debridement (cm) - Length 0.9 0.8 -Area of Debridement (cm) - Width 1.7 1.5 -Total Square (Area) (cm) 1.53 1.20 -Tunneling No No -Undermining/Tunneling No -Circular Undermining No No -Wound/Ulcer Outcome Not Healed Not Healed -Ulcer Cleansing Rinsed/ Rinsed/ Irrigated with Irrigated with Saline Saline -Foul Odor after Cleansing No No -Bioengineered Tissue Yes Yes -Type of Bioengineered Tissue Epifix Epifix -Expiration Date 02/25/28 12/25/27 -Product Lot Number [id number] -Percent Used 100 100 -Lot number of Saline Used [id number] -Bleeding Controlled with Pressure Pressure -Treatment Response Procedure Procedure Tolerated Well Tolerated Well -Offloading Yes No -Type of Offloading Surgical Shoe -Debridement - Subq, 1st 20sq cm No No -Apply Skin Sub - 1st 25 sq cm - Feet 1 1 -Epifix (per sq cm) 4 4 Pain Scale: 0-10 Numeric Is Patient Pain Free? Yes Yes WC - Nurse 3 - General Ulcer D/C NN Start: 05/31/23 14:17 Freq: Status: Active Protocol: Activity Type Activity Date Activity User E-sign Co-sign Detail Recorded Client Recorded Date Recorded By Document 05/31/23 15:39 KW Desktop 05/31/23 15:39 KW Document 06/01/23 14:55 DL Desktop 06/01/23 14:59 DL Edit Result 06/01/23 14:55 DL (1) Desktop 06/01/23 15:01 DL Document 06/07/23 15:41 KW Desktop 06/07/23 15:41 KW (1) Pulse Rate (60-100) => 68 Pulse Location => Monitor Blood Pressure (90/60-120/80) => 137/54 H Blood Pressure Mean (mm Hg) => 81 Source => Monitor 05/31/23 06/01/23 06/07/23 15:39 14:55 15:41 Wound Care Center Nurse 3 #2 L Heel -Primary Dressing Covered/Secured with Dry Gauze & Dry Gauze & Roll Gauze, Roll Gauze, Secured with Secured with Tape Tape Right -Multi-Layered Wrap Application Multi-Layer Multi-Layer Comp - Right ($ Comp - Bilat ($ ) ) Left -Multi-Layered Wrap Application Multi-Layer Comp - Bilat ($ ) Treatment Response Procedure Tolerated Well Vital Signs Temperature (97.8 F-99.1 F) 96 F L Temperature Source Temporal Pulse Rate (60-100) 68 Pulse Location Monitor Respiratory Rate (12-18) 22 H Respiratory rate source Observation Blood Pressure (90/60-120/80) 137/54 H Blood Pressure Mean (mm Hg) 81 Source Monitor Pain Scale: 0-10 Numeric Is Patient Pain Free? Yes Yes Yes WC - Visit Discharge Discharge Condition Stable Stable Ambulatory Status Ambulatory, Wheelchair Wheelchair Transportation Private Auto Private Auto Medication Reconcilliation completed & No provided to patient/care provider Clinical Summary of Care Provided Yes Notes: Pt here for NV again today to [facility] to RLE, was applied yesterday but pt called today stating it fell down and needed reapplied. 3M reapplied to RLE only today. Assessment/Plan Assessment/Plan (1) Non-pressure chronic ulcer of left heel and midfoot with fat layer exposed: CODE(S): L97.422 - Non-pressure chronic ulcer of left heel and midfoot with fat layer exposed PLAN: Patient was examined and evaluated. All findings were discussed with the patient. All questions were answered to the patient's satisfaction. Excisional debridement down to and including subcutaneous tissue with a number 5 mm dermal curette to the left heel without incident. Predebridement measurement is 0.6 x 1.3 x 0.1 cm. Postdebridement measurement is 0.8 x 1.5 x 0.2 cm. EpiFix 2.0 x 2.0 cm was applied to the left heel full-thickness ulceration with 100% use. Second application. The graft site was free and clear of any infection. The wound/skin graft substitute was dressed with nonadherent bandage secured in place with Steri-Strips followed by bolster dressing as well as a bilateral 3M dressing for compression control. Patient was instructed to leave her wraps intact and dry. She is encouraged to pump 3-5 times per day. She is continue her C. difficile antibiotic protocol. Follow-up 1 week. (2) Type 2 diabetes mellitus with peripheral neuropathy: CODE(S): E11.42 - Type 2 diabetes mellitus with diabetic polyneuropathy (3) Lymphedema: CODE(S): I89.0 - Lymphedema, not elsewhere classified (4) Morbid obesity: CODE(S): E66.01 - Morbid (severe) obesity due to excess calories
[2023-06-14 14:20] VITALS: BP 134/54; PULSE 66; RESP 22; TEMP 36.6; BMI 43.4
--- NOTE | 2023-06-14 15:24 | PN.PCM_ITS ---
History of Present Illness Date of Service: 06/14/23 Chief Complaint: Left heel ulcer History of Wound: Patient presents to the wound care center today on 05/17/2023 for follow-up evaluation of left heel ulcer. Patient was discharged from the hospital on oral antibiotics she has been nonweightbearing to the left heel. She denies any pain drainage trauma constitutional symptoms. No other pedal complaints at this time. Subjective Subjective Mrs. Read is a 72-year-old diabetic female presenting to the wound care center today for follow-up evaluation for left heel wound. Patient has left her bilateral leg dressings clean dry and intact. She has been treating her C. difficile with improvements. She has kept her blood sugar well-controlled. She denies trauma. Denies constitutional symptoms. No other pedal complaints at this time. Objective Data Objective Data Vital Signs: Vital Signs Temp Pulse Resp BP O2 Del Method 97.8 F 66 22 H 134/54 H Room Air 06/14/23 14:20 06/14/23 14:20 06/14/23 14:20 06/14/23 14:20 06/07/23 14:38 Oxygen Delivery Method Room Air Weight: 129.418 kg Body Mass Index (BMI) 43.4 Physical Exam Narrative Vascular: DP and PT pulse are faintly palpable secondary to lymphedema. CFT is brisk. +2 pitting edema to bilateral lower extremity. No erythema or proximal streaking is noted. Skin temperature great is warm to warm from proximal ankle to distal digits. Neurological: Light touch intact. Protective sensation is diminished. Dermatological: Full-thickness ulceration with fat exposed to the left heel, measuring 0.8 x 1.5 x 0.2 cm. Wound base is fibrogranular nature. There is no erythema, drainage, probe to bone or sign of infection at this time. Excisional debridement down to and including subcutaneous tissue with a number 5 mm dermal curette to the left heel without incident. Predebridement measurement is 0.7 x 1.4 x 0.1 cm. Postdebridement measurement is 0.8 x 1.5 x 0.2 cm. EpiFix 2.0 x 2.0 cm was applied to the left heel full-thickness ulceration with 100% use. Third application. The graft site was free and clear of any infection. The wound/skin graft substitute was dressed with nonadherent bandage secured in place with Steri-Strips followed by bolster dressing as well as a bilateral 3M dressing for compression control. Musculoskeletal: Muscle strength was deferred. No pain with calf compression. Mild pain on palpation to full-thickness ulceration left heel. Debridement Note Debridement Note Debridement Free Text: Excisional debridement down to and including subcutaneous tissue with a number 5 mm dermal curette to the left heel without incident. Predebridement measurement is 0.7 x 1.4 x 0.1 cm. Postdebridement measurement is 0.8 x 1.5 x 0.2 cm. EpiFix 2.0 x 2.0 cm was applied to the left heel full-thickness ulceration with 100% use. Third application. The graft site was free and clear of any infection. The wound/skin graft substitute was dressed with nonadherent bandage secured in place with Steri-Strips followed by bolster dressing as well as a bilateral 3M dressing for compression control. Post-Debridement Measurements and Additional Note: Post-Debridement Measurements/Treatment - Nurse 1 - General Ulcer Assessment Start: 05/31/23 14:17 Freq: Status: Active Protocol: TATUM Activity Type Activity Date Activity User E-sign Co-sign Detail Recorded Client Recorded Date Recorded By Document 05/31/23 14:17 KW Desktop 05/31/23 14:27 KW Document 06/01/23 14:55 DL Desktop 06/01/23 14:59 DL Edit Result 06/01/23 14:55 DL (1) Desktop 06/01/23 15:01 DL Document 06/07/23 14:38 BMF Desktop 06/07/23 14:56 BMF Document 06/14/23 14:20 DL Desktop 06/14/23 14:32 DL (1) Pulse Rate (60-100) => 68 Pulse Location => Monitor Blood Pressure (90/60-120/80) => 137/54 H Blood Pressure Mean (mm Hg) => 81 Source => Monitor 05/31/23 06/01/23 06/07/23 14:17 14:55 14:38 - Today's Visit Information Type of service Follow-up Visit Follow-up Visit Follow-up Visit (Physician/FINANCIAL SERVICE REPRESENTATIVE (Physician/FINANCIAL SERVICE REPRESENTATIVE (Physician/FINANCIAL SERVICE REPRESENTATIVE ) ) ) Arrival Mode Wheelchair Ambulatory, Wheelchair Wheelchair Transfer Assistance None Other Transfer Assist (Other) 1 STAND BY Accompanied by Patient Identification Verified (Name & Yes Yes Yes ) Patient Requires Transmission-Based No No Precautions Finger Stick Blood Sugar(mg/dl) (if indicated): Blood Sugar Height and Weight Body Mass Index (BMI) 43.4 43.4 43.4 BMI Classification Obese Obese Obese Vital Signs Temperature (97.8 F-99.1 F) 96.7 F L 96 F L Temperature Source Temporal Temporal Pulse Rate (60-100) 65 68 63 Pulse Location Monitor Monitor Monitor Respiratory Rate (12-18) 18 22 H 18 Respiratory rate source Observation Observation Observation Oxygen Delivery Method Room Air Room Air Blood Pressure (90/60-120/80) 113/85 H 137/54 H 131/62 H Blood Pressure Mean (mm Hg) 94 81 85 Source Monitor Monitor Monitor Position Semi-Fowlers Sitting Blood Pressure Location Right Forearm Left Forearm History Since Last Visit- (Skip if this is Patient's initial visit) Have you changed medications since your No No No last visit? Any new allergies or adverse reactions No No No Had a fall/change in ADL's that may No No increase risk of falls Signs or symptoms of abuse and/or No No No neglect since last visit Have you been in the hospital since your No No No last visit? Has dressing in place as prescribed Yes Yes Yes Has compression in place as prescribed Yes No Yes Has offloadiing in place as prescribed No N/A Yes Experienced any changes in pain level or No No No management Left Footwear Slipper Slipper Right Footwear Slipper Slipper Pain Scale: 0-10 Numeric Is Patient Pain Free? Yes Yes Yes 06/14/23 14:20 - Today's Visit Information Type of service Follow-up Visit (Physician/FINANCIAL SERVICE REPRESENTATIVE ) Arrival Mode Ambulatory, Wheelchair Transfer Assistance Manual Transfer Assist (Other) x1 Accompanied by Patient Identification Verified (Name & Yes ) Patient Requires Transmission-Based No Precautions Finger Stick Blood Sugar(mg/dl) (if 150 indicated): Blood Sugar Stated by Patient Height and Weight Body Mass Index (BMI) 43.4 BMI Classification Obese Vital Signs Temperature (97.8 F-99.1 F) 97.8 F Temperature Source Temporal Pulse Rate (60-100) 66 Pulse Location Monitor Respiratory Rate (12-18) 22 H Respiratory rate source Observation Oxygen Delivery Method Blood Pressure (90/60-120/80) 134/54 H Blood Pressure Mean (mm Hg) 80 Source Monitor Position Blood Pressure Location History Since Last Visit- (Skip if this is Patient's initial visit) Have you changed medications since your No last visit? Any new allergies or adverse reactions No Had a fall/change in ADL's that may No increase risk of falls Signs or symptoms of abuse and/or No neglect since last visit Have you been in the hospital since your No last visit? Has dressing in place as prescribed Yes Has compression in place as prescribed Yes Has offloadiing in place as prescribed N/A Experienced any changes in pain level or management Left Footwear Right Footwear Pain Scale: 0-10 Numeric Is Patient Pain Free? Yes WC - Nurse 1 - General Ulcer Measurement Start: 05/31/23 14:17 Freq: Status: Active Protocol: Activity Type Activity Date Activity User E-sign Co-sign Detail Recorded Client Recorded Date Recorded By Document 05/31/23 14:17 KW Desktop 05/31/23 14:27 KW Document 06/07/23 14:38 BMF Desktop 06/07/23 14:56 BMF Document 06/14/23 14:20 DL Desktop 06/14/23 14:32 DL 05/31/23 06/07/23 06/14/23 14:17 14:38 14:20 Wound Center Nurse 1 #2 L Heel -Combined with other wound No -Current Size (cm) - Length 0.7 1 0.8 -Current Size (cm) - Width 1.4 1.1 1.4 -Current Size (cm) - Depth 0.2 0.4 0.1 -Total Square Cm 0.98 1.1 1.12 -Date of Last Picture (Recall this 06/07/23 field) -Photo Taken Yes -Epithelialization None Present -Tunneling No -Undermining/Tunneling No -Undermining/Tunneling Starts (O'clock 11 ) -Undermining/Tunneling Ends (O'clock) 2 -Maximum Distance (cm) 0.2 -Circular Undermining No -Exudate Amt Medium Medium -Exudate Type Serosanguineous Serosanguineous -Wound Margin Distinct, Distinct, Distinct, Outline Outline Outline Attached Attached Attached -Granulation Amt Medium (34-66%) Medium (34-66%) Small (1-33%) -Granulation Quality Rifton Red Rifton -Slough/Fibrin Yes -Necrosis Amt Small (1-33%) Medium (34-66%) Large (67-100%) -Necrotic Tissue Type Adherent Slough Adherent Slough Adherent Slough -Texture (Allie-wound Skin Appearance) Assessed Assessed, Callus Scarring -Moisture (Allie-wound Skin Appearance) Assessed Assessed, Maceration Maceration -Color (Allie-wound Skin Appearance) Assessed Assessed Hemosiderin Staining -Temperature (Allie-wound Skin No Abnormality No Abnormality Appearance) (Pt Warm) (Pt Warm) -Tenderness on Palpation (Allie-wound No No Skin Appearance) -Ulcer Cleansing Soap and Water Soap and Water Soap and Water -Foul Odor after Cleansing No No -Anesthetic Used 5% Lidocaine 5% Lidocaine 5% Lidocaine Gel Gel Gel Lower Limb Edema Present Yes Right Calf (cm) 61 58.1 59.2 Right Ankle (cm) 36.4 35 Point of Measurement (cm from the medial 32.9 instep) Left Calf (cm) 61.2 61.4 57.5 Left Ankle (cm) 33.7 35 33.3 - Nurse 2 - General Ulcer CM Notes Start: 05/31/23 14:17 Freq: Status: Active Protocol: Activity Type Activity Date Activity User E-sign Co-sign Detail Recorded Client Recorded Date Recorded By Document 05/31/23 15:01 Laptop 05/31/23 15:10 Document 06/07/23 15:25 Laptop 06/07/23 15:29 Document 06/14/23 14:51 Laptop 06/14/23 14:54 05/31/23 06/07/23 06/14/23 15:01 15:25 14:51 Wound Center Nurse 2 #2 L Heel -Time 15:02 15:28 14:52 -Correct Patient Yes Yes Yes -Correct Side, Site, Position Yes Yes Yes -Correct Procedure Yes Yes Yes -Procedure Performed Yes Yes Yes -Type of Procedure Debridement Debridement Debridement -Clinical Debridement Subcutaneous Subcutaneous Subcutaneous -Tissue Removed Subcutaneous Subcutaneous Subcutaneous -Post Debridement (cm) - Length 0.9 0.8 0.8 -Post Debridement (cm) - Width 1.7 1.5 1.5 -Post Debridement (cm) - Depth 0.3 0.2 0.2 -Total Square (Post) (cm) 1.53 1.20 1.20 -Area of Debridement (cm) - Length 0.9 0.8 0.8 -Area of Debridement (cm) - Width 1.7 1.5 1.5 -Total Square (Area) (cm) 1.53 1.20 1.20 -Tunneling No No No -Undermining/Tunneling No No -Circular Undermining No No No -Wound/Ulcer Outcome Not Healed Not Healed Not Healed -Ulcer Cleansing Rinsed/ Rinsed/ Rinsed/ Irrigated with Irrigated with Irrigated with Saline Saline Saline -Foul Odor after Cleansing No No No -Bioengineered Tissue Yes Yes Yes -Type of Bioengineered Tissue Epifix Epifix Epifix 18mm Disc -Expiration Date 02/25/28 12/25/27 -Product Lot Number [id number] -Percent Used 100 100 -Lot number of Saline Used [id number] -Bleeding Controlled with Pressure Pressure Pressure -Treatment Response Procedure Procedure Procedure Tolerated Well Tolerated Well Tolerated Well -Offloading Yes No No -Type of Offloading Surgical Shoe -Debridement - Subq, 1st 20sq cm No No No -Apply Skin Sub - 1st 25 sq cm - Feet 1 1 1 -Epifix (per sq cm) 4 4 -Epifix 18mm Disc 3 Pain Scale: 0-10 Numeric Is Patient Pain Free? Yes Yes Yes WC - Nurse 3 - General Ulcer D/C NN Start: 05/31/23 14:17 Freq: Status: Active Protocol: Activity Type Activity Date Activity User E-sign Co-sign Detail Recorded Client Recorded Date Recorded By Document 05/31/23 15:39 KW Desktop 05/31/23 15:39 KW Document 06/01/23 14:55 DL Desktop 06/01/23 14:59 DL Edit Result 06/01/23 14:55 DL (1) Desktop 06/01/23 15:01 DL Document 06/07/23 15:41 KW Desktop 06/07/23 15:41 KW (1) Pulse Rate (60-100) => 68 Pulse Location => Monitor Blood Pressure (90/60-120/80) => 137/54 H Blood Pressure Mean (mm Hg) => 81 Source => Monitor 05/31/23 06/01/23 06/07/23 15:39 14:55 15:41 Wound Care Center Nurse 3 #2 L Heel -Primary Dressing Covered/Secured with Dry Gauze & Dry Gauze & Roll Gauze, Roll Gauze, Secured with Secured with Tape Tape Right -Multi-Layered Wrap Application Multi-Layer Multi-Layer Comp - Right ($ Comp - Bilat ($ ) ) Left -Multi-Layered Wrap Application Multi-Layer Comp - Bilat ($ ) Treatment Response Procedure Tolerated Well Vital Signs Temperature (97.8 F-99.1 F) 96 F L Temperature Source Temporal Pulse Rate (60-100) 68 Pulse Location Monitor Respiratory Rate (12-18) 22 H Respiratory rate source Observation Blood Pressure (90/60-120/80) 137/54 H Blood Pressure Mean (mm Hg) 81 Source Monitor Pain Scale: 0-10 Numeric Is Patient Pain Free? Yes Yes Yes WC - Visit Discharge Discharge Condition Stable Stable Ambulatory Status Ambulatory, Wheelchair Wheelchair Transportation Private Auto Private Auto Medication Reconcilliation completed & No provided to patient/care provider Clinical Summary of Care Provided Yes Notes: Pt here for NV again today to changs drs to RLE, was applied yesterday but pt called today stating it fell down and needed reapplied. 3M reapplied to RLE only today. Assessment/Plan Assessment/Plan (1) Non-pressure chronic ulcer of left heel and midfoot with fat layer exposed: CODE(S): L97.422 - Non-pressure chronic ulcer of left heel and midfoot with fat layer exposed PLAN: Patient was examined and evaluated. All findings were discussed with the patient. All questions were answered to the patient satisfaction. Excisional debridement down to and including subcutaneous tissue with a number 5 mm dermal curette to the left heel without incident. Predebridement measurement is 0.7 x 1.4 x 0.1 cm. Postdebridement measurement is 0.8 x 1.5 x 0.2 cm. EpiFix 2.0 x 2.0 cm was applied to the left heel full-thickness ulceration with 100% use. Third application. The graft site was free and clear of any infection. The wound/skin graft substitute was dressed with nonadherent bandage secured in place with Steri-Strips followed by bolster dressing as well as a bilateral 3M dressing for compression control. Patient was educated to watch her weightbearing and continue to pump until follow-up in 1 week. Follow-up in 1 week. (2) Type 2 diabetes mellitus with peripheral neuropathy: CODE(S): E11.42 - Type 2 diabetes mellitus with diabetic polyneuropathy (3) Lymphedema: CODE(S): I89.0 - Lymphedema, not elsewhere classified (4) Morbid obesity: CODE(S): E66.01 - Morbid (severe) obesity due to excess calories
[2023-06-21 14:14] VITALS: BP 122/72; PULSE 72; RESP 18; TEMP 36.1; BMI 43.4
--- NOTE | 2023-06-21 15:08 | PN.PCM_ITS ---
History of Present Illness Date of Service: 06/21/23 Chief Complaint: Left heel ulcer History of Wound: Patient presents to the wound care center today on 05/17/2023 for follow-up evaluation of left heel ulcer. Patient was discharged from the hospital on oral antibiotics she has been nonweightbearing to the left heel. She denies any pain drainage trauma constitutional symptoms. No other pedal complaints at this time. Subjective Subjective Mrs. Read is a 72-year-old diabetic female presenting to the wound care center today for follow-up evaluation for left heel wound. Patient has left her bilateral leg dressings clean dry and intact. She has been treating her C. difficile with improvements. She has kept her blood sugar well-controlled. She denies trauma. Denies constitutional symptoms. No other pedal complaints at this time. Objective Data Objective Data Vital Signs: Vital Signs Temp Pulse Resp BP O2 Del Method 96.9 F L 72 18 122/72 H Room Air 06/21/23 14:14 06/21/23 14:14 06/21/23 14:14 06/21/23 14:14 06/21/23 14:14 Oxygen Delivery Method Room Air Weight: 129.418 kg Body Mass Index (BMI) 43.4 Physical Exam Narrative Vascular: DP and PT pulse are faintly palpable secondary to lymphedema. CFT is brisk. +2 pitting edema to bilateral lower extremity. No erythema or proximal streaking is noted. Skin temperature great is warm to warm from proximal ankle to distal digits. Neurological: Light touch intact. Protective sensation is diminished. Dermatological: Full-thickness ulceration with fat exposed to the left heel, measuring 1.0 x 1.7 x 0.2 cm. Wound base is fibrogranular nature. There is no erythema, drainage, probe to bone or sign of infection at this time. Excisional debridement down to and including subcutaneous tissue with a number 5 mm dermal curette to the left heel without incident. Predebridement measurement is 0.8 x 1.5 x 0.1 cm. Postdebridement measurement is 1.0 x 1.7 x 0.2 cm. EpiFix 18 mm disc was applied to the left heel full-thickness ulceration with 100% use. Fourth application. The graft site was free and clear of any infection. The wound/skin graft substitute was dressed with nonadherent bandage secured in place with Steri-Strips followed by bolster dressing as well as a bilateral 3M dressing for compression control. Musculoskeletal: Muscle strength was deferred. No pain with calf compression. Mild pain on palpation to full-thickness ulceration left heel. Debridement Note Debridement Note Debridement Free Text: Excisional debridement down to and including subcutaneous tissue with a number 5 mm dermal curette to the left heel without incident. Predebridement measurement is 0.8 x 1.5 x 0.1 cm. Postdebridement measurement is 1.0 x 1.7 x 0.2 cm. EpiFix 18 mm disc was applied to the left heel full-thickness ulceration with 100% use. Fourth application. The graft site was free and clear of any infection. The wound/skin graft substitute was dressed with nonadherent bandage secured in place with Steri-Strips followed by bolster dressing as well as a bilateral 3M dressing for compression control. Post-Debridement Measurements and Additional Note: Post-Debridement Measurements/Treatment WC - Nurse 1 - General Ulcer Assessment Start: 05/31/23 14:17 Freq: Status: Active Protocol: TATUM Activity Type Activity Date Activity User E-sign Co-sign Detail Recorded Client Recorded Date Recorded By Document 05/31/23 14:17 KW Desktop 05/31/23 14:27 KW Document 06/01/23 14:55 DL Desktop 06/01/23 14:59 DL Edit Result 06/01/23 14:55 DL (1) Desktop 06/01/23 15:01 DL Document 06/07/23 14:38 BMF Desktop 06/07/23 14:56 BMF Document 06/14/23 14:20 DL Desktop 06/14/23 14:32 DL Document 06/21/23 14:14 KW Desktop 06/21/23 14:26 KW (1) Pulse Rate (60-100) => 68 Pulse Location => Monitor Blood Pressure (90/60-120/80) => 137/54 H Blood Pressure Mean (mm Hg) => 81 Source => Monitor 05/31/23 06/01/23 06/07/23 14:17 14:55 14:38 - Today's Visit Information Type of service Follow-up Visit Follow-up Visit Follow-up Visit (Physician/DISHWASHING MACHINE OPERATOR (Physician/DISHWASHING MACHINE OPERATOR (Physician/DISHWASHING MACHINE OPERATOR ) ) ) Arrival Mode Wheelchair Ambulatory, Wheelchair Wheelchair Transfer Assistance None Other Transfer Assist (Other) 1 STAND BY Accompanied by Patient Identification Verified (Name & Yes Yes Yes ) Patient Requires Transmission-Based No No Precautions Finger Stick Blood Sugar(mg/dl) (if indicated): Blood Sugar Height and Weight Body Mass Index (BMI) 43.4 43.4 43.4 BMI Classification Obese Obese Obese Vital Signs Temperature (97.8 F-99.1 F) 96.7 F L 96 F L Temperature Source Temporal Temporal Pulse Rate (60-100) 65 68 63 Pulse Location Monitor Monitor Monitor Respiratory Rate (12-18) 18 22 H 18 Respiratory rate source Observation Observation Observation Oxygen Delivery Method Room Air Room Air Blood Pressure (90/60-120/80) 113/85 H 137/54 H 131/62 H Blood Pressure Mean (mm Hg) 94 81 85 Source Monitor Monitor Monitor Position Semi-Fowlers Sitting Blood Pressure Location Right Forearm Left Forearm History Since Last Visit- (Skip if this is Patient's initial visit) Have you changed medications since your No No No last visit? Any new allergies or adverse reactions No No No Had a fall/change in ADL's that may No No increase risk of falls Signs or symptoms of abuse and/or No No No neglect since last visit Have you been in the hospital since your No No No last visit? Has dressing in place as prescribed Yes Yes Yes Has compression in place as prescribed Yes No Yes Has offloadiing in place as prescribed No N/A Yes Experienced any changes in pain level or No No No management Left Footwear Slipper Slipper Right Footwear Slipper Slipper Pain Scale: 0-10 Numeric Is Patient Pain Free? Yes Yes Yes 06/14/23 06/21/23 14:20 14:14 - Today's Visit Information Type of service Follow-up Visit Follow-up Visit (Physician/DISHWASHING MACHINE OPERATOR (Physician/DISHWASHING MACHINE OPERATOR ) ) Arrival Mode Ambulatory, Wheelchair Wheelchair Transfer Assistance Manual Transfer Assist (Other) x1 Accompanied by Patient Identification Verified (Name & Yes Yes ) Patient Requires Transmission-Based No Precautions Finger Stick Blood Sugar(mg/dl) (if 150 indicated): Blood Sugar Stated by Patient Height and Weight Body Mass Index (BMI) 43.4 43.4 BMI Classification Obese Obese Vital Signs Temperature (97.8 F-99.1 F) 97.8 F 96.9 F L Temperature Source Temporal Temporal Pulse Rate (60-100) 66 72 Pulse Location Monitor Monitor Respiratory Rate (12-18) 22 H 18 Respiratory rate source Observation Observation Oxygen Delivery Method Room Air Blood Pressure (90/60-120/80) 134/54 H 122/72 H Blood Pressure Mean (mm Hg) 80 88 Source Monitor Monitor Position Semi-Fowlers Blood Pressure Location Left Arm History Since Last Visit- (Skip if this is Patient's initial visit) Have you changed medications since your No No last visit? Any new allergies or adverse reactions No No Had a fall/change in ADL's that may No No increase risk of falls Signs or symptoms of abuse and/or No No neglect since last visit Have you been in the hospital since your No No last visit? Has dressing in place as prescribed Yes Yes Has compression in place as prescribed Yes Yes Has offloadiing in place as prescribed N/A No Experienced any changes in pain level or No management Left Footwear Regular Shoe Right Footwear Regular Shoe Pain Scale: 0-10 Numeric Is Patient Pain Free? Yes Yes WC - Nurse 1 - General Ulcer Measurement Start: 05/31/23 14:17 Freq: Status: Active Protocol: Activity Type Activity Date Activity User E-sign Co-sign Detail Recorded Client Recorded Date Recorded By Document 05/31/23 14:17 KW Desktop 05/31/23 14:27 KW Document 06/07/23 14:38 [facility] Desktop 06/07/23 14:56 BMF Document 06/14/23 14:20 DL Desktop 06/14/23 14:32 DL Document 06/21/23 14:14 KW Desktop 06/21/23 14:26 KW 05/31/23 06/07/23 06/14/23 14:17 14:38 14:20 Wound Center Nurse 1 #2 L Heel -Combined with other wound No -Current Size (cm) - Length 0.7 1 0.8 -Current Size (cm) - Width 1.4 1.1 1.4 -Current Size (cm) - Depth 0.2 0.4 0.1 -Total Square Cm 0.98 1.1 1.12 -Date of Last Picture (Recall this 06/07/23 field) -Photo Taken Yes -Epithelialization None Present -Tunneling No -Undermining/Tunneling No -Undermining/Tunneling Starts (O'clock 11 ) -Undermining/Tunneling Ends (O'clock) 2 -Maximum Distance (cm) 0.2 -Circular Undermining No -Exudate Amt Medium Medium -Exudate Type Serosanguineous Serosanguineous -Wound Margin Distinct, Distinct, Distinct, Outline Outline Outline Attached Attached Attached -Granulation Amt Medium (34-66%) Medium (34-66%) Small (1-33%) -Granulation Quality [place] -Slough/Fibrin Yes -Necrosis Amt Small (1-33%) Medium (34-66%) Large (67-100%) -Necrotic Tissue Type Adherent Slough Adherent Slough Adherent Slough -Texture (Allie-wound Skin Appearance) Assessed Assessed, Callus Scarring -Moisture (Allie-wound Skin Appearance) Assessed Assessed, Maceration Maceration -Color (Allie-wound Skin Appearance) Assessed Assessed Hemosiderin Staining -Temperature (Allie-wound Skin No Abnormality No Abnormality Appearance) (Pt Warm) (Pt Warm) -Tenderness on Palpation (Allie-wound No No Skin Appearance) -Ulcer Cleansing Soap and Water Soap and Water Soap and Water -Foul Odor after Cleansing No No -Anesthetic Used 5% Lidocaine 5% Lidocaine 5% Lidocaine Gel Gel Gel Lower Limb Edema Present Yes Right Calf (cm) 61 58.1 59.2 Right Ankle (cm) 36.4 35 Point of Measurement (cm from the medial 32.9 instep) Left Calf (cm) 61.2 61.4 57.5 Left Ankle (cm) 33.7 35 33.3 06/21/23 14:14 Wound Center Nurse 1 #2 L Heel -Combined with other wound -Current Size (cm) - Length 0.9 -Current Size (cm) - Width 1.1 -Current Size (cm) - Depth 0.3 -Total Square Cm 0.99 -Date of Last Picture (Recall this field) -Photo Taken -Epithelialization -Tunneling -Undermining/Tunneling -Undermining/Tunneling Starts (O'clock 1 ) -Undermining/Tunneling Ends (O'clock) 7 -Maximum Distance (cm) 0.3 -Circular Undermining -Exudate Amt Small -Exudate Type Purulent -Wound Margin Distinct, Outline Attached -Granulation Amt Medium (34-66%) -Granulation Quality Red -Slough/Fibrin -Necrosis Amt -Necrotic Tissue Type Adherent Slough -Texture (Allie-wound Skin Appearance) Assessed -Moisture (Allie-wound Skin Appearance) Assessed -Color (Allie-wound Skin Appearance) Assessed -Temperature (Allie-wound Skin No Abnormality Appearance) (Pt Warm) -Tenderness on Palpation (Allie-wound Skin Appearance) -Ulcer Cleansing Soap and Water -Foul Odor after Cleansing No -Anesthetic Used 5% Lidocaine Gel Lower Limb Edema Present Right Calf (cm) 57.6 Right Ankle (cm) 34.5 Point of Measurement (cm from the medial instep) Left Calf (cm) 56.3 Left Ankle (cm) 32.6 WC - Nurse 2 - General Ulcer CM Notes Start: 05/31/23 14:17 Freq: Status: Active Protocol: Activity Type Activity Date Activity User E-sign Co-sign Detail Recorded Client Recorded Date Recorded By Document 05/31/23 15:01 [employer] Laptop 05/31/23 15:10 [employer] Document 06/07/23 15:25 [employer] Laptop 06/07/23 15:29 Document 06/14/23 14:51 [employer] Laptop 06/14/23 14:54 Document 06/21/23 14:37 [employer] Laptop 06/21/23 14:45 05/31/23 06/07/23 06/14/23 15:01 15:25 14:51 Wound Center Nurse 2 #2 L Heel -Time 15:02 15:28 14:52 -Correct Patient Yes Yes Yes -Correct Side, Site, Position Yes Yes Yes -Correct Procedure Yes Yes Yes -Procedure Performed Yes Yes Yes -Type of Procedure Debridement Debridement Debridement -Clinical Debridement Subcutaneous Subcutaneous Subcutaneous -Tissue Removed Subcutaneous Subcutaneous Subcutaneous -Post Debridement (cm) - Length 0.9 0.8 0.8 -Post Debridement (cm) - Width 1.7 1.5 1.5 -Post Debridement (cm) - Depth 0.3 0.2 0.2 -Total Square (Post) (cm) 1.53 1.20 1.20 -Area of Debridement (cm) - Length 0.9 0.8 0.8 -Area of Debridement (cm) - Width 1.7 1.5 1.5 -Total Square (Area) (cm) 1.53 1.20 1.20 -Tunneling No No No -Undermining/Tunneling No No -Circular Undermining No No No -Wound/Ulcer Outcome Not Healed Not Healed Not Healed -Ulcer Cleansing Rinsed/ Rinsed/ Rinsed/ Irrigated with Irrigated with Irrigated with Saline Saline Saline -Foul Odor after Cleansing No No No -Bioengineered Tissue Yes Yes Yes -Type of Bioengineered Tissue Epifix Epifix Epifix 18mm Disc -Expiration Date 02/25/28 12/25/27 -Product Lot Number [id number] -Percent Used 100 100 -Lot number of Saline Used [id number] -Bleeding Controlled with Pressure Pressure Pressure -Treatment Response Procedure Procedure Procedure Tolerated Well Tolerated Well Tolerated Well -Offloading Yes No No -Type of Offloading Surgical Shoe -Debridement - Subq, 1st 20sq cm No No No -Apply Skin Sub - 1st 25 sq cm - Feet 1 1 1 -Epifix (per sq cm) 4 4 -Epifix 18mm Disc 3 Pain Scale: 0-10 Numeric Is Patient Pain Free? Yes Yes Yes 06/21/23 14:37 Wound Center Nurse 2 #2 L Heel -Time 14:37 -Correct Patient Yes -Correct Side, Site, Position Yes -Correct Procedure Yes -Procedure Performed Yes -Type of Procedure Debridement -Clinical Debridement Subcutaneous -Tissue Removed Subcutaneous -Post Debridement (cm) - Length 1.0 -Post Debridement (cm) - Width 1.7 -Post Debridement (cm) - Depth 0.2 -Total Square (Post) (cm) 1.70 -Area of Debridement (cm) - Length 1.0 -Area of Debridement (cm) - Width 1.7 -Total Square (Area) (cm) 1.70 -Tunneling No -Undermining/Tunneling No -Circular Undermining No -Wound/Ulcer Outcome Not Healed -Ulcer Cleansing Rinsed/ Irrigated with Saline -Foul Odor after Cleansing No -Bioengineered Tissue Yes -Type of Bioengineered Tissue Epifix 18mm Disc -Expiration Date 02/25/28 -Product Lot Number [id number] -Percent Used 100 -Lot number of Saline Used [id number] -Bleeding Controlled with Pressure -Treatment Response Procedure Tolerated Well -Offloading No -Type of Offloading -Debridement - Subq, 1st 20sq cm No -Apply Skin Sub - 1st 25 sq cm - Feet 1 -Epifix (per sq cm) -Epifix 18mm Disc 3 Pain Scale: 0-10 Numeric Is Patient Pain Free? Yes WC - Nurse 3 - General Ulcer D/C NN Start: 05/31/23 14:17 Freq: Status: Active Protocol: Activity Type Activity Date Activity User E-sign Co-sign Detail Recorded Client Recorded Date Recorded By Document 05/31/23 15:39 KW Desktop 05/31/23 15:39 KW Document 06/01/23 14:55 DL Desktop 06/01/23 14:59 DL Edit Result 06/01/23 14:55 DL (1) Desktop 06/01/23 15:01 DL Document 06/07/23 15:41 KW Desktop 06/07/23 15:41 KW Document 06/14/23 15:34 KW Desktop 06/14/23 15:34 KW Edit Result 06/14/23 15:34 KW (2) [id number] 06/15/23 07:20 PL (1) Pulse Rate (60-100) => 68 Pulse Location => Monitor Blood Pressure (90/60-120/80) => 137/54 H Blood Pressure Mean (mm Hg) => 81 Source => Monitor (2) Bilateral - Multi-Layered Wrap Application => Multi-Layer Comp - => Bilat ($) Right - Multi-Layered Wrap Application Multi-Layer Comp - => Right ($) => Left - Multi-Layered Wrap Application Multi-Layer Comp - => Left ($) => 05/31/23 06/01/23 06/07/23 15:39 14:55 15:41 Wound Care Center Nurse 3 #2 L Heel -Ulcer Cleansing -Primary Dressing Covered/Secured with Dry Gauze & Dry Gauze & Roll Gauze, Roll Gauze, Secured with Secured with Tape Tape Bilateral -Multi-Layered Wrap Application Right -Multi-Layered Wrap Application Multi-Layer Multi-Layer Comp - Right ($ Comp - Bilat ($ ) ) Left -Multi-Layered Wrap Application Multi-Layer Comp - Bilat ($ ) Treatment Response Procedure Tolerated Well Vital Signs Temperature (97.8 F-99.1 F) 96 F L Temperature Source Temporal Pulse Rate (60-100) 68 Pulse Location Monitor Respiratory Rate (12-18) 22 H Respiratory rate source Observation Blood Pressure (90/60-120/80) 137/54 H Blood Pressure Mean (mm Hg) 81 Source Monitor Pain Scale: 0-10 Numeric Is Patient Pain Free? Yes Yes Yes WC - Visit Discharge Discharge Condition Stable Stable Ambulatory Status Ambulatory, Wheelchair Wheelchair Transportation Private Auto Private Auto Medication Reconcilliation completed & No provided to patient/care provider Clinical Summary of Care Provided Yes Notes: Pt here for [place] again today to [facility] to RLE, was applied yesterday but pt called today stating it fell down and needed reapplied. 3M reapplied to RLE only today. 06/14/23 15:34 Wound Care Center Nurse 3 #2 L Heel -Ulcer Cleansing Rinsed/ Irrigated with Saline -Primary Dressing Covered/Secured with Dry Gauze & Roll Gauze, Secured with Tape Bilateral -Multi-Layered Wrap Application Multi-Layer Comp - Bilat ($ ) Right -Multi-Layered Wrap Application Left -Multi-Layered Wrap Application Treatment Response Vital Signs Temperature (97.8 F-99.1 F) Temperature Source Pulse Rate (60-100) Pulse Location Respiratory Rate (12-18) Respiratory rate source Blood Pressure (90/60-120/80) Blood Pressure Mean (mm Hg) Source Pain Scale: 0-10 Numeric Is Patient Pain Free? Yes WC - Visit Discharge Discharge Condition Ambulatory Status Transportation Medication Reconcilliation completed & provided to patient/care provider Clinical Summary of Care Provided Notes: Assessment/Plan Assessment/Plan (1) Non-pressure chronic ulcer of left heel and midfoot with fat layer exposed: CODE(S): L97.422 - Non-pressure chronic ulcer of left heel and midfoot with fat layer exposed (2) Type 2 diabetes mellitus with peripheral neuropathy: CODE(S): E11.42 - Type 2 diabetes mellitus with diabetic polyneuropathy (3) Lymphedema: CODE(S): I89.0 - Lymphedema, not elsewhere classified
== END 2023-06-25 23:59 | disposition home or self-care (01) ==
LOC: WC 14:30
PROVIDERS: PCP Internal Medicine; Referring Provider Podiatrist Foot & Ankle Surgery; Visit Provider Podiatrist Foot & Ankle Surgery
DX: E11.621 Type 2 diabetes mellitus with foot ulcer (principal); L97.422 Non-pressure chronic ulcer of left heel and midfoot with fat layer exposed; E11.42 Type 2 diabetes mellitus with diabetic polyneuropathy; E66.01 Morbid (severe) obesity due to excess calories; Z68.41 Body mass index [BMI] 40.0-44.9, adult; I89.0 Lymphedema, not elsewhere classified
CPT/HCPCS: 15275; 29581; Q4186

== ENCOUNTER 2023-07-26 15:00 | Outpatient (RCR) | payer MEDICARE, SELFPAY ==
[2023-06-26 00:25] VITALS: BP 122/72; PULSE 72; RESP 18; TEMP 36.1; BMI 43.4
[2023-06-28 14:22] VITALS: BP 114/64; PULSE 65; TEMP 36.4; BMI 43.4
--- NOTE | 2023-06-28 14:56 | PCM.WC.PN ---
History of Present Illness Date of Service: 06/28/23 Chief Complaint: Left heel ulcer History of Wound: Patient presents to the wound care center today on 05/17/2023 for follow-up evaluation of left heel ulcer. Patient was discharged from the hospital on oral antibiotics she has been nonweightbearing to the left heel. She denies any pain drainage trauma constitutional symptoms. No other pedal complaints at this time. Subjective Subjective Mrs. Read is a 72-year-old diabetic female presenting to the wound care center today for follow-up evaluation for left heel wound. Patient has left her bilateral leg dressings clean dry and intact. She has been treating her C. difficile with improvements. She has kept her blood sugar well-controlled. She denies trauma. Denies constitutional symptoms. No other pedal complaints at this time. Objective Data Objective Data Vital Signs: Vital Signs Temp Pulse Resp BP O2 Del Method 97.6 F L 65 18 114/64 Room Air 06/28/23 14:22 06/28/23 14:22 06/26/23 00:25 06/28/23 14:22 06/28/23 14:22 Oxygen Delivery Method Room Air Weight: 129.418 kg Body Mass Index (BMI) 43.4 Physical Exam Narrative Vascular: DP and PT pulse are faintly palpable secondary to lymphedema. CFT is brisk. +2 pitting edema to bilateral lower extremity. No erythema or proximal streaking is noted. Skin temperature great is warm to warm from proximal ankle to distal digits. Neurological: Light touch intact. Protective sensation is diminished. Dermatological: Full-thickness ulceration with fat exposed to the left heel, measuring 1.2 x 0.6 x 0.2 cm. Wound base is fibrogranular nature. There is no erythema, drainage, probe to bone or sign of infection at this time. Excisional debridement down to and including subcutaneous tissue with a number 5 mm dermal curette to the left heel without incident. Predebridement measurement is 1.0 x 0.4 x 0.1 cm. Postdebridement measurement is 1.2 x 0.6 x 0.2 cm. EpiFix 18 mm disc was applied to the left heel full-thickness ulceration with 100% use. Fifth application. The graft site was free and clear of any infection. The wound/skin graft substitute was dressed with nonadherent bandage secured in place with Steri-Strips followed by bolster dressing as well as a bilateral 3M dressing for compression control. Musculoskeletal: Muscle strength was deferred. No pain with calf compression. Mild pain on palpation to full-thickness ulceration left heel Debridement Note Debridement Note Debridement Free Text: Excisional debridement down to and including subcutaneous tissue with a number 5 mm dermal curette to the left heel without incident. Predebridement measurement is 1.0 x 0.4 x 0.1 cm. Postdebridement measurement is 1.2 x 0.6 x 0.2 cm. EpiFix 18 mm disc was applied to the left heel full-thickness ulceration with 100% use. Fifth application. The graft site was free and clear of any infection. The wound/skin graft substitute was dressed with nonadherent bandage secured in place with Steri-Strips followed by bolster dressing as well as a bilateral 3M dressing for compression control. 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 LOAN UNDERWRITER ) Arrival Mode Wheelchair Transfer Assistance None Patient Identification Verified (Name & Yes ) Patient Requires Transmission-Based No Precautions Safety Precautions NA Height and Weight Body Mass Index (BMI) 43.4 BMI Classification Obese Vital Signs Temperature (97.8 F-99.1 F) 97.6 F L Temperature Source Temporal Pulse Rate (60-100) 65 Pulse Location Monitor Respiratory rate source Observation Oxygen Delivery Method Room Air Blood Pressure (90/60-120/80) 114/64 Blood Pressure Mean (mm Hg) 80 Source Monitor Position Semi-Fowlers Blood Pressure Location Left Arm History Since Last Visit- (Skip if this is Patient's initial visit) Have you changed medications since your No last visit? Any new allergies or adverse reactions No Had a fall/change in ADL's that may No increase risk of falls Signs or symptoms of abuse and/or No neglect since last visit Have you been in the hospital since your No last visit? Has dressing in place as prescribed Yes Has compression in place as prescribed Yes Has offloadiing in place as prescribed No Experienced any changes in pain level or No management Pain Scale: 0-10 Numeric Is Patient Pain Free? Yes WC - Nurse 1 - General Ulcer Measurement Start: 06/28/23 14:22 Freq: Status: Active Protocol: Activity Type Activity Date Activity User E-sign Co-sign Detail Recorded Client Recorded Date Recorded By Document 06/28/23 14:22 Desktop 06/28/23 14:38 06/28/23 14:22 Wound Center Nurse 1 #2 L Heel -Current Size (cm) - Length 0.9 -Current Size (cm) - Width 1.7 -Current Size (cm) - Depth 0.1 -Total Square Cm 1.53 -Epithelialization Small 1-33% -Tunneling No -Undermining/Tunneling No -Circular Undermining No -Exudate Type Yellow/Green -Wound Margin Distinct, Outline Attached -Granulation Amt Small (1-33%) -Granulation Quality Pale -Necrosis Amt Medium (34-66%) -Necrotic Tissue Type Adherent Slough -Structure Exposed N/A -Texture (Allie-wound Skin Appearance) Assessed -Moisture (Allie-wound Skin Appearance) Assessed -Color (Allie-wound Skin Appearance) Assessed -Temperature (Allie-wound Skin No Abnormality Appearance) (Pt Warm) -Tenderness on Palpation (Allie-wound No Skin Appearance) -Ulcer Cleansing Soap and Water -Foul Odor after Cleansing No -Anesthetic Used 5% Lidocaine Gel Right Calf (cm) 57.0 Right Ankle (cm) 33.7 Left Calf (cm) 58.7 Left Ankle (cm) 35.5 Assessment/Plan Assessment/Plan (1) Non-pressure chronic ulcer of left heel and midfoot with fat layer exposed: CODE(S): L97.422 - Non-pressure chronic ulcer of left heel and midfoot with fat layer exposed PLAN: Patient was examined and evaluated. All findings were discussed with the patient. All questions were answered to the patient's satisfaction. Excisional debridement down to and including subcutaneous tissue with a number 5 mm dermal curette to the left heel without incident. Predebridement measurement is 1.0 x 0.4 x 0.1 cm. Postdebridement measurement is 1.2 x 0.6 x 0.2 cm. EpiFix 18 mm disc was applied to the left heel full-thickness ulceration with 100% use. Fifth application. The graft site was free and clear of any infection. The wound/skin graft substitute was dressed with nonadherent bandage secured in place with Steri-Strips followed by bolster dressing as well as a bilateral 3M dressing for compression control. Follow-up at the wound care center with Dr. Castañeda in 1 week. (2) Type 2 diabetes mellitus with peripheral neuropathy: CODE(S): E11.42 - Type 2 diabetes mellitus with diabetic polyneuropathy (3) Lymphedema: CODE(S): I89.0 - Lymphedema, not elsewhere classified
[2023-07-05 14:25] VITALS: BP 126/63; PULSE 55; RESP 18; TEMP 36.1; BMI 43.4
--- NOTE | 2023-07-05 15:33 | PN.PCM_ITS ---
History of Present Illness Date of Service: 07/05/23 Chief Complaint: Left heel ulcer History of Wound: Patient presents to the wound care center today on 05/17/2023 for follow-up evaluation of left heel ulcer. Patient was discharged from the hospital on oral antibiotics she has been nonweightbearing to the left heel. She denies any pain drainage trauma constitutional symptoms. No other pedal complaints at this time. Subjective Subjective Mrs. Read is a 72-year-old diabetic female presenting to the wound care center today for follow-up evaluation for left heel wound with graft application. Patient has left her bilateral 3M compression leg dressings clean dry and intact. She has kept her blood sugar well-controlled. She denies trauma. Denies constitutional symptoms. No other pedal complaints at this time. Objective Data Objective Data Vital Signs: Vital Signs Temp Pulse Resp BP O2 Del Method 96.9 F L 55 L 18 126/63 H Room Air 07/05/23 14:25 07/05/23 14:25 07/05/23 14:25 07/05/23 14:25 07/05/23 14:25 Oxygen Delivery Method Room Air Weight: 129.418 kg Body Mass Index (BMI) 43.4 Physical Exam Narrative Vascular: DP and PT pulse are faintly palpable secondary to lymphedema. CFT is brisk. +2 pitting edema to bilateral lower extremity. No erythema or proximal streaking is noted. Skin temperature great is warm to warm from proximal ankle to distal digits. Neurological: Light touch intact. Protective sensation is diminished. Dermatological: Full-thickness ulceration with fat exposed to the left heel, measuring 0.8 x 0.3 x 0.2 cm. Wound base is fibrogranular nature. There is no erythema, drainage, probe to bone or sign of infection at this time. Excisional debridement down to and including subcutaneous tissue with a number 5 mm dermal curette to the left heel without incident. Predebridement measurement is 0.6 x 0.2 x 0.1 cm. Postdebridement measurement is 0.8 x 0.3 x 0.2 cm. EpiFix 18 mm disc was applied to the left heel full-thickness ulceration with 100% use. Sixth application. The graft site was free and clear of any infection. The wound/skin graft substitute was dressed with nonadherent bandage secured in place with Steri-Strips followed by bolster dressing as well as a bilateral 3M dressing for compression control. Musculoskeletal: Muscle strength was deferred. No pain with calf compression. Mild pain on palpation to full-thickness ulceration left heel Debridement Note Debridement Note Debridement Free Text: Excisional debridement down to and including subcutaneous tissue with a number 5 mm dermal curette to the left heel without incident. Predebridement measurement is 0.6 x 0.2 x 0.1 cm. Postdebridement measurement is 0.8 x 0.3 x 0.2 cm. EpiFix 18 mm disc was applied to the left heel full-thickness ulceration with 100% use. Sixth application. The graft site was free and clear of any infection. The wound/skin graft substitute was dressed with nonadherent bandage secured in place with Steri-Strips followed by bolster dressing as well as a bilateral 3M dressing for compression control. Post-Debridement Measurements and Additional Note: Post-Debridement Measurements/Treatment WC - Nurse 1 - General Ulcer Assessment Start: 06/28/23 14:22 Freq: Status: Active Protocol: TATUM Activity Type Activity Date Activity User E-sign Co-sign Detail Recorded Client Recorded Date Recorded By Document 06/28/23 14:22 GM Desktop 06/28/23 14:38 GM Document 07/05/23 14:25 KW Desktop 07/05/23 14:44 KW 06/28/23 07/05/23 14:22 14:25 - Today's Visit Information Type of service Follow-up Visit Follow-up Visit (Physician/CUSTOMER SUPPORT ANALYST (Physician/CUSTOMER SUPPORT ANALYST ) ) Arrival Mode Wheelchair Wheelchair Transfer Assistance None Accompanied by Patient Identification Verified (Name & Yes Yes ) Patient Requires Transmission-Based No Precautions Safety Precautions NA Height and Weight Body Mass Index (BMI) 43.4 43.4 BMI Classification Obese Obese Vital Signs Temperature (97.8 F-99.1 F) 97.6 F L 96.9 F L Temperature Source Temporal Temporal Pulse Rate (60-100) 65 55 L Pulse Location Monitor Monitor Respiratory Rate (12-18) 18 Respiratory rate source Observation Observation Oxygen Delivery Method Room Air Room Air Blood Pressure (90/60-120/80) 114/64 126/63 H Blood Pressure Mean (mm Hg) 80 84 Source Monitor Monitor Position Semi-Fowlers Blood Pressure Location Left Arm Left Arm History Since Last Visit- (Skip if this is Patient's initial visit) Have you changed medications since your No No last visit? Any new allergies or adverse reactions No No Had a fall/change in ADL's that may No No increase risk of falls Signs or symptoms of abuse and/or No No neglect since last visit Have you been in the hospital since your No last visit? Has dressing in place as prescribed Yes Yes Has compression in place as prescribed Yes Yes Has offloadiing in place as prescribed No No Experienced any changes in pain level or No No management Left Footwear Regular Shoe Right Footwear Regular Shoe Pain Scale: 0-10 Numeric Is Patient Pain Free? Yes Yes WC - Nurse 1 - General Ulcer Measurement Start: 06/28/23 14:22 Freq: Status: Active Protocol: Activity Type Activity Date Activity User E-sign Co-sign Detail Recorded Client Recorded Date Recorded By Document 06/28/23 14:22 GM Desktop 06/28/23 14:38 GM Document 07/05/23 14:25 KW Desktop 07/05/23 14:44 KW 06/28/23 07/05/23 14:22 14:25 Wound Center Nurse 1 #2 L Heel -Current Size (cm) - Length 0.9 1.0 -Current Size (cm) - Width 1.7 1.6 -Current Size (cm) - Depth 0.1 0.6 -Total Square Cm 1.53 1.60 -Epithelialization Small 1-33% -Tunneling No -Undermining/Tunneling No -Circular Undermining No -Exudate Amt Medium -Exudate Type Yellow/Green Serosanguineous -Wound Margin Distinct, Distinct, Outline Outline Attached Attached -Granulation Amt Small (1-33%) Medium (34-66%) -Granulation Quality Pale Pale,Peterman -Necrosis Amt Medium (34-66%) Medium (34-66%) -Necrotic Tissue Type Adherent Slough Adherent Slough -Structure Exposed N/A -Texture (Allie-wound Skin Appearance) Assessed Assessed -Moisture (Allie-wound Skin Appearance) Assessed Maceration -Color (Allie-wound Skin Appearance) Assessed Assessed -Temperature (Allie-wound Skin No Abnormality No Abnormality Appearance) (Pt Warm) (Pt Warm) -Tenderness on Palpation (Allie-wound No Skin Appearance) -Ulcer Cleansing Soap and Water Soap and Water -Foul Odor after Cleansing No No -Anesthetic Used 5% Lidocaine 5% Lidocaine Gel Gel Right Calf (cm) 57.0 56.5 Right Ankle (cm) 33.7 35 Left Calf (cm) 58.7 55.5 Left Ankle (cm) 35.5 35 - Nurse 2 - General Ulcer CM Notes Start: 06/28/23 14:22 Freq: Status: Active Protocol: Activity Type Activity Date Activity User E-sign Co-sign Detail Recorded Client Recorded Date Recorded By Document 06/28/23 14:55 Laptop 06/28/23 14:57 JF Document 07/05/23 15:00 Laptop 07/05/23 15:02 JF 06/28/23 07/05/23 14:55 15:00 Wound Center Nurse 2 #2 L Heel -Time 14:55 15:01 -Correct Patient Yes Yes -Correct Side, Site, Position Yes Yes -Correct Procedure Yes Yes -Procedure Performed Yes Yes -Type of Procedure Debridement Debridement -Clinical Debridement Subcutaneous Subcutaneous -Tissue Removed Subcutaneous Subcutaneous -Post Debridement (cm) - Length 1.2 0.8 -Post Debridement (cm) - Width 0.6 0.3 -Post Debridement (cm) - Depth 0.2 0.2 -Total Square (Post) (cm) 0.72 0.24 -Area of Debridement (cm) - Length 1.2 0.8 -Area of Debridement (cm) - Width 0.6 0.3 -Total Square (Area) (cm) 0.72 0.24 -Tunneling No No -Undermining/Tunneling No No -Circular Undermining No No -Wound/Ulcer Outcome Not Healed Not Healed -Ulcer Cleansing Rinsed/ Rinsed/ Irrigated with Irrigated with Saline Saline -Foul Odor after Cleansing No No -Bioengineered Tissue Yes Yes -Type of Bioengineered Tissue Epifix 18mm Epifix 18mm Disc Disc -Expiration Date 02/25/28 02/25/28 -Product Lot Number [id number] -Percent Used 100 100 -Lot number of Saline Used [id number] -Bleeding Controlled with Pressure Pressure -Treatment Response Procedure Procedure Tolerated Well Tolerated Well -Offloading No No -Debridement - Subq, 1st 20sq cm No No -Apply Skin Sub - 1st 25 sq cm - Feet 1 1 -Epifix 18mm Disc 3 3 Pain Scale: 0-10 Numeric Is Patient Pain Free? Yes Yes - Nurse 3 - General Ulcer D/C NN Start: 06/28/23 14:22 Freq: Status: Active Protocol: Activity Type Activity Date Activity User E-sign Co-sign Detail Recorded Client Recorded Date Recorded By Document 06/28/23 15:19 Desktop 06/28/23 15:20 GM Document 07/05/23 15:14 [facility] Desktop 07/05/23 15:15 [facility] 06/28/23 07/05/23 15:19 15:14 Wound Care Center Nurse 3 #2 L Heel -Ulcer Cleansing Not Cleansed -Foul Odor after Cleansing No -Negative Pressure Wound Therapy N/A -Primary Dressing Applied Optilok 6.5x10 -Other Dressing epifix, superabsorber, per kw sprayer automatic spray machine -Primary Dressing Covered/Secured with Dry Gauze & Dry Gauze & Roll Gauze, Roll Gauze, Secured with Secured with Tape Tape -Optilok 6.5x10 1 ble -Multi-Layered Wrap Application Multi-Layer Comp - Bilat ($ ) Left -Multi-Layered Wrap Application Multi-Layer Comp - Bilat ($ ) -Stockings No -Other it took 3 for both legs Treatment Response Procedure Tolerated Well Pain Scale: 0-10 Numeric Is Patient Pain Free? Yes Yes Teaching: Wound Center Dressing Your Wound -Person Taught Patient,Family -Teaching Method Discussion -Response to teaching Verbalize understanding WC - Visit Discharge Discharge Condition Stable Stable Ambulatory Status Wheelchair Wheelchair Transportation Private Auto Private Auto Accompanied by Medication Reconcilliation completed & Yes provided to patient/care provider Clinical Summary of Care Provided Yes Assessment/Plan Assessment/Plan (1) Non-pressure chronic ulcer of left heel and midfoot with fat layer exposed: CODE(S): L97.422 - Non-pressure chronic ulcer of left heel and midfoot with fat layer exposed PLAN: Patient was examined and evaluated. All findings were discussed with the patient. All questions were answered to the patient's satisfaction. Excisional debridement down to and including subcutaneous tissue with a number 5 mm dermal curette to the left heel without incident. Predebridement measurement is 0.6 x 0.2 x 0.1 cm. Postdebridement measurement is 0.8 x 0.3 x 0.2 cm. EpiFix 18 mm disc was applied to the left heel full-thickness ulceration with 100% use. Sixth application. The graft site was free and clear of any in fection. The wound/skin graft substitute was dressed with nonadherent bandage secured in place with Steri-Strips followed by bolster dressing as well as a bilateral 3M dressing for compression control. Follow-up at the wound care center with Dr. Castañeda in 1 week. (2) Type 2 diabetes mellitus with peripheral neuropathy: CODE(S): E11.42 - Type 2 diabetes mellitus with diabetic polyneuropathy (3) Lymphedema: CODE(S): I89.0 - Lymphedema, not elsewhere classified
[2023-07-12 14:43] VITALS: BP 115/52; PULSE 61; RESP 18; TEMP 35.8; BMI 43.4
--- NOTE | 2023-07-12 14:59 | PCM.WC.PN ---
History of Present Illness Date of Service: 07/12/23 Chief Complaint: Left heel ulcer History of Wound: Patient presents to the wound care center today on 05/17/2023 for follow-up evaluation of left heel ulcer. Patient was discharged from the hospital on oral antibiotics she has been nonweightbearing to the left heel. She denies any pain drainage trauma constitutional symptoms. No other pedal complaints at this time. Subjective Subjective Mrs. Read is a 72-year-old diabetic female presenting to the wound care center today for follow-up evaluation for left heel wound with graft application. Patient has left her bilateral 3M compression leg dressings clean dry and intact. She has kept her blood sugar well-controlled. She denies trauma. Denies constitutional symptoms. No other pedal complaints at this time. Objective Data Objective Data Vital Signs: Vital Signs Temp Pulse Resp BP O2 Del Method 96.5 F L 61 18 115/52 L Room Air 07/12/23 14:43 07/12/23 14:43 07/12/23 14:43 07/12/23 14:43 07/12/23 14:43 Oxygen Delivery Method Room Air Weight: 129.418 kg Body Mass Index (BMI) 43.4 Physical Exam Narrative Vascular: DP and PT pulse are faintly palpable secondary to lymphedema. CFT is brisk. +2 pitting edema to bilateral lower extremity. No erythema or proximal streaking is noted. Skin temperature great is warm to warm from proximal ankle to distal digits. Neurological: Light touch intact. Protective sensation is diminished. Dermatological: Full-thickness ulceration with fat exposed to the left heel, measuring 0.7 x 0.4 x 0.2 cm. Wound base is fibrogranular nature. There is no erythema, drainage, probe to bone or sign of infection at this time. Excisional debridement down to and including subcutaneous tissue with a number 5 mm dermal curette to the left heel without incident. Predebridement measurement is 0.6 x 0.3 x 0.1 cm. Postdebridement measurement is 0.7 x 0.4 x 0.2 cm. EpiFix 18 mm disc was applied to the left heel full-thickness ulceration with 100% use. Seventh application. The graft site was free and clear of any infection. The wound/skin graft substitute was dressed with nonadherent bandage secured in place with Steri-Strips followed by bolster dressing as well as a bilateral 3M dressing for compression control. Musculoskeletal: Muscle strength was deferred. No pain with calf compression. Mild pain on palpation to full-thickness ulceration left heel Debridement Note Debridement Note Debridement Free Text: Excisional debridement down to and including subcutaneous tissue with a number 5 mm dermal curette to the left heel without incident. Predebridement measurement is 0.6 x 0.3 x 0.1 cm. Postdebridement measurement is 0.7 x 0.4 x 0.2 cm. EpiFix 18 mm disc was applied to the left heel full-thickness ulceration with 100% use. Seventh application. The graft site was free and clear of any infection. The wound/skin graft substitute was dressed with nonadherent bandage secured in place with Steri-Strips followed by bolster dressing as well as a bilateral 3M dressing for compression control. Post-Debridement Measurements and Additional Note: Post-Debridement Measurements/Treatment - Nurse 1 - General Ulcer Assessment Start: 06/28/23 14:22 Freq: Status: Active Protocol: TATUM Activity Type Activity Date Activity User E-sign Co-sign Detail Recorded Client Recorded Date Recorded By Document 06/28/23 14:22 [facility] Desktop 06/28/23 14:38 GM Document 07/05/23 14:25 KW Desktop 07/05/23 14:44 KW Document 07/12/23 14:43 [facility] Desktop 07/12/23 14:46 GM 06/28/23 07/05/23 07/12/23 14:22 14:25 14:43 - Today's Visit Information Type of service Follow-up Visit Follow-up Visit Follow-up Visit (Physician/CUSTOMER SUCCESS ADVOCATE (Physician/CUSTOMER SUCCESS ADVOCATE (Physician/CUSTOMER SUCCESS ADVOCATE ) ) ) Arrival Mode Wheelchair Wheelchair Wheelchair Transfer Assistance None None Accompanied by spouse Patient Identification Verified (Name & Yes Yes Yes ) Patient Requires Transmission-Based No No Precautions Safety Precautions NA Height and Weight Body Mass Index (BMI) 43.4 43.4 43.4 BMI Classification Obese Obese Obese Vital Signs Temperature (97.8 F-99.1 F) 97.6 F L 96.9 F L 96.5 F L Temperature Source Temporal Temporal Temporal Pulse Rate (60-100) 65 55 L 61 Pulse Location Monitor Monitor Monitor Respiratory Rate (12-18) 18 18 Respiratory rate source Observation Observation Observation Oxygen Delivery Method Room Air Room Air Room Air Blood Pressure (90/60-120/80) 114/64 126/63 H 115/52 L Blood Pressure Mean (mm Hg) 80 84 73 Source Monitor Monitor Monitor Position Semi-Fowlers Sitting Blood Pressure Location Left Arm Left Arm Left Arm History Since Last Visit- (Skip if this is Patient's initial visit) Have you changed medications since your No No No last visit? Any new allergies or adverse reactions No No No Had a fall/change in ADL's that may No No No increase risk of falls Signs or symptoms of abuse and/or No No No neglect since last visit Have you been in the hospital since your No No last visit? Has dressing in place as prescribed Yes Yes Yes Has compression in place as prescribed Yes Yes Yes Has offloadiing in place as prescribed No No N/A Experienced any changes in pain level or No No No management Left Footwear Regular Shoe Right Footwear Regular Shoe Pain Scale: 0-10 Numeric Is Patient Pain Free? Yes Yes Yes WC - Nurse 1 - General Ulcer Measurement Start: 06/28/23 14:22 Freq: Status: Active Protocol: Activity Type Activity Date Activity User E-sign Co-sign Detail Recorded Client Recorded Date Recorded By Document 06/28/23 14:22 [email or web address] 06/28/23 14:38 Document 07/05/23 14:25 Desktop 07/05/23 14:44 Document 07/12/23 14:43 Desktop 07/12/23 14:46 06/28/23 07/05/23 07/12/23 14:22 14:25 14:43 Wound Center Nurse 1 #2 L Heel -Current Size (cm) - Length 0.9 1.0 1.0 -Current Size (cm) - Width 1.7 1.6 1.0 -Current Size (cm) - Depth 0.1 0.6 0.1 -Total Square Cm 1.53 1.60 1.00 -Photo Taken No -Epithelialization Small 1-33% Small 1-33% -Tunneling No No -Undermining/Tunneling No No -Circular Undermining No No -Exudate Amt Medium Small -Exudate Type Yellow/Green Serosanguineous Serous -Wound Margin Distinct, Distinct, Distinct, Outline Outline Outline Attached Attached Attached -Granulation Amt Small (1-33%) Medium (34-66%) Small (1-33%) -Granulation Quality Pale Pale,Oak Leaf Oak Leaf -Necrosis Amt Medium (34-66%) Medium (34-66%) Small (1-33%) -Necrotic Tissue Type Adherent Slough Adherent Slough Adherent Slough -Structure Exposed N/A N/A -Texture (Allie-wound Skin Appearance) Assessed Assessed Assessed -Moisture (Allie-wound Skin Appearance) Assessed Maceration Assessed -Color (Allie-wound Skin Appearance) Assessed Assessed Assessed -Temperature (Allie-wound Skin No Abnormality No Abnormality No Abnormality Appearance) (Pt Warm) (Pt Warm) (Pt Warm) -Tenderness on Palpation (Allie-wound No Skin Appearance) -Ulcer Cleansing Soap and Water Soap and Water Soap and Water -Foul Odor after Cleansing No No No -Anesthetic Used 5% Lidocaine 5% Lidocaine 5% Lidocaine Gel Gel Gel Lower Limb Edema Present NA Right Calf (cm) 57.0 56.5 60.5 Right Ankle (cm) 33.7 35 35.7 Left Calf (cm) 58.7 55.5 58.5 Left Ankle (cm) 35.5 35 36.5 WC - Nurse 2 - General Ulcer CM Notes Start: 06/28/23 14:22 Freq: Status: Active Protocol: Activity Type Activity Date Activity User E-sign Co-sign Detail Recorded Client Recorded Date Recorded By Document 06/28/23 14:55 Laptop 06/28/23 14:57 Document 07/05/23 15:00 Laptop 07/05/23 15:02 Document 07/12/23 14:52 Laptop 07/12/23 14:57 06/28/23 07/05/23 07/12/23 14:55 15:00 14:52 Wound Center Nurse 2 #2 L Heel -Time 14:55 15:01 14:52 -Correct Patient Yes Yes Yes -Correct Side, Site, Position Yes Yes Yes -Correct Procedure Yes Yes Yes -Procedure Performed Yes Yes Yes -Type of Procedure Debridement Debridement Debridement -Clinical Debridement Subcutaneous Subcutaneous Subcutaneous -Tissue Removed Subcutaneous Subcutaneous Subcutaneous -Post Debridement (cm) - Length 1.2 0.8 0.7 -Post Debridement (cm) - Width 0.6 0.3 0.4 -Post Debridement (cm) - Depth 0.2 0.2 0.2 -Total Square (Post) (cm) 0.72 0.24 0.28 -Area of Debridement (cm) - Length 1.2 0.8 0.7 -Area of Debridement (cm) - Width 0.6 0.3 0.4 -Total Square (Area) (cm) 0.72 0.24 0.28 -Tunneling No No No -Undermining/Tunneling No No No -Circular Undermining No No No -Wound/Ulcer Outcome Not Healed Not Healed Not Healed -Ulcer Cleansing Rinsed/ Rinsed/ Rinsed/ Irrigated with Irrigated with Irrigated with Saline Saline Saline -Foul Odor after Cleansing No No No -Bioengineered Tissue Yes Yes Yes -Type of Bioengineered Tissue Epifix 18mm Epifix 18mm Epifix 18mm Disc Disc Disc -Expiration Date 02/25/28 02/25/28 02/25/28 -Product Lot Number [id number] -Percent Used 100 100 100 -Lot number of Saline Used [id number] -Bleeding Controlled with Pressure Pressure Pressure -Treatment Response Procedure Procedure Procedure Tolerated Well Tolerated Well Tolerated Well -Offloading No No No -Debridement - Subq, 1st 20sq cm No No No -Apply Skin Sub - 1st 25 sq cm - Feet 1 1 1 -Epifix 18mm Disc 3 3 3 Pain Scale: 0-10 Numeric Is Patient Pain Free? Yes Yes Yes WC - Nurse 3 - General Ulcer D/C NN Start: 06/28/23 14:22 Freq: Status: Active Protocol: Activity Type Activity Date Activity User E-sign Co-sign Detail Recorded Client Recorded Date Recorded By Document 06/28/23 15:19 Desktop 06/28/23 15:20 Document 07/05/23 15:14 [facility] Desktop 07/05/23 15:15 [facility] 06/28/23 07/05/23 15:19 15:14 Wound Care Center Nurse 3 #2 L Heel -Ulcer Cleansing Not Cleansed -Foul Odor after Cleansing No -Negative Pressure Wound Therapy N/A -Primary Dressing Applied Optilok 6.5x10 -Other Dressing epifix, superabsorber, per kw daycare provider -Primary Dressing Covered/Secured with Dry Gauze & Dry Gauze & Roll Gauze, Roll Gauze, Secured with Secured with Tape Tape -Optilok 6.5x10 1 ble -Multi-Layered Wrap Application Multi-Layer Comp - Bilat ($ ) Left -Multi-Layered Wrap Application Multi-Layer Comp - Bilat ($ ) -Stockings No -Other it took 3 for both legs Treatment Response Procedure Tolerated Well Pain Scale: 0-10 Numeric Is Patient Pain Free? Yes Yes Teaching: Wound Center Dressing Your Wound -Person Taught Patient,Family -Teaching Method Discussion -Response to teaching Verbalize understanding WC - Visit Discharge Discharge Condition Stable Stable Ambulatory Status Wheelchair Wheelchair Transportation Private Auto Private Auto Accompanied by Medication Reconcilliation completed & Yes provided to patient/care provider Clinical Summary of Care Provided Yes Assessment/Plan Assessment/Plan (1) Non-pressure chronic ulcer of left heel and midfoot with fat layer exposed: CODE(S): L97.422 - Non-pressure chronic ulcer of left heel and midfoot with fat layer exposed PLAN: Patient was examined and evaluated. All findings were discussed with the patient. All questions were answered to the patient's satisfaction. Excisional debridement down to and including subcutaneous tissue with a number 5 mm dermal curette to the left heel without incident. Predebridement measurement is 0.6 x 0.3 x 0.1 cm. Postdebridement measurement is 0.7 x 0.4 x 0.2 cm. EpiFix 18 mm disc was applied to the left heel full-thickness ulceration with 100% use. Seventh application. The graft site was free and clear of any infection. The wound/skin graft substitute was dressed with nonadherent bandage secured in place with Steri-Strips followed by bolster dressing as well as a bilateral 3M dressing for compression control. Follow-up at the wound care center with Dr. Castañeda in 1 week. (2) Type 2 diabetes mellitus with peripheral neuropathy: CODE(S): E11.42 - Type 2 diabetes mellitus with diabetic polyneuropathy (3) Lymphedema: CODE(S): I89.0 - Lymphedema, not elsewhere classified
[2023-07-19 14:33] VITALS: BP 126/62; PULSE 71; RESP 16; TEMP 36; BMI 43.4
--- NOTE | 2023-07-19 21:34 | PCM.WC.PN ---
History of Present Illness Date of Service: 07/19/23 Chief Complaint: Left heel ulcer History of Wound: Patient presents to the wound care center today on 05/17/2023 for follow-up evaluation of left heel ulcer. Patient was discharged from the hospital on oral antibiotics she has been nonweightbearing to the left heel. She denies any pain drainage trauma constitutional symptoms. No other pedal complaints at this time. Subjective Subjective Mrs. Read is a 72-year-old diabetic female presenting to the wound care center today for follow-up evaluation for left heel wound with graft application. Patient has left her bilateral 3M compression leg dressings clean dry and intact. She has kept her blood sugar well-controlled. She denies trauma. Denies constitutional symptoms. No other pedal complaints at this time. Objective Data Objective Data Vital Signs: Vital Signs Temp Pulse Resp BP O2 Del Method 96.8 F L 71 16 126/62 H Room Air 07/19/23 14:33 07/19/23 14:33 07/19/23 14:33 07/19/23 14:33 07/19/23 14:33 Oxygen Delivery Method Room Air Weight: 129.418 kg Body Mass Index (BMI) 43.4 Physical Exam Narrative Vascular: DP and PT pulse are faintly palpable secondary to lymphedema. CFT is brisk. +2 pitting edema to bilateral lower extremity. No erythema or proximal streaking is noted. Skin temperature great is warm to warm from proximal ankle to distal digits. Neurological: Light touch intact. Protective sensation is diminished. Dermatological: Full-thickness ulceration with fat exposed to the left heel, measuring 0.4 x 0.7 x 0.2 cm. Wound base is fibrogranular nature. There is no erythema, drainage, probe to bone or sign of infection at this time. Excisional debridement down to and including subcutaneous tissue with a number 5 mm dermal curette to the left heel without incident. Predebridement measurement is 0.3 x 0.6 x 0.1 cm. Postdebridement measurement is 0.4 x 0.7 x 0.2 cm. EpiFix 18 mm disc was applied to the left heel full-thickness ulceration with 100% use. Eight application. The graft site was free and clear of any infection. The wound/skin graft substitute was dressed with nonadherent bandage secured in place with Steri-Strips followed by bolster dressing as well as a bilateral 3M dressing for compression control. Musculoskeletal: Muscle strength was deferred. No pain with calf compression. Mild pain on palpation to full-thickness ulceration left heel Debridement Note Debridement Note Debridement Free Text: Excisional debridement down to and including subcutaneous tissue with a number 5 mm dermal curette to the left heel without incident. Predebridement measurement is 0.3 x 0.6 x 0.1 cm. Postdebridement measurement is 0.4 x 0.7 x 0.2 cm. EpiFix 18 mm disc was applied to the left heel full-thickness ulceration with 100% use. Eight application. The graft site was free and clear of any infection. The wound/skin graft substitute was dressed with nonadherent bandage secured in place with Steri-Strips followed by bolster dressing as well as a bilateral 3M dressing for compression control. Post-Debridement Measurements and Additional Note: Post-Debridement Measurements/Treatment - Nurse 1 - General Ulcer Assessment Start: 06/28/23 14:22 Freq: Status: Active Protocol: TATUM Activity Type Activity Date Activity User E-sign Co-sign Detail Recorded Client Recorded Date Recorded By Document 06/28/23 14:22 Anita Margarita Desktop 06/28/23 14:38 GM Document 07/05/23 14:25 KW Desktop 07/05/23 14:44 KW Document 07/12/23 14:43 Desktop 07/12/23 14:46 GM Document 07/19/23 14:33 BM Desktop 07/19/23 14:37 BMF 06/28/23 07/05/23 07/12/23 14:22 14:25 14:43 - Today's Visit Information Type of service Follow-up Visit Follow-up Visit Follow-up Visit (Physician/YEAST CULTURE DEVELOPER (Physician/YEAST CULTURE DEVELOPER (Physician/YEAST CULTURE DEVELOPER ) ) ) Arrival Mode Wheelchair Wheelchair Wheelchair Transfer Assistance None None Accompanied by spouse Patient Identification Verified (Name & Yes Yes Yes ) Patient Requires Transmission-Based No No Precautions Safety Precautions NA Height and Weight Body Mass Index (BMI) 43.4 43.4 43.4 BMI Classification Obese Obese Obese Vital Signs Temperature (97.8 F-99.1 F) 97.6 F L 96.9 F L 96.5 F L Temperature Source Temporal Temporal Temporal Pulse Rate (60-100) 65 55 L 61 Pulse Location Monitor Monitor Monitor Respiratory Rate (12-18) 18 18 Respiratory rate source Observation Observation Observation Oxygen Delivery Method Room Air Room Air Room Air Blood Pressure (90/60-120/80) 114/64 126/63 H 115/52 L Blood Pressure Mean (mm Hg) 80 84 73 Source Monitor Monitor Monitor Position Semi-Fowlers Sitting Blood Pressure Location Left Arm Left Arm Left Arm History Since Last Visit- (Skip if this is Patient's initial visit) Have you changed medications since your No No No last visit? Any new allergies or adverse reactions No No No Had a fall/change in ADL's that may No No No increase risk of falls Signs or symptoms of abuse and/or No No No neglect since last visit Have you been in the hospital since your No No last visit? Has dressing in place as prescribed Yes Yes Yes Has compression in place as prescribed Yes Yes Yes Has offloadiing in place as prescribed No No N/A Experienced any changes in pain level or No No No management Left Footwear Regular Shoe Right Footwear Regular Shoe Other Footwear Pain Scale: 0-10 Numeric Is Patient Pain Free? Yes Yes Yes 07/19/23 14:33 WC - Today's Visit Information Type of service Follow-up Visit (Physician/YEAST CULTURE DEVELOPER ) Arrival Mode Wheelchair Transfer Assistance None Accompanied by Patient Identification Verified (Name & Yes ) Patient Requires Transmission-Based No Precautions Safety Precautions Height and Weight Body Mass Index (BMI) 43.4 BMI Classification Obese Vital Signs Temperature (97.8 F-99.1 F) 96.8 F L Temperature Source Temporal Pulse Rate (60-100) 71 Pulse Location Monitor Respiratory Rate (12-18) 16 Respiratory rate source Observation Oxygen Delivery Method Room Air Blood Pressure (90/60-120/80) 126/62 H Blood Pressure Mean (mm Hg) 83 Source Monitor Position Sitting Blood Pressure Location Left Forearm History Since Last Visit- (Skip if this is Patient's initial visit) Have you changed medications since your No last visit? Any new allergies or adverse reactions No Had a fall/change in ADL's that may No increase risk of falls Signs or symptoms of abuse and/or No neglect since last visit Have you been in the hospital since your No last visit? Has dressing in place as prescribed Yes Has compression in place as prescribed N/A Has offloadiing in place as prescribed N/A Experienced any changes in pain level or No management Left Footwear Regular Shoe Right Footwear Regular Shoe Other Footwear REMOVED WRAPS TO SHOWER PRIOR TO VISIT Pain Scale: 0-10 Numeric Is Patient Pain Free? Yes WC - Nurse 1 - General Ulcer Measurement Start: 06/28/23 14:22 Freq: Status: Active Protocol: Activity Type Activity Date Activity User E-sign Co-sign Detail Recorded Client Recorded Date Recorded By Document 06/28/23 14:22 GM Desktop 06/28/23 14:38 GM Document 07/05/23 14:25 KW Desktop 07/05/23 14:44 KW Document 07/12/23 14:43 GM Desktop 07/12/23 14:46 GM Document 07/19/23 14:33 BMF Desktop 07/19/23 14:37 BMF 06/28/23 07/05/23 07/12/23 14:22 14:25 14:43 Wound Center Nurse 1 #2 L Heel -Combined with other wound -Current Size (cm) - Length 0.9 1.0 1.0 -Current Size (cm) - Width 1.7 1.6 1.0 -Current Size (cm) - Depth 0.1 0.6 0.1 -Total Square Cm 1.53 1.60 1.00 -Date of Last Picture (Recall this field) -Photo Taken No -Epithelialization Small 1-33% Small 1-33% -Tunneling No No -Undermining/Tunneling No No -Undermining/Tunneling Starts (O'clock ) -Undermining/Tunneling Ends (O'clock) -Maximum Distance (cm) -Circular Undermining No No -Exudate Amt Medium Small -Exudate Type Yellow/Green Serosanguineous Serous -Wound Margin Distinct, Distinct, Distinct, Outline Outline Outline Attached Attached Attached -Granulation Amt Small (1-33%) Medium (34-66%) Small (1-33%) -Granulation Quality Pale Pale,[place] -Slough/Fibrin -Necrosis Amt Medium (34-66%) Medium (34-66%) Small (1-33%) -Necrotic Tissue Type Adherent Slough Adherent Slough Adherent Slough -Structure Exposed N/A N/A -Texture (Allie-wound Skin Appearance) Assessed Assessed Assessed -Moisture (Allie-wound Skin Appearance) Assessed Maceration Assessed -Color (Allie-wound Skin Appearance) Assessed Assessed Assessed -Temperature (Allie-wound Skin No Abnormality No Abnormality No Abnormality Appearance) (Pt Warm) (Pt Warm) (Pt Warm) -Tenderness on Palpation (Allie-wound No Skin Appearance) -Ulcer Cleansing Soap and Water Soap and Water Soap and Water -Foul Odor after Cleansing No No No -Anesthetic Used 5% Lidocaine 5% Lidocaine 5% Lidocaine Gel Gel Gel Lower Limb Edema Present NA Right Calf (cm) 57.0 56.5 60.5 Right Ankle (cm) 33.7 35 35.7 Left Calf (cm) 58.7 55.5 58.5 Left Ankle (cm) 35.5 35 36.5 07/19/23 14:33 Wound Center Nurse 1 #2 L Heel -Combined with other wound No -Current Size (cm) - Length 0.6 -Current Size (cm) - Width 0.8 -Current Size (cm) - Depth 0.6 -Total Square Cm 0.48 -Date of Last Picture (Recall this 07/19/23 field) -Photo Taken Yes -Epithelialization -Tunneling No -Undermining/Tunneling Yes -Undermining/Tunneling Starts (O'clock 12 ) -Undermining/Tunneling Ends (O'clock) 12 -Maximum Distance (cm) 0.3 -Circular Undermining Yes -Exudate Amt Medium -Exudate Type Serosanguineous -Wound Margin Distinct, Outline Attached -Granulation Amt Medium (34-66%) -Granulation Quality [place] -Slough/Fibrin Yes -Necrosis Amt Medium (34-66%) -Necrotic Tissue Type Adherent Slough -Structure Exposed -Texture (Allie-wound Skin Appearance) Assessed, Scarring -Moisture (Allie-wound Skin Appearance) Assessed, Maceration -Color (Allie-wound Skin Appearance) Assessed -Temperature (Allie-wound Skin No Abnormality Appearance) (Pt Warm) -Tenderness on Palpation (Allie-wound No Skin Appearance) -Ulcer Cleansing Soap and Water -Foul Odor after Cleansing No -Anesthetic Used 5% Lidocaine Gel Lower Limb Edema Present Yes Right Calf (cm) 56 Right Ankle (cm) 34.5 Left Calf (cm) 55.5 Left Ankle (cm) 33.4 WC - Nurse 2 - General Ulcer CM Notes Start: 06/28/23 14:22 Freq: Status: Active Protocol: Activity Type Activity Date Activity User E-sign Co-sign Detail Recorded Client Recorded Date Recorded By Document 06/28/23 14:55 Laptop 06/28/23 14:57 Document 07/05/23 15:00 Laptop 07/05/23 15:02 Document 07/12/23 14:52 Laptop 07/12/23 14:57 Document 07/19/23 15:15 Laptop 07/19/23 15:20 06/28/23 07/05/23 07/12/23 14:55 15:00 14:52 Wound Center Nurse 2 #2 L Heel -Time 14:55 15:01 14:52 -Correct Patient Yes Yes Yes -Correct Side, Site, Position Yes Yes Yes -Correct Procedure Yes Yes Yes -Procedure Performed Yes Yes Yes -Type of Procedure Debridement Debridement Debridement -Clinical Debridement Subcutaneous Subcutaneous Subcutaneous -Tissue Removed Subcutaneous Subcutaneous Subcutaneous -Post Debridement (cm) - Length 1.2 0.8 0.7 -Post Debridement (cm) - Width 0.6 0.3 0.4 -Post Debridement (cm) - Depth 0.2 0.2 0.2 -Total Square (Post) (cm) 0.72 0.24 0.28 -Area of Debridement (cm) - Length 1.2 0.8 0.7 -Area of Debridement (cm) - Width 0.6 0.3 0.4 -Total Square (Area) (cm) 0.72 0.24 0.28 -Tunneling No No No -Undermining/Tunneling No No No -Circular Undermining No No No -Wound/Ulcer Outcome Not Healed Not Healed Not Healed -Ulcer Cleansing Rinsed/ Rinsed/ Rinsed/ Irrigated with Irrigated with Irrigated with Saline Saline Saline -Foul Odor after Cleansing No No No -Bioengineered Tissue Yes Yes Yes -Type of Bioengineered Tissue -Type of Bioengineered Tissue Epifix 18mm Epifix 18mm Epifix 18mm Disc Disc Disc -Expiration Date 02/25/28 02/25/28 02/25/28 -Product Lot Number [id number] -Percent Used 100 100 100 -Lot number of Saline Used [id number] -Bleeding Controlled with Pressure Pressure Pressure -Treatment Response Procedure Procedure Procedure Tolerated Well Tolerated Well Tolerated Well -Offloading No No No -Debridement - Subq, 1st 20sq cm No No No -Apply Skin Sub - 1st 25 sq cm - Feet 1 1 1 -Epifix 18mm Disc 3 3 3 Pain Scale: 0-10 Numeric Is Patient Pain Free? Yes Yes Yes 07/19/23 15:15 Wound Center Nurse 2 #2 L Heel -Time 15:19 -Correct Patient Yes -Correct Side, Site, Position Yes -Correct Procedure Yes -Procedure Performed Yes -Type of Procedure Debridement -Clinical Debridement Subcutaneous -Tissue Removed Subcutaneous -Post Debridement (cm) - Length 0.4 -Post Debridement (cm) - Width 0.7 -Post Debridement (cm) - Depth 0.2 -Total Square (Post) (cm) 0.28 -Area of Debridement (cm) - Length 0.4 -Area of Debridement (cm) - Width 0.7 -Total Square (Area) (cm) 0.28 -Tunneling No -Undermining/Tunneling No -Circular Undermining No -Wound/Ulcer Outcome Not Healed -Ulcer Cleansing Rinsed/ Irrigated with Saline -Foul Odor after Cleansing No -Bioengineered Tissue Yes -Type of Bioengineered Tissue Epifix 18mm Disc -Type of Bioengineered Tissue -Expiration Date 02/25/28 -Product Lot Number [id number] -Percent Used 100 -Lot number of Saline Used [id number] -Bleeding Controlled with Pressure -Treatment Response Procedure Tolerated Well -Offloading No -Debridement - Subq, 1st 20sq cm No -Apply Skin Sub - 1st 25 sq cm - Feet 1 -Epifix 18mm Disc 3 Pain Scale: 0-10 Numeric Is Patient Pain Free? Yes - Nurse 3 - General Ulcer D/C NN Start: 06/28/23 14:22 Freq: Status: Active Protocol: Activity Type Activity Date Activity User E-sign Co-sign Detail Recorded Client Recorded Date Recorded By Document 06/28/23 15:19 Desktop 06/28/23 15:20 Document 07/05/23 15:14 [facility] Desktop 07/05/23 15:15 [facility] Document 07/12/23 15:13 Desktop 01/17/24 15:13 GM Document 07/19/23 15:25 GM Desktop 07/19/23 15:26 GM 06/28/23 07/05/23 07/12/23 15:19 15:14 15:13 Wound Care Center Nurse 3 #2 L Heel -Ulcer Cleansing Not Cleansed Not Cleansed -Foul Odor after Cleansing No No -Negative Pressure Wound Therapy N/A -Primary Dressing Applied Optilok 6.5x10 -Other Dressing epifix, superabsorber, per kw metal sprayer protective coating -Primary Dressing Covered/Secured with Dry Gauze & Dry Gauze & Dry Gauze,Dry Roll Gauze, Roll Gauze, Gauze & Roll Secured with Secured with Gauze,Secured Tape Tape with Tape -Optilok 6.5x10 1 ble -Lotion applied to leg before No compression wrap -Multi-Layered Wrap Application Multi-Layer Multi-Layer Comp - Bilat ($ Comp - Bilat ($ ) ) -Stockings Left -Multi-Layered Wrap Application Multi-Layer Comp - Bilat ($ ) -Stockings No -Other it took 3 for both legs Treatment Response Procedure Tolerated Well Pain Scale: 0-10 Numeric Is Patient Pain Free? Yes Yes Yes Teaching: Wound Center Dressing Your Wound -Person Taught Patient,Family Patient -Teaching Method Discussion Discussion -Response to teaching Verbalize Verbalize understanding understanding WC - Visit Discharge Discharge Condition Stable Stable Ambulatory Status Wheelchair Wheelchair Ambulatory, Walker Transportation Private Auto Private Auto Private Auto Accompanied by Medication Reconcilliation completed & Yes Yes provided to patient/care provider Clinical Summary of Care Provided Yes Yes 07/19/23 15:25 Wound Care Center Nurse 3 #2 L Heel -Ulcer Cleansing Not Cleansed -Foul Odor after Cleansing -Negative Pressure Wound Therapy N/A -Primary Dressing Applied -Other Dressing -Primary Dressing Covered/Secured with Dry Gauze,Dry Gauze & Roll Gauze,Secured with Tape -Optilok 6.5x10 ble -Lotion applied to leg before Yes compression wrap -Multi-Layered Wrap Application Multi-Layer Comp - Bilat ($ ) -Stockings No Left -Multi-Layered Wrap Application -Stockings -Other Treatment Response Pain Scale: 0-10 Numeric Is Patient Pain Free? Yes Teaching: Wound Center Dressing Your Wound -Person Taught Patient -Teaching Method Discussion -Response to teaching Verbalize understanding WC - Visit Discharge Discharge Condition Stable Ambulatory Status Wheelchair Transportation Private Auto Accompanied by Medication Reconcilliation completed & Yes provided to patient/care provider Clinical Summary of Care Provided Yes Assessment/Plan Assessment/Plan (1) Non-pressure chronic ulcer of left heel and midfoot with fat layer exposed: CODE(S): L97.422 - Non-pressure chronic ulcer of left heel and midfoot with fat layer exposed PLAN: Patient was examined and evaluated. All findings were discussed with the patient. All questions were answered to the patient satisfaction. Excisional debridement down to and including subcutaneous tissue with a number 5 mm dermal curette to the left heel without incident. Predebridement measurement is 0.3 x 0.6 x 0.1 cm. Postdebridement measurement is 0.4 x 0.7 x 0.2 cm. EpiFix 18 mm disc was applied to the left heel full-thickness ulceration with 100% use. Eight application. The graft site was free and clear of any infection. The wound/skin graft substitute was dressed with nonadherent bandage secured in place with Steri-Strips followed by bolster dressing as well as a bilateral 3M dressing for compression control. Patient will follow-up with Dr. Castañeda at the wound care center in 1 week. (2) Lymphedema: CODE(S): I89.0 - Lymphedema, not elsewhere classified
[2023-07-26 15:03] VITALS: BP 121/67; PULSE 69; RESP 18; BMI 43.4
--- NOTE | 2023-07-26 16:07 | PCM.WC.PN ---
History of Present Illness Date of Service: 07/26/23 Chief Complaint: Left heel ulcer History of Wound: Patient presents to the wound care center today on 05/17/2023 for follow-up evaluation of left heel ulcer. Patient was discharged from the hospital on oral antibiotics she has been nonweightbearing to the left heel. She denies any pain drainage trauma constitutional symptoms. No other pedal complaints at this time. Subjective Subjective Mrs. Read is a 72-year-old diabetic female presenting to the wound care center today for follow-up evaluation for left heel wound with graft application. Patient has left her bilateral 3M compression leg dressings clean dry and intact. She has kept her blood sugar well-controlled. She denies trauma. Denies constitutional symptoms. No other pedal complaints at this time. Objective Data Objective Data Vital Signs: Vital Signs Temp Pulse Resp BP O2 Del Method 96.8 F L 69 18 121/67 H Room Air 07/19/23 14:33 07/26/23 15:03 07/26/23 15:03 07/26/23 15:03 07/26/23 15:03 Oxygen Delivery Method Room Air Weight: 129.418 kg Body Mass Index (BMI) 43.4 Physical Exam Narrative Vascular: DP and PT pulse are faintly palpable secondary to lymphedema. CFT is brisk. +2 pitting edema to bilateral lower extremity. No erythema or proximal streaking is noted. Skin temperature great is warm to warm from proximal ankle to distal digits. Neurological: Light touch intact. Protective sensation is diminished. Dermatological: Full-thickness ulceration with fat exposed to the left heel, measuring 0.7 x 1.3 x 0.2 cm. Wound base is fibrogranular nature. There is no erythema, drainage, probe to bone or sign of infection at this time. Excisional debridement down to and including subcutaneous tissue with a number 5 mm dermal curette to the left heel without incident. Predebridement measurement is 0.6 x 1.0 x 0.1 cm. Postdebridement measurement is 0.7 x 1.3 x 0.2 cm. EpiFix 18 mm disc was applied to the left heel full-thickness ulceration with 100% use. Chula application. The graft site was free and clear of any infection. The wound/skin graft substitute was dressed with nonadherent bandage secured in place with Steri-Strips followed by bolster dressing as well as a bilateral 3M dressing for compression control. Musculoskeletal: Muscle strength was deferred. No pain with calf compression. Mild pain on palpation to full-thickness ulceration left heel Debridement Note Debridement Note Debridement Free Text: Excisional debridement down to and including subcutaneous tissue with a number 5 mm dermal curette to the left heel without incident. Predebridement measurement is 0.6 x 1.0 x 0.1 cm. Postdebridement measurement is 0.7 x 1.3 x 0.2 cm. EpiFix 18 mm disc was applied to the left heel full-thickness ulceration with 100% use. Chula application. The graft site was free and clear of any infection. The wound/skin graft substitute was dressed with nonadherent bandage secured in place with Steri-Strips followed by bolster dressing as well as a bilateral 3M dressing for compression control. Post-Debridement Measurements and Additional Note: Post-Debridement Measurements/Treatment - Nurse 1 - General Ulcer Assessment Start: 06/28/23 14:22 Freq: Status: Active Protocol: TATUM Activity Type Activity Date Activity User E-sign Co-sign Detail Recorded Client Recorded Date Recorded By Document 06/28/23 14:22 [employer] Desktop 06/28/23 14:38 Document 07/05/23 14:25 KW Desktop 07/05/23 14:44 KW Document 07/12/23 14:43 Desktop 07/12/23 14:46 Document 07/19/23 14:33 [facility] Desktop 07/19/23 14:37 [facility] Document 07/26/23 15:03 KW Desktop 07/26/23 15:17 KW 06/28/23 07/05/23 07/12/23 14:22 14:25 14:43 - Today's Visit Information Type of service Follow-up Visit Follow-up Visit Follow-up Visit (Physician/REGULATORY ANALYST (Physician/REGULATORY ANALYST (Physician/REGULATORY ANALYST ) ) ) Arrival Mode Wheelchair Wheelchair Wheelchair Transfer Assistance None None Transfer Assist (Other) Accompanied by spouse Patient Identification Verified (Name & Yes Yes Yes ) Patient Requires Transmission-Based No No Precautions Safety Precautions NA Height and Weight Body Mass Index (BMI) 43.4 43.4 43.4 BMI Classification Obese Obese Obese Vital Signs Temperature (97.8 F-99.1 F) 97.6 F L 96.9 F L 96.5 F L Temperature Source Temporal Temporal Temporal Pulse Rate (60-100) 65 55 L 61 Pulse Location Monitor Monitor Monitor Respiratory Rate (12-18) 18 18 Respiratory rate source Observation Observation Observation Oxygen Delivery Method Room Air Room Air Room Air Blood Pressure (90/60-120/80) 114/64 126/63 H 115/52 L Blood Pressure Mean (mm Hg) 80 84 73 Source Monitor Monitor Monitor Position Semi-Fowlers Sitting Blood Pressure Location Left Arm Left Arm Left Arm History Since Last Visit- (Skip if this is Patient's initial visit) Have you changed medications since your No No No last visit? Any new allergies or adverse reactions No No No Had a fall/change in ADL's that may No No No increase risk of falls Signs or symptoms of abuse and/or No No No neglect since last visit Have you been in the hospital since your No No last visit? Has dressing in place as prescribed Yes Yes Yes Has compression in place as prescribed Yes Yes Yes Has offloadiing in place as prescribed No No N/A Experienced any changes in pain level or No No No management Left Footwear Regular Shoe Right Footwear Regular Shoe Other Footwear Pain Scale: 0-10 Numeric Is Patient Pain Free? Yes Yes Yes LT heel -Description -Intensity -Alleviating Factors/Interventions 07/19/23 07/26/23 14:33 15:03 WC - Today's Visit Information Type of service Follow-up Visit Follow-up Visit (Physician/REGULATORY ANALYST (Physician/REGULATORY ANALYST ) ) Arrival Mode Wheelchair Wheelchair Transfer Assistance None Transfer Assist (Other) - [place] Accompanied by Patient Identification Verified (Name & Yes Yes ) Patient Requires Transmission-Based No Precautions Safety Precautions Height and Weight Body Mass Index (BMI) 43.4 43.4 BMI Classification Obese Obese Vital Signs Temperature (97.8 F-99.1 F) 96.8 F L Temperature Source Temporal Pulse Rate (60-100) 71 69 Pulse Location Monitor Monitor Respiratory Rate (12-18) 16 18 Respiratory rate source Observation Observation Oxygen Delivery Method Room Air Room Air Blood Pressure (90/60-120/80) 126/62 H 121/67 H Blood Pressure Mean (mm Hg) 83 85 Source Monitor Monitor Position Sitting Sitting Blood Pressure Location Left Forearm Right Arm History Since Last Visit- (Skip if this is Patient's initial visit) Have you changed medications since your No Yes last visit? Any new allergies or adverse reactions No No Had a fall/change in ADL's that may No No increase risk of falls Signs or symptoms of abuse and/or No No neglect since last visit Have you been in the hospital since your No No last visit? Has dressing in place as prescribed Yes Yes Has compression in place as prescribed N/A No Has offloadiing in place as prescribed N/A No Experienced any changes in pain level or No No management Left Footwear Regular Shoe Regular Shoe Right Footwear Regular Shoe Regular Shoe Other Footwear REMOVED WRAPS TO SHOWER PRIOR TO VISIT Pain Scale: 0-10 Numeric Is Patient Pain Free? Yes Yes LT heel -Description Throbbing -Intensity 6 -Alleviating Factors/Interventions Medication WC - Nurse 1 - General Ulcer Measurement Start: 06/28/23 14:22 Freq: Status: Active Protocol: Activity Type Activity Date Activity User E-sign Co-sign Detail Recorded Client Recorded Date Recorded By Document 06/28/23 14:22 [facility] [employer] 06/28/23 14:38 Document 07/05/23 14:25 [employer] 07/05/23 14:44 [facility] [employer] Document 07/12/23 14:43 [employer] 07/12/23 14:46 Document 07/19/23 14:33 [facility] Desktop 07/19/23 14:37 [facility] Document 07/26/23 15:03 KW Desktop 07/26/23 15:17 KW 06/28/23 07/05/23 07/12/23 14:22 14:25 14:43 Wound Center Nurse 1 #2 L Heel -Combined with other wound -Current Size (cm) - Length 0.9 1.0 1.0 -Current Size (cm) - Width 1.7 1.6 1.0 -Current Size (cm) - Depth 0.1 0.6 0.1 -Total Square Cm 1.53 1.60 1.00 -Date of Last Picture (Recall this field) -Photo Taken No -Epithelialization Small 1-33% Small 1-33% -Tunneling No No -Undermining/Tunneling No No -Undermining/Tunneling Starts (O'clock ) -Undermining/Tunneling Ends (O'clock) -Maximum Distance (cm) -Circular Undermining No No -Exudate Amt Medium Small -Exudate Type Yellow/Green Serosanguineous Serous -Wound Margin Distinct, Distinct, Distinct, Outline Outline Outline Attached Attached Attached -Granulation Amt Small (1-33%) Medium (34-66%) Small (1-33%) -Granulation Quality Pale Pale,[place] -Slough/Fibrin -Necrosis Amt Medium (34-66%) Medium (34-66%) Small (1-33%) -Necrotic Tissue Type Adherent Slough Adherent Slough Adherent Slough -Structure Exposed N/A N/A -Texture (Allie-wound Skin Appearance) Assessed Assessed Assessed -Moisture (Allie-wound Skin Appearance) Assessed Maceration Assessed -Color (Allie-wound Skin Appearance) Assessed Assessed Assessed -Temperature (Allie-wound Skin No Abnormality No Abnormality No Abnormality Appearance) (Pt Warm) (Pt Warm) (Pt Warm) -Tenderness on Palpation (Allie-wound No Skin Appearance) -Ulcer Cleansing Soap and Water Soap and Water Soap and Water -Foul Odor after Cleansing No No No -Anesthetic Used 5% Lidocaine 5% Lidocaine 5% Lidocaine Gel Gel Gel Lower Limb Edema Present NA Right Calf (cm) 57.0 56.5 60.5 Right Ankle (cm) 33.7 35 35.7 Left Calf (cm) 58.7 55.5 58.5 Left Ankle (cm) 35.5 35 36.5 07/19/23 07/26/23 14:33 15:03 Wound Center Nurse 1 #2 L Heel -Combined with other wound No -Current Size (cm) - Length 0.6 0.3 -Current Size (cm) - Width 0.8 0.9 -Current Size (cm) - Depth 0.6 0.3 -Total Square Cm 0.48 0.27 -Date of Last Picture (Recall this 07/19/23 field) -Photo Taken Yes -Epithelialization -Tunneling No -Undermining/Tunneling Yes -Undermining/Tunneling Starts (O'clock 12 ) -Undermining/Tunneling Ends (O'clock) 12 -Maximum Distance (cm) 0.3 -Circular Undermining Yes -Exudate Amt Medium Medium -Exudate Type Serosanguineous Serosanguineous -Wound Margin Distinct, Distinct, Outline Outline Attached Attached -Granulation Amt Medium (34-66%) Large (67-100%) -Granulation Quality [place] Red -Slough/Fibrin Yes -Necrosis Amt Medium (34-66%) -Necrotic Tissue Type Adherent Slough -Structure Exposed -Texture (Allie-wound Skin Appearance) Assessed, Assessed Scarring -Moisture (Allie-wound Skin Appearance) Assessed, Assessed Maceration -Color (Allie-wound Skin Appearance) Assessed -Temperature (Allie-wound Skin No Abnormality No Abnormality Appearance) (Pt Warm) (Pt Warm) -Tenderness on Palpation (Allie-wound No No Skin Appearance) -Ulcer Cleansing Soap and Water -Foul Odor after Cleansing No -Anesthetic Used 5% Lidocaine 5% Lidocaine Gel Gel Lower Limb Edema Present Yes Right Calf (cm) 56 60.8 Right Ankle (cm) 34.5 35.7 Left Calf (cm) 55.5 59.6 Left Ankle (cm) 33.4 34.5 WC - Nurse 2 - General Ulcer CM Notes Start: 06/28/23 14:22 Freq: Status: Active Protocol: Activity Type Activity Date Activity User E-sign Co-sign Detail Recorded Client Recorded Date Recorded By Document 06/28/23 14:55 [employer] 06/28/23 14:57 [employer] Document 07/05/23 15:00 [employer] 07/05/23 15:02 Document 07/12/23 14:52 [employer] 07/12/23 14:57 Document 07/19/23 15:15 [facility] [employer]aptop 07/19/23 15:20 Document 07/26/23 15:33 [employer] 07/26/23 15:38 06/28/23 07/05/23 07/12/23 14:55 15:00 14:52 Wound Center Nurse 2 #2 L Heel -Time 14:55 15:01 14:52 -Correct Patient Yes Yes Yes -Correct Side, Site, Position Yes Yes Yes -Correct Procedure Yes Yes Yes -Procedure Performed Yes Yes Yes -Type of Procedure Debridement Debridement Debridement -Clinical Debridement Subcutaneous Subcutaneous Subcutaneous -Tissue Removed Subcutaneous Subcutaneous Subcutaneous -Post Debridement (cm) - Length 1.2 0.8 0.7 -Post Debridement (cm) - Width 0.6 0.3 0.4 -Post Debridement (cm) - Depth 0.2 0.2 0.2 -Total Square (Post) (cm) 0.72 0.24 0.28 -Area of Debridement (cm) - Length 1.2 0.8 0.7 -Area of Debridement (cm) - Width 0.6 0.3 0.4 -Total Square (Area) (cm) 0.72 0.24 0.28 -Tunneling No No No -Undermining/Tunneling No No No -Circular Undermining No No No -Wound/Ulcer Outcome Not Healed Not Healed Not Healed -Ulcer Cleansing Rinsed/ Rinsed/ Rinsed/ Irrigated with Irrigated with Irrigated with Saline Saline Saline -Foul Odor after Cleansing No No No -Bioengineered Tissue Yes Yes Yes -Type of Bioengineered Tissue -Type of Bioengineered Tissue Epifix 18mm Epifix 18mm Epifix 18mm Disc Disc Disc -Expiration Date 02/25/28 02/25/28 02/25/28 -Product Lot Number [id number] -Percent Used 100 100 100 -Lot number of Saline Used [id number] -Bleeding Controlled with Pressure Pressure Pressure -Treatment Response Procedure Procedure Procedure Tolerated Well Tolerated Well Tolerated Well -Offloading No No No -Debridement - Subq, 1st 20sq cm No No No -Apply Skin Sub - 1st 25 sq cm - Feet 1 1 1 -Epifix 18mm Disc 3 3 3 Pain Scale: 0-10 Numeric Is Patient Pain Free? Yes Yes Yes 07/19/23 07/26/23 15:15 15:33 Wound Center Nurse 2 #2 L Heel -Time 15:19 15:33 -Correct Patient Yes Yes -Correct Side, Site, Position Yes Yes -Correct Procedure Yes Yes -Procedure Performed Yes Yes -Type of Procedure Debridement Debridement -Clinical Debridement Subcutaneous Subcutaneous -Tissue Removed Subcutaneous Subcutaneous -Post Debridement (cm) - Length 0.4 0.7 -Post Debridement (cm) - Width 0.7 1.3 -Post Debridement (cm) - Depth 0.2 0.2 -Total Square (Post) (cm) 0.28 0.91 -Area of Debridement (cm) - Length 0.4 0.7 -Area of Debridement (cm) - Width 0.7 1.3 -Total Square (Area) (cm) 0.28 0.91 -Tunneling No No -Undermining/Tunneling No No -Circular Undermining No No -Wound/Ulcer Outcome Not Healed Not Healed -Ulcer Cleansing Rinsed/ Rinsed/ Irrigated with Irrigated with Saline Saline -Foul Odor after Cleansing No No -Bioengineered Tissue Yes Yes -Type of Bioengineered Tissue Epifix 18mm Epifix 18mm Disc Disc -Type of Bioengineered Tissue -Expiration Date 02/25/28 02/25/28 -Product Lot Number [id number] -Percent Used 100 100 -Lot number of Saline Used [id number] -Bleeding Controlled with Pressure Pressure -Treatment Response Procedure Procedure Tolerated Well Tolerated Well -Offloading No No -Debridement - Subq, 1st 20sq cm No No -Apply Skin Sub - 1st 25 sq cm - Feet 1 1 -Epifix 18mm Disc 3 3 Pain Scale: 0-10 Numeric Is Patient Pain Free? Yes Yes - Nurse 3 - General Ulcer D/C NN Start: 06/28/23 14:22 Freq: Status: Active Protocol: Activity Type Activity Date Activity User E-sign Co-sign Detail Recorded Client Recorded Date Recorded By Document 06/28/23 15:19 Desktop 06/28/23 15:20 Document 07/05/23 15:14 [facility] Desktop 07/05/23 15:15 [facility] Document 07/12/23 15:13 Desktop 07/12/23 15:13 Document 07/19/23 15:25 Desktop 07/19/23 15:26 Document 07/26/23 15:42 Desktop 07/26/23 15:44 Document 07/26/23 15:55 Desktop 07/26/23 15:56 06/28/23 07/05/23 07/12/23 15:19 15:14 15:13 Wound Care Center Nurse 3 #2 L Heel -Ulcer Cleansing Not Cleansed Not Cleansed -Foul Odor after Cleansing No No -Negative Pressure Wound Therapy N/A -Primary Dressing Applied Optilok 6.5x10 -Other Dressing epifix, superabsorber, 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 Yes Yes Yes Teaching: Wound Center Dressing Your Wound -Person Taught Patient,Family Patient -Teaching Method Discussion Discussion -Response to teaching Verbalize Verbalize understanding understanding WC - Visit Discharge Discharge Condition Stable Stable Ambulatory Status Wheelchair Wheelchair Ambulatory, Walker Transportation Private [employer] Private Auto Accompanied by Medication Reconcilliation completed & Yes Yes provided to patient/care provider Clinical Summary of Care Provided Yes Yes 07/19/23 07/26/23 07/26/23 15:25 15:42 15:55 Wound Care Center Nurse 3 #2 L Heel -Ulcer Cleansing Not Cleansed Not Cleansed Not Cleansed -Foul Odor after Cleansing No -Negative Pressure Wound Therapy N/A -Primary Dressing Applied Optilok 6.5x10 Optilok 6.5x10 -Other Dressing epifix/ superabsorber -Primary Dressing Covered/Secured with Dry Gauze,Dry Dry Gauze & Dry Gauze & Gauze & Roll Roll Gauze, Roll Gauze, Gauze,Secured Secured with Secured with with Tape Tape Tape -Optilok 6.5x10 1 1 ble -Lotion applied to leg before Yes Yes compression wrap -Multi-Layered Wrap Application Multi-Layer Multi-Layer Multi-Layer Comp - Bilat ($ Comp - Bilat ($ Comp - Bilat ($ ) ) ) -Stockings No Left -Multi-Layered Wrap Application -Stockings -Other Treatment Response Procedure Tolerated Well Pain Scale: 0-10 Numeric Is Patient Pain Free? Yes Yes Yes Teaching: Wound Center Dressing Your Wound -Person Taught Patient -Teaching Method Discussion -Response to teaching Verbalize understanding WC - Visit Discharge Discharge Condition Stable Stable Stable Ambulatory Status Wheelchair Ambulatory, Wheelchair Wheelchair Transportation Private Auto [employer] Auto Private Auto Accompanied by Medication Reconcilliation completed & Yes Yes provided to patient/care provider Clinical Summary of Care Provided Yes Yes Assessment/Plan Assessment/Plan (1) Non-pressure chronic ulcer of left heel and midfoot with fat layer exposed: CODE(S): L97.422 - Non-pressure chronic ulcer of left heel and midfoot with fat layer exposed PLAN: Patient was examined and evaluated. All findings were discussed with the patient. All questions were answered to the patient's satisfaction. Excisional debridement down to and including subcutaneous tissue with a number 5 mm dermal curette to the left heel without incident. Predebridement measurement is 0.6 x 1.0 x 0.1 cm. Postdebridement measurement is 0.7 x 1.3 x 0.2 cm. EpiFix 18 mm disc was applied to the left heel full-thickness ulceration with 100% use. [place] application. The graft site was free and clear of any infection. The wound/skin graft substitute was dressed with nonadherent bandage secured in place with Steri-Strips followed by bolster dressing as well as a bilateral 3M dressing for compression control. Follow-up at the wound care center with Dr. Castañeda in 1 week. (2) Type 2 diabetes mellitus with peripheral neuropathy: CODE(S): E11.42 - Type 2 diabetes mellitus with diabetic polyneuropathy (3) Lymphedema: CODE(S): I89.0 - Lymphedema, not elsewhere classified
== END 2023-07-26 23:59 | disposition home or self-care (01) ==
LOC: WC 15:00
PROVIDERS: PCP Internal Medicine; Referring Provider Podiatrist Foot & Ankle Surgery; Visit Provider Podiatrist Foot & Ankle Surgery
DX: E11.621 Type 2 diabetes mellitus with foot ulcer (principal); L97.422 Non-pressure chronic ulcer of left heel and midfoot with fat layer exposed; E11.42 Type 2 diabetes mellitus with diabetic polyneuropathy; A04.72 Enterocolitis due to Clostridium difficile, not specified as recurrent; I89.0 Lymphedema, not elsewhere classified
CPT/HCPCS: 15275; 29581; Q4186

== ENCOUNTER 2023-08-16 15:00 | Outpatient (RCR) | payer MEDICARE, SELFPAY ==
[2023-07-27 00:21] VITALS: BP 121/67; PULSE 69; RESP 18; TEMP 36; BMI 43.4
[2023-08-02 14:58] VITALS: BP 116/60; PULSE 74; RESP 22; TEMP 37.1; BMI 43.4
--- NOTE | 2023-08-02 16:01 | PN.PCM_ITS ---
History of Present Illness Date of Service: 08/02/23 Chief Complaint: Left heel ulcer History of Wound: Patient presents to the wound care center today on 05/17/2023 for follow-up evaluation of left heel ulcer. Patient was discharged from the hospital on oral antibiotics she has been nonweightbearing to the left heel. She denies any pain drainage trauma constitutional symptoms. No other pedal complaints at this time. Subjective Subjective Mrs. Read is a 72-year-old diabetic female presenting to the wound care center today for follow-up evaluation for left heel wound with graft application. Patient has left her bilateral 3M compression leg dressings clean dry and intact. She has kept her blood sugar well-controlled. She denies trauma. Denies constitutional symptoms. No other pedal complaints at this time. Objective Data Objective Data Vital Signs: Vital Signs Temp Pulse Resp BP 98.8 F 74 22 H 116/60 08/02/23 14:58 08/02/23 14:58 08/02/23 14:58 08/02/23 14:58 Weight: 129.418 kg Body Mass Index (BMI) 43.4 Physical Exam Narrative Vascular: DP and PT pulse are faintly palpable secondary to lymphedema. CFT is brisk. +2 pitting edema to bilateral lower extremity. No erythema or proximal streaking is noted. Skin temperature great is warm to warm from proximal ankle to distal digits. Neurological: Light touch intact. Protective sensation is diminished. Dermatological: Full-thickness ulceration with fat exposed to the left heel, measuring 0.5 x 1.2 x 0.1 cm. Wound base is fibrogranular nature. There is no erythema, drainage, probe to bone or sign of infection at this time. Excisional debridement down to and including subcutaneous tissue with a number 5 mm dermal curette to the left heel without incident. Predebridement measurement is 0.4 x 0.8 x 0.1 cm. Postdebridement measurement is 0.5 x 1.2 x 0.1 cm. EpiFix 18 mm disc was applied to the left heel full-thickness ulceration with 100% use. 10th application. The graft site was free and clear of any infection. The wound/skin graft substitute was dressed with nonadherent bandage secured in place with Steri-Strips followed by bolster dressing as well as a bilateral 3M dressing for compression control. Musculoskeletal: Muscle strength was deferred. No pain with calf compression. Mild pain on palpation to full-thickness ulceration left heel Debridement Note Debridement Note Post-Debridement Measurements and Additional Note: Post-Debridement Measurements/Treatment WC - Nurse 1 - General Ulcer Assessment Start: 08/02/23 14:58 Freq: Status: Active Protocol: TATUM Activity Type Activity Date Activity User E-sign Co-sign Detail Recorded Client Recorded Date Recorded By Document 08/02/23 14:58 DL Desktop 08/02/23 15:06 DL 08/02/23 14:58 WC - Today's Visit Information Type of service Follow-up Visit (Physician/AUDIO VISUAL SPECIALIST ) Arrival Mode Ambulatory, Wheelchair Transfer Assistance None Patient Identification Verified (Name & Yes ) Patient Requires Transmission-Based No Precautions Finger Stick Blood Sugar(mg/dl) (if 85 indicated): Height and Weight Body Mass Index (BMI) 43.4 BMI Classification Obese Vital Signs Temperature (97.8 F-99.1 F) 98.8 F Temperature Source Temporal Pulse Rate (60-100) 74 Pulse Location Monitor Respiratory Rate (12-18) 22 H Respiratory rate source Observation Blood Pressure (90/60-120/80) 116/60 Blood Pressure Mean (mm Hg) 78 Source Monitor Comment removed 3M today to shower , epifix not in place today. History Since Last Visit- (Skip if this is Patient's initial visit) Have you changed medications since your No last visit? Any new allergies or adverse reactions No Had a fall/change in ADL's that may No increase risk of falls Signs or symptoms of abuse and/or No neglect since last visit Have you been in the hospital since your No last visit? Has dressing in place as prescribed Yes Has compression in place as prescribed No Has offloadiing in place as prescribed N/A Experienced any changes in pain level or No management Pain Scale: 0-10 Numeric Is Patient Pain Free? Yes - Nurse 1 - General Ulcer Measurement Start: 08/02/23 14:58 Freq: Status: Active Protocol: Activity Type Activity Date Activity User E-sign Co-sign Detail Recorded Client Recorded Date Recorded By Document 08/02/23 14:58 DL Desktop 08/02/23 15:06 DL 08/02/23 14:58 Wound Center Nurse 1 #2 L Heel -Current Size (cm) - Length 0.1 -Current Size (cm) - Width 0.1 -Current Size (cm) - Depth 0.1 -Total Square Cm 0.01 -Exudate Amt Medium -Exudate Type Serosanguineous -Wound Margin Distinct, Outline Attached -Granulation Amt Small (1-33%) -Granulation Quality Red -Necrosis Amt Small (1-33%) -Necrotic Tissue Type Adherent Slough -Structure Exposed N/A -Texture (Allie-wound Skin Appearance) Scarring -Moisture (Allie-wound Skin Appearance) No Abnormality -Color (Allie-wound Skin Appearance) No Abnormality -Temperature (Allie-wound Skin No Abnormality Appearance) (Pt Warm) -Tenderness on Palpation (Allie-wound No Skin Appearance) -Ulcer Cleansing Soap and Water -Foul Odor after Cleansing No -Anesthetic Used 5% Lidocaine Gel Right Calf (cm) 61.2 Right Ankle (cm) 36 Left Calf (cm) 61.2 Left Ankle (cm) 35 WC - Nurse 2 - General Ulcer CM Notes Start: 08/02/23 14:58 Freq: Status: Active Protocol: Activity Type Activity Date Activity User E-sign Co-sign Detail Recorded Client Recorded Date Recorded By Document 08/02/23 15:22 Laptop 08/02/23 15:25 08/02/23 15:22 Wound Center Nurse 2 #2 L Heel -Time 15:23 -Correct Patient Yes -Correct Side, Site, Position Yes -Correct Procedure Yes -Procedure Performed Yes -Type of Procedure Debridement -Clinical Debridement Subcutaneous -Tissue Removed Subcutaneous -Post Debridement (cm) - Length 0.5 -Post Debridement (cm) - Width 1.2 -Post Debridement (cm) - Depth 0.1 -Total Square (Post) (cm) 0.60 -Area of Debridement (cm) - Length 0.5 -Area of Debridement (cm) - Width 1.2 -Total Square (Area) (cm) 0.60 -Tunneling No -Undermining/Tunneling No -Circular Undermining No -Wound/Ulcer Outcome Not Healed -Ulcer Cleansing Rinsed/ Irrigated with Saline -Foul Odor after Cleansing No -Bioengineered Tissue Yes -Type of Bioengineered Tissue Epifix 18mm Disc -Expiration Date 03/26/28 -Product Lot Number [id number] -Percent Used 100 -Lot number of Saline Used [id number] -Bleeding Controlled with Pressure -Treatment Response Procedure Tolerated Well -Offloading No -Debridement - Subq, 1st 20sq cm No -Apply Skin Sub - 1st 25 sq cm - Feet 1 -Epifix 18mm Disc 3 Pain Scale: 0-10 Numeric Is Patient Pain Free? Yes - Nurse 3 - General Ulcer D/C NN Start: 08/02/23 14:58 Freq: Status: Active Protocol: Activity Type Activity Date Activity User E-sign Co-sign Detail Recorded Client Recorded Date Recorded By Document 08/02/23 15:35 KW Desktop 08/02/23 15:36 KW 08/02/23 15:35 Wound Care Center Nurse 3 #2 L Heel -Primary Dressing Covered/Secured with Dry Gauze & Roll Gauze, Secured with Tape BLE -Multi-Layered Wrap Application Multi-Layer Comp - Bilat ($ ) Pain Scale: 0-10 Numeric Is Patient Pain Free? Yes WC - Visit Discharge Discharge Condition Stable Ambulatory Status Ambulatory Transportation Private Auto Medication Reconcilliation completed & No provided to patient/care provider Clinical Summary of Care Provided Yes Assessment/Plan Assessment/Plan (1) Non-pressure chronic ulcer of left heel and midfoot with fat layer exposed: CODE(S): L97.422 - Non-pressure chronic ulcer of left heel and midfoot with fat layer exposed PLAN: Patient was examined and evaluated. All findings were discussed with the patient. All questions were answered to the patient's satisfaction. Excisional debridement down to and including subcutaneous tissue with a number 5 mm dermal curette to the left heel without incident. Predebridement measurement is 0.4 x 0.8 x 0.1 cm. Postdebridement measurement is 0.5 x 1.2 x 0.1 cm. EpiFix 18 mm disc was applied to the left heel full-thickness ulceration with 100% use. 10th application. The graft site was free and clear of any infection. The wound/skin graft substitute was dressed with nonadherent bandage secured in place with Steri-Strips followed by bolster dressing as well as a bilateral 3M dressing for compression control. Follow-up at the wound care center with Dr. Castañeda in 1 week. (2) Lymphedema: CODE(S): I89.0 - Lymphedema, not elsewhere classified (3) Type 2 diabetes mellitus with peripheral neuropathy: CODE(S): E11.42 - Type 2 diabetes mellitus with diabetic polyneuropathy
[2023-08-09 15:15] VITALS: BP 109/61; PULSE 64; RESP 16; TEMP 36.5; BMI 43.4
--- NOTE | 2023-08-09 15:42 | PN.PCM_ITS ---
History of Present Illness Date of Service: 08/09/23 Chief Complaint: Left heel ulcer History of Wound: Patient presents to the wound care center today on 05/17/2023 for follow-up evaluation of left heel ulcer. Patient was discharged from the hospital on oral antibiotics she has been nonweightbearing to the left heel. She denies any pain drainage trauma constitutional symptoms. No other pedal complaints at this time. Subjective Subjective Mrs. Read is a 72-year-old diabetic female presenting to the wound care center today for follow-up evaluation for left heel wound with graft application. Patient has left her bilateral 3M compression leg dressings clean dry and intact. She has kept her blood sugar well-controlled. She denies trauma. Denies constitutional symptoms. No other pedal complaints at this time. Objective Data Objective Data Vital Signs: Vital Signs Temp Pulse Resp BP O2 Del Method 97.7 F L 64 16 109/61 Room Air 08/09/23 15:15 08/09/23 15:15 08/09/23 15:15 08/09/23 15:15 08/09/23 15:15 Oxygen Delivery Method Room Air Weight: 129.418 kg Body Mass Index (BMI) 43.4 Physical Exam Narrative Vascular: DP and PT pulse are faintly palpable secondary to lymphedema. CFT is brisk. +2 pitting edema to bilateral lower extremity. No erythema or proximal streaking is noted. Skin temperature great is warm to warm from proximal ankle to distal digits. Neurological: Light touch intact. Protective sensation is diminished. Dermatological: Full-thickness ulceration with fat exposed to the left heel is healed. There is no erythema, drainage, probe to bone or sign of infection at this time. Musculoskeletal: Muscle strength was deferred. No pain with calf compression. Mild pain on palpation to full-thickness ulceration left heel Debridement Note Debridement Note Post-Debridement Measurements and Additional Note: Post-Debridement Measurements/Treatment WC - Nurse 1 - General Ulcer Assessment Start: 08/02/23 14:58 Freq: Status: Active Protocol: LOWEXT Activity Type Activity Date Activity User E-sign Co-sign Detail Recorded Client Recorded Date Recorded By Document 08/02/23 14:58 DL Desktop 08/02/23 15:06 DL Document 08/09/23 15:15 GM Desktop 08/09/23 15:22 GM 08/02/23 08/09/23 14:58 15:15 - Today's Visit Information Type of service Follow-up Visit Follow-up Visit (Physician/SIZING MACHINE AND DRIER OPERATOR (Physician/SIZING MACHINE AND DRIER OPERATOR ) ) Arrival Mode Ambulatory, Ambulatory, Wheelchair Wheelchair Transfer Assistance None Accompanied by Patient Identification Verified (Name & Yes Yes ) Patient Requires Transmission-Based No Precautions Finger Stick Blood Sugar(mg/dl) (if 85 indicated): Height and Weight Body Mass Index (BMI) 43.4 43.4 BMI Classification Obese Obese Vital Signs Temperature (97.8 F-99.1 F) 98.8 F 97.7 F L Temperature Source Temporal Temporal Pulse Rate (60-100) 74 64 Pulse Location Monitor Monitor Respiratory Rate (12-18) 22 H 16 Respiratory rate source Observation Observation Oxygen Delivery Method Room Air Blood Pressure (90/60-120/80) 116/60 109/61 Blood Pressure Mean (mm Hg) 78 77 Source Monitor Monitor Position Semi-Fowlers Blood Pressure Location Left Arm Comment removed 3M today to shower , epifix not in place today. History Since Last Visit- (Skip if this is Patient's initial visit) Have you changed medications since your No No last visit? Any new allergies or adverse reactions No No Had a fall/change in ADL's that may No No increase risk of falls Signs or symptoms of abuse and/or No No neglect since last visit Have you been in the hospital since your No No last visit? Has dressing in place as prescribed Yes Yes Has compression in place as prescribed No Yes Has offloadiing in place as prescribed N/A N/A Experienced any changes in pain level or No No management Left Footwear Regular Shoe Right Footwear Regular Shoe Pain Scale: 0-10 Numeric Is Patient Pain Free? Yes Yes - Nurse 1 - General Ulcer Measurement Start: 08/02/23 14:58 Freq: Status: Active Protocol: Activity Type Activity Date Activity User E-sign Co-sign Detail Recorded Client Recorded Date Recorded By Document 08/02/23 14:58 DL Desktop 08/02/23 15:06 DL Document 08/09/23 15:15 GM Desktop 08/09/23 15:22 GM 08/02/23 08/09/23 14:58 15:15 Wound Center Nurse 1 #2 L Heel -Current Size (cm) - Length 0.1 0.7 -Current Size (cm) - Width 0.1 1 -Current Size (cm) - Depth 0.1 0.1 -Total Square Cm 0.01 0.7 -Exudate Amt Medium Small -Exudate Type Serosanguineous Serosanguineous -Wound Margin Distinct, Distinct, Outline Outline Attached Attached -Granulation Amt Small (1-33%) Large (67-100%) -Granulation Quality Red Red -Necrosis Amt Small (1-33%) -Necrotic Tissue Type Adherent Slough -Structure Exposed N/A -Texture (Allie-wound Skin Appearance) Scarring Assessed -Moisture (Allie-wound Skin Appearance) No Abnormality Assessed -Color (Allie-wound Skin Appearance) No Abnormality Assessed -Temperature (Allie-wound Skin No Abnormality No Abnormality Appearance) (Pt Warm) (Pt Warm) -Tenderness on Palpation (Allie-wound No Skin Appearance) -Ulcer Cleansing Soap and Water Soap and Water -Foul Odor after Cleansing No -Anesthetic Used 5% Lidocaine 5% Lidocaine Gel Gel Right Calf (cm) 61.2 64 Right Ankle (cm) 36 38 Left Calf (cm) 61.2 61 Left Ankle (cm) 35 35.5 WC - Nurse 2 - General Ulcer CM Notes Start: 08/02/23 14:58 Freq: Status: Active Protocol: Activity Type Activity Date Activity User E-sign Co-sign Detail Recorded Client Recorded Date Recorded By Document 08/02/23 15:22 Laptop 08/02/23 15:25 Document 08/09/23 15:32 Desktop 08/09/23 15:35 08/02/23 08/09/23 15:22 15:32 Wound Center Nurse 2 #2 L Heel -Time 15:23 -Correct Patient Yes No -Correct Side, Site, Position Yes No -Correct Procedure Yes No -Procedure Performed Yes No -Type of Procedure Debridement -Clinical Debridement Subcutaneous -Tissue Removed Subcutaneous -Post Debridement (cm) - Length 0.5 0 -Post Debridement (cm) - Width 1.2 0 -Post Debridement (cm) - Depth 0.1 0 -Total Square (Post) (cm) 0.60 0 -Area of Debridement (cm) - Length 0.5 0 -Area of Debridement (cm) - Width 1.2 0 -Total Square (Area) (cm) 0.60 0 -Tunneling No -Undermining/Tunneling No -Circular Undermining No -Wound/Ulcer Outcome Not Healed Healed- Epithelialized -Ulcer Cleansing Rinsed/ Irrigated with Saline -Foul Odor after Cleansing No -Bioengineered Tissue Yes -Type of Bioengineered Tissue Epifix 18mm Disc -Expiration Date 03/26/28 -Product Lot Number [id number] -Percent Used 100 -Lot number of Saline Used [id number] -Bleeding Controlled with Pressure -Treatment Response Procedure Tolerated Well -Offloading No -Debridement - Subq, 1st 20sq cm No -Apply Skin Sub - 1st 25 sq cm - Feet 1 -Epifix 18mm Disc 3 Pain Scale: 0-10 Numeric Is Patient Pain Free? Yes Yes - Nurse 3 - General Ulcer D/C NN Start: 08/02/23 14:58 Freq: Status: Active Protocol: Activity Type Activity Date Activity User E-sign Co-sign Detail Recorded Client Recorded Date Recorded By Document 08/02/23 15:35 KW Desktop 08/02/23 15:36 KW 08/02/23 15:35 Wound Care Center Nurse 3 #2 L Heel -Primary Dressing Covered/Secured with Dry Gauze & Roll Gauze, Secured with Tape BLE -Multi-Layered Wrap Application Multi-Layer Comp - Bilat ($ ) Pain Scale: 0-10 Numeric Is Patient Pain Free? Yes WC - Visit Discharge Discharge Condition Stable Ambulatory Status Ambulatory Transportation Private Auto Medication Reconcilliation completed & No provided to patient/care provider Clinical Summary of Care Provided Yes Assessment/Plan Assessment/Plan (1) Non-pressure chronic ulcer of left heel and midfoot with fat layer exposed: CODE(S): L97.422 - Non-pressure chronic ulcer of left heel and midfoot with fat layer exposed PLAN: Patient was examined and evaluated. All findings were discussed with the patient. All questions were answered to the patient's satisfaction. The patient's left heel full-thickness ulceration is now healed. Educated the patient continue to have strict blood sugar control and watch her ambulation and pressure to the left heel as it is still in a fragile state. Bilateral 3M dressings were donned to the left lower extremity. Encouraged the patient to pump at home as much as possible. Whenever at rest she is to elevate her bilateral lower extremity to decrease her pain and swelling. Everything that wa s explained to the patient she showed understanding of. Follow-up at the wound care center with Dr. Castañeda in 1 week. (2) Type 2 diabetes mellitus with peripheral neuropathy: CODE(S): E11.42 - Type 2 diabetes mellitus with diabetic polyneuropathy (3) Lymphedema: CODE(S): I89.0 - Lymphedema, not elsewhere classified
[2023-08-16 15:30] VITALS: BP 143/69; PULSE 63; RESP 18; TEMP 36.2; BMI 43.4
--- NOTE | 2023-08-16 15:59 | PN.PCM_ITS ---
History of Present Illness Date of Service: 08/16/23 Chief Complaint: Left heel ulcer History of Wound: Patient presents to the wound care center today on 05/17/2023 for follow-up evaluation of left heel ulcer. Patient was discharged from the hospital on oral antibiotics she has been nonweightbearing to the left heel. She denies any pain drainage trauma constitutional symptoms. No other pedal complaints at this time. Subjective Subjective Mrs. Read is a 72-year-old diabetic female presenting to the wound care center today for follow-up evaluation for left heel wound with graft application. Patient has left her bilateral 3M compression leg dressings clean dry and intact. She has kept her blood sugar well-controlled. She denies trauma. Denies constitutional symptoms. No other pedal complaints at this time. Objective Data Objective Data Vital Signs: Vital Signs Temp Pulse Resp BP O2 Del Method 97.2 F L 63 18 143/69 H Room Air 08/16/23 15:30 08/16/23 15:30 08/16/23 15:30 08/16/23 15:30 08/16/23 15:30 Oxygen Delivery Method Room Air Weight: 129.418 kg Body Mass Index (BMI) 43.4 Physical Exam Narrative Vascular: DP and PT pulse are faintly palpable secondary to lymphedema. CFT is brisk. +2 pitting edema to bilateral lower extremity. No erythema or proximal streaking is noted. Skin temperature great is warm to warm from proximal ankle to distal digits. Neurological: Light touch intact. Protective sensation is diminished. Dermatological: Full-thickness ulceration with fat exposed to the left heel is healed. There is no erythema, drainage, probe to bone or sign of infection at this time. Musculoskeletal: Muscle strength was deferred. No pain with calf compression. Mild pain on palpation to full-thickness ulceration left heel Debridement Note Debridement Note Post-Debridement Measurements and Additional Note: Post-Debridement Measurements/Treatment BEVERLY - Nurse 1 - General Ulcer Assessment Start: 08/02/23 14:58 Freq: Status: Active Protocol: FABRICEEXT Activity Type Activity Date Activity User E-sign Co-sign Detail Recorded Client Recorded Date Recorded By Document 08/02/23 14:58 DL Desktop 08/02/23 15:06 DL Document 08/09/23 15:15 GM Desktop 08/09/23 15:22 GM Document 08/16/23 15:30 KW Desktop 08/16/23 15:39 KW 08/02/23 08/09/23 08/16/23 14:58 15:15 15:30 WC - Today's Visit Information Type of service Follow-up Visit Follow-up Visit Follow-up Visit (Physician/JOURNEYMAN MILLWRIGHT (Physician/JOURNEYMAN MILLWRIGHT (Physician/JOURNEYMAN MILLWRIGHT ) ) ) Arrival Mode Ambulatory, Ambulatory, Wheelchair Wheelchair Wheelchair Transfer Assistance None Accompanied by Patient Identification Verified (Name & Yes Yes Yes ) Patient Requires Transmission-Based No Precautions Finger Stick Blood Sugar(mg/dl) (if 85 indicated): Height and Weight Body Mass Index (BMI) 43.4 43.4 43.4 BMI Classification Obese Obese Obese Vital Signs Temperature (97.8 F-99.1 F) 98.8 F 97.7 F L 97.2 F L Temperature Source Temporal Temporal Temporal Pulse Rate (60-100) 74 64 63 Pulse Location Monitor Monitor Monitor Respiratory Rate (12-18) 22 H 16 18 Respiratory rate source Observation Observation Observation Oxygen Delivery Method Room Air Room Air Blood Pressure (90/60-120/80) 116/60 109/61 143/69 H Blood Pressure Mean (mm Hg) 78 77 93 Source Monitor Monitor Monitor Position Semi-Fowlers Sitting Blood Pressure Location Left Arm Right Forearm Comment removed 3M today to shower , epifix not in place today. History Since Last Visit- (Skip if this is Patient's initial visit) Have you changed medications since your No No No last visit? Any new allergies or adverse reactions No No No Had a fall/change in ADL's that may No No No increase risk of falls Signs or symptoms of abuse and/or No No No neglect since last visit Have you been in the hospital since your No No No last visit? Has dressing in place as prescribed Yes Yes Yes Has compression in place as prescribed No Yes Yes Has offloadiing in place as prescribed N/A N/A N/A Experienced any changes in pain level or No No No management Left Footwear Regular Shoe Regular Shoe Right Footwear Regular Shoe Regular Shoe Pain Scale: 0-10 Numeric Is Patient Pain Free? Yes Yes Yes WC - Nurse 1 - General Ulcer Measurement Start: 08/02/23 14:58 Freq: Status: Active Protocol: Activity Type Activity Date Activity User E-sign Co-sign Detail Recorded Client Recorded Date Recorded By Document 08/02/23 14:58 Desktop 08/02/23 15:06 Document 08/09/23 15:15 Desktop 08/09/23 15:22 08/02/23 08/09/23 14:58 15:15 Wound Center Nurse 1 #2 L Heel -Current Size (cm) - Length 0.1 0.7 -Current Size (cm) - Width 0.1 1 -Current Size (cm) - Depth 0.1 0.1 -Total Square Cm 0.01 0.7 -Exudate Amt Medium Small -Exudate Type Serosanguineous Serosanguineous -Wound Margin Distinct, Distinct, Outline Outline Attached Attached -Granulation Amt Small (1-33%) Large (67-100%) -Granulation Quality Red Red -Necrosis Amt Small (1-33%) -Necrotic Tissue Type Adherent Slough -Structure Exposed N/A -Texture (Allie-wound Skin Appearance) Scarring Assessed -Moisture (Allie-wound Skin Appearance) No Abnormality Assessed -Color (Allie-wound Skin Appearance) No Abnormality Assessed -Temperature (Allie-wound Skin No Abnormality No Abnormality Appearance) (Pt Warm) (Pt Warm) -Tenderness on Palpation (Allie-wound No Skin Appearance) -Ulcer Cleansing Soap and Water Soap and Water -Foul Odor after Cleansing No -Anesthetic Used 5% Lidocaine 5% Lidocaine Gel Gel Right Calf (cm) 61.2 64 Right Ankle (cm) 36 38 Left Calf (cm) 61.2 61 Left Ankle (cm) 35 35.5 WC - Nurse 2 - General Ulcer CM Notes Start: 08/02/23 14:58 Freq: Status: Active Protocol: Activity Type Activity Date Activity User E-sign Co-sign Detail Recorded Client Recorded Date Recorded By Document 08/02/23 15:22 Laptop 08/02/23 15:25 Document 08/09/23 15:32 Desktop 08/09/23 15:35 Document 08/16/23 15:44 Laptop 08/16/23 15:44 08/02/23 08/09/23 08/16/23 15:22 15:32 15:44 Wound Center Nurse 2 #2 L Heel -Time 15:23 -Correct Patient Yes No -Correct Side, Site, Position Yes No -Correct Procedure Yes No -Procedure Performed Yes No -Type of Procedure Debridement -Clinical Debridement Subcutaneous -Tissue Removed Subcutaneous -Post Debridement (cm) - Length 0.5 0 -Post Debridement (cm) - Width 1.2 0 -Post Debridement (cm) - Depth 0.1 0 -Total Square (Post) (cm) 0.60 0 -Area of Debridement (cm) - Length 0.5 0 -Area of Debridement (cm) - Width 1.2 0 -Total Square (Area) (cm) 0.60 0 -Tunneling No -Undermining/Tunneling No -Circular Undermining No -Wound/Ulcer Outcome Not Healed Healed- Epithelialized -Ulcer Cleansing Rinsed/ Irrigated with Saline -Foul Odor after Cleansing No -Bioengineered Tissue Yes -Type of Bioengineered Tissue Epifix 18mm Disc -Expiration Date 03/26/28 -Product Lot Number [id number] -Percent Used 100 -Lot number of Saline Used [id number] -Bleeding Controlled with Pressure -Treatment Response Procedure Tolerated Well -Offloading No -Debridement - Subq, 1st 20sq cm No -Apply Skin Sub - 1st 25 sq cm - Feet 1 -Epifix 18mm Disc 3 Pain Scale: 0-10 Numeric Is Patient Pain Free? Yes Yes Yes - Nurse 3 - General Ulcer D/C NN Start: 08/02/23 14:58 Freq: Status: Active Protocol: Activity Type Activity Date Activity User E-sign Co-sign Detail Recorded Client Recorded Date Recorded By Document 08/02/23 15:35 KW Desktop 08/02/23 15:36 KW Document 08/09/23 06:40 PL [id number] 08/10/23 06:41 PL Document 08/16/23 15:44 Laptop 08/16/23 15:44 JF 08/02/23 08/09/23 08/16/23 15:35 06:40 15:44 Wound Care Center Nurse 3 #2 L Heel -Primary Dressing Covered/Secured with Dry Gauze & Roll Gauze, Secured with Tape BLE -Multi-Layered Wrap Application Multi-Layer Multi-Layer Comp - Bilat ($ Comp - Bilat ($ ) ) -Stockings Yes Pain Scale: 0-10 Numeric Is Patient Pain Free? Yes Yes Yes - Visit Discharge Discharge Condition Stable Stable Ambulatory Status Ambulatory Ambulatory, Wheelchair Transportation Private Auto Private Auto Medication Reconcilliation completed & No Yes provided to patient/care provider Clinical Summary of Care Provided Yes Yes Assessment/Plan Assessment/Plan (1) Lymphedema: CODE(S): I89.0 - Lymphedema, not elsewhere classified PLAN: Patient was examined and evaluated. All findings were discussed with the patient. All questions were answered to the patient's satisfaction. At this time the patient's left heel ulceration is now healed. The patient was instructed to continue to check her feet twice per day and apply lotion she is she is a neuropathic diabetic. Educated the patient to continue to wear her compression stockings and use her mechanical lymphedema pumps 3 times per day for 45 minutes for each pump. Patient was understanding of this. Patient has been grateful for her care and will follow-up as needed. (2) Type 2 diabetes mellitus with peripheral neuropathy: CODE(S): E11.42 - Type 2 diabetes mellitus with diabetic polyneuropathy (3) Non-pressure chronic ulcer of left heel and midfoot with fat layer exposed: CODE(S): L97.422 - Non-pressure chronic ulcer of left heel and midfoot with fat layer exposed
== END 2023-08-17 09:05 | disposition home or self-care (01) ==
LOC: WC 15:00
PROVIDERS: PCP Internal Medicine; Referring Provider Podiatrist Foot & Ankle Surgery; Visit Provider Podiatrist Foot & Ankle Surgery
DX: E11.621 Type 2 diabetes mellitus with foot ulcer (principal); L97.422 Non-pressure chronic ulcer of left heel and midfoot with fat layer exposed; E11.42 Type 2 diabetes mellitus with diabetic polyneuropathy; I89.0 Lymphedema, not elsewhere classified
CPT/HCPCS: 15275; 29581; 99213; Q4186; G0463

== ENCOUNTER 2024-04-24 14:00 | Outpatient (RCR) | payer MEDICARE, SELFPAY ==
[2024-04-10 14:20] VITALS: BP 150/60; PULSE 63; RESP 18; TEMP 35.9; BMI 45.1
--- NOTE | 2024-04-10 16:43 | HP.PCM_ITS ---
History of Present Illness Date of Service: 04/10/24 Chief Complaint: Bilateral lower extremity lymphedema History of Wound: Patient presents to the wound care center today on 04/10/24 for evaluation for bilateral lower extremity edema/lymphedema. She has seen Dr. Castañeda in the past for an ulcer on her left foot. She has lymphedema pumps that she has not been using. She also has not been wearing her compression lately. She states that when she wears her compressing that it is putting pressure on her right anterior ankle and causing a sore area. The skin is still intact, there is no wound or ulcer. She states that her legs both feel very heavy, especially with ambulation. She stopped using her lymphedema pumps due to having issue with her bladder. She states that once she starts using the pumps she needs to go to the bathroom. I reviewed her vascular studies that were done last year. Progress of Wound: Bilateral lower legs with significant edema/lymphedema. Her bilateral feet currently do not have any edema present. She does has +2 pedal pulses. COUNT INCLUDES THE [facility] Medical History (Reviewed 04/13/24 @ 20:35 by Summer Sims [employer]ERCIAL LITIGATION ASSOCIATE, COMMERCIAL LITIGATION ASSOCIATE-C) Anxiety DVT (deep venous thrombosis) History of venous thromboembolism Lymphedema Hypothyroidism Hyperlipidemia Stage 3b chronic kidney disease Morbid obesity with BMI of 40.0-44.9, adult Hyperlipidemia Essential hypertension Type 2 diabetes mellitus Diabetic foot ulcer associated with type 2 diabetes mellitus Home Medications ?Medication ?Instructions ?Recorded ?Last Taken ?Type atorvastatin 80 mg tablet 80 mg PO QHS cholesterol 03/12/22 Unknown History levothyroxine 75 mcg tablet 75 mcg PO DAILY thyroid 03/12/22 Unknown History (Synthroid) acetaminophen 500 mg tablet 1,000 mg (2 x 500 mg) PO Q6H PRN 03/23/22 Unknown Rx PRN Pain Score 1-10 #0 tabs apixaban 5 mg tablet (Eliquis) 5 mg PO BID 30 days #60 tabs 03/23/22 Unknown Rx insulin glargine-yfgn 100 unit/mL 30 unit (0.3 mL) subcut QHS 03/23/22 Unknown Rx (3 mL) subcutaneous pen diabetes 30 days #9 mL insulin glargine-yfgn 100 unit/mL 30 unit (0.3 mL) subcut QHS 30 03/25/22 Unknown Rx (3 mL) subcutaneous pen days #9 mL needle (disp) 31 gauge 31 gauge x #100 ea 03/25/22 Unknown Rx 5/16 cephalexin 500 mg capsule 500 mg PO Q12 #14 caps 05/13/23 Unknown Rx glimepiride 2 mg tablet 2 mg PO DAILY 05/17/23 Unknown History Allergy/AdvReac Type Severity Reaction Status Date / Time codeine Allergy Rash Verified 03/12/22 20:20 Penicillins (PCN) Allergy Rash Verified 03/12/22 20:20 Family History (Reviewed 04/13/24 @ 20:35 by Summer Sims COMMERCIAL LITIGATION ASSOCIATE, COMMERCIAL LITIGATION ASSOCIATE-C) Mother Diabetes Dementia Father Pancreatic cancer CVA (cerebral vascular accident) Surgical History (Reviewed 04/13/24 @ 20:35 by Summer Sims COMMERCIAL LITIGATION ASSOCIATE, COMMERCIAL LITIGATION ASSOCIATE-C) History of 2 sections H/O: hysterectomy Social History (Reviewed 04/13/24 @ 20:35 by Summer Sims COMMERCIAL LITIGATION ASSOCIATE, COMMERCIAL LITIGATION ASSOCIATE-C) household members: spouse Smoking Status: Never smoker alcohol intake: never substance use type: does not use ROS Constitutional Constitutional: Reports fatigue and weight gain; Denies chills or fever(s) Eyes Eyes: Reports none ENT HEENT: Reports none Cardiovascular Cardiovascular: Denies chest pain, dyspnea or nausea Respiratory/Chest Respiratory/Chest: Reports none Gastrointestinal Gastrointestinal: Reports none Genitourinary Genitourinary: Reports urinary urgency Musculoskeletal Musculoskeletal: Reports limited range of motion Integumentary Integumentary: Reports skin swelling; Denies wounds Psychiatric Psychiatric: Reports none Endocrine Endocrinology: Reports as per HPI Hematologic/Lymphatic Hematologic/Lymphatic: Reports none Allergic/Immunologic Allergic/Immunologic: Reports none Vital Signs Vital Signs Vital Signs: 04/10/24 14:20 Temperature 96.6 F L Temperature Source Temporal Pulse Rate 63 Respiratory Rate 18 Blood Pressure 150/60 H Blood Pressure Mean 90 Blood Pressure Source Monitor Blood Pressure Position Semi-Fowlers Blood Pressure Location Right Forearm Oxygen Delivery Method Room Air Weight Weight: 297 lb Body Mass Index (BMI) 45.1 Physical Exam Const alert and oriented x3 General Appearance: cooperative and well kempt HEENT normocephalic Head and Scalp: atraumatic Eyes General Eye: normal appearance of both eyes Neck full ROM Lymph Lymphatic: lymphedema severe and pitting Resp normal respiratory effort, normal air movement and clear to auscultation bilaterally Effort and Inspection: able to speak in complete sentences Cardio regular rate and regular rhythm GI soft to palpation and non-tender Back/Spine normal ROM Extremity normal capillary refill Extremity Narrative: Bilateral pedal pulses palpable. Feel with no edema. Bilateral lower legs with significant +3-+4 pitting edema/lymphedema. Skin no wounds Skin Narrative: No wounds or ulcers on legs or feet. She does have slight erythema on anterior right ankle from where compression stockings rub area. Neuro oriented x3, CN's II-XII intact bilaterally and moves all extremities Psych mental status grossly normal Appearance: appropriate Debridement Note Debridement Note No debridement was completed: No debridement was completed today Post-Debridement Measurements and Additional Note: Post-Debridement Measurements/Treatment WC - Nurse 1 - General Ulcer Assessment Start: 04/10/24 14:19 Freq: Status: Active Protocol: TATUM Activity Type Activity Date Activity User E-sign Co-sign Detail Recorded Client Recorded Date Recorded By Document 04/10/24 14:20 KW [id number] 04/10/24 14:30 KW 04/10/24 14:20 WC - Today's Visit Information Type of service Follow-up Visit (Physician/COVERING AND LINING SUPERVISOR ) Arrival Mode Ambulatory, Walker Patient Identification Verified (Name & Yes ) Height and Weight Height 5 ft 8 in Weight 297 lb Weight in Pounds 297.0 lbs Weight Measurement Method Estimated by Patient Body Mass Index (BMI) 45.1 BMI Classification Obese BSA - Beth 2.42 Vital Signs Temperature (97.8 F-99.1 F) 96.6 F L Temperature Source Temporal Pulse Rate (60-100) 63 Pulse Location Monitor Respiratory Rate (12-18) 18 Respiratory rate source Observation Oxygen Delivery Method Room Air Blood Pressure (90/60-120/80) 150/60 H Blood Pressure Mean 90 Source Monitor Position Semi-Fowlers Blood Pressure Location Right Forearm History Since Last Visit- (Skip if this is Patient's initial visit) Left Footwear Regular Shoe Right Footwear Regular Shoe Pain Scale: 0-10 Numeric Is Patient Pain Free? Yes - Nurse 1 - General Ulcer Measurement Start: 04/10/24 14:19 Freq: Status: Active Protocol: Activity Type Activity Date Activity User E-sign Co-sign Detail Recorded Client Recorded Date Recorded By Document 04/10/24 14:20 KW [id number] 04/10/24 14:30 KW 04/10/24 14:20 Wound Center Nurse 1 #3 RT ANTERIOR ANKLE -Current Size (cm) - Length 0.1 -Current Size (cm) - Width 0.1 -Current Size (cm) - Depth 0.1 -Total Square Cm 0.01 -Exudate Amt None Present -Texture (Allie-wound Skin Appearance) Assessed -Moisture (Allie-wound Skin Appearance) Assessed -Color (Allie-wound Skin Appearance) Assessed -Temperature (Allie-wound Skin No Abnormality Appearance) (Pt Warm) -Tenderness on Palpation (Allie-wound No Skin Appearance) -Foul Odor after Cleansing No Right Calf (cm) 67 Right Ankle (cm) 41 Left Calf (cm) 67 Left Ankle (cm) 40 - Nurse 2 - General Ulcer CM Notes Start: 04/10/24 14:19 Freq: Status: Active Protocol: Activity Type Activity Date Activity User E-sign Co-sign Detail Recorded Client Recorded Date Recorded By Document 04/10/24 14:46 [id number] 04/10/24 14:54 04/10/24 14:46 Wound Center Nurse 2 #3 RT ANTERIOR ANKLE -Time 14:50 -Correct Patient Yes -Correct Side, Site, Position Yes -Wound Comment(s) Not currently open Pain Scale: 0-10 Numeric Is Patient Pain Free? Yes - Nurse 3 - General Ulcer D/C NN Start: 04/10/24 14:19 Freq: Status: Active Protocol: Activity Type Activity Date Activity User E-sign Co-sign Detail Recorded Client Recorded Date Recorded By Document 04/10/24 15:50 KW [id number] 04/10/24 15:50 KW 04/10/24 15:50 Wound Care Center Nurse 3 BLE -Compression Wrap Mario Wrap Pain Scale: 0-10 Numeric Is Patient Pain Free? Yes - Visit Discharge Discharge Condition Stable Ambulatory Status Ambulatory, Walker Transportation Private Auto Medication Reconcilliation completed & No provided to patient/care provider Clinical Summary of Care Provided Yes Charges/Coding Visit Charges Office Visits / Consults: 41089 OV L3 Est 20min Assessment/Plan Assessment/Plan (1) Lymphedema: CODE(S): I89.0 - Lymphedema, not elsewhere classified (2) Morbid obesity: CODE(S): E66.01 - Morbid (severe) obesity due to excess calories (3) Type 2 diabetes mellitus with peripheral neuropathy: CODE(S): E11.42 - Type 2 diabetes mellitus with diabetic polyneuropathy (4) Chronic kidney disease, stage 3b: CODE(S): N18.32 - Chronic kidney disease, stage 3b (5) Lipedema of lower extremity: CODE(S): R60.0 - Localized edema (6) Bilateral lower extremity edema: CODE(S): R60.0 - Localized edema PLAN: Plan Patient evaluated at the wound healing center today. She has significant swelling of her bilateral lower legs. Her feet have not edema. She has a history of lymphedema. Her last arterial and venous studies were done April 2023. Will order current venous and arterial studies. Instructed patient that she needs to start to wear her lymphedema pumps daily. I understand that it makes her need to void, but that is how her body gets rid of the excess fluid. Will start double mario compression until vascular studies are completed. Instructed that she keep her legs elevated when she is sitting. Encouraged her to sleep in a bed and not a recliner. Suspect that she not only has lymphedema but also has lipedema since her feet are not swollen. She will follow up in 2 weeks after she has had her vascular studies. We will be hopefully be able to do more aggressive compression to help get her swelling under better control.
--- NOTE | 2024-04-11 11:52 | WC ---
PHOTO 04/10/24 RIGHT ANT ANKLE
--- NOTE | 2024-04-22 13:07 | VDLE_ITS ---
Reason For Study: Lymphedema RIGHT LEFT CFV is compressible, spontaneous, phasic, CFV is compressible, spontaneous, phasic, competent and demonstrates normal competent, and demonstrates normal augmentation. augmentation. Rt FV, Rt PopV, and Rt T/P Trunk are non FV is compressible, spontaneous, phasic, dilated and partially compressible with competent and demonstrates normal minimal blood flow consistent with chronic augmentation. DVT POP V is compressible, spontaneous, phasic, Hypoechoic, non vascular structure noted Rt competent and demonstrates normal Pop Fossa measuring 1.02cmx 2.35cm augmentation. Unable to visualize calf veins due to T/P Trunk is compressible. lymphedema and patient body habitus Unable to visualize calf veins due to SSV mid is INCOMPETENT for greater than 0.5 lymphedema and patient body habitus seconds and measures 0.45cm x 0.39 cm. SSV mid is INCOMPETENT for greater than 0.5 SFJ is competent and measures 1.12cm x 1.16 seconds and measures 0.46cm x 0.50cm. cm. SFJ is competent and measures 0.85cm x 0.78 GSV proximal thigh measures 0.88cm x 0.85 cm. cm. GSV at knee measures 0.54cm x 0.45 cm. GSV proximal thigh measures 0.67cm x 0.57 cm. GSV above knee is competent. GSV at knee measures 0.57cm x 0.59 cm. GSV below knee is INCOMPETENT for greater GSV above knee is competent. than 0.5 seconds. GSV below knee is INCOMPETENT for greater ASV mid thigh is INCOMPETENT for greater than than 0.5 seconds. 0.5 seconds and measures 0.86cm x 0.92 cm. ASV at knee is INCOMPETENT for greater than Procedure 0.5 seconds and measures 0.67cm x 0.70 cm. This is a venous duplex using B-mode, color ASV proximal calf is INCOMPETENT for greater flow and spectral Doppler. than 0.5 seconds and measures 0.47cm x 0.53 Exam performed in department. cm. The study was technically limited. ASV distal calf is INCOMPETENT for greater The study was technically difficult. than 0.5 seconds and measures 0.40cm x 0.42 Very technically difficult due to lymphedema cm. and patient body habitus. A preliminary report was called and/or faxed to . VL/Venous Duplex US - Tesfaye Extrem Interpretation Summary The right common femoral vein is patent and competent. Chronic venous changes a re noted in the right femoral vein, popliteal vein, and tibio-peroneal trunk, which are partially com pressible. Deep veins of the left lower extremity are patent and compressible segmentally. There is n o evidence of left lower extremity deep vein thrombosis. Valvular competence appears intact within the proximal deep venous system on the left . Deep veins in the calf were not visualized bilatera lly due to lymphedema and the patient's body habitus. Great saphenous veins are patent and compressib le bilaterally. Sapheno-femoral junctions are competent bilaterally. The right great saphenous vein is competent above the knee. The right great saphenous vein is incompetent below the knee. T he left great saphenous vein is competent above the knee. The left great saphenous vein is in competent below the knee. Small saphenous veins are patent and incompetent bilaterally. The accesso ry saphenous vein in the right mid-thigh is incompetent. The accessory saphenous vein at left knee l evel is incompetent. The accessory saphenous vein in the left proximal calf is incompetent. The acce ssory saphenous vein in the left distal calf is incompetent. Ordering Physician: Summer Sims Referring Physician: Jamari Beasley Performed By: July Kern, JEANETTE, RVT
--- NOTE | 2024-04-22 13:07 | ART_ITS ---
Reason For Study: Lymphedema Procedure A bilateral lower extremity continuous wave Doppler with analog waveform analysis,segmental pressures,and ankle brachial indexes without exercise. Unable to assess MAKING DEPARTMENT PREPARER bilaterally due to patient body habitus. Left Segmental Pressures Left brachial= 164mmHg. Left dorsalis pedis artery = >254mmHg. Right Segmental Pressures Right brachial= 176mmHg. Right dorsalis pedis artery = >254mmHg. Indices The right ankle brachial index by the dorsalis pedis is NC. The right digital-brachial index is 0.80. The left ankle brachial index by the dorsalis pedis is NC. The left digital-brachial index is 0.79. VL/Lower Ext Art Exam w/o Exercis Interpretation Summary Triphasic Doppler waveforms are noted at ankle level bilaterally. Pulse-volume recordings appear satisfactory at ankle and digital level bilaterally. Ankle-brachial indices cou ld not be determined on either side due to the non-compressibility of the vasculature at ankle level bilaterally. Digital-brachial indices are normal bilaterally. There is no evidence of significant arterial occlusive disease in the lower ext remities bilaterally. Limitations were encountered in this study due to the patient's body habitus. Ordering Physician: Summer Sims Referring Physician: Jamari Beasley Performed By: July Kern RDCS/RVT
[2024-04-24 14:06] VITALS: BP 139/73; PULSE 71; RESP 22; TEMP 36.8; BMI 45.1
--- NOTE | 2024-04-24 16:44 | PCM.WC.PN ---
History of Present Illness Date of Service: 04/24/24 Chief Complaint: Bilateral lower extremity lymphedema History of Wound: Patient presents to the wound care center today on 04/10/24 for evaluation for bilateral lower extremity edema/lymphedema. She has seen Dr. Castañeda in the past for an ulcer on her left foot. She has lymphedema pumps that she has not been using. She also has not been wearing her compression lately. She states that when she wears her compressing that it is putting pressure on her right anterior ankle and causing a sore area. The skin is still intact, there is no wound or ulcer. She states that her legs both feel very heavy, especially with ambulation. She stopped using her lymphedema pumps due to having issue with her bladder. She states that once she starts using the pumps she needs to go to the bathroom. Arterial study done 04/22/24 - Triphasic Doppler waveforms are noted at ankle level bilaterally. Pulse-volume recordings appear satisfactory at ankle and digital level bilaterally. Ankle-brachial indices could not be determined on either side due to the non-compressibility of the vasculature at ankle level bilaterally. Digital-brachial indices are normal bilaterally. The right ankle brachial index by the dorsalis pedis is NC. The right digital-brachial index is 0.80. The left ankle brachial index by the dorsalis pedis is NC. The left digital-brachial index is 0.79. There is no evidence of significant arterial occlusive disease in the lower extremities bilaterally. Limitations were encountered in this study due to the patient's body habitus. Venous study done 04/22/24 - Chronic venous changes are noted in the right femoral vein, popliteal vein, and tibio-peroneal trunk, which are partially compressible. There is no evidence of left lower extremity deep vein thrombosis. Deep veins in the calf were not visualized bilaterally due to lymphedema and the patient's body habitus. The right great saphenous vein is incompetent below the knee. The left great saphenous vein is incompetent below the knee. Small saphenous veins are patent and incompetent bilaterally. The accessory saphenous vein in the right mid-thigh is incompetent. The accessory saphenous vein at left knee level is incompetent. The accessory saphenous vein in the left proximal calf is incompetent. The accessory saphenous vein in the left distal calf is incompetent. Progress of Wound: Bilateral lower legs with significant edema/lymphedema. Her bilateral feet currently do not have any edema present. She does has +2 pedal pulses. We reviewed her arterial and venous studies. We discussed in detail about starting 3M 2 layer compression wraps to help get some of her edema under better control. Stressed the importance of her using her lymphedema pumps at home at least once a day for an hour. Ideally using them twice a day would be helpful. Objective Data Objective Data Vital Signs: Vital Signs Temp Pulse Resp BP O2 Del Method 98.2 F 71 22 H 139/73 H Room Air 04/24/24 14:06 04/24/24 14:06 04/24/24 14:06 04/24/24 14:06 04/10/24 14:20 Oxygen Delivery Method Room Air Weight: 297 lb Body Mass Index (BMI) 45.1 Charges/Coding Visit Charges Office Visits / Consults: 38823 OV L3 Est 20min Physical Exam Const alert and oriented x3 General Appearance: cooperative and well kempt HEENT normocephalic Head and Scalp: atraumatic Eyes General Eye: normal appearance of both eyes Neck full ROM Lymph Lymphatic: lymphedema severe and pitting Resp normal respiratory effort, normal air movement and clear to auscultation bilaterally Effort and Inspection: able to speak in complete sentences Cardio regular rate and regular rhythm GI soft to palpation and non-tender Back/Spine normal ROM Extremity normal capillary refill Extremity Narrative: Bilateral pedal pulses palpable. Feel with no edema. Bilateral lower legs with significant +3-+4 pitting edema/lymphedema. Skin no wounds Skin Narrative: No wounds or ulcers on legs or feet. She does have slight erythema on anterior right ankle from where compression stockings rub area. Neuro oriented x3, CN's II-XII intact bilaterally and moves all extremities Psych mental status grossly normal Appearance: appropriate Debridement Note Debridement Note Post-Debridement Measurements and Additional Note: Post-Debridement Measurements/Treatment WC - Nurse 1 - General Ulcer Assessment Start: 04/10/24 14:19 Freq: Status: Active Protocol: TATUM Activity Type Activity Date Activity User E-sign Co-sign Detail Recorded Client Recorded Date Recorded By Document 04/10/24 14:20 KW [id number] 04/10/24 14:30 KW Document 04/24/24 14:06 DL [id number] 04/24/24 14:12 DL 04/10/24 04/24/24 14:20 14:06 - Today's Visit Information Type of service Follow-up Visit Follow-up Visit (Physician/RESEARCH PROFESSIONAL (Physician/RESEARCH PROFESSIONAL ) ) Arrival Mode Ambulatory, Ambulatory, Walker Walker Transfer Assistance None Patient Identification Verified (Name & Yes Yes ) Patient Requires Transmission-Based No Precautions Height and Weight Height 5 ft 8 in Weight 297 lb Weight in Pounds 297.0 lbs Weight Measurement Method Estimated by Patient Body Mass Index (BMI) 45.1 45.1 BMI Classification Obese Obese BSA - Beth 2.42 Vital Signs Temperature (97.8 F-99.1 F) 96.6 F L 98.2 F Temperature Source Temporal Temporal Pulse Rate (60-100) 63 71 Pulse Location Monitor Monitor Respiratory Rate (12-18) 18 22 H Respiratory rate source Observation Observation Oxygen Delivery Method Room Air Blood Pressure (90/60-120/80) 150/60 H 139/73 H Blood Pressure Mean (mm Hg) 90 95 Source Monitor Monitor Position Semi-Fowlers Blood Pressure Location Right Forearm History Since Last Visit- (Skip if this is Patient's initial visit) Have you changed medications since your No last visit? Any new allergies or adverse reactions No Had a fall/change in ADL's that may No increase risk of falls Signs or symptoms of abuse and/or No neglect since last visit Have you been in the hospital since your No last visit? Has dressing in place as prescribed Yes Has compression in place as prescribed Yes Has offloadiing in place as prescribed N/A Experienced any changes in pain level or No management Left Footwear Regular Shoe Regular Shoe Right Footwear Regular Shoe Regular Shoe Pain Scale: 0-10 Numeric Is Patient Pain Free? Yes Yes - Nurse 1 - General Ulcer Measurement Start: 04/10/24 14:19 Freq: Status: Active Protocol: Activity Type Activity Date Activity User E-sign Co-sign Detail Recorded Client Recorded Date Recorded By Document 04/10/24 14:20 KW [id number] 04/10/24 14:30 KW Document 04/24/24 14:06 DL [id number] 04/24/24 14:12 DL 04/10/24 04/24/24 14:20 14:06 Wound Center Nurse 1 #3 RT ANTERIOR ANKLE -Current Size (cm) - Length 0.1 0.1 -Current Size (cm) - Width 0.1 0.1 -Current Size (cm) - Depth 0.1 0.1 -Total Square Cm 0.01 0.01 -Photo Taken Yes -Exudate Amt None Present Small -Exudate Type Serous -Wound Margin Distinct, Outline Attached -Granulation Amt Small (1-33%) -Granulation Quality [place] -Necrosis Amt None Present (0 %) -Structure Exposed N/A -Texture (Allie-wound Skin Appearance) Assessed Scarring -Moisture (Allie-wound Skin Appearance) Assessed No Abnormality -Color (Allie-wound Skin Appearance) Assessed Hemosiderin Staining -Temperature (Allie-wound Skin No Abnormality No Abnormality Appearance) (Pt Warm) (Pt Warm) -Tenderness on Palpation (Allie-wound No No Skin Appearance) -Ulcer Cleansing Rinsed/ Irrigated with Saline -Foul Odor after Cleansing No -Anesthetic Used 5% Lidocaine Gel Right Calf (cm) 67 67 Right Ankle (cm) 41 42 Left Calf (cm) 67 66.5 Left Ankle (cm) 40 38.6 WC - Nurse 2 - General Ulcer CM Notes Start: 04/10/24 14:19 Freq: Status: Active Protocol: Activity Type Activity Date Activity User E-sign Co-sign Detail Recorded Client Recorded Date Recorded By Document 04/10/24 14:46 GM [id number] 04/10/24 14:54 Document 04/24/24 14:41 [id number] 04/24/24 14:42 04/10/24 04/24/24 14:46 14:41 Wound Center Nurse 2 #3 RT ANTERIOR ANKLE -Time 14:50 14:41 -Correct Patient Yes Yes -Correct Side, Site, Position Yes Yes -Wound/Ulcer Outcome Healed- Epithelialized -Wound Comment(s) Not currently open Pain Scale: 0-10 Numeric Is Patient Pain Free? Yes Yes - Nurse 3 - General Ulcer D/C NN Start: 04/10/24 14:19 Freq: Status: Active Protocol: Activity Type Activity Date Activity User E-sign Co-sign Detail Recorded Client Recorded Date Recorded By Document 04/10/24 15:50 KW [id number] 04/10/24 15:50 KW Document 04/24/24 15:06 KW [id number] 04/24/24 15:08 KW 04/10/24 04/24/24 15:50 15:06 Wound Care Center Nurse 3 #3 RT ANTERIOR ANKLE -Ulcer Cleansing Rinsed/ Irrigated with Saline -Other Dressing Padding BLE -Multi-Layered Wrap Application Multi-Layer Comp - Bilat ($ ) -Compression Wrap Mario Wrap Treatment Response Procedure Tolerated Well Pain Scale: 0-10 Numeric Is Patient Pain Free? Yes Yes WC - Visit Discharge Discharge Condition Stable Stable Ambulatory Status Ambulatory, Ambulatory Walker Transportation Private Auto Private Auto Medication Reconcilliation completed & No provided to patient/care provider Clinical Summary of Care Provided Yes Assessment/Plan Assessment/Plan (1) Lymphedema: CODE(S): I89.0 - Lymphedema, not elsewhere classified (2) Morbid obesity: CODE(S): E66.01 - Morbid (severe) obesity due to excess calories (3) Type 2 diabetes mellitus with peripheral neuropathy: CODE(S): E11.42 - Type 2 diabetes mellitus with diabetic polyneuropathy (4) Chronic kidney disease, stage 3b: CODE(S): N18.32 - Chronic kidney disease, stage 3b (5) Lipedema of lower extremity: CODE(S): R60.0 - Localized edema (6) Bilateral lower extremity edema: CODE(S): R60.0 - Localized edema PLAN: Plan Patient evaluated at the wound healing center today. She has significant swelling of her bilateral lower legs. Her feet have minimal edema edema. She has a history of lymphedema. Reviewed her arterial and venous studies from 04/22/2024. She has multiple areas with incompetence in the venous system. I we will refer her to Dr. Mott for further evaluation of her vascular studies. For compression we will start 3M 2 layer wraps. She will come in on Monday to have this changed. Place an ABD pad over her anterior ankle crease to help pad it from the compression wraps. Instructed patient that she needs to start to wear her lymphedema pumps daily. Instructed that she keep her legs elevated when she is sitting. Encouraged her to sleep in a bed and not a recliner. Suspect that she not only has lymphedema but also has lipedema since her feet are not swollen. She will follow up on Monday for nurse visit. She will follow-up with me in 1 week. If she is tolerating her 3M 2 layer wraps, she will be seen weekly to have them changed.
== END 2024-04-25 23:59 | disposition home or self-care (01) ==
LOC: WC 14:00
PROVIDERS: PCP Internal Medicine; Referring Provider Internal Medicine; Visit Provider Nurse Practitioner Family
DX: I83.893 Varicose veins of bilateral lower extremities with other complications (principal); E66.01 Morbid (severe) obesity due to excess calories; Z68.42 Body mass index [BMI] 45.0-49.9, adult; E11.42 Type 2 diabetes mellitus with diabetic polyneuropathy; E11.22 Type 2 diabetes mellitus with diabetic chronic kidney disease; Z79.4 Long term (current) use of insulin; E11.51 Type 2 diabetes mellitus with diabetic peripheral angiopathy without gangrene; N18.32 Chronic kidney disease, stage 3b; I89.0 Lymphedema, not elsewhere classified; I12.9 Hypertensive chronic kidney disease with stage 1 through stage 4 chronic kidney disease, or unspecified chronic kidney disease; Z79.01 Long term (current) use of anticoagulants; E78.5 Hyperlipidemia, unspecified; R60.0 Localized edema; E03.9 Hypothyroidism, unspecified; Z79.899 Other long term (current) drug therapy; Z79.890 Hormone replacement therapy; Z86.718 Personal history of other venous thrombosis and embolism; Z79.84 Long term (current) use of oral hypoglycemic drugs
CPT/HCPCS: 29581; 93923; 93970; 99213; G0463

== ENCOUNTER 2024-05-08 15:00 | Outpatient (RCR) | payer MEDICARE, SELFPAY ==
[2024-04-26 00:52] VITALS: BP 139/73; PULSE 71; RESP 22; TEMP 36.8; BMI 45.1
[2024-05-01 14:14] VITALS: BP 135/79; PULSE 64; RESP 18; TEMP 35.9; BMI 45.1
--- NOTE | 2024-05-01 16:59 | PN.PCM_ITS ---
History of Present Illness Date of Service: 05/01/24 Chief Complaint: Bilateral lower extremity lymphedema History of Wound: Patient presents to the wound care center today on 04/10/24 for evaluation for bilateral lower extremity edema/lymphedema. She has seen Dr. Castañeda in the past for an ulcer on her left foot. She has lymphedema pumps that she has not been using. She also has not been wearing her compression lately. She states that when she wears her compressing that it is putting pressure on her right anterior ankle and causing a sore area. The skin is still intact, there is no wound or ulcer. She states that her legs both feel very heavy, especially with ambulation. She stopped using her lymphedema pumps due to having issue with her bladder. She states that once she starts using the pumps she needs to go to the bathroom. Arterial study done 04/22/24 - Triphasic Doppler waveforms are noted at ankle level bilaterally. Pulse-volume recordings appear satisfactory at ankle and digital level bilaterally. Ankle-brachial indices could not be determined on either side due to the non-compressibility of the vasculature at ankle level bilaterally. Digital-brachial indices are normal bilaterally. The right ankle brachial index by the dorsalis pedis is NC. The right digital-brachial index is 0.80. The left ankle brachial index by the dorsalis pedis is NC. The left digital-brachial index is 0.79. There is no evidence of significant arterial occlusive disease in the lower extremities bilaterally. Limitations were encountered in this study due to the patient's body habitus. Venous study done 04/22/24 - Chronic venous changes are noted in the right femoral vein, popliteal vein, and tibio-peroneal trunk, which are partially compressible. There is no evidence of left lower extremity deep vein thrombosis. Deep veins in the calf were not visualized bilaterally due to lymphedema and the patient's body habitus. The right great saphenous vein is incompetent below the knee. The left great saphenous vein is incompetent below the knee. Small saphenous veins are patent and incompetent bilaterally. The accessory saphenous vein in the right mid-thigh is incompetent. The accessory saphenous vein at left knee level is incompetent. The accessory saphenous vein in the left proximal calf is incompetent. The accessory saphenous vein in the left distal calf is incompetent. Progress of Wound: Bilateral lower legs with significant edema/lymphedema. Her bilateral feet currently do not have any edema present. She does has +2 pedal pulses. She tolerated the 3M 2 layer compression wraps well. She has been using her lymphedema pumps at home at least once a day for an hour. She states that the 3M wraps do feel good on. She feels like that her swelling has decreased a little bit. Objective Data Objective Data Vital Signs: Vital Signs Temp Pulse Resp BP O2 Del Method 96.7 F L 64 18 135/79 H Room Air 05/01/24 14:14 05/01/24 14:14 05/01/24 14:14 05/01/24 14:14 05/01/24 14:14 Oxygen Delivery Method Room Air Weight: 297 lb Body Mass Index (BMI) 45.1 Charges/Coding Visit Charges Office Visits / Consults: 31972 OV L3 Est 20min Physical Exam Const alert and oriented x3 General Appearance: cooperative and well kempt HEENT normocephalic Head and Scalp: atraumatic Eyes General Eye: normal appearance of both eyes Neck full ROM Lymph Lymphatic: lymphedema severe and pitting Resp normal respiratory effort and normal air movement Effort and Inspection: able to speak in complete sentences Cardio regular rate Back/Spine normal ROM Extremity normal capillary refill Extremity Narrative: Bilateral pedal pulses palpable. Feet with no edema. Bilateral lower legs with significant +3 edema/lymphedema. Skin no wounds Neuro oriented x3, CN's II-XII intact bilaterally and moves all extremities Psych mental status grossly normal Appearance: appropriate Debridement Note Debridement Note Post-Debridement Measurements and Additional Note: Post-Debridement Measurements/Treatment - Nurse 1 - General Ulcer Assessment Start: 05/01/24 14:13 Freq: Status: Active Protocol: TATUM Activity Type Activity Date Activity User E-sign Co-sign Detail Recorded Client Recorded Date Recorded By Document 05/01/24 14:14 KW [id number] 05/01/24 14:28 KW 05/01/24 14:14 - Today's Visit Information Type of service Follow-up Visit (Physician/INSURANCE CLAIMS SUPERVISOR ) Arrival Mode Ambulatory, Walker Accompanied by Patient Identification Verified (Name & Yes ) Height and Weight Body Mass Index (BMI) 45.1 BMI Classification Obese Vital Signs Temperature (97.8 F-99.1 F) 96.7 F L Temperature Source Temporal Pulse Rate (60-100) 64 Pulse Location Monitor Respiratory Rate (12-18) 18 Respiratory rate source Observation Oxygen Delivery Method Room Air Blood Pressure (90/60-120/80) 135/79 H Blood Pressure Mean (mm Hg) 97 Source Monitor Position Sitting Blood Pressure Location Left Arm History Since Last Visit- (Skip if this is Patient's initial visit) Have you changed medications since your No last visit? Any new allergies or adverse reactions No Had a fall/change in ADL's that may No increase risk of falls Signs or symptoms of abuse and/or No neglect since last visit Have you been in the hospital since your No last visit? Has dressing in place as prescribed Yes Has compression in place as prescribed Yes Has offloadiing in place as prescribed N/A Experienced any changes in pain level or No management Left Footwear Regular Shoe Right Footwear Regular Shoe Pain Scale: 0-10 Numeric Is Patient Pain Free? Yes WC - Nurse 1 - General Ulcer Measurement Start: 05/01/24 14:13 Freq: Status: Active Protocol: Activity Type Activity Date Activity User E-sign Co-sign Detail Recorded Client Recorded Date Recorded By Document 05/01/24 14:14 [id number] 05/01/24 14:28 05/01/24 14:14 Wound Center Nurse 1 #3 RT ANTERIOR ANKLE -Current Size (cm) - Length 0.1 -Current Size (cm) - Width 0.1 -Current Size (cm) - Depth 0 -Total Square Cm 0.01 -Texture (Allie-wound Skin Appearance) Assessed -Moisture (Allie-wound Skin Appearance) Assessed -Color (Allie-wound Skin Appearance) Assessed -Temperature (Allie-wound Skin No Abnormality Appearance) (Pt Warm) -Tenderness on Palpation (Allie-wound No Skin Appearance) -Foul Odor after Cleansing No Right Calf (cm) 61.2 Right Ankle (cm) 39 Left Calf (cm) 61 Left Ankle (cm) 38.5 WC - Nurse 2 - General Ulcer CM Notes Start: 05/01/24 14:13 Freq: Status: Active Protocol: Activity Type Activity Date Activity User E-sign Co-sign Detail Recorded Client Recorded Date Recorded By Document 05/01/24 15:05 [id number] 05/01/24 15:06 05/01/24 15:05 Pain Scale: 0-10 Numeric Is Patient Pain Free? Yes WC - Nurse 3 - General Ulcer D/C NN Start: 05/01/24 14:13 Freq: Status: Active Protocol: Activity Type Activity Date Activity User E-sign Co-sign Detail Recorded Client Recorded Date Recorded By Document 05/01/24 15:40 DL [id number] 05/01/24 15:41 DL 05/01/24 15:40 Wound Care Center Nurse 3 Allie-Wound Care Lotion BLE -Multi-Layered Wrap Application Multi-Layer Comp - Bilat ($ ) Treatment Response Procedure Tolerated Well Pain Scale: 0-10 Numeric Is Patient Pain Free? Yes WC - Visit Discharge Discharge Condition Stable Ambulatory Status Ambulatory, Walker Transportation Private Auto Facility Type Home Health Orders Sent Yes Assessment/Plan Assessment/Plan (1) Lymphedema: CODE(S): I89.0 - Lymphedema, not elsewhere classified (2) Morbid obesity: CODE(S): E66.01 - Morbid (severe) obesity due to excess calories (3) Type 2 diabetes mellitus with peripheral neuropathy: CODE(S): E11.42 - Type 2 diabetes mellitus with diabetic polyneuropathy (4) Chronic kidney disease, stage 3b: CODE(S): N18.32 - Chronic kidney disease, stage 3b (5) Lipedema of lower extremity: CODE(S): R60.0 - Localized edema (6) Bilateral lower extremity edema: CODE(S): R60.0 - Localized edema PLAN: Plan Patient evaluated at the wound healing center today. She has swelling of her bilateral lower legs, which has slightly improve with the 3M 2layer wraps. Her feet have minimal edema edema. She has a history of lymphedema. She was referred to Dr. Mott for further evaluation of her vascular studies. For compression we will continue 3M [address] an ABD pad over her anterior ankle crease to help pad it from the compression wraps. She tolerated them well. She can go a week with them in place. I did instruct her that if the wraps become loose then she should make a nurse visit to have them changed. Continue to wear her lymphedema pumps daily. Instructed that she keep her legs elevated when she is sitting. Encouraged her to sleep in a bed and not a recliner. Suspect that she not only has lymphedema but also has lipedema since her feet are not swollen. She will follow-up with me in 1 week.
--- NOTE | 2024-05-02 11:12 | WC ---
PHOTO 05/01/2024 BLE EDEMA
[2024-05-08 15:11] VITALS: BP 161/53; PULSE 70; RESP 18; TEMP 36.3; BMI 45.1
--- NOTE | 2024-05-08 16:13 | PN.PCM_ITS ---
History of Present Illness Date of Service: 05/08/24 Chief Complaint: Bilateral lower extremity lymphedema History of Wound: Patient presents to the wound care center today on 04/10/24 for evaluation for bilateral lower extremity edema/lymphedema. She has seen Dr. Castañeda in the past for an ulcer on her left foot. She has lymphedema pumps that she has not been using. She also has not been wearing her compression lately. She states that when she wears her compressing that it is putting pressure on her right anterior ankle and causing a sore area. The skin is still intact, there is no wound or ulcer. She states that her legs both feel very heavy, especially with ambulation. She stopped using her lymphedema pumps due to having issue with her bladder. She states that once she starts using the pumps she needs to go to the bathroom. Arterial study done 04/22/24 - Triphasic Doppler waveforms are noted at ankle level bilaterally. Pulse-volume recordings appear satisfactory at ankle and digital level bilaterally. Ankle-brachial indices could not be determined on either side due to the non-compressibility of the vasculature at ankle level bilaterally. Digital-brachial indices are normal bilaterally. The right ankle brachial index by the dorsalis pedis is NC. The right digital-brachial index is 0.80. The left ankle brachial index by the dorsalis pedis is NC. The left digital-brachial index is 0.79. There is no evidence of significant arterial occlusive disease in the lower extremities bilaterally. Limitations were encountered in this study due to the patient's body habitus. Venous study done 04/22/24 - Chronic venous changes are noted in the right femoral vein, popliteal vein, and tibio-peroneal trunk, which are partially compressible. There is no evidence of left lower extremity deep vein thrombosis. Deep veins in the calf were not visualized bilaterally due to lymphedema and the patient's body habitus. The right great saphenous vein is incompetent below the knee. The left great saphenous vein is incompetent below the knee. Small saphenous veins are patent and incompetent bilaterally. The accessory saphenous vein in the right mid-thigh is incompetent. The accessory saphenous vein at left knee level is incompetent. The accessory saphenous vein in the left proximal calf is incompetent. The accessory saphenous vein in the left distal calf is incompetent. Progress of Wound: Bilateral lower legs with significant edema/lymphedema. Her bilateral feet currently do not have any edema present. She does has +2 pedal pulses. She tolerated the 3M 2 layer compression wraps well. She has been using her lymphedema pumps at home at least once a day for an hour. She states that the 3M wraps do feel good on. She feels like that her swelling has decreased a little bit. Objective Data Objective Data Vital Signs: Vital Signs Temp Pulse Resp BP O2 Del Method 97.3 F L 70 18 161/53 H Room Air 05/08/24 15:11 05/08/24 15:11 05/08/24 15:11 05/08/24 15:11 05/08/24 15:11 Oxygen Delivery Method Room Air Weight: 297 lb Body Mass Index (BMI) 45.1 Charges/Coding Visit Charges Office Visits / Consults: 69000 OV L3 Est 20min Physical Exam Const alert and oriented x3 General Appearance: cooperative and well kempt HEENT normocephalic Head and Scalp: atraumatic Eyes General Eye: normal appearance of both eyes Neck full ROM Lymph Lymphatic: lymphedema severe and pitting Resp normal respiratory effort, normal air movement and clear to auscultation bilaterally Effort and Inspection: able to speak in complete sentences Cardio regular rate Back/Spine normal ROM Extremity normal capillary refill Extremity Narrative: Bilateral pedal pulses palpable. Feet with no edema. Bilateral lower legs with significant +3 edema/lymphedema. Skin no wounds Neuro oriented x3, CN's II-XII intact bilaterally and moves all extremities Psych mental status grossly normal Appearance: appropriate Debridement Note Debridement Note Post-Debridement Measurements and Additional Note: Post-Debridement Measurements/Treatment - Nurse 1 - General Ulcer Assessment Start: 05/01/24 14:13 Freq: Status: Active Protocol: [email or web address] Activity Type Activity Date Activity User E-sign Co-sign Detail Recorded Client Recorded Date Recorded By Document 05/01/24 14:14 KW [id number] 05/01/24 14:28 KW Document 05/08/24 15:11 KW [id number] 05/08/24 15:15 KW 05/01/24 05/08/24 14:14 15:11 - Today's Visit Information Type of service Follow-up Visit Follow-up Visit (Physician/MAIL PROCESSING ASSOCIATE (Physician/MAIL PROCESSING ASSOCIATE ) ) Arrival Mode Ambulatory, Ambulatory, Walker Walker Accompanied by Patient Identification Verified (Name & Yes Yes ) Height and Weight Body Mass Index (BMI) 45.1 45.1 BMI Classification Obese Obese Vital Signs Temperature (97.8 F-99.1 F) 96.7 F L 97.3 F L Temperature Source Temporal Temporal Pulse Rate (60-100) 64 70 Pulse Location Monitor Monitor Respiratory Rate (12-18) 18 18 Respiratory rate source Observation Observation Oxygen Delivery Method Room Air Room Air Blood Pressure (90/60-120/80) 135/79 H 161/53 H Blood Pressure Mean (mm Hg) 97 89 Source Monitor Monitor Position Sitting Sitting Blood Pressure Location Left Arm Left Arm History Since Last Visit- (Skip if this is Patient's initial visit) Have you changed medications since your No No last visit? Any new allergies or adverse reactions No No Had a fall/change in ADL's that may No No increase risk of falls Signs or symptoms of abuse and/or No No neglect since last visit Have you been in the hospital since your No No last visit? Has dressing in place as prescribed Yes Yes Has compression in place as prescribed Yes Yes Has offloadiing in place as prescribed N/A N/A Experienced any changes in pain level or No No management Left Footwear Regular Shoe Regular Shoe Right Footwear Regular Shoe Regular Shoe Pain Scale: 0-10 Numeric Is Patient Pain Free? Yes Yes WC - Nurse 1 - General Ulcer Measurement Start: 05/01/24 14:13 Freq: Status: Active Protocol: Activity Type Activity Date Activity User E-sign Co-sign Detail Recorded Client Recorded Date Recorded By Document 05/01/24 14:14 [id number] 05/01/24 14:28 Document 05/08/24 15:11 [id number] 05/08/24 15:15 KW 05/01/24 05/08/24 14:14 15:11 Wound Center Nurse 1 #3 RT ANTERIOR ANKLE -Current Size (cm) - Length 0.1 -Current Size (cm) - Width 0.1 -Current Size (cm) - Depth 0 -Total Square Cm 0.01 -Texture (Allie-wound Skin Appearance) Assessed -Moisture (Allie-wound Skin Appearance) Assessed -Color (Allie-wound Skin Appearance) Assessed -Temperature (Allie-wound Skin No Abnormality Appearance) (Pt Warm) -Tenderness on Palpation (Allie-wound No Skin Appearance) -Foul Odor after Cleansing No Right Calf (cm) 61.2 67.1 Right Ankle (cm) 39 37.9 Left Calf (cm) 61 65 Left Ankle (cm) 38.5 37.1 - Nurse 2 - General Ulcer CM Notes Start: 05/01/24 14:13 Freq: Status: Active Protocol: Activity Type Activity Date Activity User E-sign Co-sign Detail Recorded Client Recorded Date Recorded By Document 05/01/24 15:05 [id number] 05/01/24 15:06 Document 05/08/24 15:38 GM [id number] 05/08/24 15:39 05/01/24 05/08/24 15:05 15:38 Pain Scale: 0-10 Numeric Is Patient Pain Free? Yes Yes - Nurse 3 - General Ulcer D/C NN Start: 05/01/24 14:13 Freq: Status: Active Protocol: Activity Type Activity Date Activity User E-sign Co-sign Detail Recorded Client Recorded Date Recorded By Document 05/01/24 15:40 DL [id number] 05/01/24 15:41 DL Document 05/08/24 15:48 [id number] 05/08/24 15:48 BM 05/01/24 05/08/24 15:40 15:48 Wound Care Center Nurse 3 Allie-Wound Care Lotion BLE -Multi-Layered Wrap Application Multi-Layer Multi-Layer Comp - Bilat ($ Comp - Bilat ($ ) ) -Other abd pad to dorsum of foot prior to wrap Treatment Response Procedure Procedure Tolerated Well Tolerated Well Pain Scale: 0-10 Numeric Is Patient Pain Free? Yes Yes - Visit Discharge Discharge Condition Stable Stable Ambulatory Status Ambulatory, Ambulatory, Walker Walker Transportation Private Auto Private Auto Accompanied by Facility Type Home Health Orders Sent Yes Assessment/Plan Assessment/Plan (1) Lymphedema: CODE(S): I89.0 - Lymphedema, not elsewhere classified (2) Morbid obesity: CODE(S): E66.01 - Morbid (severe) obesity due to excess calories (3) Type 2 diabetes mellitus with peripheral neuropathy: CODE(S): E11.42 - Type 2 diabetes mellitus with diabetic polyneuropathy (4) Chronic kidney disease, stage 3b: CODE(S): N18.32 - Chronic kidney disease, stage 3b (5) Lipedema of lower extremity: CODE(S): R60.0 - Localized edema (6) Bilateral lower extremity edema: CODE(S): R60.0 - Localized edema PLAN: Plan Patient evaluated at the wound healing center today. She has swelling of her bilateral lower legs, which has slightly improve with the 3M 2layer wraps. Her feet have minimal edema edema. She has a history of lymphedema. She is scheduled to see Dr. Mott for further evaluation of her vascular studies on June 03, 2024. For compression we will continue 3M [address] an ABD pad over her anterior ankle crease to help pad it from the compression wraps. She tolerated them well. She can go a week with them in place. I did instruct her that if the wraps become loose then she should make a nurse visit to have them changed. Continue to wear her lymphedema pumps daily. Instructed that she keep her legs elevated when she is sitting. Encouraged her to sleep in a bed and not a recliner. Suspect that she not only has lymphedema but also has lipedema since her feet are not swollen. She will follow-up 1 week for nurses visit to have her 3M 2 layer wraps changed. 2 weeks to see me.
== END 2024-05-25 23:59 | disposition home or self-care (01) ==
LOC: WC 15:00
PROVIDERS: PCP Internal Medicine; Referring Provider Internal Medicine; Visit Provider Nurse Practitioner Family
DX: I89.0 Lymphedema, not elsewhere classified (principal); E66.01 Morbid (severe) obesity due to excess calories; Z68.42 Body mass index [BMI] 45.0-49.9, adult; E11.22 Type 2 diabetes mellitus with diabetic chronic kidney disease; E11.42 Type 2 diabetes mellitus with diabetic polyneuropathy; N18.32 Chronic kidney disease, stage 3b; R60.0 Localized edema
CPT/HCPCS: 29581; 99213; G0463